=== PATIENT | female | born 1940 | race Caucasian/White ===

== ENCOUNTER 2022-08-10 08:56 | Outpatient (OUT) | payer MEDICARE, OTHER, SELFPAY ==
--- NOTE | 2022-08-10 09:05 | XR_ITS ---
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 HISTORY: Primary Ovarian Failure E28.39 FINDINGS: Bone mineral density of the lumbar spine L2-L4 measures 1.039 g/sq cm. T score -1.3. WHO classification: Osteopenia. Lowest bone mineral densities the left femoral neck measuring 0.728 g/sq cm. T score -2.2. WHO classification: Osteopenia IMPRESSION: Osteopenia. Moderate fracture risk Electronically authenticated by: BRANDYN GUADALUPE Date: 08/10/2022 09:37
== END 2022-08-10 08:57 ==
LOC: RAD 08:56
PROVIDERS: PCP Family Medicine; Visit Provider Family Medicine
DX: E28.39 Other primary ovarian failure (principal); M85.80 Other specified disorders of bone density and structure, unspecified site
CPT/HCPCS: 77080

== ENCOUNTER 2022-10-15 08:47 | Outpatient (OUT) | payer MEDICARE, OTHER, SELFPAY ==
[2022-10-15 09:55] LABS: Free T3 2.37 pg/mL (2.18-3.98); Thyroid Stimulating Hormone 0.216 uIU/mL (0.358-3.740)
== END 2022-10-15 08:48 | disposition home or self-care (01) ==
LOC: LAB 08:51
PROVIDERS: PCP Family Medicine; Visit Provider Family Medicine
DX: E03.9 Hypothyroidism, unspecified (principal)
CPT/HCPCS: 36415; 84436; 84443; 84481

== ENCOUNTER 2023-01-22 08:32 | Outpatient (OUT) | payer MEDICARE, OTHER, SELFPAY | END 2023-01-22 08:33 | disposition home or self-care (01) | LOC: PST 08:32 | PROVIDERS: PCP Family Medicine; Visit Provider Surgery | DX: Z01.818 Encounter for other preprocedural examination (principal); Q18.1 Preauricular sinus and cyst ==

== ENCOUNTER 2023-01-23 10:00 | Day surgery (SDC) | payer MEDICARE, OTHER, SELFPAY ==
--- NOTE | 2023-01-23 | OP_ITS ---
OPERATION DATE: ??01/23/2023 PREOPERATIVE DIAGNOSIS:? Enlarging epidermal cyst left preauricular area. POSTOPERATIVE DIAGNOSIS:? Enlarging epidermal cyst left preauricular area. PROCEDURE:? Excisional biopsy epidermal cyst left preauricular face. SURGEON:? Jr Cabello M.D. ANESTHESIA:? Local with 0.5% Marcaine plain. ESTIMATED BLOOD LOSS:? Less than 3 mL. INDICATIONS AND CONSENT:? Patient is an 82-year-old female with history of enlarging cyst in the left preauricular area.? ?Indications, risks, benefits, alternatives of proceeding with excisional biopsy under local anesthesia were explained extensively to the patient, including risks of bleeding, infection, scarring, pain, recurrence, need for further surgery.? All of her questions were answered.? Informed consent was obtained. PROCEDURE:? Patient brought to the procedure room, placed in the supine position.? The area was prepped and draped in the usual sterile fashion.? It was anesthetized with 0.5% Marcaine plain.? An oblique incision was made over the long axis of the lesion in the area of the skin crease and carried down through subcutaneous tissue, using sharp dissection.? The cyst was identified and freed up and sent off to Pathology.? It was approximately 1 cm in diameter.? The wound was irrigated.? The subcutaneous tissue was re-approximated with interrupted 4-0 Monocryl suture.? Skin was then closed with interrupted 5-0 subcuticular Monocryl sutures and skin glue.? Patient tolerated procedure well.? There was good hemostasis.? She was discharged home in good condition. She is to follow up in 7-10 days.? Call sooner with any problems or questions.? She is to take Tylenol or ibuprofen as needed for pain. CC:? Mike Robles M.D. [facility]
[2023-01-23 10:22] VITALS: BP 125/80; PULSE 85; RESP 18; TEMP 36.2; O2SAT 98
[2023-01-23 11:24] VITALS: BP 130/76; PULSE 79; RESP 18; O2SAT 92
[2023-01-23] MEDS: BUPIVACAINE HCL 0.5% PF 50 MG/10 ML VIAL INJ (11:34)
[2023-01-23 11:42] VITALS: BP 133/83; PULSE 69; RESP 18; O2SAT 95
== END 2023-01-23 11:47 | disposition home or self-care (01) ==
PROVIDERS: PCP Family Medicine; Visit Provider Surgery
PROC: (CPT 11441; principal; 2023-01-23 10:35)
DX: L72.0 Epidermal cyst (principal); I10 Essential (primary) hypertension; E03.9 Hypothyroidism, unspecified; Z87.440 Personal history of urinary (tract) infections; E66.9 Obesity, unspecified; E78.00 Pure hypercholesterolemia, unspecified; N26.1 Atrophy of kidney (terminal); K21.9 Gastro-esophageal reflux disease without esophagitis; Z68.30 Body mass index [BMI] 30.0-30.9, adult
CPT/HCPCS: 11441; 12051; 88304

== ENCOUNTER 2023-02-27 08:22 | Outpatient (OUT) | payer MEDICARE, OTHER, SELFPAY ==
--- OUTSIDE RECORDS SUMMARY | 2023-02-27 08:28 | XMS_ITS | CCD ---
Author Name Unknown Address [address] [place] [address] Organization [facility] Care Team Providers Care Safekeeping Clerk Name Role Phone Frances Robles MD Primary Care Provider [phone] Frances Robles Primary Care Physician ROVERTO, DR PEREZ Admitting Unavailable AHMED, DR PREEZ Attending Unavailable HOY ., DR DANIELS Primary Care Unavailable [facility], DR PHILLIP Engel Consulting Unavailable AHMED, DR PEREZ Consulting Unavailable HOY ., DR DANIELS Admitting Unavailable HOY ., DR DANIELS Attending Unavailable HOY ., DR DANIELS Primary Care Unavailable HOY ., DR DANIELS Admitting Unavailable HOY ., DR DANIELS Attending Unavailable HOY ., DR DANIELS Primary Care Unavailable HOY ., DR DANIELS Admitting Unavailable HOY ., DR DANIELS Attending Unavailable HOY ., DR DANIELS Primary Care Unavailable HOY ., DR DANIELS Consulting Unavailable HOY ., DR DANIELS Admitting Unavailable HOY ., DR DANIELS Attending Unavailable HOY ., DR DANIELS Primary Care Unavailable HOY ., DR DANIELS Consulting Unavailable AHMED, DR PEREZ Admitting Unavailable AHMED, DR PEREZ Attending Unavailable HOY ., DR DANIELS Primary Care Unavailable FREELAND, DR BRANDYN Yousif Consulting Unavailable AHMED, DR PEREZ Consulting Unavailable HOY ., DR DANIELS Admitting Unavailable HOY ., DR DANIELS Attending Unavailable HOY ., DR DANIELS Primary Care Unavailable HOY ., DR DANIELS Consulting Unavailable HOY ., DR DANIELS Admitting Unavailable HOY ., DR DANIELS Attending Unavailable HOY ., DR DANIELS Primary Care Unavailable HOY ., DR DANIELS Consulting Unavailable HOY ., DR DANIELS Admitting Unavailable HOY ., DR DANIELS Attending Unavailable HOY ., DR DANIELS Primary Care Unavailable TRAVIS Cabral, DR DANIELS Consulting Unavailable TRAVIS ., DR DANIELS Admitting Unavailable TRAVIS Cabral, DR DANIELS Attending Unavailable TRAVIS ., DR DANIELS Primary Care Unavailable TRAVIS ., DR DANIELS Consulting Unavailable DAISY ODELL Attending Unavailable NICHOLSNash Attending Unavailable NICHOLSNash Attending Unavailable NICHOLS, Nash Engel Attending Unavailable NICHOLS, Nash Engel Attending Unavailable Nash NICHOLS Admitting Unavailable Frances Robles Referring Unavailable Jr BAKER Attending Unavailable NILL, Jr Engel Attending Unavailable Allergies Allergy Classification Reported Allergen(s) Allergy Type Date of Onset Reaction(s) Facility (9 sources) Acetaminophen / oxyCODONE; Translations: [acetaminophen-ox ycodone] Drug Allergy [address] [facility] (4 sources) meloxicam Drug Allergy [address] [facility] (4 sources) Sulfonamides (Antibiotic) Propensity to adverse reactions [address] [facility] (8 sources) Cephalexin; Translations: [cephalexin] Drug Allergy 2 Diarrhea, Vomiting (disorder) [facility] (6 sources) Sulfamethoxazole; Translations: [sulfamethoxazole ] Drug Allergy Weal (disorder) [facility] (2 sources) Sulfonamides (Antibiotic) Drug allergy (disorder) 3 [facility] (1 source) Acetaminophen / oxyCODONE; Translations: [Percocet 10] Drug Allergy [facility] (1 source) Cephalexin; Translations: [Keflex] Drug Allergy [facility] Medications Current Medications Medication Drug Class(es) Dates Sig (Normalized) Sig (Original) aspirin 81 mg delayed release oral tablet (8 sources) Platelet Aggregation Inhibitor, Nonsteroidal Anti-inflammatory Drug Start: 04-24-2021 take 1 mg by mouth once daily aspirin 81 mg Oral EC Tab mg tab(s), Oral, Daily, Refills(s) 0 Start Date: 04/24/21 Status: Ordered aspirin 81 mg ca p Take 81 mg by mouth. 0 Active Comment on above: Take 81 mg by mouth. Calcium (5 sources) Phosphate Binder, Calcium Start: 02-22-20 10 Calcium 600 D Tab Oral, TID, Refill(s) 0 Start Date: 02/21/10 Status: Ordered ezetimibe 10 mg oral tablet (9 sources) Dietary Cholesterol Absorption Inhibitor Start: 03-01-19 take 10 mg by mouth once daily Zetia 10 mg, Oral, Daily, Refills(s) 0 Start Date: 02/21/10 Status: Ordered Comment on above: Take one(1) tablet d genevieve. levothyroxine sodium 0.05 mg oral tablet (8 sources) l-Thyroxine Start: 04-24-19 take 1 tablet by mouth once daily levothyroxine 50 mcg (0.05 mg) Tab mcg tab(s), Oral, Daily, Refills(s) 0 Start Date: 04/24/21 Status: Ordered levothyroxine 10 0 mcg cap Take 50 mcg by mouth daily before breakfast. 0 Active Comment on above: Take 50 mcg by mouth daily before breakfast. liothyronine sodium 0.025 mg oral tablet (8 sources) l-Triiodothyronine Start: 12-12-2022 take 1 tablet by mouth once daily Cytomel 25 mcg Tab 25 mcg = 1 tab(s), Oral, Daily, Refills(s) 0 Start Date: 12/12/22 Status: Ordered Start: 04-24-2021 take 1 ug by mouth once daily Cytomel 5 mcg Tab mcg tab(s), Oral, Daily, Refills(s) 0 Start Date: 04/24/21 Status: Ordered take 1 tablet by enrique th once daily liothyronine (CYTOMEL) 25 mcg tablet Take 25 mcg by mouth once daily. 0 Active Comment on above: Take 25 mcg by mouth once daily. 24 hr mirabegron 50 mg extended release oral tablet (8 sources) beta3-Adrenergic Agonist Start: 09-18-2022 take 1 tablet by mouth once daily Myrbetriq 50 mg oral tablet, extended release 50 mg = 1 tab(s), Oral, Daily, # 90 tab(s), Refills(s) 3, Pharmacy: [facility], 157, cm, 04/27/22 8:58:00 EST, Height/Length Dosing, 78, kg, 04/27/22 8:58:00 EST, Weight Dosing Start Date: 09/18/22 Status: Ordered Start: 09-28-2021 take 1 tablet by enrique th once daily Myrbetriq 50 mg oral tablet, extended release 50 mg = 1 tab(s), Oral, Daily, # 90 tab(s), Refills(s) 3, Pharmacy: [facility] (Now [facility]), 157, cm, 04/24/21 10:01:00 EST, Height/Length Dosing, 78, kg, 04/24/21 10:01:00 EST, Weight Dosing Start Date: 09/28/21 Status: Ordered take 50 mg by mouth once daily m irabegron (MYRBETRIQ ORAL) Take 50 mg by mouth once daily. 0 Active Comment on above: Take 50 mg by mouth once daily. olmesartan medoxomil 20 mg oral tablet (8 sources) Angiotensin 2 Receptor Micaela Start: 9 take 1 tablet by mouth once daily Benicar 20 mg Tab 20 mg = 1 tab(s), Oral, Daily, High blood pressure Start Date: 09/05/18 Status: Ordered Comment on above: Take 20 mg by mouth once daily. PreserVision AREDS 2 (2 sources) Start: 3 take 1 tablet by mouth once daily PreserVision AREDS 2 1 tab(s), Oral, Daily, Refill(s) 0 Start Date: 12/12/22 Status: Ordered raloxifene hydrochloride 60 mg oral tablet (9 sources) Estrogen Agonist/Antagonist Start: 9 raloxifene 60 mg oral tablet Refills(s) 0 Start Date: 09/05/18 Status: Ordered Comment on above: Take one(1) tablet d aily. rosuvastatin calcium 20 mg oral tablet (8 sources) HMG-CoA Reductase Inhibitor Start: 9 rosuvastatin 20 mg oral tablet Refills(s) 0 Start Date: 09/05/18 Status: Ordered take 10 mg by mouth once daily r osuvastatin calcium (ROSUVASTATIN ORAL) Take 10 mg by mouth once daily. 0 Active Comment on above: Take 10 mg by mouth once daily. Benefiber (3 sources) Start: 02-21-2010 Benefiber Refi ll(s) 0 Start Date: 02/21/10 Status: Ordered Completed/Discontinued Medications Medication Drug Class(es) Dates Sig (Normalized) Sig (Original) beta-carotene(a) w-c & e/min(OCUVITE TAB) (4 sources) Start: 10-05-2008 beta-carotene(a) w-c & e/min(OCUVITE TAB) Take two (2) tablets in AM 0 10/05/2008 Active Comment on above: Take two (2) tablets in AM calcium carbonate 1500 mg / cholecalciferol 200 unt oral tablet (4 sources) Vitamin D Start: 10-05-2008 calcium carbonate/vitami n d3(CALCIUM 600 + D(3) 600 MG (1,500)-200 UNIT TAB) Take one(1) tablet daily. 0 10/05/2008 Active Comment on above: Take one(1) tablet d aily. lisinopril 10 mg oral tablet (4 sources) Angiotensin Converting Enzyme Inhibitor Start: 10-05-2008 LISINOPRIL 10 MG TAB 2 tabs once a day 0 10/05/2008 Active Comment on above: 2 tabs once a day omega-3 acid ethyl esters (mcc) 1000 mg oral capsule (4 sources) Start: 10-05-2008 omega-3 acid ethyl esters(LOVAZA 1 GRAM CAP) Take four (4) capsules once daily 0 10/05/2008 Active Comment on above: Take four (4) capsul es once daily omeprazole 20 mg delayed release oral capsule (9 sources) Proton Pump Inhibitor Start: 06-13-2021 take 1 capsule by mouth twice daily omeprazole(PRILO SEC 20 MG CAP) Take 20 mg by mouth twice daily. 0 06/13/2021 Active Start: 02-21-2010 take 20 mg by mouth once daily Prilosec 20 mg, Oral, Daily, Refills(s) 0 Start Date: 02/21/10 Status: Ordered Start: 02-21-2010 Prilosec Oral, Daily, Refills(s) 0 Start Date: 02/21/10 Status: Ordered Comment on above: Take 20 mg by mouth twice daily. vit C/E/Zn/coppr/lutein/ze axan (PRESERVISION AREDS-2 ORAL) (3 sources) take 1 tablet by mouth twice daily vit C/E/Zn/coppr/lutein/ zeaxan (PRESERVISION AREDS-2 ORAL) Take 1 tablet by mouth twice daily. 0 Active Comment on above: Take 1 tablet by enrique twice daily. Problems Active Problems Problem Classification Problem Date Documented Da te Episodic/Chronic Anal and rectal conditions (4 sources) Rectal prolapse; Translations: [Rectal prolapse] 03-01-2009 Episodic Disorders of lipid metabolism (3 sources) Hyperlipidemia, unspecified; Translations: [Pure hypercholesterolemia] Onset: 2 12-12-2022 Chronic Esophageal disorders (10 sources) Gastroesophageal reflux disease 08-13-2013 Chronic Essential hypertension (2 sources) Hypertensive disorder 12-12-2022 Chronic Genitourinary symptoms and ill-defined conditions (5 sources) Incontinence without sensory awareness 11-13-2019 Chronic Genitourinary symptoms and ill-defined conditions (20 sources) Sensation as if bladder still full; Translations: [Feeling of incomplete bladder emptying] Onset: 3 Resolved: 9 Episodic Heart valve disorders (5 sources) Heart murmur 08-10-2018 Episodic Menopausal disorders (4 sources) Postmenopausal bleeding; Translations: [POSTMENOPAUSAL BLEEDING] Onset: 2 Chronic Nephritis; nephrosis; renal sclerosis (2 sources) Atrophy of kidney 12-12-2022 Chronic Other and unspecified benign neoplasm (5 sources) Neuroma of foot 05-08-2013 Episodic Other connective tissue disease (1 source) Female pelvic floor dysfunction; Translations: [Other specified disorders of muscle] Episodic Other female genital disorders (2 sources) Cervical intraepithelial neoplasia grade 1 12-12-2022 Episodic Other gastrointestinal disorders (1 source) Incontinence of feces; Translations: [Full incontinence of feces] Episodic Other gastrointestinal disorders (1 source) Complete fecal incontinence; Translations: [Full incontinence of feces] Episodic Other nutritional; endocrine; and metabolic disorders (2 sources) Body mass index 30+ - obesity 12-28-2022 Chronic Other nutritional; endocrine; and metabolic disorders (2 sources) Obesity 12-28-2022 Chronic Other screening for suspected conditions (not mental disorders or infectious disease) (1 source) Abnormal findings on diagnostic imaging of other specified body structures; Translations: [ABNORML FIND DX IMG OTH BODY STRUC] Onset: 2 Chronic Other screening for suspected conditions (not mental disorders or infectious disease) (5 sources) Encounter for screening mammogram for malignant neoplasm of breast; Translations: [Screening for malignant neoplasm of colon done] Onset: 3 Episodic Other skin disorders (2 sources) Epidermoid cyst; Translations: [Epidermal cyst] Onset: 3 Episodic Other skin disorders (2 sources) Epidermoid cyst of skin of face 12-28-2022 Episodic Other skin disorders (2 sources) Sebaceous cyst 12-12-2022 Episodic Other upper respiratory disease (2 sources) Seasonal allergic rhinitis 12-12-2022 Chronic Prolapse of female genital organs (4 sources) 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; Translations: [Urethrocele] 03-01-2009 Chronic Residual codes; unclassified (1 source) Family history of malignant neoplasm of digestive organs; Translations: [FAM HX MALIG NEOPLASM DIGESTIV ORGN] Onset: 3 Episodic Residual codes; unclassified (1 source) Family history of malignant neoplasm of other organs or systems; Translations: [FAM HX MALIG NEOPLASM OTH ORGN/SYS] Onset: 3 Episodic Thyroid disorders (6 sources) Hypothyroidism, unspecified; Translations: [Hypothyroidism] Onset: 3 Chronic Unclassified (5 sources) Finding of sensation of bladder 03-21-2020 Unclassified (2 sources) Osteopenia 12-12-2022 Unclassified (1 source) Patient encounter status 02-06-2023 Past or Other Problems Problem Classification Problem Date Documented Da te Episodic/Chronic Deficiency and other anemia (1 source) Anemia, unspecified; Translations: [ANEMIA UNSPECIFIED] Onset: 01-08-2022 Episodic Syncope (4 sources) Syncope and collapse; Translations: [SYNCOPE AND COLLAPSE] Onset: 01-05-2022 Episodic Results Test Name Value Interpretation Reference Range Facil ity Consent for Procedure/Surger yon 02-08-2023 Consent for Procedure/Surge ry [id number]#1.00T IFF Normal [facility] General Surgery Office/Clini c Noteon 02-06-2023 General Surgery Office/Clinic Note Chief Complaint post operative follow up HPI Staff 14 day post operative follow up post excisional biopsy epidermal cyst left preauricular. Denies discomfort, bleeding or drainage. History of Present Illness 2 weeks s/p excisional biopsy epidermal cyst left preauricular area; doing well, no pain or drainage; pathology consistent with epidermal cyst; patient interested in screening colonoscopy, last 2012, wnl; no change in bms or blood in stools, no abd complaints; no abd operations; on baby asa daily, no NSAID use, no SBE prophylaxis; fmhx of colon cancer in patient's father, dx in his 80's; no fmhx of IBD; no tobacco use. Review of Systems ROS - Provider Constitutional: no fever, no sweats, no weight loss. Eyes: no glasses, no blurred vision, no visual loss. ENMT: no dentures, no hoarseness, no swallowing difficulties, no hearing loss, no ear infection(s), no nose bleeds. Cardiovascular: normal blood pressure, no chest pain, regular heartbeat, no heart murmur. Respiratory: no shortness of breath, no cough, no asthma, no wheezing. Gastrointestinal: no nausea, no vomiting, no diarrhea, no constipation, no blood in stool, no change in bowel habits, no abdominal pain, no hepatitis. Genitourinary: no kidney stones, no urine infection, no dysuria. Musculoskeletal: no pain, no weakness. Skin: no changing moles, no rash, no skin lumps. Neurologic: no seizures, no epilepsy, no headache. Psychiatric: no emotional or psychiatric problem. Heme/Lymph: no bleeding problems, no anemia, no blood clots, no transfusions. Allergy/Immunologic: no swollen lymph nodes/glands, no IV drug abuse. Other: Additional ROS info: Except as noted in the above Review of Systems and in the History of Present Illness, all other systems have been reviewed and are negative or noncontributory. Physical Exam HEENT: normal conjunctiva, sclera clear, no scleral icterus, EOM intact, PERRLA, oral mucosa moist without lesions. left preauricular lesion healing well; no erythema or drainage. Neck: trachea midline, no mass, symmetric, no thyromegaly or nodules, no adenopathy Respiratory: lungs CTA, respirations non labored. Cardiovascular: regular rate and rhythm, no murmur, no pedal edema or varicosities. Gastrointestinal: soft, non distended, no tenderness, no masses, no palpable hernias, diastasis recti no, no hepatosplenomegaly; normal bs Lymphatic: no cervical adenopathy, no supraclavicular adenopathy. Musculoskeletal: normal gait, digits and nails without infection, nodes, cyanosis, clubbing. Skin: no rashes, no lesions, no ulcers, no subcutaneous nodules, induration. Psychiatric/Neuro: oriented to time, place, person, judgement normal, affect appropriate for age, insight intact, no focal deficits. Tests: review of old records completed , Discussed surgical options, risks, and possible complications with patient. Assessment/Plan 1. Epidermal cyst of face (L72.0: Epidermal cyst) doing well, call with problems/questions 2. Screening for malignant neoplasm of colon (Z12.11: Encounter for screening for malignant neoplasm of colon) plan colonoscopy under anesthesia, informed consent obtained. Follow-up No qualifying data available Problem List/Past Medical History Ongoing Atrophy of kidney BMI 30.0-30.9,adult Cervical intraepithelial neoplasia grade 1 Epidermal cyst of face Feeling of incomplete bladder emptying Gross hematuria Heart murmur History of UTI Hypertensive disorder Hypothyroidism Incontinence without sensory awareness Microscopic hematuria Neuroma of foot Nocturia Obesity Osteopenia Pure hypercholesterolemia Screening for malignant neoplasm of colon Seasonal allergic rhinitis Sebaceous cyst Urgency of urination Historical GERD GERD - Gastro-esophageal reflux disease History of cystocele Procedure/Surgical History Excision of cyst (01/23/2023), Cystoscopy (10/11/2010), anal sphincteroplasty (03/04/2009), mid transobturator mid-urethral sling (03/04/2009), Rectocele Repair (03/04/2009), Sacrospinous hysteropexy (03/04/2009), Transvaginal Sacrospinous rectopexy (03/04/2009), Dilation and curettage. Medications aspirin 81 mg Oral EC Tab, Oral, Daily Benicar 20 mg Tab, 20 mg= 1 tab(s), Oral, Daily Calcium 600 D Tab, Oral, TID Cytomel 25 mcg Tab, 25 mcg= 1 tab(s), Oral, Daily levothyroxine 50 mcg (0.05 mg) Tab, Oral, Daily Myrbetriq 50 mg oral tablet, extended release, 50 mg= 1 tab(s), Oral, Daily, 3 refills PreserVision AREDS 2, 1 tab(s), Oral, Daily Prilosec, 20 mg, Oral, Daily raloxifene 60 mg oral tablet rosuvastatin 20 mg oral tablet Zetia, 10 mg, Oral, Daily Allergies Keflex (Vomiting) Percocet 10/325 sulfamethoxazole (Hives) Social History Alcohol Current, 1-2 times per year, 09/05/2018 Substance Abuse - Denies Substance Abuse, 12/28/2022 Tobacco Never (less than 100 in lifetime) Tobacco Use:. Never Smokeless Tobacco Use:., 12/28/2022 Family History Pr (more content not included)... [facility] Comment on above: Result Comment: Electronically Signed By : IRINEO PARKINSON, Jr Engel\.br\Date and Time Signed: 02/06/23 20:15 EST Pathology Noteon 02-06-2023 Pathology Note [id number] IFF [facility] Operative Reporton Operative Report [id number] IFF [facility] Consent for Procedure/Surger yon 12-31-2022 Consent for Procedure/Surge ry [id number] IFF [facility] Ambulatory Visit Summaryon 1 02-27-2022 Ambulatory Visit Summary JOSIANE LOAIZA :1940 Visit Date:12/28/2022 Ambulatory Visit Instructions Your Care Team Attending Physician - IRINEO PARKINSON, Jr Engel Primary Care Physician - Travis PARKINSON, Frances Referring Physician - Frances Robles MD This Is Your Medications List Contact prescribing physician if questions or concerns aspirin (aspirin 81 mg Oral EC Tab) calcium-vitamin D (Calcium 600 D Tab) ezetimibe (Zetia) levothyroxine (levothyroxine 50 mcg (0.05 mg) Tab) liothyronine (Cytomel 25 mcg Tab) mirabegron (Myrbetriq 50 mg oral tablet, extended release) multivitamin with minerals (PreserVision AREDS 2) olmesartan (Benicar 20 mg Tab) omeprazole (Prilosec) raloxifene (raloxifene 60 mg oral tablet) rosuvastatin (rosuvastatin 20 mg oral tablet) Procedures Performed Cystoscopy (10/11/2010), anal sphincteroplasty (03/04/2009), mid transobturator mid-urethral sling (03/04/2009), Rectocele Repair (03/04/2009), Sacrospinous hysteropexy (03/04/2009), Transvaginal Sacrospinous rectopexy (03/04/2009), Dilation and curettage. Discharge Vitals Heart Rate (Peripheral) 72 Respiratory Rate 16 Blood Pressure 120/66 Height 157.4 cm Height 62 in Weight 76.7 kg Weight 168.74 lb BMI 30.96 What to do next Scheduled Follow-Up Appointments Saturday 1:00 PM EDT With: IRINEO PARKINSON, Jr Engel Where: General [facility] [place] [facility] [address] [place] [address] [place] [address]- \.br\ Medications\.br\ What How Much When Instructions\.br\ Unchanged aspirin (aspirin 81 mg Oral EC Tab) By Mouth Every day Contact prescribing physician if questions or concerns \.br\ Unchanged calcium-vitamin D (Calcium 600 D Tab) By Mouth 3 times a day Contact prescribing physician if questions or concerns \.br\ Unchanged ezetimibe (Zetia) 10 Milligram By Mouth Every day Contact prescribing physician if questions or concerns \.br\ Unchanged levothyroxine (levothyroxine 50 mcg (0.05 mg) Tab) By Mouth Every day Contact prescribing physician if questions or concerns \.br\ Unchanged liothyronine (Cytomel 25 mcg Tab) 1 Tablets By Mouth Every day Contact prescribing physician if questions or concerns \.br\ Unchanged mirabegron (Myrbetriq 50 mg oral tablet, extended release) 1 Tablets By Mouth Every day Contact prescribing physician if questions or concerns \.br\ Unchanged multivitamin with minerals (PreserVision AREDS 2) 1 Tablets By Mouth Every day Contact prescribing physician if questions or concerns \.br\ Unchanged olmesartan (Benicar 20 mg Tab) 1 Tablets By Mouth Every day Contact prescribing physician if questions or concerns \.br\ Unchanged omeprazole (Prilosec) 20 Milligram By Mouth Every day Contact prescribing physician if questions or concerns \.br\ Unchanged raloxifene (raloxifene 60 mg oral tablet) Contact prescribing physician if questions or concerns \.br\ Unchanged rosuvastatin (rosuvastatin 20 mg oral tablet) Contact prescribing physician if questions or concerns \.br\ Allergies\.br\ Keflex (Vomiting)\.br\ Percocet 10/325\.br\ sulfamethoxazole (Hives)\.br\ Problems\.br\ Ongoing - Any problem that you are currently receiving treatment for.\.br\ Atrophy of kidney\.br\ BMI 30.0-30.9,adult\.br \ Cervical intraepithelial neoplasia grade 1\.br\ Feeling of incomplete bladder emptying\.br\ Gross hematuria\.br\ Heart murmur\.br\ History of UTI\.br\ Hypertensive disorder\.br\ Hypothyroidism\.br\ Incontinence without sensory awareness\.br\ Microscopic hematuria\.br\ Neuroma of foot\.br\ Nocturia\.br\ Obesity\.br\ Osteopenia\.br\ Pure hypercholesterolemi a\.br\ Seasonal allergic rhinitis\.br\ Sebaceous cyst\.br\ Urgency of urination\.br\ Historical - Any problem that you are no longer receiving treatment for.\.br\ GERD\.br\ GERD - Gastro-esophageal reflux disease\.br\ History of cystocele\.br\ Patient Survey\.br\ You may receive a survey via text or e-mail asking about your office visit. Please share your experience with us by completing your survey. We appreciate your feedback and thank you for choosing us for your care.\.br\ \.br\ [facility] Physician Referralon 023 Physician Referral [id number] IFF Normal [facility] Physician Referral [id number] IFF Normal [facility] MG MAMM SCREEN 3D [place] CADon 06-12-2022 MG MAMM SCREEN 3D [place] CAD Patient: JOSIANE LOAIZA Exam Date: 06/12/2022 : 1940 Gender:F Ordering : DR CHRIS LAYNE Admission #: [id number] Family : DR FRANCES ROBLES . Order #: [id number] CLICK HERE TO VIEW EXAM RADIOLOGY REPORT PROCEDURE: MAMMOGRAM SCREENING 3D BILATERAL CAD COMPARISON: MG MAMM SCREEN [place] W CAD, 03/21/2020. MG MAMM SCREEN [place] W CAD, 06/05/2018. DIGITIZED_MAMMO, 09/23/2008. MG MAMM SCREEN 3D [place] CAD, 05/22/2021. INDICATIONS: Screening mammography Calculator Name NCI Breast Cancer Risk Assessment Tool 5 Year Breast Cancer Risk 2.00% Lifetime Breast Cancer Risk 3.10% Personal Breast Cancer No Personal Ovarian Cancer No Treatments None Family Cancers Mother with uterine cancer at age 60; Father with colon cancer at age 85. LOCATION: [facility] BREAST COMPOSITION: Scattered areas fibroglandular density. FINDINGS: DIAGNOSTIC CATEGORY 2--BENIGN FINDING: RIGHT BREAST: No significant suspicious finding. Scattered benign-appearing calcifications are present. No significant change has occurred. LEFT BREAST: No significant suspicious finding. Scattered benign-appearing calcifications are present. No significant change has occurred. RECOMMENDATIONS: ROUTINE MAMMOGRAM AND CLINICAL EVALUATION IN 12 MONTHS. PLEASE NOTE: A NORMAL MAMMOGRAM DOES NOT EXCLUDE THE POSSIBILITY OF BREAST CANCER. A CLINICALLY SUSPICIOUS PALPABLE LUMP SHOULD BE BIOPSIED. Dictated by: Phillip Mak M.D. on 06/12/2022 at 13:46 Approved by: Phillip Mak M.D. on 06/12/2022 at 13:48 Normal [facility] Coding Summary.on 05-05-2022 Coding Summary. CD:[id number] Gh0 bWw+PGhlYWQ+SF6DGTQrA63 uvIBaiK2kI9OCXPzHSktcHJ NGCTvNMdKnjxRaLA0slBCqA XJu IC8+PL3qZQYaDurrlZCpv8O 4dYE7I68qtx2qMGeojXC7XR DiVmOuriwwx4juqRf1LGxtV mluOyBt VHGwxN18BEJ3cG95Uh65mOB qkABgd8dopOa7MbQrPXMuVW I9kKioLYone4HdILGxD04cx WXin9J4 DDRvxIzvgJJgGwAjtFR4tF2 wPRularsbn1hcjpztDnx8df 33wBWjm4Y2gFA8O4YcedV6M GJvbGQg NeejwDTTyW3zndiep1ruhli pTsRqZOEiVFg3NIk3KSFylN vyLnOmGF43VXO2ZMJvogVkG 2FsLWFs bFvbDjC8c2L2Do0GY3LFUnq pJ3FOKBCAMMcgiZY+PC90cj 75Q0FbOhfrGbb1GEIvWLU5i IP5kH8g NPOjTNqdk9L8zAW4G6UqmvG ubt9wq1yvDLJcYLebX55qzZ Yog6H3PJJhoMC1SEUcaMgwE iBzaG93 Oyc+SNVetLvtc4WfSbfnb9g bz4ncxUw2TbhjDKPbvqSxoI bjWEY9n4HjPc9rMXWehXN4y RW0iE3i WcKvAtO4QAnnW852AbPtmQV vAkxfW05zC0WqgSU+PHRyPj u7CLQbwFybHN3vD0CwHOCws mctbGVm mHzfSP4vZTRjjodtICTueE9 rCFYqN6d5IcRzGcB4VEvyT5 VhHUYiihgkIf72hJ3gSlDpX tV7KWgd T9MufhY0ZXJjwMRyKWwsGGB 4K18ze9L4YWZaMWAsVJO4fS F8jX7slPjgjuroaDLcsTvtr mVydGlj SIabHDlbC716DQMonDcvXhF vZGluZyBEYXRlOiAgMDMvMT EvMjAyMzwvdGQ+BBQnERC0f WxlPSAn cKHmEOkvRv4bpAgxcOubIL5 yRPJgnewxSZXmzD1yCLFahP WrhEnkDS3iEBVbtdxeg083H iAxMHB0 NRHfwKNaF7InkM8eClQcRLX dKCCrM2KtdHFaKCzdO871LP qzQmN4ETRnltNfI8VmULGoq WduOiB0 j9B6Nv4Xw5LwavliG8FxbIO yUjIgKuyxLOm9Y3YlGomflK I+PJ96JHIhPI94YXu6VSD4e WxlPSdi MIHjV1AlmZ5oXoGuWKJwCVQ kOyc+PHRhYmxlIHdpZHRoPS fkTZHtSdBfgFprJY6dPa8pP GVyLWNv xVexwGRkFxUfc8ioVVCxKVv hPH7buJcyO1YvtOH8BJUks7 p1Pm17N44xH0IcyTI+PGNvb RI8zGK8 iI4tJiCqKuM7FLtmA607EsE wbPSoZigdj0mbc3qdyLh2La B2MSKqdzItxNsiQMF5l4McD m47A70l IHdpZHRoPSIxNSUiIHZhbGl pmo8akP8pCl9+YPYeqHV7nU Q4lB5fBmMyAhP3HPvjV592C nRvcCIv Ekzgp4vmr7kthHb6LjKvCZN sypIbqZmtSZM7b1PqUq38M9 WhcUlft9HzUor7rg85gKKhi 5A8cZQ9 D6OhTZRvgkkfrLGilPceZJ5 mAFJenbvaSOIigB1bGSOdT9 t0RzJiHxN5SLkfL9IeomZ8T GJvbGQg VNPjaRTDvS8cbkant0ssvkn tDyNoXTZdWBq2FKj9UHBiiM xsZaLlIOG1OjE4IFT3aUIwp C5ooRta zgxjfO5kSfk+XZC2wAVeqUE XMT9hPugzrUE+DHOpAVE2zO mjSTyfSCDkjQ5mQQSgL8s0K iAwLjA1 FYiyE0CornW1HVMunVDlMDA myLZXlB9qsqeug9szlnmnEt BkPFFdMTc2QRb1HAUjkSixP iBsZWZ0 VuQ5UIR8uAOfkL4dlOiwwmo scM6fFvf+VwsmlCpwSSX1XT b7Q8WiCzq6KIFlsWacJV9uv GFkZGlu Sc4ujXzlmIxbIG1jBHEreir kf234BoArp0pfODYafQZvLF rgPJX0N71cj7B8WDAjCOGzA OY6mPV5 cK1jkTltrzwdoUMfgYwxhgE ouOazCKbcWPfxM502BQGqqS arOtLhIIf7C7VrEbl0URZvw FmrVG8s jTUtGQfiUl1ikCmmpCnzSC7 aJNLjtodet944ZbYgi9mwFG SdjVStDYzyFLP5N78qk9M8R CMwMDAw ARF0sMT8iR5byGknszvmxEJ mdDsgdmVydGljYWwtYWxpZ2 32SYAnnHxdJvDwxJb5S2XdT af4EGWe qPsyGE2kzXKaFWkeLb8vwYr dwGebFQ8zBGTimbqjg505Dj Wwh0vpUWViwVFcQOhkGIW3O 45md2F6 SNVlYIBmFMA2gUE7dY7wgGm nbjogbGVmdDsgdmVydGljYW xwRNtoR487BLHkfHddFgPxc GllbnQg QTfmOXa4S2KeVcrbdRT+PC9 4BGKwPK41cCMnoFGus3zyvW g4YvDzELPjGHA9xCgxOCnek 3JkZXIt B93bhNGru8C6QXSypAyeyFO kHwExnMU8cZ9jLYqhmgwgl7 opchxtYwwpy1bexi16xX70Y 29sIHdp ZHRoPSIzMCUiIHZhbGlnbj0 baB2jRo7+SPRggVN9bVS1iO 8oEJBsIaM0YBhaS483GpWra CIvPjxj m1jnj6qjiPn2UiU3KSIknlN bmRcrADA5v6VdYw50Z66wJJ dpZHRoPSIyMCUiIHZhbGlnb v1pgM8z Ii8+WROrwKM5jMM8bE0fSdL gDeV9HSkmK123StNhcFYaJw ktA20iM7LmxFT+WGGwKag0E CBzdHls SG1lzZFvZCznRr3rUJM1OiJ zSdLnPLxkO8QmPHHfzjiwal axeDZ6CBMsAUKcdB09Fv5qk DogMTBw rFCDuL6agwhpe8edscjnMpW wUAYcMCd7WNn5EPJbfYorFq ZeLBI2MtS2IRC7oVLdgB4vr Glnbjog kH9lK7GuANTfmquhRb86aO3 cEnLeNeP2LXhmPep+UkVUVE lHLCBCUkVOREEgUzwvdGQ+P HRkIHN0 gDtjNNosIPYqsX5uQSYqU7e 8OmBmBbI8YHylT8ZbZCErxi qoBw13uF6sZbZsGiQ7QFwnN 8FygdZ5 QUUtuCWiMQccJGC0Q05oj9E 1NIDdFWTgLFK4hGQ4fN3ngR lnbjogbGVmdDsgdmVydGljY WwtYWxp D591DZEieHuoBzF2AaNqGhS 6IYE2R5WjVtd4GMBacXzhZL 1vfCGmHOvxGl4niArlaYbzT T9pIJOg lhpxJHMiaE7oZYHrjFXzsSi gTI4nCXDnssqgg360KiOnLH O3OUHmpGUyM1VwbV5yCsLbZ DAwMDAw H8BmtPXtPAraD383BAavKnU 1PQWhgiApI4VpJIFphUlpLn U2q1V3Cn16MJBOQVZkgkkoo GQ+PHRk GTI4kEdnUCaxRYVicS9kPCO qM9o4MfJfOxY2VFmqF7JjIU WirmyiGk94dX7uBeZiFnB4E CcvA2Jo rxY4RSXvsGJvNQppSCX4C65 ox5Q6TVXhJORtWWS7yJC7vG 1hbGlnbjogbGVmdDsgdmVyd GljYWwt VFjeW134JIZeaOujEcYsmUL sZTwvdGQ+JSUvNCX9cFjfQH zkGCTesC7jZTXsP3a0CmVqN sK8TGjb Y2ViVIQfqbwzKa00dO6kTyF mXtH6COihN8PhjhM1LOOvcO YmYBzpNZK1G86qv9F8KGFoI DAwMDA7 lVD3nG0cnBnkdmxtzUKnvTb nptBhhImsKOipJLlwG321LK BbfKdfMeomVnPXwf8yDE8aJ jwvdGQ+ PS63ns16K3TnEnirPgz2VGM eGHH9kRG9uU9lEMSuEAjmc9 E1kMY9C9SeibAkdf6eh4mvW XBzZTog N67acYLlt3V0KIXmpCY0XBC ggRwjUsZlcL23Uco+PGNvbG rot4TtXwwqp7glu1lbrNx0M jMwJSIg rnZrbJihWAM9p3TgJi58M27 sIHdpZHRoPSIzMCUiIHZhbG akcn5dlP1mKp8+FDQmoMV9u ZC8iD2i XrViOcP4TRiaX770SqZbnNC pTjkhg8fbi8dfbYc0SkVeJX NcojUfjKmhNHG9a9JwPs79Y 2NvbGdy f6WfNbv1yt31pCTux5I3sRJ 3F5LrIZTprtaekWVbdJguJZ 3yRDLgtsrmAOMigD6qCYJoM 9x0ErMe OuC0KQlcX0JiudX4DCMdzHS dTKLxeYNMcP4yratog4vkff vcIbNdTOThUUa5TQb5OXQku WduOiBs PJV6NyD5EZR8uAHolQ8jdEg bpjqruA7rVom+CAa4t6epxS PjSM7zyMK8NU75AM70qVAwz 3F2sMX7 S8QzCRErjixhqbzhrXA8OQT bHWUfzM36Ur7wdOtoAh0cKJ HqYRN8MDWtcLMyR1MliY2iS iAjMDAw FYVlL6MgzCByEZvnM630AIp hCnC3ZYSmdqNxZ1QhAVLbwE xtGyZ1t9Q7Xl7KLE72DY86N Z45sVLg x4F4xVK5J3QyCGVjdlumqgt pzXX7QLWqRGLnmD06Ds6haM nnJo4vBXOgLQJ9CHDcxUMzQ 4HlnB1o StPdTBKbTFCdJ8YhgZMoJVu aU971LNsxAxB4SFWnfmIoP2 YrGXLfgQwsMxR3o8P8Tc1WE j28SH45 US99oGVil0X0cRW1D9FtKVP jonobmbyeiUB6BSWkGSBbdS 63Up2erEqkXl7mDNRwBMO9H FRpbWVz S7DazE8fEsBnEMGdGBIwA8N tlNZbDNhaL796IHcgNxD1QX EpcgIjX8JiZWJixJocTdX5m 8U7Kc5J TWedhvx6Z2XxVhupiVG+PC9 8JVVlUT20rNPrgNXiu6kkmD d7CbYkVORoOAW6hGsjKNghk 3JkZXIt Y29s (more content not included)... Normal [facility] C Urineon 05-02-2022 Bacteria identified Cx Nom (U) Microbiology PROCEDURE: Urine Culture [R1] SOURCE: U Random BODY SITE: COLLECTED DATE/TIME: 04/30/2022 12:39 EST RECEIVED DATE/TIME: 04/30/2022 17:53 EST START DATE/TIME: 04/30/2022 17:53 EST FREE TEXT SOURCE: JARED PARKINSON, Nash NICHOLS MD, Nash Engel FINAL REPORTS Final Report [] Verified Date/Time: 05/02/2022 09:37 EST 1,000 cfu/ml Mixed skin contaminants Performing Locations R1: This test was performed at: [facility], [address] [place] [address], [id number] , [place], [facility] Comment on above: Performed By: #### [id number] ####[facility] [address] [place] [address] Ambulatory Visit Summaryon 0 04-30-2022 Ambulatory Visit Summary JOSIANE LOAIZA :1940 Visit Date:04/30/2022 Ambulatory Visit Instructions Your Care Team Attending Physician - Nash NICHOLS MD Primary Care Physician - Frances Robles MD This Is Your Medications List aspirin (aspirin 81 mg Oral EC Tab) calcium-vitamin D (Calcium 600 D Tab) ezetimibe (Zetia) levothyroxine (levothyroxine 50 mcg (0.05 mg) Tab) liothyronine (Cytomel 5 mcg Tab) mirabegron (Myrbetriq 50 mg oral tablet, extended release) olmesartan (Benicar 20 mg Tab) omeprazole (Prilosec) raloxifene (raloxifene 60 mg oral tablet) rosuvastatin (rosuvastatin 20 mg oral tablet) wheat dextrin (Benefiber) Procedures Performed Cystoscopy (10/11/2010), anal sphincteroplasty (03/04/2009), mid transobturator mid-urethral sling (03/04/2009), Rectocele Repair (03/04/2009), Sacrospinous hysteropexy (03/04/2009), Transvaginal Sacrospinous rectopexy (03/04/2009), D and C. What to do next Scheduled Follow-Up Appointments Saturday 8:15 AM EST With: Nash NICHOLS MD Where: [facility] Ambulatory Visit Summaryon 0 04-27-2022 Ambulatory Visit Summary JOSIANE LOAIZA :1940 Visit Date:04/27/2022 Ambulatory Visit Instructions Your Diagnosis Urgency of urination Feeling of incomplete bladder emptying History of UTI Nocturia Tests Performed Urnls Dip Stick Auto w/o Microscopy POC 41253 Your Care Team Attending Physician - Nash NICHOLS MD Primary Care Physician - Frances Robles MD This Is Your Medications List mirabegron (Myrbetriq 50 mg oral tablet, extended release) Contact prescribing physician if questions or concerns aspirin (aspirin 81 mg Oral EC Tab) calcium-vitamin D (Calcium 600 D Tab) ezetimibe (Zetia) levothyroxine (levothyroxine 50 mcg (0.05 mg) Tab) liothyronine (Cytomel 5 mcg Tab) olmesartan (Benicar 20 mg Tab) omeprazole (Prilosec) raloxifene (raloxifene 60 mg oral tablet) rosuvastatin (rosuvastatin 20 mg oral tablet) wheat dextrin (Benefiber) Procedures Performed Cystoscopy (10/11/2010), anal sphincteroplasty (03/04/2009), mid transobturator mid-urethral sling (03/04/2009), Rectocele Repair (03/04/2009), Sacrospinous hysteropexy (03/04/2009), Transvaginal Sacrospinous rectopexy (03/04/2009), D and C. Discharge Vitals Heart Rate (Peripheral) 74 Respiratory Rate 16 Blood Pressure 140/86 Height 157 cm Height 62 in Weight 78 kg Weight 171.6 lb BMI 31.64 What to do next Scheduled Follow-Up Appointments Saturday 8:15 AM EST With: JARED PARKINSON, Nash Engel Where: [facility] Patient Educationon 04-28-19 23 Patient Education Urology Urinary Frequency, Adult Urinary frequency means urinating more often than usual. You may urinate every 1?2 hours even though you drink a normal amount of fluid and do not have a bladder infection or condition. Although you urinate more often than normal, the total amount of urine produced in a day is normal. With urinary frequency, you may have an urgent need to urinate often. The stress and anxiety of needing to find a bathroom quickly can make this urge worse. This condition may go away on its own or you may need treatment at home. Home treatment may include bladder training, exercises, taking medicines, or making changes to your diet. Follow these instructions at home: Bladder health ? Keep a bladder diary if told by your health care provider. Keep track of: ? What you eat and drink. ? How often you urinate. ? How much you urinate. ? Follow a bladder training program if told by your health care provider. This may include: ? Learning to delay going to the bathroom. ? Double urinating (voiding). This helps if you are not completely emptying your bladder. ? Scheduled voiding. ? Do Kegel exercises as told by your health care provider. Kegel exercises strengthen the muscles that help control urination, which may help the condition. Eating and drinking ? If told by your health care provider, make diet changes, such as: ? Avoiding caffeine. ? Drinking fewer fluids, especially alcohol. ? Not drinking in the evening. ? Avoiding foods or drinks that may irritate the bladder. These include coffee, tea, soda, artificial sweeteners, citrus, tomato-based foods, and chocolate. ? Eating foods that help prevent or ease constipation. Constipation can make this condition worse. Your health care provider may recommend that you: ? Drink enough fluid to keep your urine pale yellow. ? Take fcck-qav-thqrion or prescription medicines. ? Eat foods that are high in fiber, such as beans, whole grains, and fresh fruits and vegetables. ? Limit foods that are high in fat and processed sugars, such as fried or sweet foods. General instructions ? Take ondo-tiu-kystthl and prescription medicines only as told by your health care provider. ? Keep all follow-up visits as told by your health care provider. This is important. Contact a health care provider if: ? You start urinating more often. ? You feel pain or irritation when you urinate. ? You notice blood in your urine. ? Your urine looks cloudy. ? You develop a fever. ? You begin vomiting. Get help right away if: ? You are unable to urinate. Summary ? Urinary frequency means urinating more often than usual. With urinary frequency, you may urinate every 1?2 hours even though you drink a normal amount of fluid and do not have a bladder infection or other bladder condition. ? Your health care provider may recommend that you keep a bladder diary, follow a bladder training program, or make dietary changes. ? If told by your health care provider, do Kegel exercises to strengthen the muscles that help control urination. ? Take ajgq-cmn-zlzphhz and prescription medicines only as told by your health care provider. ? Contact a health care provider if your symptoms do not improve or get worse. This information is not intended to replace advice given to you by your health care provider. Make sure you discuss any questions you have with your health care provider. Document Released: 12/08/2009 Document Revised: 08/21/2018 Document Reviewed: 08/21/2018 bSafe Patient Education ? 2019 [employer]. [facility] Urology Office/Clinic Noteon 04-27-2022 Urology Office/Clinic Note Chief Complaint 1yr f/u HPI Staff 1yr f/u to incomplete bladder emptying, urgency, Hx of UTI, nocturia and microscopic hematuria. *Myrbetriq 50mg QOD therapy. Denies any infections since last encounter. Still having some urgency. Denies leaking. Double voids in the mornings. Feels empty. Getting up at least 2x/night to void still. Did PFPT at [place]. Happy with the process and results. (underwent therapy due to bowel issues) No urinary concerns at this time. History of Present Illness Tests reviewed: reviewed UA. I have reviewed the previous health record information and history for this patient from Dr. Nichols. I have reviewed and verified the staff HPI to be accurate for this encounter. There have been no associated fever, chills, flank pain, or blood in the urine. Denies any urinary infections since last encounter. Review of Systems PHQ Score Initial Depression Screen Score: 0 ROS - Provider Constitutional: denies weight loss, denies hot flashes. Eyes: denies eye problems. Gastrointestinal: denies nausea, denies vomiting. Cardiovascular: denies chest pain or angina. Integumentary: no dryness Musculoskeletal: denies musculoskeletal symptoms. ENMT: denies otolaryngeal symptoms. Respiratory: no shortness of breath. Heme/Lymph: denies easy bleeding tendency, denies easy bruising tendency. Psychiatric: no confusion, no anxiety. Genitourinary: See HPI. Physical Exam Vitals & Measurements HR: 74(Peripheral) RR: 16 BP: 140/86 HT: 62 in HT: 157 cm WT: 78 kg WT: 171.6 lb BMI: 31.64 General Appearance: alert , no acute distress, well nourished, well developed female. Genitourinary: bladder nonpalpable, no flank pain. Assessment/Plan 1. Urgency of urination (R39.15: Urgency of urination) Continues Myrbetriq 50mg daily. Still experiencing urgency, intermittent leakage in the morning if she doesn't make it on time. this happens every 2 weeks or so. Feels she needs to limit fluids prior to bedtime. Pt. shares she just underwent PFPT @ [facility] due to bowel issues. Feels she learned a lot about bladder health and is happy with results. Recommended taking Myrbetriq at nighttime for at least a month to see if that improves morning symptoms. After a month if pt. does not feel there was a benefit she can go back to taking medication in the morning. 2. Feeling of incomplete bladder emptying (R39.14: Feeling of incomplete bladder emptying) Double voids in the morning, feels she is emptying well. PVR at last visit 53 mL. 3. History of UTI (Z87.440: Personal history of urinary (tract) infections) Denies infections since last encounter. UA today shows SMALL blood & large MAINE, slightly cloudy. Explained to pt. that UA results could be vaginal contamination. States it was a clean catch. Asymptomatic at this time. Pt. to call our office if she would develop symptoms. Will send today's sample for culture for precaution, pt. to be called with results. Pt. shares she is flying to [place] Saturday. Pt. aware that if culture would show infection we can send antibiotic to [facility] in [place] and she would be able to pick it up at a [facility] in [place]. 4. Nocturia (R35.1: Nocturia) Ongoing, 2x during the night but not bothersome. Follow-up With When Contact Information JARED PARKINSON, Nash Engel, [address] [place] [address]- Additional Instructions: 1 year Patient Education Urinary Frequency, Adult I, Bella Garcia, personally scribed for Dr. Nichols on 04/27/2022 09:39:58. . Documentation recorded by the scribeBella, accurately reflects the services(s) I performed and decisions made by me. Authenticated by Dr. Nichols on 04/27/2022 09:48:32. Problem List/Past Medical History Ongoing Feeling of incomplete bladder emptying Gross hematuria Heart murmur History of UTI Incontinence without sensory awareness Microscopic hematuria Neuroma of foot Nocturia Urgency of urination Historical GERD GERD - Gastro-esophageal reflux disease History of cystocele Procedure/Surgical History Cystoscopy (10/11/2010), anal sphincteroplasty (03/04/2009), mid transobturator mid-urethral sling (03/04/2009), Rectocele Repair (03/04/2009), Sacrospinous hysteropexy (03/04/2009), Transvaginal Sacrospinous rectopexy (03/04/2009), D and C. Medications aspirin 81 mg Oral EC Tab, Oral, Daily Benefiber Benicar 20 mg Tab, 20 mg= 1 tab(s), Oral, Daily Calcium 600 D Tab, Oral, TID Cytomel 5 mcg Tab, Oral, Daily levothyroxine 50 mcg (0.05 mg) Tab, Oral, Daily Myrbetriq 50 mg oral tablet, extended release, 50 mg= 1 tab(s), Oral, Daily, 3 refills Prilosec, Oral, Daily raloxifene 60 mg oral tablet rosuvastatin 20 mg oral tablet Zetia, 10 mg, Oral, Daily Allergies Keflex (Vomiting) Percocet 10/325 sulfamethoxazole Social History Alcohol Current, 1-2 times per year, 09/05/2018 Tobacco (more content not included)... Normal [facility] Comment on above: Result Comment: Electronically Signed By : Nash NICHOLS MD\.br\Date and Time Signed: 04/27/22 09:48 EST\.br\Electronically Co-Signed By: Bella Garcia\.br\Date and Time Co-Signed: 04/27/22 09:40 EST\.br\Electronically Co-Signed By: Bella Garcia\.br\Date and Time Co-Signed: 04/27/22 09:42 EST FREE T3on 04-05-2022 FREE T3 2.36 pg/mlL Normal 2.18-3.98 [facility] Comment on above: Performed By: #### T4, TSH, FT3 #### [facility] [address] [place] [address] Dr. Clement Duncan T4on 04-05-2022 T4 [Mass/Vol] 6.10 ug/dL Normal 4.80-13.90 [facility] Comment on above: Performed By: #### T4, TSH, FT3 #### [facility] [address] [place] [address] Dr. Clement Duncan TSHon 04-05-2022 TSH 0.257 uIU/mL Critically low 0.358-3.740 [facility] Comment on above: Performed By: #### T4, TSH, FT3 #### [facility] [address] [place] [address] Dr. Clement Duncan CBC AUTO DIFFon 01-03-2022 BASO # 0.0 103/ul Normal 0.0-0.1 [facility] Comment on above: Performed By: #### CBC #### [facility] [address] [place] [address] Dr. Clement Duncan Basophils/100 WBC (Bld) 0.4 % Normal 0.2-2.0 [facility] Comment on above: Performed By: #### CBC #### [facility] [address] [place] [address] Dr. Clement Duncna EO # 0.0 103/ul Normal 0.0-0.7 [facility] Comment on above: Performed By: #### CBC #### [facility] [address] [place] [address] Dr. Clement Duncan Eosinophils/100 WBC (Bld) 0.2 % Critically low 0.9-7.0 [facility] Comment on above: Performed By: #### CBC #### [facility] [address] [place] [address] Dr. Clement Duncan Erythrocyte distribution width (RBC) [Ratio] 15.3 % Critically high 11.0-15.0 [facility] Comment on above: Performed By: #### CBC #### [facility] [address] [place] [address] Dr. Clement Duncan Hematocrit (Bld) [Volume fraction] 41.7 % Normal 36.0-48.0 [facility] Comment on above: Performed By: #### CBC #### [facility] [address] [place] [address] Dr. lCement Duncan Hemoglobin (Bld) [Mass/Vol] 13.5 g/dL Normal 12.0-16.0 [facility] Comment on above: Performed By: #### CBC #### [facility] [address] [place] [address] Dr. Clement Duncan IG # 0.02 10e3/ul Normal 0.00-0.03 [facility] Comment on above: Performed By: #### CBC #### [facility] [address] [place] [address] Dr. Clement Duncan IG % 0.2 % Normal 0.0-0.5 [facility] Comment on above: Performed By: #### CBC #### [facility] [address] [place] [address] Dr. Clement Duncan LYMPH # 1.2 103/ul Normal 1.2-3.8 [facility] Comment on above: Performed By: #### CBC #### [facility] [address] [place] [address] Dr. Clement Duncan Lymphocytes/100 WBC (Bld) 13.3 % Critically low 20.5-60.0 [facility] Comment on above: Performed By: #### CBC #### [facility] [address] [place] [address] Dr. Clement Duncan MANUAL DIFF REQ NO Normal [facility] Comment on above: Performed By: #### CBC #### [facility] [address] [place] [address] Dr. Clement Duncan MCH (RBC) [Entitic mass] 28.5 pg Normal 26.7-34.0 [facility] Comment on above: Performed By: #### CBC #### [facility] [address] [place] [address] Dr. Clement Duncan MCHC (RBC) [Mass/Vol] 32.4 g/dL Normal 29.9-35.2 [facility] Comment on above: Performed By: #### CBC #### [facility] [address] [address] [address] Clement Duncan MCV (RBC) [Entitic vol] 88.0 fL Normal 81.0-99.0 [facility] Comment on above: Performed By: #### CBC #### [facility] [address] [place] [address] Dr. Clement Duncan MONO # 0.7 103/ul Normal 0.3-0.8 [facility] Comment on above: Performed By: #### CBC #### [facility] [address] [place] [address] Dr. Clement Duncan Monocytes/100 WBC (Bld) 7.6 % Normal 1.7-12.0 [facility] Comment on above: Performed By: #### CBC #### [facility] [address] [place] [address] Dr. Clement Duncan NEUT # 7.3 103/ul Critically high 1.4-6.5 [facility] Comment on above: Performed By: #### CBC #### [facility] [address] [place] [address] Dr. Clement Duncan Neutrophils/100 WBC (Bld) 78.3 % Critically high 43.0-75.0 The [facility] Comment on above: Performed By: #### CBC #### [facility] [address] [place] [address] Dr. Clement Duncan Platelet mean volume (Bld) [Entitic vol] 9.5 fL Normal 9.5-13.5 The [facility] Comment on above: Performed By: #### CBC #### [facility] [address] [place] [address] Dr. Clement Duncan PLT 331 103/ul Normal 150-450 [facility] Comment on above: Performed By: #### CBC #### [facility] [address] [place] [address] Dr. Clement Duncan RBC 4.74 106/ul Normal 4.20-5.40 [facility] Comment on above: Performed By: #### CBC #### [facility] [address] [place] [address] Dr. Clement Duncan WBC 9.3 103/ul Normal 4.0-11.0 [facility] Comment on above: Performed By: #### CBC #### [facility] [address] [address] [address] Clement Duncan FREE THYROXINE INDEX T7on FTI 2.11 Normal 1.30-4.50 [facility] Comment on above: Performed By: #### T4, TSH, FT3 #### [facility] [address] [address] [address] Clement Duncan T3U 34.0 % Normal 30.0-39.0 [facility] Comment on above: Performed By: #### T4, TSH, FT3 #### [facility] [address] [place] [address] Dr. Clement Duncan T4 [Mass/Vol] 6.20 ug/dL Normal 4.80-13.90 [facility] Comment on above: Performed By: #### T4, TSH, FT3 #### [facility] [address] [address] [address] Clement Duncan IRONon 01-03-2022 [place] [Mass/Vol] 85.0 ug/dL Normal 50.0-170.0 [facility] Comment on above: Performed By: #### T4, TSH, FT3 #### [facility] [address] [place] [address] Dr. Clement Duncan LIPID PROFILEon 01-03-2022 CHOL-HDL RATIO NORM SEE BELOW Normal [facility] Comment on above: Result Comment: 3.3 - 4.4 LOW RISK 4.4 - 7.1 AVERAGE RISK 7.1 - 11.0 MODERATE RISK >11.0 HIGH RISK Performed By: #### T 4, TSH, FT3 #### [facility] [address] [address] [address] Clement Duncan Cholesterol [Mass/Vol] 142 mg/dL Normal <=200 [facility] Comment on above: Performed By: #### T4, TSH, FT3 #### [facility] [address] [address] [address] Clement Duncan Cholesterol in HDL [Mass/Vol] 83 mg/dL Critically high 40-60 [facility] Comment on above: Performed By: #### T4, TSH, FT3 #### [facility] [address] [address] [address] Clement Duncan Cholesterol in LDL [Mass/Vol] 46.0 mg/dL Normal [facility] Comment on above: Performed By: #### T4, TSH, FT3 #### [facility] [address] [address] [address] Clement Duncan Cholesterol.tot al/Cholesterol in HDL [Mass ratio] 1.7 {ratio} Normal [facility] Comment on above: Performed By: #### T4, TSH, FT3 #### [facility] [address] [address] [address] Clement Duncan HDL NORMAL > or = 60 mg/dl - LO W CARDIOVASCULAR RISK <40 mg/dl - HIGH CARDIOVASCULAR RISK Normal [facility] Comment on above: Performed By: #### T4, TSH, FT3 #### [facility] [address] [address] [address] Clement Duncan LDL CALC NORMAL SEE BELOW Normal [facility] Comment on above: Result Comment: <100 mg/dl OPTIMAL 100 - 129 mg/dl NEAR OR ABOVE OPTIMAL 130 - 159 mg/dl BORDERLINE HIGH 160 - 189 mg/dl HIGH >190 mg/dl VERY HIGH Performed By: #### T 4, TSH, FT3 #### [facility] [address] [address] [address] Clement Duncan Triglyceride [Mass/Vol] 65 mg/dL Normal <=150 [facility] Comment on above: Performed By: #### T4, TSH, FT3 #### [facility] [address] [address] [address] Clement Duncan VLDL CALC 13.0 mg/dL Normal [facility] Comment on above: Performed By: #### T4, TSH, FT3 #### [facility] [address] [address] [address] Clement Duncan PROF 14(COMP METB)on 022 Albumin [Mass/Vol] 3.3 g/dL Critically low 3.4-5.0 [facility] Comment on above: Performed By: #### T4, TSH, FT3 #### [facility] [address] [address] [address] Clement Duncan Albumin/Globuli n [Mass ratio] 0.9 {ratio} Normal [facility] Comment on above: Performed By: #### T4, TSH, FT3 #### [facility] [address] [address] [address] Clement Duncan ALP [Catalytic activity/Vol] 89 U/L Normal 46-116 [facility] Comment on above: Performed By: #### T4, TSH, FT3 #### [facility] [address] [address] [address] Clement Duncan ALT [Catalytic activity/Vol] 20 U/L Normal 14-59 [facility] Comment on above: Performed By: #### T4, TSH, FT3 #### [facility] [address] [address] [address] Clement Duncan Anion gap [Moles/Vol] 9.8 mmol/L Normal [facility] Comment on above: Performed By: #### T4, TSH, FT3 #### [facility] [address] [address] [address] Clement Duncan AST [Catalytic activity/Vol] 19 U/L Normal 15-37 [facility] Comment on above: Performed By: #### T4, TSH, FT3 #### [facility] [address] [address] [address] Clement Duncan Bilirubin [Mass/Vol] 0.3 mg/dL Normal 0.2-1.0 [facility] Comment on above: Performed By: #### T4, TSH, FT3 #### [facility] [address] [address] [address] Clement Duncan Calcium [Mass/Vol] 9.3 mg/dL Normal 8.5-10.1 [facility] Comment on above: Performed By: #### T4, TSH, FT3 #### [facility] [address] [address] [address] Clement Duncan Chloride [Moles/Vol] 103 mmol/L Normal 98-107 [facility] Comment on above: Performed By: #### T4, TSH, FT3 #### [facility] [address] [address] [address] Clement Duncan CO2 [Moles/Vol] 29.5 mmol/L Normal 21.0-32.0 [facility] Comment on above: Performed By: #### T4, TSH, FT3 #### [facility] [address] [address] [address] Clement Duncan Creatinine [Mass/Vol] 0.83 mg/dL Normal 0.55-1.02 [facility] Comment on above: Performed By: #### T4, TSH, FT3 #### [facility] [address] [place] [address] Dr. Clement Duncan EGFR-AF ENGLISH >60 Normal >=60 [facility] Comment on above: Performed By: #### T4, TSH, FT3 #### [facility] [address] [place] [address] Dr. Clement Duncan EGFR-NON AF ENGLISH >60 Normal >=60 [facility] Comment on above: Performed By: #### T4, TSH, FT3 #### [facility] [address] [place] [address] Dr. Clement Duncan Globulin (S) [Mass/Vol] 3.6 g/dL Normal [facility] Comment on above: Performed By: #### T4, TSH, FT3 #### [facility] [address] [place] [address] Dr. Clement Duncan Glucose [Mass/Vol] 87 mg/dL Normal 74-106 [facility] Comment on above: Performed By: #### T4, TSH, FT3 #### [facility] [address] [address] [address] Clement Duncan Potassium [Moles/Vol] 4.3 mmol/L Normal 3.5-5.1 [facility] Comment on above: Performed By: #### T4, TSH, FT3 #### [facility] [address] [place] [address] Dr. Clement Duncan Protein [Mass/Vol] 6.9 g/dL Normal 6.4-8.2 [facility] Comment on above: Performed By: #### T4, TSH, FT3 #### [facility] [address] [place] [address] Dr. Clement Duncan Sodium [Moles/Vol] 138 mmol/L Normal 136-145 [facility] Comment on above: Performed By: #### T4, TSH, FT3 #### [facility] [address] [place] [address] Dr. Clement Duncan Urea nitrogen [Mass/Vol] 20.0 mg/dL Critically high 7.0-18.0 [facility] Comment on above: Performed By: #### T4, TSH, FT3 #### [facility] [address] [place] [address] Dr. Clement Duncan Urea nitrogen/Creati nine [Mass ratio] 24.1 mg/mg Normal [facility] Comment on above: Performed By: #### T4, TSH, FT3 #### [facility] [address] [place] [address] Dr. Clement Duncan TSHon 01-03-2022 TSH 0.129 uIU/mL Critically low 0.358-3.740 [facility] Comment on above: Performed By: #### T4, TSH, FT3 #### [facility] [address] [place] [address] Dr. Clement Duncan T4, T3U, FTI LABCORPon 11-07 Free Thyroxine Index 1.5 Normal 1.2-4.9 [facility] Comment on above: Performed By: #### T4, TSH, FT3 #### [facility] [address] [place] [address] Dr. Clement Duncan T3 Uptake 27 % Normal 24-39 [facility] Comment on above: Performed By: #### T4, TSH, FT3 #### [facility] [address] [place] [address] Dr. Clement Duncan T4 [Mass/Vol] 5.5 ug/dL Normal 4.5-12.0 [facility] Comment on above: Performed By: #### T4, TSH, FT3 #### [facility] [address] [place] [address] Dr. Clement Duncan FREE T3on 11-06-2021 FREE T3 2.53 pg/mlL Normal 2.18-3.98 [facility] Comment on above: Performed By: #### TSH, FT3 #### [facility] [address] [place] [address] Dr. Clement Duncan FREE T4on 11-06-2021 Free T4 [Mass/Vol] 0.83 ng/dL Normal 0.76-1.46 [facility] Comment on above: Performed By: #### T4, TSH, FT3 #### [facility] [address] [place] [address] Dr. Clement Duncan TSHon 11-06-2021 TSH 0.039 uIU/mL Critically low 0.358-3.740 [facility] Comment on above: Performed By: #### TSH, FT3 #### [facility] [address] [place] [address] Dr. Clement Duncan US PELVIS AND TRANSVAGon US PELVIS AND TRANSVAG EXAMINATION: US PELVIS AND TRANSVAG HISTORY: Postmenopausal bleeding COMPARISON: No relevant comparison available. FINDINGS: Transabdominal and transvaginal images The uterus is anteverted, retroflexed. The uterus measures 4.9 x 2.0 x 3.9 cm, age-appropriate atrophy. No focal myometrial mass. Endometrium measures 6 mm, minimally thickened The right ovary is not visualized Left ovary is atrophic measuring 0.8 x 0.8 x 0.9 cm. No free fluid. IMPRESSION: Mildly thickened endometrium measuring 6 mm. In light of patient's postmenopausal bleeding, consider histopathologic diagnosis Electronically authenticated by: BRANDYN GUADALUPE Date: 2021-10-02 07:42 Normal [facility] FREE T3on 09-19-2021 FREE T3 2.81 pg/mlL Normal 2.18-3.98 [facility] Comment on above: Performed By: #### TSH, T4, FT3 #### [facility] [address] [place] [address] Dr. Clement Duncan T4on 09-19-2021 T4 [Mass/Vol] 5.10 ug/dL Normal 4.80-13.90 [facility] Comment on above: Performed By: #### TSH, T4, FT3 #### [facility] [address] [place] [address] Dr. Clement Duncan TSHon 09-19-2021 TSH Qn m[IU]/L Critically low 0.358-3.740 [facility] Comment on above: Performed By: #### T4, TSH, FT3 #### [facility] [address] [place] [address] Dr. Clement Duncan FREE T3on 08-08-2021 FREE T3 1.98 pg/mlL Critically low 2.18-3.98 [facility] Comment on above: Performed By: #### T4, TSH, FT3 #### [facility] [address] [place] [address] Dr. Clement Duncan T4on 08-08-2021 T4 [Mass/Vol] 5.60 ug/dL Normal 4.80-13.90 [facility] Comment on above: Performed By: #### T4, TSH, FT3 #### [facility] [address] [place] [address] Dr. Clement Duncan TSHon 08-08-2021 TSH 0.059 uIU/mL Critically low 0.358-3.740 [facility] Comment on above: Performed By: #### T4, TSH, FT3 #### [facility] [address] [place] [address] Dr. Clement Duncan TSH RANGE SEE BELOW Normal [facility] Comment on above: Result Comment: <0.34 UIU/ml HYPERTHYROI D 0.34-5.60 UIU/ml EUTHYROID >5.60 UIU/ml HYPOTHYROID Performed By: #### T 4, TSH, FT3 #### [facility] [address] [place] [address] Dr. Clement Duncna CNOVon 06-13-2021 CNOV Office Visit (CORN ) JOSIANE LOAIZA ([id number]) 1940 F Date Time Provider Department 06/13/21 10:30 AM CATRACHO GONZALEZ During your visit today, we recorded the following information about you: Temperature Pulse Blood pressure Weight 97.3 degrees 94/minute 138/84 73.7 kg Height 1.575 m Catracho Gonzalez APRN.[facility] 06/14/2021 7:57 AM Signed COLORECTAL SURGERY New Patient Visit June 13, 2021 Chief Complaint: fecal incontinence History of Present Illness: Josiane Loaiza is a 80 year old female here with chronic fecal incontinence. She is s/p Transvaginal sacrospinous rectopexy with biologic graft, sacrospinous hysteropexy, rectocele repair, transobturator mid-urethral sling, and anal sphincteroplasty (08/08/2009). She's Seen Dr. Winter in the past for FI and ARM testing ([id number]). 02/01/2012 ARM: IMPRESSION: Normal resting and low squeeze pressures. Normal volume studies. Normal nerve studies. Today she reports: -recently saw [facility] and was encouraged to stop taking Metamucil -patient states that since stopping fiber over the weekend she has not had FI -BM 1-2x/day, soft and mushy to hard stacey (never loose) -has daily FI, usually occurs during her walks/exercise -occasionally feels the urge to go -denies straining and incomplete defecation -occasionally feels tissue protruding from anus with valsalva -denies anorectal pain or bleeding -FI is negatively affecting her life (scared to leave the house) -currently not on a bowel regimen ARM testing today: Anorectal Manometry Testing: Strength: Anorectal manometry was performed. ? Average Pressure Interpretation Rest: 22 mmHg This is below normal range. Normal range is 35-50 mmHg. Squeeze: 46 mmHg This is below normal range. Normal range is 75 - 100 mmHg. Low rest pressure. There is appropriate incremental change between resting and squeeze pressures which can indicate good pelvic floor movement with squeeze. Sensory: Sensation Volume First sensation : 50 mL / Normal Range: 40-80 mL First urge to defecate: 100 mL / Normal Range: 80-120 mL Maximum tolerable volume: 126 mL / Normal Range: 120-180 mL Recto-anal inhibitory reflex: Yes Balloon expulsion: No This exhibit normal rectal sensation with at least 2/3 sensory tests. ? A recto-anal inhibitory reflex (RAIR) was present. This is a normal reflex. EMG Recruitment: EMG recruitment was performed. ?The patient shows a normal increase in activity with squeeze, and a no change in activity with valsalva. ?This indicates abnormal ?pelvic floor movement, which can be indicative of poor pelvic floor coordination. PAST MEDICAL HISTORY Diagnosis Date - HTN (hypertension) - Hyperlipemia - Rectal prolapse PAST SURGICAL HISTORY Procedure Laterality Date - PAST SURGICAL HISTORY OF [facility] - PAST SURGICAL HISTORY OF 2009 uterine suspension - PAST SURGICAL HISTORY OF 03/04/2019 Transvaginal proctopexy with sacrospinous fixation with SurgiSis augmentation as well as a sphincter imbrication. Current Outpatient Medications Medication Sig Dispense Refill - omeprazole(PRILOSEC 20 MG CAP) Take one(1) capsule daily. 0 - ezetimibe(ZETIA 10 MG TAB) Take one(1) tablet daily. 0 - LISINOPRIL 10 MG TAB 2 tabs once a day 0 - raloxifene hcl(EVISTA 60 MG TAB) Take one(1) tablet daily. 0 - calcium carbonate/vitamin d3(CALCIUM 600 + D(3) 600 MG (1,500)-200 UNIT TAB) Take one(1) tablet daily. 0 - omega-3 acid ethyl esters(LOVAZA 1 GRAM CAP) Take four (4) capsules once daily 0 - beta-carotene(a) w-c AND e/min(OCUVITE TAB) Take two (2) tablets in AM 0 No current facility-administered medications for this visit. ALLERGIES Allergen Reactions - Keflex [Cephalexin] Diarrhea - Mobic [Meloxicam] GI Upset - Percocet [Oxycodone* Intolerance - Sulfa (Sulfonamide * Hives Review of Systems / PACC screen: Do you have difficulty climbing a full flight of stairs without feeling short of breath? no Do you require oxygen for your breathing or have your gone to an emergency department because of breathing problems? no Are you on dialysis or have you been told that your kidneys do not work well as they should? no Do have an implanted cardiac device (pacemaker, defibrillator etc.) that has not been checked in the last 6 months? no Have you had an organ transplant? no Have you been told that you had excessive bleeding during surgical procedures or do you take blood thinning medications other than aspirin? no Have you ever had a heart attack, heart stents/surgery, valve problems, or other heart problems? no Have you had a stroke, seizures, or unexplained loss of consciousness? no Do you have a neurologic condition like Parkinson's disease or multiple sclerosis? no Have you or a blood relative had a life-threatening reaction to anesthesia? no Do you have cirrhosis of th (more content not included)... Normal [facility] HISTORY PHYSICALon HISTORY PHYSICAL HNO ID: [id number] Author: Catracho Gonzalez APRN.[employer] Service: ? Author Type: Nurse Practitioner Type: HANDP Filed: 06/14/2021 7:57 AM Note Text: COLORECTAL SURGERY New Patient Visit June 13, 2021 Chief Complaint: fecal incontinence History of Present Illness: Josiane Loaiza is a 80 year old female here with chronic fecal incontinence. She is s/p Transvaginal sacrospinous rectopexy with biologic graft, sacrospinous hysteropexy, rectocele repair, transobturator mid-urethral sling, and anal sphincteroplasty (08/08/2009). She's Seen Dr. Winter in the past for FI and ARM testing ([id number]). 02/01/2012 ARM: IMPRESSION: Normal resting and low squeeze pressures. Normal volume studies. Normal nerve studies. Today she reports: -recently saw [facility] and was encouraged to stop taking Metamucil -patient states that since stopping fiber over the weekend she has not had FI -BM 1-2x/day, soft and mushy to hard stacey (never loose) -has daily FI, usually occurs during her walks/exercise -occasionally feels the urge to go -denies straining and incomplete defecation -occasionally feels tissue protruding from anus with valsalva -denies anorectal pain or bleeding -FI is negatively affecting her life (scared to leave the house) -currently not on a bowel regimen ARM testing today: Anorectal Manometry Testing: Strength: Anorectal manometry was performed. ? Average Pressure Interpretation Rest: 22 mmHg This is below normal range. Normal range is 35-50 mmHg. Squeeze: 46 mmHg This is below normal range. Normal range is 75 - 100 mmHg. Low rest pressure. There is appropriate incremental change between resting and squeeze pressures which can indicate good pelvic floor movement with squeeze. Sensory: Sensation Volume First sensation : 50 mL / Normal Range: 40-80 mL First urge to defecate: 100 mL / Normal Range: 80-120 mL Maximum tolerable volume: 126 mL / Normal Range: 120-180 mL Recto-anal inhibitory reflex: Yes Balloon expulsion: No This exhibit normal rectal sensation with at least 2/3 sensory tests. ? A recto-anal inhibitory reflex (RAIR) was present. This is a normal reflex. EMG Recruitment: EMG recruitment was performed. ?The patient shows a normal increase in activity with squeeze, and a no change in activity with valsalva. ?This indicates abnormal ?pelvic floor movement, which can be indicative of poor pelvic floor coordination. PAST MEDICAL HISTORY Diagnosis Date - HTN (hypertension) - Hyperlipemia - Rectal prolapse PAST SURGICAL HISTORY Procedure Laterality Date - PAST SURGICAL HISTORY OF [facility] - PAST SURGICAL HISTORY OF 2009 uterine suspension - PAST SURGICAL HISTORY OF 03/04/2019 Transvaginal proctopexy with sacrospinous fixation with SurgiSis augmentation as well as a sphincter imbrication. Current Outpatient Medications Medication Sig Dispense Refill - omeprazole(PRILOSEC 20 MG CAP) Take one(1) capsule daily. 0 - ezetimibe(ZETIA 10 MG TAB) Take one(1) tablet daily. 0 - LISINOPRIL 10 MG TAB 2 tabs once a day 0 - raloxifene hcl(EVISTA 60 MG TAB) Take one(1) tablet daily. 0 - calcium carbonate/vitamin d3(CALCIUM 600 + D(3) 600 MG (1,500)-200 UNIT TAB) Take one(1) tablet daily. 0 - omega-3 acid ethyl esters(LOVAZA 1 GRAM CAP) Take four (4) capsules once daily 0 - beta-carotene(a) w-c AND e/min(OCUVITE TAB) Take two (2) tablets in AM 0 No current facility-administered medications for this visit. ALLERGIES Allergen Reactions - Keflex [Cephalexin] Diarrhea - Mobic [Meloxicam] GI Upset - Percocet [Oxycodone* Intolerance - Sulfa (Sulfonamide * Hives Review of Systems / PACC screen: Do you have difficulty climbing a full flight of stairs without feeling short of breath? no Do you require oxygen for your breathing or have your gone to an emergency department because of breathing problems? no Are you on dialysis or have you been told that your kidneys do not work well as they should? no Do have an implanted cardiac device (pacemaker, defibrillator etc.) that has not been checked in the last 6 months? no Have you had an organ transplant? no Have you been told that you had excessive bleeding during surgical procedures or do you take blood thinning medications other than aspirin? no Have you ever had a heart attack, heart stents/surgery, valve problems, or other heart problems? no Have you had a stroke, seizures, or unexplained loss of consciousness? no Do you have a neurologic condition like Parkinson's disease or multiple sclerosis? no Have you or a blood relative had a life-threatening reaction to anesthesia? no Do you have cirrhosis of the liver or other liver disease? no Have you had a blood clot within the past year? no Do you take insulin or other injections for diabetes? no Do you have sleep apnea or have you been told you may have sleep apnea? no Do you have other implanted devices (deep brain stimulator (more content not included)... Normal [facility] Provider Orderson 08-30-2020 Provider Orders [id number] [facility] C Urineon 08-24-2020 C Urine >100,000 cfu/ml Prot eus mirabilis ORGANISM Promir -- SUSCEPTIBILITY - ORGANISM ID: 1 ANTIBIOTIC INTERPRETATION MARK STATUS ORGANISM PromirPromir Amik S <=16 Verified Amox/Cla S <=8/4 Verified Amp S <=8 Verified Amp/Sul S <=8/4 Verified Azt S <=4 Verified Cefaz S <=2 Verified Cefep S <=8 Verified Cefo S <=2 Verified Ceftaz S <=1 Verified Ceftri S <=1 Verified Cefur S <=4 Verified Ceph S <=8 Verified Cipro S <=1 Verified Ertap S <=0.5 Verified Gent S <=2 Verified Levo S <=2 Verified Nitro R >64 Verified Pip/Jona S <=16 Verified Tetra R >8 Verified Tobra S <=4 Verified Tri/Sulf S <=2/38 Verified Normal [facility] Comment on above: Performed By: #### [id number] #### [facility] (DEFAULT) [address] [place] [address] Coding Summaryon 08-23-2020 Coding Summary [facility] XntyxshyKIt3gBp+PGhlYWQ +GR9WVONaZ63dgVLhhT8WA7 xNVQ7HVPADIXHQXF4JLH2bw EP7IDehZ7OmqfVh JipnuWOoNC84BZo6AKO1qCt xTOszbG5yyDFaQ3z7QbTmPD 12tR67FJywXQJmSpC8CbAfk jsgbWFy N6iyDhTsgPCxAwv+PHRhYmx lIHdpZHRoPScxMDAlJyBzdH jhLH1gPq1jYTMrHXLtiTivl HNlOiBj z9wcLLXoLDstWT5xzInyL1U ssRY3YBZei0r9Zj93yNA+PH LtRDZ3eLndQPsda790AyKvs 7ahUYG5 vIPbVJocMUP4U02oj5Q2CBJ nIQReZRB2sPI8tQ2ihDinql qtF2VedZNiHcQ8NPW5rODun P4olYff jcuwtT6dQrp+C14YMB1EOFI ADD4DGta6S7QhOhfglHR+PC 95SJNpCL74rMIwuWHnt8lnj Yw8FiIs PQHtEED2jNpaWUkjx5QwJZR fJ33tnLSwv3Y5XXJdqMhdyS WsVlVwbGZ1hX6rTRrtduyzc 2hvdzsn Xklhw6zefu65oL10U54oGJp yIULnYDO4BXViMKLtiSpith 8tlY9qEp2+NTrju1spc4zqc Dx9AoNm UBHdqeByeRpmGNX0h9CvKc7 0U7QglEvpl6ZtSbi8pw20bZ Rai2L2fUS6YBroLVIfuS7qT WxlZnQ6 FHWlPtSboB98wDYjJMaxBx5 kiYcioPdvWV2rXMGrywllZF NflJ4vNUKaoIEeiJijBZ2iX TBpbjtm y075YlJuXPB1ZHDqhJQuF7S eiQ0aBlGnIBKaGQDcL7ObnL YrJKxmK547VRwiZwU0IWKas dPdD9Eq PMEvaIhsFoE6j0Y5Lf0Xp8G qdencVJY4DNawGTM7AeN8En RcIoT3E9YoTix8DITteNssS R2sD6Uf PUKonevobxlfvVP3GVBgPUK vnF31wZZbNAsxAx0xn1E1h0 14VFRtKTRuvV89Os9jhOftC TBwdCBU pW0kexrqv9osodytJhPlNNU gZFd7GWa2NOXimVdqOdCaPC U6ZdP2QRA2iGXorW3rhCfks jvomN4o Oyc+J01mzF3hZYZ9ULF3ggt uYITmkdLvRK32IU88U0EpDq wvdGFibGU+PGRpdiBzdHlsZ A1rRsVj x4dza6KlBKrtT4VnIUWlHHm aWxe6QPRbKCB0mUM9sR6jGX QoDKvdy5A5iXS3N8NljbUmr r4yn7lo NGRsJCsmD48zgTCky5X5MPA geCB5QSUinWmvQjYtfT75Uu c+JCLfoZkmp7WcMjsrt8hgp 5pjdQd8 SgZyOJTtwbDnzXwpIXM6f7C dAx63M45gADacOMUaWZRsDC DpVOUliMqnta7qhE4qVu5+P GNvbCB3 gFY7bG1hPPOdSrH6LHwcR70 1WgXojOZjMbdoq5ycp1wopU w5XqOdSOPmwtAkgHibJVE1i 3ImGp55 W48wDHfjVSDdGIMkHHChUGW smTuoyw7qjQ4wWc5+PC9jb2 pgwu87fB90aJS+CLVpXIE9m WxlPSdw VARwhB5rYPxoIdX2UVNlEwR pdU24nWVrJDbiGw4phHbhjU byIQ4cYISfmtmiy220RwIrm 2xkIDEw uXPaPHneGLG4N09fa5H9OZQ fSICvTJR0oRZ3jZ5nbGyfhg ogbGVmdDsgdmVydGljYWwtY UhmS557 IHRvcDsnPlBhdGllbnQgTmF mYOc1Q7CoOfi7FHDlyZffAX 0atAVlTYrfXn8voGzasNcvL A5rVMAk bcwpm372VcTkw5lvOPQeiQC sZIdmCJL2G56xh9V6LDXmTG JdORU9qJM6cO6zeNzrcovnq GVmdDsg qyWhsEjeLCruTQhcV571IRU sfBhtSeVjhpBrGPHjaIW9NS 49GJ51sBBal0V8dYX4X6FpZ GRpbmct pgcuzWY4TDRmTCEarS53Ed5 kqKxrIy8sKFUxFOL4TYAhiT PyW9PoyQ9nWnZxZIYpGMCpC 3RleHQt WGqpD434ZGdhVuY1HPMmmoK xD6JbOZIjyXouTaG0c7N9Bx 7RT5X6GE28AX27eCPpu7B6x UT1R9Ar AWFnmmiitojquGU3HTOyNXM boZ66Yw2fhJfvUt4xXGOyAZ M4KRPvoPNcW9NdnL7yYxTlT DAwMDAw Q3DdiOSrKPguS229CBliRtY 4LBZgetMkY3AwSDExwNhbQw K2u4E0Cs9BVMq0IQ84MR45w IKjw8F8 zRB7S1DsOMMjsbcmewizpYQ 2GAQeDDZsqW46Ri0tmFukKn 1xAFVtTYW4PEMyfNBfI3Qlk K8rHwTm RCKaVYZoZ2AvqPShVYhlA73 6OWqiStP4XVRodxNtG1PjJC IokCicSjR3h6L0Ao8URCFcO Q70FTJ6 eDJ0US48UL97E9SlUqxjkBD ibGU+PHRhYmxlIHdpZHRoPS kzVIOmQxItbPhpGJ1lGk8cM GVyLWNv lIbehNOrLlUdp1tmWEUzXRn yWX4wuXecY6GuqLL8KGRcc6 p1Zl21C25oM5JunSV+PGNvb PS0qEL6 eD6aDrBnObF0JBobS434InD eaHVnLxkua3tks0smxNg5Tr K7MMGsesVcdDtkCKK2x8LiG s38S82q IHdpZHRoPSIxNSUiIHZhbGl nrs5bjP7zNr5+CXMypON2oA T5hH4bSmBdZfS3VXsmZ835Q nRvcCIv Xepzm5cug1ursSi9GkOvZSC ozlQiuWggTFG7f4DxYl56G8 FwuMygk3FmLij4bi54aDQuw 1Z9oPH7 U9QmRFCqoxurnNTjzRxnDX2 oTRWshjmvQGHuqQ0aTAUrH7 b1FlQnAyJ4FAwbK5UikwR1G DEwcHQg GLqbABH7E16nl4Y1KWOsUYA wPZX8nTA7hS8whXxjbfykbR VmdDsgdmVydGljYWwtYWxpZ 246IHRv vLmgDWSbpL8zRHYfzTTljTi qYA0xHPHjjnvnMgVTSAEORo wgQlJFTkRBIFNVRTwvdGQ+P HRkIHN0 aFjuSVenXRNrwU2mUBGdS0a 1KzLnPrX3EGqkW7BpIHHumi iqZc48bU8eUhJqDeC5MKhdN 9KlslK0 CCTtxYSmEQphKHS0D29rv0J 7KTSwCHGtMCJ3gXG9aX2gzP lnbjogbGVmdDsgdmVydGljY WwtYWxp H708WEXgsYzcQwS8DzLxAtC 1EDW9V9EwLsi9HWKxfYbyXB 3zmPMxGJypEz9niKfveSnmL T5cBRVk tkufLIXhdQ4nKYBmjOQgtZt iUO6zRGIbuackr891HwHwLI I9PFBpmZTeO0RzlX3rHjIjY DAwMDAw W2AwxDDzFXbrQ136YAsgOgO 1CWXqslQnO5MnSJNwgZglSf X0i5Q2Th28LROOGYKbhwhnk GQ+PHRk KBE4dStkVBzlLWSjkQ7bAVB oR4z7BpNeDuN8XKokI2AhQO PmdszdSn49tH9aIaIqTtS4J DafM0Rt neN8XVJreITvLSdwRSX8N03 iw6X8XZNkRCAwFOZ0wTP3sS 1hbGlnbjogbGVmdDsgdmVyd GljYWwt ZFlmM500AEKfvRsnXzKNODF MRTwvdGQ+KENvRJK1wObxZG eaTCYpbJ4lDBZpA8f5JpBhJ yC8GMrh T1OcVRHnvmdrHw26xO6rOxF qXlF5KXncD2VjtzD5UZNfxS NyJRkoBNN2I18hf4W7GUQqJ DAwMDA7 tVA0rQ8qoYzmyabdvDAidKq xelHfjDrnKDbvXZpaP218YZ OlkMedMj9OSI20BG48P4WdL jwvdGFi bGU+PHRhYmxlIHdpZHRoPSc wUJDqKxFdnVupGS2sAz2lZL MeIFOpgVbtbVZlZgMns8alX XBzZTsg GI7baCgrY2UkiDP3VHIqv0i 7Ht27Z09kC2ProVY+PGNvbC M3yQU1zL0dBlKdTvB5IEbfX 249InRv dMAdBomtu9hwo3mlxPe0HsS dFLKgevTaiGmsSPU9r5HqCx 43E19yVRdnFOWwQZImFAFpC HZhbGln wu7viN7sDm7+MYMjoFQ7gID 6eL2dJzSiMmT0CAfdE914Bt CxqISmUngvJ79nJ2OkaHT+P HRyPjx0 NQErsMukXS9tuZUaICthAi7 rPXW6AqRdAkLpSQpoL8AvPQ ZsrwqkzjrxdTU2XGHcBJQmq C27Od0o eCbmPf3qJSAhLHI4FXElgOY sR0CwbJ4gByHlRSIjPBYfO9 WrzMQwLBzcO698STpaLgJ9U HZlcnRp W8DfKWKzqZroFfG1d2E0Ou9 SrKjbgIIvOA1nGbNqQOu5U0 PqDek3OETopRkkJU3lzPBuZ QibKv2e qXrgdGkiLU3xDBGjpakop16 4JzObh3sfZJAanGSaARtdKO N0C15kh2U4CEQeGHZoKCV9s MI9jG5j bGlnbjogbGVmdDsgdmVydGl qVLskOIwkQ746RPXrjMvhIk CKGri5D4SdQba6OXFrwSnvU L6pxOGc GTziZq5mwKpixYgkRG1lKIJ upjepq190SsWqh5leSGXeqF BrDWiyMTR8T40rj7U8KKXtA DAwMDA7 aWE6zJ0mrAuwjqmdzXHbqHa efeThhRaaDHhsURvqH612CE ZrtFewHg4GAzv4D1TgGnt5E CBzdHls KP7myEQxVZmwGj7pxKzdqMu xEP5qNKYjhxlql812QfQtv4 cvDJPkyGMhUZliUPO2P05xe 0Z8QEGd NSWfIYN3aXZ8aF8hwKgmcwr gbGVmdDsgdmVydGljYWwtYW qbP355ZTSzxSoaOcOviSYoH jwvdGQ+ KV13ux00Q7PpFcnbDzv3LIO jCYO9dTY3zW4pYJRnLZawb0 N8eDD3I5HvvgUava9wy0ltU XBzZTog Y29 (more content not included)... [facility] Provider Orderson 08-23-2020 Provider Orders [id number] TGTIFF [facility] ADULT [place] [facility] Vital Signs Date Time Vital Sign Value Performing Clinician Kodi emery 12-28-2022 13:05-0400 Blood Pressure Location Jr BAKER [facility] 12-28-2022 13:05-0400 Diastolic blood pressure 66 mm[Hg] Jr BAKER [facility] 12-28-2022 13:05-0400 Heart rate 72 /min Jr BAKER [facility] 12-28-2022 13:05-0400 Respiratory rate 16 /min Jr BAKER [facility] 12-28-2022 13:05-0400 Systolic blood pressure 120 mm[Hg] Jr BAKER [facility] 03-03-2023 08:57-0500 Blood Pressure Location Nash NICHOLS [facility] 04-27-2022 08:57-0500 Diastolic blood pressure 86 mm[Hg] Nash NICHOLS [facility] 04-27-2022 08:57-0500 Heart rate 74 /min Nash NICHOLS [facility] 04-27-2022 08:57-0500 Respiratory rate 16 /min Nash NICHOLS [facility] 04-27-2022 08:57-0500 Systolic blood pressure 140 mm[Hg] Nash NICHOLS [facility] 06-13-2021 09:46-0400 Body height 157.5 cm Catracho Gonzalez MACHINIST BENCH.ELECTROMECHANICAL ASSEMBLER Work Phone: [facility] 06-13-2021 09:46-0400 Body temperature 97.3 [degF] Catracho Carlos MACHINIST BENCH.ELECTROMECHANICAL ASSEMBLER Work Phone: [facility] 06-13-2021 09:46-0400 Body weight 73.71 kg Catracho Carlos MACHINIST BENCH.ELECTROMECHANICAL ASSEMBLER Work Phone: [facility] 06-13-2021 09:46-0400 Diastolic blood pressure 84 mm[Hg] Catracho Carlos MACHINIST BENCH.ELECTROMECHANICAL ASSEMBLER Work Phone: [facility] 06-13-2021 09:46-0400 Heart rate 94 /min Catracho Carlos MACHINIST BENCH.ELECTROMECHANICAL ASSEMBLER Work Phone: [facility] 06-13-2021 09:46-0400 SaO2% (BldA) [Mass fraction] 96 % Catracho Carlos MACHINIST BENCH.ELECTROMECHANICAL ASSEMBLER Work Phone: [facility] 06-13-2021 09:46-0400 Systolic blood pressure 138 mm[Hg] Catracho Carloscele CH.ELECTROMECHANICAL ASSEMBLER Work Phone: [facility] Encounters Encounter Date Encounter Type Care Provider Facility Start: 02-06-2023 End: 02-07-2023 ambulatory Jr Engel BRICEL Facility:[facility] Start: 02-06-2023 End: 02-06-2023 Patient encounter procedure Jr R NILL [facility] Nill[facility] Start: 01-22-2023 End: 01-22-2023 ambulatory DAISY ODELL Not Available Start: 12-28-2022 End: 12-29-2022 ambulatory Frances Robles Facility:[facility] Start: 12-28-2022 End: 12-28-2022 Patient encounter procedure Jr Engel BRICEL [facility] Nill/Said [facility] Start: 12-04-2022 ambulatory Nash NICHOLS Facility :[facility] Start: 06-12-2022 End: 06-13-[address] CHRIS LAYNE Facility: Start: 04-30-2022 End: 05-01-2022 ambulatory Nash NICHOLS Facility:[facility] Start: 04-30-2022 End: 05-01-2022 ambulatory Nash NICHOLS Facility:[facility] Start: 04-30-2022 End: 04-30-2022 Lab Drop off Nash NICHOLS [facility] Start: 04-30-2022 End: 04-30-2022 Patient encounter procedure Nash NICHOLS [facility] Start: 04-27-2022 End: 04-28-2022 ambulatory Nash NICHOLS Facility:[facility] Start: 04-27-2022 End: 04-27-2022 Patient encounter procedure Nash NICHOLS [facility] Start: 04-05-2022 End: 04-06-[address] FRANCES ROBLES . Facility:[facility] Start: 01-25-[address] FRANCES ROBLES . Facili ty:[facility] Start: 01-05-2022 End: 01-06-[address] FRANCES ROBLES . Facility:[facility] Start: 01-03-2022 End: 01-04-[address] FRANCES ROBLES . Facility:[facility] Start: 11-06-2021 End: 11-07-[address] FRANCES ROBLES . Facility:[facility] Start: 09-30-2021 End: 10-01-[address] CHRIS LAYNE Facility:[facility] Start: 09-28-[address] FRANCES ROBLES . Facili ty:[facility] Start: 09-19-2021 End: 09-20-[address] FRANCES ROBLES . Facility:[facility] Start: 09-12-2021 End: 09-12-2021 ambulatory Catracho Gonzalez APRN.ELECTROMECHANICAL ASSEMBLER Work Phone: [facility] Surgery Comment on above: Full incontinence of feces (Primary Dx) Start: 09-12-2021 End: 09-12-2021 Telemedicine consultation with patient Catracho Carlos WILDER Work Phone: [facility] Start: 09-08-2021 Chart abstracting Catracho devlin APRN.CNP Work Phone: Colorectal Surgery Start: 08-08-2021 End: 08-09-[address] FRANCES ROBLES . Facility:[facility] Start: 06-13-2021 End: 06-13-2021 ambulatory Lorie Romero APRN.ELECTROMECHANICAL ASSEMBLER Work Phone: Colorectal Surgery Comment on above: Manometry Start: 06-13-2021 End: 06-13-2021 Patient encounter procedure Lorie Romero APRN.ELECTROMECHANICAL ASSEMBLER Work Phone: [facility] Comment on above: Pelvic floor dysfunc tion in female (Primary Dx) Procedures Date Procedure Procedure Detail Performing Clinician Start: 01-23-2023 Excision of cyst Michae l NILL Comment on above: left preauricular Start: 06-13-2021 ADULT [place] [facility] Lorie Nick WILDER Work Phone: Start: 10-11-2010 Cystoscopy Nash MARIKA HDZ Start: 03-04-2009 anal sphincteroplasty Xavier NICHOLS Start: 03-04-2009 mid transobturator mid-urethral sling Nash NICHOLS Start: 03-04-2009 Repair of rectocele Saumya erlinda NICHOLS Start: 03-04-2009 Sacrospinous hysteropexy Nash NICHOLS Start: 03-04-2009 Transvaginal Sacrosp inous rectopexy Nash NICHOLS D and C Nash JARED Dilation and curettage Dann BAKER Plan of Treatment Date Care Activity Detail Author Start: 05-03-2023 ambulatory Ambulatory Facility:[facility] Start: 10-26-2021 Influenza vaccination INFLUENZA (#1) [facility] Start: 04-01-2021 COVID-19 VACCINE (4 - Booster for Pfizer series) COVID-19 VACCINE (4 - Booster for Pfizer series) [facility] Start: 02-25-2021 ADVANCE DIRECTIVE DISCUSSION ADVANCE DIRECTIVE DISCUSSION [facility] Start: 03-06-2012 DIABETES SCREEN DIABETES SCREEN [facility] Start: 2006 BONE DENSITY BONE DENSITY [facility] Start: 2006 PNEUMOCOCCAL: 65+ (1 - PCV) PNEUMOCOCCAL: 65+ (1 - PCV) [facility] Start: 2006 PNEUMOVAX AGE 65 AND OVER WITH 5YR LOOKBACK (#1) PNEUMOVAX AGE 65 AND OVER WITH 5YR LOOKBACK (#1) [facility] Start: 11-25-1991 SHINGRIX VACCINE (1 of 2) ABDI GRIX VACCINE (1 of 2) [facility] Start: 1960 Urine microalbumin profile DTAP,TDAP,TD (1 - Tdap) [facility] Start: 1953 Adult depression screening assessment DEPRESSION SCREENING [facility] Immunizations Immunization Date Immunization Notes Care Provider Fa cility 11-28-2022 influenza virus vaccine, unspecified formulation Jr BAKER [facility] 11-29-2020 SARS-CoV-2 (COVID-19 ) mRNA BNT-162b2 vax Jr IRINEO [facility] 04-14-2020 SARS-CoV-2 (COVID-19 ) mRNA BNT-162b2 vax Jr IRINEO [facility] 03-24-2020 SARS-CoV-2 (COVID-19 ) mRNA BNT-162b2 vax Jr IRINEO [facility] 02-26-2020 SARS-CoV-2 (COVID-19 ) mRNA BNT-162b2 vax Nash NICHOLS [facility] Comment on above: Result Comment: pt h as had 3 shots Payers Date Payer Category Payer Medicare [id number] 2019 Unknown MMO MMO MEDICARE SUPPLEMENT [id number] 2019-Present [phone] [address] [place] [address] Indemnity [id number] 2006 Medicare MEDICARE MEDICAR E A AND B [id number] 2006-Present [phone] [address] [address] [place] [address] Medicare [id number] 2006 Medicare [id number] 1959 Medicare [id number] 1959 Self-pay [id number] 1959 Unknown [id number] 1959 Unknown [id number] 1941 Unknown [id number] [id number] 1941 Unknown [id number] 2.16.840.1.871903.3.579.2.593 1941 Unknown [id number] 2.16.840.1.337675.3.579.2.593 1941 Unknown [id number] 2.16.840.1.768101.3.579.2.593 1941 Unknown [id number] 2.16.840.1.214798.3.579.2.593 1941 Unknown [id number] 2.16.840.1.576805.3.579.2.593 1941 Unknown [id number] 2.16.840.1.171924.3.579.2.593 1941 Unknown [id number] 2.16.840.1.867724.3.579.2.593 1941 Unknown [id number] 2.16.840.1.680147.3.579.2.593 1941 Unknown [id number] 2.16.840.1.470498.3.579.2.593 1941 Unknown [id number] 2.16.840.1.672680.3.579.2.1259 1941 Unknown [id number] 2.16.840.1.634047.3.579.2.727 1941 Unknown [id number] 2.16.840.1.495124.3.579.2.727 1941 Unknown [id number] 2.16.840.1.643599.3.579.2.727 1941 Unknown [id number] 2.16.840.1.196441.3.579.2.727 1941 Unknown [id number] 2.16.840.1.007758.3.579.2.727 1941 Unknown [id number] 2.16.840.1.278431.3.579.2.727 Social History Date Type Detail Facility Start: 04-27-2022 End: 12-28-2022 Tobacco smoking status NHIS Never smoked tobacco [facility] Start: 06-13-2021 Alcohol intake Lifetime non-d gregg (finding) [facility] Start: 06-13-2021 History SDOH Alcohol Frequency [address] [facility] Start: 1940 Sex Assigned At Female C [facility] Start: 06-03-2021 End: 06-13-2021 Exposure to SARS-CoV-2 (event) Not sure [facility] Tobacco smoking status Never [facility] Sex Assigned At Female [facility] Medical Equipment Procedure Code Equipment Code Equipment Origin al Text Equipment Identifier Dates [id number] Implant - [id number] Start: 03-04-2009 Comment on above: Description: Surgisi s Biodesign 4 layer tissue graft Device Tvt W/ Obturator - [id number] Start: 03-04-2009 Functional Status Date Assessment Result Facility 12-28-2022 Functional Status N/A [facility] 04-27-2022 Functional Status N/A [facility] Clinical Notes 06-13-2021 to 12-28-2022 Patient InstructionsCaitlylucian Gonzalez APRN.NEW - 09/12/2021 8:00 AM Geovany Gonzalez APRN.NEW - 09/08/2021 12:38 PM Geovany Gonzalez APRN.CNP - 06/13/2021 10:30 AM EDTPatient Instructions Note Date & Type Note Facility 12-28-2022 Note Chief Complaint consultation for facial cyst HPI Staff 82 year old female presents on consultation from Dr. Robles for left facial cyst. Reports cyst has been presents many years. Verbalized this has not changed in size. Denies tenderness or soreness. Never opened or drained. Never been on ATB for this. History of Present Illness 82 yo female with h/o hypercholesterolemia, hypothyroidism, referred for left preauricular cyst; no h/o infection or pain, slight increase in size; present for many years; on baby asa, no NSAID use; no tobacco use. Review of Systems PHQ Score Initial Depression Screen Score: 0 ROS - Provider Constitutional: no fever, no sweats, no weight loss. Eyes: yes glasses, no blurred vision, no visual loss. ENMT: no dentures, no hoarseness, no swallowing difficulties, no hearing loss, no ear infection(s), no nose bleeds. Cardiovascular: normal blood pressure, no chest pain, regular heartbeat, no heart murmur. Respiratory: no shortness of breath, no cough, no asthma, no wheezing. Gastrointestinal: no nausea, no vomiting, no diarrhea, no constipation, no blood in stool, no change in bowel habits, no abdominal pain, no hepatitis. Genitourinary: no kidney stones, no urine infection, no dysuria. Musculoskeletal: no pain, no weakness. Skin: no changing moles, no rash, yes skin lumps. Neurologic: no seizures, no epilepsy, no headache. Psychiatric: no emotional or psychiatric problem. Heme/Lymph: no bleeding problems, no anemia, no blood clots, no transfusions. Allergy/Immunologic: no swollen lymph nodes/glands, no IV drug abuse. Other: Additional ROS info: Except as noted in the above Review of Systems and in the History of Present Illness, all other systems have been reviewed and are negative or noncontributory. Physical Exam Vitals & Measurements HR: 72(Peripheral) RR: 16 BP: 120/66 HT: 62 in HT: 157.4 cm WT: 76.7 kg WT: 168.74 lb BMI: 30.96 HEENT: normal conjunctiva, sclera clear, no scleral icterus, EOM intact, PERRLA, oral mucosa moist without lesions. Neck: trachea midline, no mass, symmetric, no thyromegaly or nodules, no adenopathy Respiratory: lungs CTA, respirations non labored. Cardiovascular: regular rate and rhythm, no murmur, no pedal edema or varicosities. Lymphatic: no cervical adenopathy, no supraclavicular adenopathy. Musculoskeletal: normal gait, digits and nails without infection, nodes, cyanosis, clubbing. Skin: no rashes, no lesions, no ulcers,left preauricular area with 1.2 cm cyst, nontender, no overlying skin changes. Psychiatric/Neuro: oriented to time, place, person, judgement normal, affect appropriate for age, insight intact, no focal deficits. Tests: review of old records completed , Discussed surgical options, risks, and possible complications with patient. Assessment/Plan 1. Epidermal cyst of face (L72.0: Epidermal cyst) plan excisional biopsy under local anesthesia at [facility], informed consent obtained. Follow-up No qualifying data available Problem List/Past Medical History Ongoing Atrophy of kidney BMI 30.0-30.9,adult Cervical intraepithelial neoplasia grade 1 Epidermal cyst of face Feeling of incomplete bladder emptying Gross hematuria Heart murmur History of UTI Hypertensive disorder Hypothyroidism Incontinence without sensory awareness Microscopic hematuria Neuroma of foot Nocturia Obesity Osteopenia Pure hypercholesterolemia Seasonal allergic rhinitis Sebaceous cyst Urgency of urination Historical GERD GERD - Gastro-esophageal reflux disease History of cystocele Procedure/Surgical History Cystoscopy (10/11/2010), anal sphincteroplasty (03/04/2009), mid transobturator mid-urethral sling (03/04/2009), Rectocele Repair (03/04/2009), Sacrospinous hysteropexy (03/04/2009), Transvaginal Sacrospinous rectopexy (03/04/2009), Dilation and curettage. Medications aspirin 81 mg Oral EC Tab, Oral, Daily Benicar 20 mg Tab, 20 mg= 1 tab(s), Oral, Daily Calcium 600 D Tab, Oral, TID Cytomel 25 mcg Tab, 25 mcg= 1 tab(s), Oral, Daily levothyroxine 50 mcg (0.05 mg) Tab, Oral, Daily Myrbetriq 50 mg oral tablet, extended release, 50 mg= 1 tab(s), Oral, Daily, 3 refills PreserVision AREDS 2, 1 tab(s), Oral, Daily Prilosec, 20 mg, Oral, Daily raloxifene 60 mg oral tablet rosuvastatin 20 mg oral tablet Zetia, 10 mg, Oral, Daily Allergies Keflex (Vomiting) Percocet 10/325 sulfamethoxazole (Hives) Social History Alcohol Current, 1-2 times per year, 09/05/2018 Substance Abuse - Denies Substance Abuse, 12/28/2022 Tobacco Never (less than 100 in lifetime) Tobacco Use:. Never Smokeless Tobacco Use:., 12/28/2022 Family History Primary malignant neoplasm of colon: Father. Uterine cancer: Mother. Immunizations Vaccine Date Status Comments influenza virus vaccine, inactivated 11/28/2022 Recorded SARS-CoV-2 (COVID-19) mRNA BNT-162b2 vax 11/29/2020 Recorded SARS-CoV-2 (COVID-19) mRNA BNT-162b2 vax 04/14/ (more content not included)... [facility] Comment on above: Result Comment: Elec tronically Signed By: IRINEO PARKINSON, Jr Saavedra\Date and Time Signed: 12/28/22 16:14 EDT 04-27-2022 Hospital Discharge instructions Patient Education 04/27/2022 09:34:50 Urinary Frequency, Adult Urinary Frequency, Adult Urinary frequency means urinating more often than usual. You may urinate every 1 2 hours even though you drink a normal amount of fluid and do not have a bladder infection or condition. Although you urinate more often than normal, the total amount of urine produced in a day is normal. With urinary frequency, you may have an urgent need to urinate often. The stress and anxiety of needing to find a bathroom quickly can make this urge worse. This condition may go away on its own or you may need treatment at home. Home treatment may include bladder training, exercises, taking medicines, or making changes to your diet. Follow these instructions at home: Bladder health Keep a bladder diary if told by your health care provider. Keep track of: ?What you eat and drink. ?How often you urinate. ?How much you urinate. Follow a bladder training program if told by your health care provider. This may include: ?Learning to delay going to the bathroom. ?Double urinating (voiding). This helps if you are not completely emptying your bladder. ?Scheduled voiding. Do Kegel exercises as told by your health care provider. Kegel exercises strengthen the muscles that help control urination, which may help the condition. Eating and drinking If told by your health care provider, make diet changes, such as: ?Avoiding caffeine. ?Drinking fewer fluids, especially alcohol. ?Not drinking in the evening. ?Avoiding foods or drinks that may irritate the bladder. These include coffee, tea, soda, artificial sweeteners, citrus, tomato-based foods, and chocolate. ?Eating foods that help prevent or ease constipation. Constipation can make this condition worse. Your health care provider may recommend that you: ?Drink enough fluid to keep your urine pale yellow. ?Take xifh-inn-meelivg or prescription medicines. ?Eat foods that are high in fiber, such as beans, whole grains, and fresh fruits and vegetables. ?Limit foods that are high in fat and processed sugars, such as fried or sweet foods. General instructions Take vttw-ehd-qauzdyn and prescription medicines only as told by your health care provider. Keep all follow-up visits as told by your health care provider. This is important. Contact a health care provider if: You start urinating more often. You feel pain or irritation when you urinate. You notice blood in your urine. Your urine looks cloudy. You develop a fever. You begin vomiting. Get help right away if: You are unable to urinate. Summary Urinary frequency means urinating more often than usual. With urinary frequency, you may urinate every 1 2 hours even though you drink a normal amount of fluid and do not have a bladder infection or other bladder condition. Your health care provider may recommend that you keep a bladder diary, follow a bladder training program, or make dietary changes. If told by your health care provider, do Kegel exercises to strengthen the muscles that help control urination. Take mlid-dbq-xeyvngy and prescription medicines only as told by your health care provider. Contact a health care provider if your symptoms do not improve or get worse. This information is not intended to replace advice given to you by your health care provider. Make sure you discuss any questions you have with your health care provider. Document Released: 12/08/2009 Document Revised: 08/21/2018 Document Reviewed: 08/21/2018 bSafe Patient Education 2020 [employer]. Follow Up Care 04/24/2021 10:45:00 With:JARED PARKINSON, Nash Engel, ILYAL Address: [address] [place] [address] [place] [address]- When: Unknown [facility] 09-12-2021 Note HNO ID: [id number] Author: Catracho Gonzalez APRN.ELECTROMECHANICAL ASSEMBLER Service: ? Author Type: Nurse Practitioner Type: Progress Notes Filed: 09/12/2021 8:23 AM Note Text: COLORECTAL SURGERY VIRTUAL VISIT FOLLOW UP I had a virtual visit with Ms. Loaiza today for follow up of PFPT for fecal incontinence. Last seen in the office by me on 06/13/21 for ARM testing and consultation: -bm 1-2x/day -daily FI with activity -no bowel regimen, stopping Metamucil helped her symptoms --poor sphincter tone (rest 22, squeeze 46) --normal sensation --RAIR intact, unable to expel balloon --equivocal movement -given bowel diary and encouraged to start imodium and PFPT UPDATED HISTORY: Josiane Loaiza is a 80 year old female here virtually to discuss fecal incontinence management. Today she reports: bm frequency/consistency: 1-2x/day Bowel regimen:imodium 1/2 tablet nightly FI: no longer losing large amounts of stool; still having small amounts of stool that come out without urgency Now having FI once weekly Eating more oatmeal and bananas; this seems to help bulk her stools Straining: rarely Incomplete defecation:occasionally; seems to be improving Bowel diary: received; see abstract note PFPT: has helped some ; has done about 8 sessions with one more to go Has better control of her urine now Overall is pleased with her progress PHYSICAL FINDINGS OF NOTE: General ? Normal, healthy, cooperative, in no acute distress Able to interact verbally by video conference Pulmonary ? respiratory effort normal Abdominal ? Not performed Motor ? patient seen sitting with Normal appearing strength and coordination Anorectal exam ? Not Performed Medical Decision Making: Assessment Assessment AND Diagnosis: Josiane Loaiza is a 80 year old female with chronic fecal incontinence. Since beginning pelvic floor PT and taking imodium regularly she has noticed an improvement in her symptoms. She was initially having episodes of FI daily and now this is occurring about once weekly. Overall she is pleased with her progress. She was encouraged to continue home PFPT exercises and current bowel regimen. Data Reviewed: - Tests AND Documents Reviewed/ordered: Review of prior notes from [facility] - I have discussed Josiane Loaiza's treatment plan and/or results with the patient. Treatment plan: Continue home PFPT exercises Continue bowel regimen, can adjust imodium dose as needed Follow up with [facility] pelvic floor PRN Risk of morbidity, mortality and/or complications of treatment plan: low I spent a total of 25 minutes on the date of the service which included preparing to see the patient, [id number] patient care, completing clinical documentation, obtaining and/or reviewing separately obtained history, performing a medically appropriate examination, counseling and educating the patient/family/caregiver and communicating results to the patient/family/caregiver. [facility] 09-12-2021 Instructions Catracho Gonzalez APRN.[facility] 09/12/2021 8:21 AM EDT Continue home PFPT exercises Continue bowel regimen, can adjust imodium dose as needed Follow up with [facility] pelvic floor as needed; [phone] Your total daily fiber intake should be 25-35g CEREAL FIBER (GMS) Kelloggs All Bran w/Extra Fiber 15 General Gibson Fiber One 12 Kelloggs All Bran 9 Nabisco 100% Bran 8 Jesus Alberto's All Bran Fruit and Almonds 6 Parker Ford's Bran and Oats 6 Islam Rowland Bran 5 Granville Bran Chex 5 Robin High Fiber Hot Cereal 5 Jesus Alberto's and Post Raisin Bran 4 Nabisco Shredded Wheat and bran 4 Post Fruit and Fiber 4 Wheatbix 4 Islam Oats 2 FIBER FILLED FRUITS FIBER (GMS) Blackberries (1/2 cup) 4 Pears w/ skin (1 medium) 4 Apple w/ skin (1 medium) 4 Prunes 4 Honeydew (1 medium) 3 Apache (1 medium) 3 Raisins (1/4 cup) 3 Raspberries (1/2 cup) 3 Strawberries (1 cup) 3 Apricots (3 medium) 2 Banana 2 Blueberries (1/2 cup) 2 Dates (3) 2 Nicollet w/ skin (1 medium) 2 GREENS AND [place] (1/2 cup) FIBER (GMS) Baked beans w/tomato sauce 9 Kidney Beans 7 Gan and Valdez Beans 5 Small Peas 5 Lentils 5 Peas 4 Rowland (canned) 3 Potato w/ Skin (medium) 3 Sweet Potato (medium) 3 Broccoli 2 Brussel Sprouts 2 Carrots 2 Spinach 2 Zucchini 2 BEST BREAD AND PASTA FIBER (GMS) Natures Own Double Fiber Bread (1 slice) 5 Whole Wheat Spaghetti (1 cup cooked) 4 Bran Muffin (1) 3 Buckwheat Muffin (1) 3 Whole Wheat Bread (2 slices) 3 Whole Wheat South Korean Muffin (1) 3 Whole Wheat Pancakes (2) 3 Whole Wheat Dinner Roll (1) 2 Brown Rice (1/2 cup cooked) 1 LOW CALORIE SNACKS FIBER (GMS) Apple w/ Skin 4 Pineapple (1 cup) 2 Popcorn (3 cups unbuttered) 2 Figs (3) 2 Pear w/ Skin 2 Whole Wheat Quintana (1 slice) 2 Strawberries Fresh 3 Nicollet w/ Skin 2 Raspberries (1/2 cup) 3 Celery (3 stalks) 1 DELICIOUS AND NUTRITIOUS DESERTS FIBER (GMS) Baked Apple 6 Blackberry Pie (1 slice) 6 Fruit Compote 4 Pineapple Whole (1/4 fresh) 3 Steele Rhubarb Pie (1 slice) 3 Whole Wheat Banana Nut Bread 3 Brown Rice Pudding (1/2 cup) 2 Fruit Kebab 2 Whole Wheat Oatmeal Cookie [address] in this encounter [facility] 09-12-2021 History of Present illness Narrative COLORECTAL SURGERY VIRTUAL VISIT FOLLOW UP I had a virtual visit with Ms. Loaiza today for follow up of PFPT for fecal incontinence. Last seen in the office by me on 06/13/21 for ARM testing and consultation: -bm 1-2x/day -daily FI with activity -no bowel regimen, stopping Metamucil helped her symptoms --poor sphincter tone (rest 22, squeeze 46) --normal sensation --RAIR intact, unable to expel balloon --equivocal movement -given bowel diary and encouraged to start imodium and PFPT UPDATED HISTORY: Josiane Loaiza is a 80 year old female here virtually to discuss fecal incontinence management. Today she reports: bm frequency/consistency: 1-2x/day Bowel regimen:imodium 1/2 tablet nightly FI: no longer losing large amounts of stool; still having small amounts of stool that come out without urgency Now having FI once weekly Eating more oatmeal and bananas; this seems to help bulk her stools Straining: rarely Incomplete defecation:occasionally; seems to be improving Bowel diary: received; see abstract note PFPT: has helped some ; has done about 8 sessions with one more to go Has better control of her urine now Overall is pleased with her progress PHYSICAL FINDINGS OF NOTE: General Normal, healthy, cooperative, in no acute distress Able to interact verbally by video conference Pulmonary respiratory effort normal Abdominal Not performed Motor patient seen sitting with Normal appearing strength and coordination Anorectal exam Not Performed Medical Decision Making: Assessment Assessment & Diagnosis: Josiane Loaiza is a 80 year old female with chronic fecal incontinence. Since beginning pelvic floor PT and taking imodium regularly she has noticed an improvement in her symptoms. She was initially having episodes of FI daily and now this is occurring about once weekly. Overall she is pleased with her progress. She was encouraged to continue home PFPT exercises and current bowel regimen. Data Reviewed: Tests & Documents Reviewed/ordered: Review of prior notes from [facility] I have discussed Josiane Loaiza's treatment plan and/or results with the patient. Treatment plan: Continue home PFPT exercises Continue bowel regimen, can adjust imodium dose as needed Follow up with [facility] pelvic floor PRN Risk of morbidity, mortality and/or complications of treatment plan: low I spent a total of 25 minutes on the date of the service which included preparing to see the patient, [id number] patient care, completing clinical documentation, obtaining and/or reviewing separately obtained history, performing a medically appropriate examination, counseling and educating the patient/family/caregiver and communicating results to the patient/family/caregiver. documented in this encounter [facility] 09-08-2021 Note HNO ID: [id number] Author: Catracho Gonzalez APRN.CNP Service: ? Author Type: Nurse Practitioner Type: Progress Notes Filed: 09/08/2021 12:41 PM Note Text: Received patients bowel diary beginning 06/24/21: According to the diary the patient has fecal incontinence 3-5 days out of the week. On the days that she has episodes of FI she can have up to 6 episodes per day ranging from small to moderate amount of stool. Will follow up with her next week virtually to discuss next steps. MEÑO Arizmendi [facility] 09-08-2021 History of Present illness Narrative Received patients bowel diary beginning 06/24/21: According to the diary the patient has fecal incontinence 3-5 days out of the week. On the days that she has episodes of FI she can have up to 6 episodes per day ranging from small to moderate amount of stool. Will follow up with her next week virtually to discuss next steps. MEÑO Arizmendi documented in this encounter [facility] 06-13-2021 History and physical note COLORECTAL SURGERY New Patient Visit June 13, 2021 Chief Complaint: fecal incontinence History of Present Illness: Josiane Loaiza is a 80 year old female here with chronic fecal incontinence. She is s/p Transvaginal sacrospinous rectopexy with biologic graft, sacrospinous hysteropexy, rectocele repair, transobturator mid-urethral sling, and anal sphincteroplasty (08/08/2009). She's Seen Dr. Winter in the past for FI and ARM testing ([id number]). 02/01/2012 ARM: IMPRESSION: Normal resting and low squeeze pressures. Normal volume studies. Normal nerve studies. Today she reports: -recently saw [facility] and was encouraged to stop taking Metamucil -patient states that since stopping fiber over the weekend she has not had FI -BM 1-2x/day, soft and mushy to hard stacey (never loose) -has daily FI, usually occurs during her walks/exercise -occasionally feels the urge to go -denies straining and incomplete defecation -occasionally feels tissue protruding from anus with valsalva -denies anorectal pain or bleeding -FI is negatively affecting her life (scared to leave the house) -currently not on a bowel regimen ARM testing today: Anorectal Manometry Testing: Strength: Anorectal manometry was performed. Average Pressure Interpretation Rest: 22 mmHg This is below normal range. Normal range is 35-50 mmHg. Squeeze: 46 mmHg This is below normal range. Normal range is 75 - 100 mmHg. Low rest pressure. There is appropriate incremental change between resting and squeeze pressures which can indicate good pelvic floor movement with squeeze. Sensory: Sensation Volume First sensation : 50 mL / Normal Range: 40-80 mL First urge to defecate: 100 mL / Normal Range: 80-120 mL Maximum tolerable volume: 126 mL / Normal Range: 120-180 mL Recto-anal inhibitory reflex: Yes Balloon expulsion: No This exhibit normal rectal sensation with at least 2/3 sensory tests. A recto-anal inhibitory reflex (RAIR) was present. This is a normal reflex. EMG Recruitment: EMG recruitment was performed. The patient shows a normal increase in activity with squeeze, and a no change in activity with valsalva. This indicates abnormal pelvic floor movement, which can be indicative of poor pelvic floor coordination. PAST MEDICAL HISTORY Diagnosis Date HTN (hypertension) Hyperlipemia Rectal prolapse PAST SURGICAL HISTORY Procedure Laterality Date PAST SURGICAL HISTORY OF d&c PAST SURGICAL HISTORY OF 2009 uterine suspension PAST SURGICAL HISTORY OF 03/04/2019 Transvaginal proctopexy with sacrospinous fixation with SurgiSis augmentation as well as a sphincter imbrication. Current Outpatient Medications Medication Sig Dispense Refill omeprazole(PRILOSEC 20 MG CAP) Take one(1) capsule daily. 0 ezetimibe(ZETIA 10 MG TAB) Take one(1) tablet daily. 0 LISINOPRIL 10 MG TAB 2 tabs once a day 0 raloxifene hcl(EVISTA 60 MG TAB) Take one(1) tablet daily. 0 calcium carbonate/vitamin d3(CALCIUM 600 + D(3) 600 MG (1,500)-200 UNIT TAB) Take one(1) tablet daily. 0 omega-3 acid ethyl esters(LOVAZA 1 GRAM CAP) Take four (4) capsules once daily 0 beta-carotene(a) w-c & e/min(OCUVITE TAB) Take two (2) tablets in AM 0 No current facility-administered medications for this visit. ALLERGIES Allergen Reactions Keflex [Cephalexin] Diarrhea Mobic [Meloxicam] GI Upset Percocet [Oxycodone* Intolerance Sulfa (Sulfonamide * Hives Review of Systems / PACC screen: Do you have difficulty climbing a full flight of stairs without feeling short of breath? no Do you require oxygen for your breathing or have your gone to an emergency department because of breathing problems? no Are you on dialysis or have you been told that your kidneys do not work well as they should? no Do have an implanted cardiac device (pacemaker, defibrillator etc.) that has not been checked in the last 6 months? no Have you had an organ transplant? no Have you been told that you had excessive bleeding during surgical procedures or do you take blood thinning medications other than aspirin? no Have you ever had a heart attack, heart stents/surgery, valve problems, or other heart problems? no Have you had a stroke, seizures, or unexplained loss of consciousness? no Do you have a neurologic condition like Parkinson's disease or multiple sclerosis? no Have you or a blood relative had a life-threatening reaction to anesthesia? no Do you have cirrhosis of the liver or other liver disease? no Have you had a blood clot within the past year? no Do you take insulin or other injections for diabetes? no Do you have sleep apnea or have you been told you may have sleep apnea? no Do you have other implanted devices (deep brain stimulator, spinal cord stimulator, etc.)? no Physical Exam: BP 138/84 (BP Site: Right Arm, BP Position: Sitting, BP Cuff Size: Regular Adult) Pulse 94 Temp 36.3 C (97.3 F) (Temporal Artery) Ht 157.5 cm (5' 2 ) Wt 73.7 kg (162 lb 8 oz) SpO2 96% BMI 29.72 kg/m General Appearance: Well appearing, alert, in no acute distress, well-hydrated, well nourished. Lungs: Lungs clear to auscultation. No wheezing, rhonchi, rales. Heart: RRR without murmur, gallop, or rubs. No ectopy Edema: no Abdomen: Normal abdominal exam, Abdomen soft, non-tender. Bowel sounds normal. No masses, organomegaly Anorectal: Perianal skin is intact. No erythema, induration or excoriation. No fissure, fistula or external hemorrhoids. Digital Rectal Exam: Anus: closed Resting tone: WEAK Squeeze tone: WEAK Play Reader present: Yes, Tila Samuels Anoscopy: The patient was placed in left lateral position. After digital exam with a lubricated finger, the scope was easily inserted. No hemorrhoids were noted. Otherwise normal mucosa was noted. Anoscopy completed. Assessment Medical Decision Making: Assessment & Diagnosis: Josiane Loaiza is a 80 year old female here with chronic fecal incontinence. She was encouraged to begin PFPT and complete a bowel diary. We also had a long discussion regarding the option of SNS and she was given the [employer] SNS brochure. Data Reviewed: Tests & Documents Reviewed/ordered: Review of prior notes from [facility] Review of Procedures / Tests: Manometry I have discussed Josiane Loaiza's treatment plan and/or results with the patient. Treatment plan: Begin taking one tablet imodium at bedtime and 30 min before exercise Ok to resume fiber supplement if having loose stools Bowel diary PFPT Follow up in 3 months via [facility]V Catracho Gonzalez APRN.CNP Colorectal Surgery Risk of morbidity, mortality and/or complications of treatment plan: moderate documented in this encounter [facility] 06-13-2021 Instructions Catracho Gonzalez APRN.CNP - 06/13/2021 10:30 AM EDT -begin taking 1 tablet imodium at bedtime and 30 min before exercise -schedule pelvic floor PT -fill out bowel diary for 2 weeks, email To ATTN Catracho Gonzalez CNP -follow up in 3 months documented in this encounter [facility] Evaluation + Plan note Future Appointments Appointment Date:05/03/2023 08:15:00 AM Scheduled Provider:Nash NICHOLS MD Location:[facility] Appointment Type:URO Office Visit [facility] Evaluation + Plan note Future Appointments Appointment Date:05/03/2023 08:15:00 AM Scheduled Provider:Nash NICHOLS MD Location:[facility] Appointment Type:URO Office Visit Diagnostic Tests PendingUrine Culture 04/30/22 [facility] Evaluation note Diagnosis Incontinence of feces, unspecified fecal incontinence type- [facility] Diagnosis Pelvic floor dysfunction in female- [facility] Diagnosis Full incontinence of feces- [facility] Narrative No data available for this section [facility] Hospital Discharge instructions No data available for this section [facility] progress note No data available for this section [facility] reason for referral (narrative)* Outpatient Procedure (Routine) - Pending Review Specialty Diagnoses / Procedures Referred By Laura osman Referred To Contact [facility] Diagnoses Incontinence of feces, unspecified fecal incontinence type Procedures [facility] ANORECTAL MANOMETRY ANORECTAL MANOMETRY Lorie Romero APRN.CNP [id number] [place] [address] Referral ID Status Reason Start Date Expiration Date Visits Requested Visits Authorized [id number] Pending Review Auto-Generat ed Referral 06/13/2021 06/13/[address] [facility] Summary Purpose Family History No Family History Records FoundNo Family History Records FoundNo Family History Records Found No data available for this section No Family History Records Found No data available for this section No Family History Records Found Advance Directives No Advanced Directives Records FoundDocuments on File Type Date Recorded Patient Neurourologist Expl anation Advance Directive(s) 03/07/2009 11:13 AM Documents on File Type Date Recorded Patient Neurourologist Expl anation Advance Directive(s) 03/07/2009 11:13 AM Reason for Referral Specialty Diagnoses / Procedures Referred By Laura osman Referred To Contact [facility] Diagnoses Pelvic floor dysfunction in female Procedures CONSULT TO PHYSICAL THERAPY PHYSICAL THERAPY EVALUATION HIGH COMPLEX 45 MINS Catracoh Gonzalez APRN.ELECTROMECHANICAL ASSEMBLER [address] [facility] [place] [address] [facility] [place] [address] [place] [address] Referral ID Status Reason Start Date Expiration Date Visits Requested Visits Authorized [id number] Pending Review PCP Requested Referral Auto-Generate d Referral 06/13/2021 06/13/2022 99 99 Additional Source Comments INFORMATION SOURCE (unrecogn ized section and content) DATE CREATED AUTHOR 08/30/2020 [facility] DATE CREATED AUTHOR AUTHOR'S ORGANIZ ATION 09/14/2021 [facility] DATE CREATED AUTHOR AUTHOR'S ORGANIZ ATION 06/17/2022 [facility] DATE CREATED AUTHOR AUTHOR'S ORGANIZ ATION 01/24/2023 [facility] EPIC DATE CREATED AUTHOR AUTHOR'S ORGANIZ ATION 02/08/2023 [facility] Source Comments (unrecognize d section and content) In the event this informatio n is protected by the Federal Confidentiality of Alcohol and Drug Abuse Patient Records regulations: The Federal rules restrict any use of the information to criminally investigate or prosecute any alcohol or drug abuse patient.[facility] event this information is protected by the Federal Confidentiality of Alcohol and Drug Abuse Patient Records regulations: The Federal rules restrict any use of the information to criminally investigate or prosecute any alcohol or drug abuse patient.[facility] the event this information is protected by the Federal Confidentiality of Alcohol and Drug Abuse Patient Records regulations: The Federal rules restrict any use of the information to criminally investigate or prosecute any alcohol or drug abuse patient.[facility] the event this information is protected by the Federal Confidentiality of Alcohol and Drug Abuse Patient Records regulations: The Federal rules restrict any use of the information to criminally investigate or prosecute any alcohol or drug abuse patient.[facility] Reason for Visit (unrecogniz ed section and content) Reason Comments Manometry Reason Comments Fecal Incontinence Reason Comments Fecal Incontinence Care Teams (unrecognized sec tion and content) Safekeeping Clerk Relationship Specialty Start Date End Date Frances Robles MD PCP - General 09/13/08 Safekeeping Clerk Relationship Specialty Start Date End Date Frances Robles MD PCP - General 09/13/08 Safekeeping Clerk Relationship Specialty Start Date End Date Frances Robles MD PCP - General 09/13/08 Safekeeping Clerk Relationship Specialty Start Date End Date Frances Robles MD PCP - General 09/13/08 FOR RECORDS PERTAINING TO PATIENTS WHO ARE OR HAVE BEEN ENROLLED IN A CHEMICAL DEPENDENCY/SUBSTANCEABUSE PROGRAM, SOME INFORMATION MAY BE OMITTED. This clinical summary was aggregated from multiple sources. Caution should be exercised in using it in the provision of clinical care. This summary normalizes information from multiple sources, and as a consequence, information in this document may materially change the coding, format and clinical context of patient data. In addition, data may be omitted in some cases. CLINICAL DECISIONS SHOULD BE BASED ON THE PRIMARY CLINICAL RECORDS. [employer] [facility]. provides no warranty or guarantee of the accuracy or completeness of information in this document.
[2023-02-27 08:54] LABS: Basophils Absolute Auto 0.1 10^3/uL (0.0-0.1); Basophils Percent Auto 1.1 % (0.2-2.0); Eosinophils Absolute Auto 0.1 10^3/uL (0.0-0.7); Eosinophils Percent Auto 1.4 % (0.9-7.0); Hematocrit 42.1 % (36.0-48.0); Hemoglobin 13.3 g/dL (12.0-16.0); Immature Granulocytes Abs Auto 0.02 10^3/uL (0.00-0.03); Immature Granulocytes Pct Auto 0.3 % (0.0-0.5); Lymphocytes Absolute Auto 1.5 10^3/uL (1.2-3.8); Mean Corpuscular HGB Conc 31.6 g/dL (29.9-35.2); Mean Corpuscular Hemoglobin 29.2 pg (26.7-34.0); Mean Corpuscular Volume 92.5 fL (81.0-99.0); Mean Platelet Volume 9.7 fL (9.5-13.5); Monocytes Absolute Auto 0.8 10^3/uL (0.3-0.8); Monocytes Percent Auto 12.2 % (1.7-12.0); Neutrophils Absolute Auto 3.9 10^3/uL (1.4-6.5); Platelet Count 345 10^3/uL (150-450); Red Blood Count 4.55 10^6/uL (4.20-5.40); Red Cell Distribution Width 15.1 % (11.0-15.0); White Blood Count 6.3 10^3/uL (4.0-11.0)
[2023-02-27 09:57] LABS: Alanine Aminotransferase 21 U/L (14-59); Albumin Globulin Ratio 0.8; Albumin Level 2.9 g/dL (3.4-5.0); Alkaline Phosphatase 74 U/L (46-116); Anion Gap 8.2; Aspartate Amino Transferase 19 U/L (15-37); BUN Creatinine Ratio 21.2; Bilirubin Total 0.4 mg/dL (0.2-1.0); Calcium 9.2 mg/dL (8.5-10.1); Carbon Dioxide 31.7 mmol/L (21.0-32.0); Chloride 105 mmol/L (98-107); Chol HDL Ratio 1.8; Cholesterol 133 mg/dL (<=200); Estimated GFR (African America >60 (>=60); Estimated GFR (Non-African Ame >60 (>=60); Free T3 2.48 pg/mL (2.18-3.98); Globulin 3.5 g/dL; Glucose 88 mg/dL (74-106); HDL Cholesterol 73 mg/dL (40-60); Potassium 3.9 mmol/L (3.5-5.1); Sodium 141 mmol/L (136-145); Thyroid Stimulating Hormone 0.399 uIU/mL (0.358-3.740); Total Protein 6.4 g/dL (6.4-8.2); Triglycerides 82 mg/dL (<=150); VLDL CHOLESTEROL 16.4 mg/dL
[2023-02-27 10:11] LABS: Estimated Average Glucose 117 mg/dL; Glycohemoglobin A1C 5.7 % (4.5-6.2)
[2023-02-27 10:38] LABS: Free T4 0.81 ng/dL (0.76-1.46)
== END 2023-02-27 08:23 | disposition home or self-care (01) ==
PROVIDERS: PCP Family Medicine; Visit Provider Family Medicine
DX: Z00.00 Encounter for general adult medical examination without abnormal findings (principal); E78.00 Pure hypercholesterolemia, unspecified; E03.9 Hypothyroidism, unspecified; I10 Essential (primary) hypertension; E55.9 Vitamin D deficiency, unspecified; R73.09 Other abnormal glucose; R53.83 Other fatigue
CPT/HCPCS: 36415; 80053; 80061; 82306; 83036; 84439; 84443; 84481; 85025

== ENCOUNTER 2023-02-27 09:04 | Outpatient (OUT) | payer MEDICARE, OTHER, SELFPAY ==
--- OUTSIDE RECORDS SUMMARY | 2023-02-27 09:12 | XMS_ITS | CCD ---
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 Name Role Phone Frances Robles MD Primary Care Provider [phone] Frances Robles Primary Care Physician [phone] ROVERTO, DR PEREZ Admitting Unavailable AHMED, DR PEREZ Attending Unavailable HOY ., DR DANIELS Primary Care [facility] PHILLIP Engel Consult[employer] Unavailable AHMED, [...] HOY ., DR DANIELS Primary Care Unavailable GARLAND, DR BRANDYN Yousif Consulting Unavailable AHMED, DR [...] Translations: [acetaminophen-ox ycodone] Drug Allergy 0 Intolerance [facility] (4 sources) meloxicam Drug Allergy 0 GI Upset [facility] (4 sources) Sulfonamides (Antibiotic) Propensity to adverse reactions 9 Hives [facility] (8 sources) Cephalexin; Translations: [cephalexin] Drug Allergy 2 Diarrhea, Vomiting (disorder) [facility] (6 sources) Sulfamethoxazole; Translations: [sulfamethoxazole ] Drug Allergy Weal (disorder) [facility] (2 sources) Sulfonamides (Antibiotic) Drug allergy (disorder) 3 [facility] (1 source) Acetaminophen / oxyCODONE; Translations: [Percocet 10] Drug Allergy [facility] (1 source) Cephalexin; Translations: [Keflex] Drug Allergy [facility] Medications Current Medications Medication Drug Class(es) [...] Daily, # 90 tab(s), Refills(s) 3, Pharmacy: [facility], 157, cm, 04/27/22 8:58:00 EST, Height/Length Dosing, 78, kg, 04/27/22 8:58:00 EST, Weight Dosing Start Date: 09/18/22 Status: Ordered Start: 09-28-2021 take 1 tablet by enrique th once daily Myrbetriq 50 mg oral tablet, extended release 50 mg = 1 tab(s), Oral, Daily, # 90 tab(s), Refills(s) 3, Pharmacy: [facility] (Now [facility]), 157, cm, 04/24/21 [...] once a day omega-3 acid ethyl esters (half-way) 1000 mg oral capsule (4 sources) Start: [...] Procedure/Surger yon 02-08-2023 Consent for Procedure/Surge ry [id number]#1.00T IFF Normal [facility] General Surgery Office/Clini c Noteon 02-06-2023 General [...] Family History Pr (more content not included)... [facility] Comment on above: Result Comment: Electronically Signed By : IRINEO PARKINSON, Jr Engel\.br\Date and Time Signed: 02/06/23 20:15 EST Pathology Noteon 02-06-2023 Pathology Note [id number]#1.00T IFF [facility] Operative Reporton Operative Report [id number]#1.00T IFF [facility] Consent for Procedure/Surger yon 12-31-2022 Consent for Procedure/Surge ry [id number]#1.00T IFF [facility] Ambulatory Visit Summaryon 1 02-27-2022 Ambulatory Visit [...] Syd[place] Normal [address] [place] [address] [place] [address]- \.br\ Medications\.br\ What How Much When Instructions\.br\ [...] for choosing us for your care.\.br\ \.br\ [facility] Physician Referralon 023 Physician Referral [id number]#1.00T IFF Normal [facility] Physician Referral [id number]#1.00T IFF Normal [facility] MG MAMM SCREEN 3D [place] CADon 06-12-2022 MG MAMM SCREEN 3D [place] CAD Patient: JOSIANE LOAIZA Exam Date: 06/12/2022 : 1940 Gender:F Ordering : DR CHRIS LAYNE Admission #: [id number] Family : DR FRANCES ROBLES . Order #: [id number] CLICK HERE TO VIEW EXAM RADIOLOGY REPORT [...] colon cancer at age 86. LOCATION: [facility] BREAST COMPOSITION: Scattered areas fibroglandular density. FINDINGS: [...] M.D. on 06/12/2022 at 13:48 Normal [facility] Coding Summary.on 05-05-2022 Coding Summary. CD:[id number] Gh0 bWw+PGhlYWQ+HB5PAOTxW62 mmKWdvL4fM6DSEReNLbkiXH OINQdHLaYblvGiOJ4qwOWpI XJu IC8+DM8fGHVoOuduoGWkw2B 0yUR0C84reu1tUTwysIT4UJ WuBhXmzobps4exyIk9EAgwY mluOyBt AUFvuJ71YUG9bX75Tk89uFH mcQItz3ccgQd6LqFeIMDhDA T7tJbdBSnwu1ItCXTvX74sm XPqh0F8 OQInoZmqsCLjLyKplRX9qY9 xGCwftluhs2qkavdpMir8it 55aMRvo9I7iBR3X8NxcnS4M GJvbGQg LmuzjENIwX2fcqmna8iadgs zZcTzDOClQUx8XUr0ZHTduL ekPyTeCC96EUH1COEjovJoF 2FsLWFs kRijAnJ5z5W6Gm7GN3RHQsj nV9VXCJOLTFgyiYG+PC90cj 15Z9WdYmplTlt2EWQmZLK8r TT3dU9b MSKkRPtgq5E5iNF0F1OmxlZ qzm4yy3rxHDZaKYirD32ixP Gmv0L9YHSifPU2JEZmcYfoL iBzaG93 Oyc+AIGoyBeyv4HuRqczz7p ys5otsAb1ZbawUOEhhzVvhL fcGSQ1f3GyZd0zAHKelZV1u UW4bS4a CqMzOwF5BXrnL435UmUsbOP uDwbmR83bX2UrrVK+PHRyPj s5EUOhxVseYR8mW1KhXMBxg mctbGVm mIjaML9vVXPojgtmCIBrpW8 aQVOhQ2s2NgEgExZ9LHelR1 ZrGIBphhsqHe39eS4lSyIfQ nH3YNaf T1SefuN9KVQmbHUeLTmxFTE 6L18co9B9AHTrNPCsPUO3xM S7qY7gxQhknbrrfIMmnKwxd mVydGlj DRsyZQdeO395JHWryFcjTaX vZGluZyBEYXRlOiAgMDMvMT EvMjAyMzwvdGQ+YCNfVIK3x WxlPSAn rRQfHTnrYe4tkIkrdFixXI8 dQXUeawsmFXUlhY7bXJTdsW QkyWcdHD8sJGOnwoczd102Z iAxMHB0 TYSidBMpQ2VgvF6qKeXiFMQ tNHCuX2SocNYgSNfkW350KZ oxUcI8RQXpqrPcT0RmUFVya WduOiB0 s6C0Qy9Te5DtenkdJ6GmsHA eZiHfOeheXWk7Q3QyYnmmfP I+GQ80MRTxGG26FFk8BLY5d WxlPSdi AFJwX1PqaM4pVsCrIELlCJJ kOyc+PHRhYmxlIHdpZHRoPS aaPJQjZeBuoTxvPF1uGr6eP GVyLWNv aNxwxJRyKqYxk2gmXJXtAUp uBD6uaVfiA5EinZM0NMRvi9 m2Wy36S89wG3IqbDX+PGNvb LF4lEN6 vG5bXkSgTlX4MVcbG424QxT riUYiXoikj0ptp7cssOd6Ai M4ERXeybItiPzqCYG1d9RyQ c60W75v IHdpZHRoPSIxNSUiIHZhbGl gcy9kaR0kIm1+YRGhxNU1wY E4cN0eBhIrYyI1WOqvK096S nRvcCIv Ynuvm9ffb2oxsFh3KrMdNAS cuqEkkRetDJO6i6MmHf31N1 TehIufu4IxFkq2ax18bLFod 8I1tZG7 T9WbNIAoltigiLShxFfoQG0 lFJGtkrdjQZYbiS1kAKXwI9 n0FuYaOxF6LWmbN9KpqzA6X GJvbGQg XSRrxUVLsZ4ypruuz3jzxnh vOeNhFSVsRXp9DSg2XSZxgO raYjAmBHU5GkS4PTA6vTWfv K7vaPau udzxbA3rAux+VTL4nVUgxLW KKG5dRzbycXK+WMHtKOM1mM dfAAhjHTWjlB7oFBEkH1x4L iAwLjA1 XAoyM4StapV4GVGuyGSyJLQ toFXAgY2icqvbd3nmqezpPc SuVHXhEFu7XRq0RUXqaQpiO iBsZWZ0 TqY1AYV8fGJjnR3ejPdqnnc niN0uNye+TjkseSfiTBF3MS h4E3BlNlr5HBVbeFzjSY9bd GFkZGlu Bk9wbHvicRubDP6wAGVkeox gv049VdYuf3eeKAXegQKpQT ozXYG0Z03vg1C9TSBmTCUyE AG0vIW2 sP2ibSnlvbuuhAWcwSpkhrD qcHslBCsyYScnA896NPRgtK jcQgDbJWo8T6SkJoq1BGQqo KjfAB4f vFDaECorTz1mhAcfzEfnLH8 tDEPdhbsij546VaXtg4fvSI BluYIsZIgeVXB4T09pz7W0O CMwMDAw ERQ4pFK2kU0goJmruwapeHO mdDsgdmVydGljYWwtYWxpZ2 49QEBqmYkxIgCwoKq9M2NbH sl8AMOq nMqlAZ7xwVTaRSviHo3ipJh cfKjgTA8dNJPixrhjj734Ar Rjw9akUYDcyBSiMPlfNPR6C 08ga9C6 EYNiMJGwLVD8vGT2yY8rdQe nbjogbGVmdDsgdmVydGljYW zgPMkiX504BDVedWlvLfNpi GllbnQg AMvmWOu6G7DmXreocCI+PC9 7PIGvUX83oOLbzEJtp1wlfY z7QjPvVKWeMIQ9zUqoFDskl 3JkZXIt M02ayNRtr8Q4IDNqbJzdlZF bQdXyuIJ4cO6tYRirwsgkx3 kecqdyWgsot4cceq55aH02G 29sIHdp ZHRoPSIzMCUiIHZhbGlnbj0 huQ5tZu4+ZWRogFW1nNW9fL 6aSOVlImF0QNxuM630GfDpq CIvPjxj a7ixi8cnuAn0UmJ9LEZsipP mxQfiSJT3u0HdTm21U93fWG dpZHRoPSIyMCUiIHZhbGlnb b0vjY3v Ii8+XWGayGG1nUP5qL2lYuV dQkP6PGczE016BfSmdAVnXc paI14hU4TczVO+FQScZcm5W CBzdHls BA1prYIvEBvuOs1rSZE8MsX nSfFaEAquD9LeWUUejxyxxy pkyGY4HVHhPHQzmZ69Sz3sx DogMTBw vABUmS6ucysgw7omzbocUgV lATJzZTu8UZc1FXCwfRbpNx TfIWO9JxH4UXO1fDPnuC7eb Glnbjog yL1vU1ZqUJZouzmcCo93qY8 lXwTbAyR1GXhePkk+UkVUVE lHLCBCUkVOREEgUzwvdGQ+P HRkIHN0 nDkrGTxqSYIvmP9fRPZfK6y 1UwDqWpM7WYltJ4NvHVMxrr neUr84xJ1gUzWwUsU5AOkcV 1InpsS2 MFLreQJiSLokCPZ4V22ii9Z 9EYPuZUPcLMX8tHV2xJ4bcX lnbjogbGVmdDsgdmVydGljY WwtYWxp B227UQOvbQvtFyW5GpNlMvW 8QTU7F4FjSvy1NFOonQveIL 2tiXAeKGsrYr7kqHuslXhjL V6nKXOq rqqzMKLbqE1kUCMutVBrkVo xKR1uHLWhajywl508YcVnLM E8SRCsdRIcN7SusS4sEeYjL DAwMDAw H9ZnsDVxYBbsA022WGzwWbD 4ITEddfCrA6VgEZWitYwsTw D8z9X8Ao78IQDMZDSwynnma GQ+PHRk GWJ7eHyaCMvsESTbeG5aOBG tP7f4LvJgJjH9VStrN5ZlYN AhbtktJr65tB5sGlVaEcX3U UpeZ2Wq rdY1UOFtmGKoDWyuOLA9T22 qr2F5TXRkJVIuCEL8mMR9pD 1hbGlnbjogbGVmdDsgdmVyd GljYWwt CWnnB443VDKueRryLcSvhHJ sZTwvdGQ+FJSbBZS5lOgbSD bbKWHgaU7aYDCvJ7q0ZyJdQ lJ0MThj C6DqGNWcqsgvVl36hP4zSoT yAoS9VFcyP6PlibK3ZVEwyP HhEZymPFA4U64uu4D5DTBbD DAwMDA7 wTE2nM7tvQwhtfxknWJtfNf upwGzpUclATquCNcvM652NS QwiEcnBmimHvPNay2cZG6pA jwvdGQ+ JH62mt88W8FiEaycZtd6WLC xANU2yVN2hD6xGWZeTPvdn8 N6qMN2K9ByxyIihu3xx7mgN XBzZTog Q24orTFow9J7WGUvcJO2PQL sxUbcVyAqxX49Aev+PGNvbG npn2YbTidcw0lkj1mbtEa2S jMwJSIg eqBvlOeaGOL7l3BqFl23J40 sIHdpZHRoPSIzMCUiIHZhbG zqvi1maP9wKh6+VUHllCP6v YE1pT7c IkQeQoV5HBrgS527HtCfwTJ mDydoy1fwx8nnbNh6VgGdLZ KcjtXitIaeHYG1i1SbGs11B 2NvbGdy r8FxQsb5or37rRZhk4O3kPB 6U6LcJULiubyabZGtpPsuZL 2nXEYlyfoxFYRnsG4kYHXuC 8q5UaGd NuB3NKfkV9YhzsR3QZRgwXA pDNJmaBCGtJ7oayenb5drfv neKkFkPHXyFXk4ZKl5NGMyz WduOiBs KFC4UeM3XIL6wCNvyB7mjXd vocmqlW7sYks+CYa9l7oakH UsLR1trIE0EC41PP20uCUrc 8Z3kLR8 M9YpZDOrbfsexndbyFV9WNH oLMIyhJ23Nw1ioHhySu2gBD OuYSI6NBRswOYqZ3EhkS1jI iAjMDAw OYAoA9UkqFNmNIljX812CSh zPhN9SDRytmApV8PlFQAekF mcGnP6g7J6Wn5HRG38ES95B B63kAKh o1T3hXW4S9RrELDtfvuchen ysXQ0PZUgMZZifR32Kc2hfL lvZv8jJUBsUHK4IFEaeFRnD 8TwwC3o JzPhYTQsEWBmJ3QzdHVeOPj wE270PCjmWrR0QZBrbyYcF5 TnIHIlaTfgQpD2v0L7Qc9ZH k79QX94 FW26hJGrg9U2uUQ3S6YrIED ncfqwbbkmxLU3TGZuGPLnkA 22Bt1thAbsVc7vRWWcTHI1E FRpbWVz N7WlnG5iSlTyVKLjBUSkM9Y uxMIwLKbvO387VOjsFzQ7XH QxtdRbT7NpNORqwQiqYuA5y 5A0Zz6B CYixfbv6W5TiLlfamJS+PC9 3EAPcDK52mTEsrZCah7uyuH k5RwLwYUIjBUT6rQrgKOyrc 3JkZXIt Y29s (more content not included)... Normal [facility] C Urineon 05-02-2022 Bacteria identified Cx Nom [...] This test was performed at: [facility], [address] [place] [address], [id number]- , [place], [facility] Comment on above: Performed By: #### [id number] ####[facility] [address] [place] [address] Ambulatory Visit Summaryon 0 04-30-2022 Ambulatory Visit [...] Nash NICHOLS MD Where: [facility] Ambulatory Visit Summaryon 0 04-27-2022 Ambulatory Visit Summary JOSIANE LOAIZA :1940 Visit Date:04/27/2022 Ambulatory Visit Instructions Your Diagnosis Urgency of urination Feeling of incomplete bladder emptying History of UTI Nocturia Tests Performed Urnls Dip Stick Auto w/o Microscopy POC 65086 Your Care Team Attending Physician - Nash [...] PARKINSON, Nash Engel Where: [facility] Patient Educationon 04-28-19 23 Patient Education Urology [...] keep your urine pale yellow. ? Take smog-uts-spkfgxf or prescription medicines. ? Eat foods that are high in fiber, such as beans, whole grains, and fresh fruits and vegetables. ? Limit foods that are high in fat and processed sugars, such as fried or sweet foods. General instructions ? Take icnf-ual-ffmufjs and prescription medicines only as told by [...] muscles that help control urination. ? Take rxzz-ayi-sdifaxq and prescription medicines only as told by [...] 12/08/2009 Document Revised: 08/21/2018 Document Reviewed: 08/21/2018 [employer] Patient Education ? 2019 [employer]. [facility] Urology Office/Clinic Noteon 04-27-2022 Urology Office/Clinic Note Chief Complaint 1yr f/u HPI Staff 1yr f/u to incomplete bladder emptying, urgency, Hx of UTI, nocturia and microscopic hematuria. *Myrbetriq 50mg QOD therapy. Denies any infections since last encounter. Still having some urgency. Denies leaking. Double voids in the mornings. Feels empty. Getting up at least 2x/night to void still. Did PFPT at [place]. Happy with the process and results. (underwent [...] Pt. shares she just underwent PFPT @ [facility] due to bowel issues. Feels she learned [...] results. Pt. shares she is flying to [place] Saturday. Pt. aware that if culture would show infection we can send antibiotic to [facility] [place] and she would be able to pick it up at a [facility] in [place]. 4. Nocturia (R35.1: Nocturia) Ongoing, 2x during the night but not bothersome. Follow-up With When Contact Information JARED PARKINSON, Nash Engel, URL [address] [place] [address]- Additional Instructions: 1 year Patient Education Urinary [...] 09/05/2018 Tobacco (more content not included)... Normal [facility] Comment on above: Result Comment: Electronically Signed By : Nash NICHOLS MD\.br\Date and Time Signed: 04/27/22 09:48 EST\.br\Electronically Co-Signed By: Bella Garcia\.br\Date and Time Co-Signed: 04/27/22 09:40 EST\.br\Electronically Co-Signed By: Bella Garcia\.br\Date and Time Co-Signed: 04/27/22 09:42 EST FREE T3on 04-05-2022 FREE T3 2.36 pg/mlL Normal 2.18-3.98 [facility] Comment on above: Performed By: #### T4, TSH, FT3 #### [facility] [address] [place] [address] Dr. Clement Duncan T4on 04-05-2022 T4 [Mass/Vol] 6.10 ug/dL Normal 4.80-13.90 [facility] Comment on above: Performed By: #### T4, TSH, FT3 #### [facility] [address] [place] [address] Dr. Clement Duncan TSHon 04-05-2022 TSH 0.257 uIU/mL Critically low 0.358-3.740 [facility] Comment on above: Performed By: #### T4, TSH, FT3 #### [facility] [address] [place] [address] Dr. Clement Duncan CBC AUTO DIFFon 01-03-2022 BASO # 0.0 103/ul Normal 0.0-0.1 [facility] Comment on above: Performed By: #### CBC #### [facility] [address] [place] [address] Dr. Clement Duncan Basophils/100 WBC (Bld) 0.4 % Normal 0.2-2.0 [facility] Comment on above: Performed By: #### CBC #### [facility] [address] [place] [address] Dr. Clement Duncan EO # 0.0 103/ul Normal 0.0-0.7 [facility] Comment on above: Performed By: #### CBC #### [facility] [address] [place] [address] Dr. Clement Duncan Eosinophils/100 WBC (Bld) 0.2 % Critically low 0.9-7.0 [facility] Comment on above: Performed By: #### CBC #### [facility] [address] [place] [address] Dr. Clement Duncan Erythrocyte distribution width (RBC) [Ratio] 15.3 % Critically high 11.0-15.0 [facility] Comment on above: Performed By: #### CBC #### [facility] [address] [place] [address] Dr. Clement Duncan Hematocrit (Bld) [Volume fraction] 41.7 % Normal 36.0-48.0 [facility] Comment on above: Performed By: #### CBC #### [facility] [address] [place] [address] Dr. Clement Duncan Hemoglobin (Bld) [Mass/Vol] 13.5 g/dL Normal 12.0-16.0 [facility] Comment on above: Performed By: #### CBC #### [facility] [address] [place] [address] Dr. Clement Duncan IG # 0.02 10e3/ul Normal 0.00-0.03 [facility] Comment on above: Performed By: #### CBC #### [facility] [address] [place] [address] Dr. Clement Duncan IG % 0.2 % Normal 0.0-0.5 [facility] Comment on above: Performed By: #### CBC #### [facility] [address] [place] [address] Dr. Clement Duncan LYMPH # 1.2 103/ul Normal 1.2-3.8 [facility] Comment on above: Performed By: #### CBC #### [facility] [address] [place] [address] Dr. Clement Duncan Lymphocytes/100 WBC (Bld) 13.3 % Critically low 20.5-60.0 [facility] Comment on above: Performed By: #### CBC #### [facility] [address] [place] [address] Dr. Clement Duncan MANUAL DIFF REQ NO Normal [facility] Comment on above: Performed By: #### CBC #### [facility] [address] [place] [address] Dr. Clement Duncan MCH (RBC) [Entitic mass] 28.5 pg Normal 26.7-34.0 [facility] Comment on above: Performed By: #### CBC #### [facility] [address] [place] [address] Dr. Clement Duncan MCHC (RBC) [Mass/Vol] 32.4 g/dL Normal 29.9-35.2 [facility] Comment on above: Performed By: #### CBC #### [facility] [address] [address] [address] Clement Duncan MCV (RBC) [Entitic vol] 88.0 fL Normal 81.0-99.0 [facility] Comment on above: Performed By: #### CBC #### [facility] [address] [place] [address] Dr. Clement Duncan MONO # 0.7 103/ul Normal 0.3-0.8 [facility] Comment on above: Performed By: #### CBC #### [facility] [address] [place] [address] Dr. Clement Duncan Monocytes/100 WBC (Bld) 7.6 % Normal 1.7-12.0 [facility] Comment on above: Performed By: #### CBC #### [facility] [address] [place] [address] Dr. Clement Duncan NEUT # 7.3 103/ul Critically high 1.4-6.5 [facility] Comment on above: Performed By: #### CBC #### [facility] [address] [place] [address] Dr. Clement Duncan Neutrophils/100 WBC (Bld) 78.3 % Critically high 43.0-75.0 [facility] Comment on above: Performed By: #### CBC #### [facility] [address] [place] [address] Dr. Clement Duncan Platelet mean volume (Bld) [Entitic vol] 9.5 fL Normal 9.5-13.5 [facility] Comment on above: Performed By: #### CBC #### [facility] [address] [place] [address] Dr. Clement Duncan PLT 331 103/ul Normal 150-450 [facility] Comment on above: Performed By: #### CBC #### [facility] [address] [place] [address] Dr. Clement Duncan RBC 4.74 106/ul Normal 4.20-5.40 [facility] Comment on above: Performed By: #### CBC #### [facility] [address] [place] [address] Dr. Clement Duncan WBC 9.3 103/ul Normal 4.0-11.0 [facility] Comment on above: Performed By: #### CBC #### [facility] [address] [address] [address] Clement Duncan FREE THYROXINE INDEX T7on FTI 2.11 Normal 1.30-4.50 [facility] Comment on above: Performed By: #### T4, TSH, FT3 #### [facility] [address] [address] [address] Clement Duncan T3U 34.0 % Normal 30.0-39.0 [facility] Comment on above: Performed By: #### T4, TSH, FT3 #### [facility] [address] [place] [address] Dr. Clement Duncan T4 [Mass/Vol] 6.20 ug/dL Normal 4.80-13.90 [facility] Comment on above: Performed By: #### T4, TSH, FT3 #### [facility] [address] [address] [address] Clement Duncan IRONon 01-03-2022 Iron [Mass/Vol] 85.0 ug/dL Normal 50.0-170.0 [facility] Comment on above: Performed By: #### T4, TSH, FT3 #### [facility] [address] [place] [address] Dr. Clement Duncan LIPID PROFILEon 01-03-2022 CHOL-HDL RATIO NORM SEE BELOW Normal [facility] Comment on above: Result Comment: 3.3 - 4.4 LOW RISK 4.4 - 7.1 AVERAGE RISK 7.1 - 11.0 MODERATE RISK >11.0 HIGH RISK Performed By: #### T 4, TSH, FT3 #### [facility] [address] [address] [address] Clement Duncan Cholesterol [Mass/Vol] 142 mg/dL Normal <=200 [facility] Comment on above: Performed By: #### T4, TSH, FT3 #### [facility] [address] [address] [address] Clement Duncan Cholesterol in HDL [Mass/Vol] 83 mg/dL Critically high 40-60 [facility] Comment on above: Performed By: #### T4, TSH, FT3 #### [facility] [address] [address] [address] Clement Duncan Cholesterol in LDL [Mass/Vol] 46.0 mg/dL Normal [facility] Comment on above: Performed By: #### T4, TSH, FT3 #### [facility] [address] [address] [address] Clement Duncan Cholesterol.tot al/Cholesterol in HDL [Mass ratio] 1.7 {ratio} Normal [facility] Comment on above: Performed By: #### T4, TSH, FT3 #### [facility] [address] [address] [address] Clement Duncan HDL NORMAL > or = 60 mg/dl - LO W CARDIOVASCULAR RISK <40 mg/dl - HIGH CARDIOVASCULAR RISK Normal [facility] Comment on above: Performed By: #### T4, TSH, FT3 #### [facility] [address] [address] [address] Clement Duncan LDL CALC NORMAL SEE BELOW Normal [facility] Comment on above: Result Comment: <100 mg/dl OPTIMAL 100 - 129 mg/dl NEAR OR ABOVE OPTIMAL 130 - 159 mg/dl BORDERLINE HIGH 160 - 189 mg/dl HIGH >190 mg/dl VERY HIGH Performed By: #### T 4, TSH, FT3 #### [facility] [address] [address] [address] Clement Duncan Triglyceride [Mass/Vol] 65 mg/dL Normal <=150 [facility] Comment on above: Performed By: #### T4, TSH, FT3 #### [facility] [address] [address] [address] Clement Duncan VLDL CALC 13.0 mg/dL Normal [facility] Comment on above: Performed By: #### T4, TSH, FT3 #### [facility] [address] [address] [address] Clement Duncan PROF 14(COMP METB)on 022 Albumin [Mass/Vol] 3.3 g/dL Critically low 3.4-5.0 [facility] Comment on above: Performed By: #### T4, TSH, FT3 #### [facility] [address] [address] [address] Clement Duncan Albumin/Globuli n [Mass ratio] 0.9 {ratio} Normal [facility] Comment on above: Performed By: #### T4, TSH, FT3 #### [facility] [address] [address] [address] Clement Duncan ALP [Catalytic activity/Vol] 89 U/L Normal 46-116 [facility] Comment on above: Performed By: #### T4, TSH, FT3 #### [facility] [address] [address] [address] Clement Duncan ALT [Catalytic activity/Vol] 20 U/L Normal 14-59 [facility] Comment on above: Performed By: #### T4, TSH, FT3 #### [facility] [address] [address] [address] Clement Duncan Anion gap [Moles/Vol] 9.8 mmol/L Normal [facility] Comment on above: Performed By: #### T4, TSH, FT3 #### [facility] [address] [address] [address] Clement Duncan AST [Catalytic activity/Vol] 19 U/L Normal 15-37 [facility] Comment on above: Performed By: #### T4, TSH, FT3 #### [facility] [address] [address] [address] Clement Duncan Bilirubin [Mass/Vol] 0.3 mg/dL Normal 0.2-1.0 [facility] Comment on above: Performed By: #### T4, TSH, FT3 #### [facility] [address] [address] [address] Clement Duncan Calcium [Mass/Vol] 9.3 mg/dL Normal 8.5-10.1 [facility] Comment on above: Performed By: #### T4, TSH, FT3 #### [facility] [address] [address] [address] Clement Duncan Chloride [Moles/Vol] 103 mmol/L Normal 98-107 [facility] Comment on above: Performed By: #### T4, TSH, FT3 #### [facility] [address] [address] [address] Clement Duncan CO2 [Moles/Vol] 29.5 mmol/L Normal 21.0-32.0 [facility] Comment on above: Performed By: #### T4, TSH, FT3 #### [facility] [address] [address] [address] Clement Duncan Creatinine [Mass/Vol] 0.83 mg/dL Normal 0.55-1.02 [facility] Comment on above: Performed By: #### T4, TSH, FT3 #### [facility] [address] [place] [address] Dr. Clement Duncan EGFR-AF ROMANIAN >60 Normal >=60 [facility] Comment on above: Performed By: #### T4, TSH, FT3 #### [facility] [address] [place] [address] Dr. Clement Duncan EGFR-NON AF ROMANIAN >60 Normal >=60 [facility] Comment on above: Performed By: #### T4, TSH, FT3 #### [facility] [address] [place] [address] Dr. Clement Duncan Globulin (S) [Mass/Vol] 3.6 g/dL Normal [facility] Comment on above: Performed By: #### T4, TSH, FT3 #### [facility] [address] [place] [address] Dr. Clement Duncan Glucose [Mass/Vol] 87 mg/dL Normal 74-106 [facility] Comment on above: Performed By: #### T4, TSH, FT3 #### [facility] [address] [address] [address] Clement Duncan Potassium [Moles/Vol] 4.3 mmol/L Normal 3.5-5.1 [facility] Comment on above: Performed By: #### T4, TSH, FT3 #### [facility] [address] [place] [address] Dr. Clement Duncan Protein [Mass/Vol] 6.9 g/dL Normal 6.4-8.2 [facility] Comment on above: Performed By: #### T4, TSH, FT3 #### [facility] [address] [place] [address] Dr. Clement Duncan Sodium [Moles/Vol] 138 mmol/L Normal 136-145 [facility] Comment on above: Performed By: #### T4, TSH, FT3 #### [facility] [address] [place] [address] Dr. Clement Duncan Urea nitrogen [Mass/Vol] 20.0 mg/dL Critically high 7.0-18.0 [facility] Comment on above: Performed By: #### T4, TSH, FT3 #### [facility] [address] [place] [address] Dr. Clement Duncan Urea nitrogen/Creati nine [Mass ratio] 24.1 mg/mg Normal [facility] Comment on above: Performed By: #### T4, TSH, FT3 #### [facility] [address] [place] [address] Dr. Clement Duncan TSHon 01-03-2022 TSH 0.129 uIU/mL Critically low 0.358-3.740 [facility] Comment on above: Performed By: #### T4, TSH, FT3 #### [facility] [address] [place] [address] Dr. Clement Duncan T4, T3U, FTI LABCORPon 11-07 Free Thyroxine Index 1.5 Normal 1.2-4.9 [facility] Comment on above: Performed By: #### T4, TSH, FT3 #### [facility] [address] [place] [address] Dr. Clement Duncan T3 Uptake 27 % Normal 24-39 [facility] Comment on above: Performed By: #### T4, TSH, FT3 #### [facility] [address] [place] [address] Dr. Clement Duncan T4 [Mass/Vol] 5.5 ug/dL Normal 4.5-12.0 [facility] Comment on above: Performed By: #### T4, TSH, FT3 #### [facility] [address] [place] [address] Dr. Clement Duncan FREE T3on 11-06-2021 FREE T3 2.53 pg/mlL Normal 2.18-3.98 [facility] Comment on above: Performed By: #### TSH, FT3 #### [facility] [address] [place] [address] Dr. Clement Duncan FREE T4on 11-06-2021 Free T4 [Mass/Vol] 0.83 ng/dL Normal 0.76-1.46 [facility] Comment on above: Performed By: #### T4, TSH, FT3 #### [facility] [address] [place] [address] Dr. Clement Duncan TSHon 11-06-2021 TSH 0.039 uIU/mL Critically low 0.358-3.740 [facility] Comment on above: Performed By: #### TSH, FT3 #### [facility] [address] [place] [address] Dr. Clement Duncan US PELVIS AND TRANSVAGon [...] BRANDYN GUADALUPE Date: 2021-10-02 07:42 Normal [facility] FREE T3on 09-19-2021 FREE T3 2.81 pg/mlL Normal 2.18-3.98 [facility] Comment on above: Performed By: #### TSH, T4, FT3 #### [facility] [address] [place] [address] Dr. Clement Duncan T4on 09-19-2021 T4 [Mass/Vol] 5.10 ug/dL Normal 4.80-13.90 [facility] Comment on above: Performed By: #### TSH, T4, FT3 #### [facility] [address] [place] [address] Dr. Clement Duncan TSHon 09-19-2021 TSH Qn m[IU]/L Critically low 0.358-3.740 [facility] Comment on above: Performed By: #### T4, TSH, FT3 #### [facility] [address] [place] [address] Dr. Clement Duncan FREE T3on 08-08-2021 FREE T3 1.98 pg/mlL Critically low 2.18-3.98 [facility] Comment on above: Performed By: #### T4, TSH, FT3 #### [facility] [address] [place] [address] Dr. Clement Duncan T4on 08-08-2021 T4 [Mass/Vol] 5.60 ug/dL Normal 4.80-13.90 [facility] Comment on above: Performed By: #### T4, TSH, FT3 #### [facility] [address] [place] [address] Dr. Clement Duncan TSHon 08-08-2021 TSH 0.059 uIU/mL Critically low 0.358-3.740 [facility] Comment on above: Performed By: #### T4, TSH, FT3 #### [facility] [address] [place] [address] Dr. Clement Duncan TSH RANGE SEE BELOW Normal [facility] Comment on above: Result Comment: <0.34 UIU/ml HYPERTHYROI D 0.34-5.60 UIU/ml EUTHYROID >5.60 UIU/ml HYPOTHYROID Performed By: #### T 4, TSH, FT3 #### [facility] [address] [place] [address] Dr. Clement Duncan CNOVon 06-13-2021 CNOV Office Visit (CORN ) JOSIANE LOAIZA ([id number]) 1940 F Date Time Provider Department 06/13/21 10:30 AM CATRACHO GONZALEZ During your visit today, we recorded the following information about you: Temperature Pulse Blood pressure Weight 97.3 degrees 94/minute 138/84 73.7 kg Height 1.575 m Catracho Gonzalez APRN.[facility] 06/14/2021 7:57 AM Signed COLORECTAL SURGERY [...] the past for FI and ARM testing ([id number]). 02/01/2012 ARM: IMPRESSION: Normal resting and low squeeze pressures. Normal volume studies. Normal nerve studies. Today she reports: -recently saw IRONWORKER WIRE FENCE ERECTOR and was encouraged to stop taking Metamucil [...] Laterality Date - PAST SURGICAL HISTORY OF [facility] - PAST SURGICAL HISTORY OF 2009 uterine [...] of th (more content not included)... Normal [facility] HISTORY PHYSICALon HISTORY PHYSICAL HNO ID: [id number] Author: Catracho Gonzalez APRN.GLOBAL CLIMATE CHANGE ANALYST Service: ? Author Type: Nurse Practitioner Type: [...] the past for FI and ARM testing ([id number]). 02/01/2012 ARM: IMPRESSION: Normal resting and low squeeze pressures. Normal volume studies. Normal nerve studies. Today she reports: -recently saw IRONWORKER WIRE FENCE ERECTOR and was encouraged to stop taking Metamucil [...] Laterality Date - PAST SURGICAL HISTORY OF [facility] - PAST SURGICAL HISTORY OF 2009 uterine [...] brain stimulator (more content not included)... Normal [facility] Provider Orderson 08-30-2020 Provider Orders [id number]#1.00O TGTIFF [facility] C Urineon 08-24-2020 C Urine >100,000 [...] <=4 Verified Tri/Sulf S <=2/38 Verified Normal [facility] Comment on above: Performed By: #### [id number] #### [facility] (DEFAULT) [address] [place] [address] Coding Summaryon 08-23-2020 Coding Summary [facility] FzrybpqgZYp8bAk+PGhlYWQ +DJ3YDAOlI29okFGloO3CI1 gJJJ2MWQEDASEYYL5NSC4mx YH5TCutP0OjfnPu AptadUMbRM49HPv6ENP7qKq bEXtgkS6czMAlX9p4CdNzDJ 80tF19BQqgFFMqHiC9XvXyc jsgbWFy C1xfRiDjsCFeAje+PHRhYmx lIHdpZHRoPScxMDAlJyBzdH fzPW8qEo0mWEFbNGKyrRkss HNlOiBj f9nrJRBwZUimOR6nqAbhG1E ltKI6TVKdi7x1Cq13hLZ+PH FzWRH4cHnxACcxm765DmPhz 1ltKOX0 nQYsIXdcNTE2O13qx6X5TJR sOVMoHGQ0bHL3cN7lbTnugm kzZ0XpoTFgYwK5WGX4pUVik H6ulYil khnloL5hXzg+F05OLJ3QRGN ROK9JIfv2K7VxMyoirPM+PC 98QWCtXI77lBRaeYCex9mjl Rh8UyCk KNUcEEE6mQzgKHfmj9JjRMY hZ31dvURow5P0KZFcsUehpF FcPdGezTZ5aQ5xBSwyjwuhj 2hvdzsn Alcuj9gdtq77sK61L02wXVg iXNToTZG5GUFyDSZjkKsndb 1ddP0yZx0+XWgln6gjn0quf Ey9LkHu MPSdxfFojAxqJKX7k3IsUt3 6U0XhsYara7YoGgj2mk74fH Obs4N0sTB1NZhsBSJhdE9gQ WxlZnQ6 OVThLzFrpA50rAAsHFmeEd6 ekKalpAbkUI8oWCNkyetqQA OrfJ6lPYCeaRGunBjlZV3tL TBpbjtm d196IwMjHNF9LWXkkXScM1F rcK0vSpWhZSCgFKUfB9SbyE WcKDouT146VNywAcG1DUTid nXxD2Gc XHNuhZbeIvN5b7S9He4Ul8Z lxbzzLDD1LKooAET2AyE5Rc EdNuQ5U4MeTod1USNajAhrG D3gQ7Od MZKkhqvprxxbiCQ9JPJvUTN gdB58tIYsUVnuXt8ug8O5f1 80XWGhYCKxiN98Qp8gaNlaD TBwdCBU zO0qcdnft9heqdikHwAkCKH iROl5IZn3DSVnfVygSkDoIO Z6CbE4NVC7qSSsfM2otFndp lmnaV7l Oyc+Y05icF3yAGR0GDE2klg kATNdvjZkZB42CA60V5FuAb wvdGFibGU+PGRpdiBzdHlsZ M2zImOq w1lmv0NzXXxfE9VeSTYnHKo wDtt8IYOzUIS2tZP5dD0eAO CfSPady6O8nIR9T0OitbEda x9yf7vq WZClPSkvY16kfSTpy4P5STJ whBE9UFCqjCklLmOqbF02In c+CMSzsGjej8JeLzate2uwx 4slqLh6 YhQdUIPxejQigWqdBHI4k8Y mYy88D73iWUctNKLkKXDgPY YyWHMijDpznj2thL2nRn5+P GNvbCB3 bTK3bD8iADToUiW7MZpiY81 6JcKpvNAyZpmju7sqf9crtW j5XfVcKJMrtzOavCijIAZ7j 0YcOy88 N76oLCclXPUfCRFjMMMyUPV ytNndaq9sdB6gZk6+PC9jb2 qezp17sW08yLK+DRCeXWZ4n WxlPSdw CGXmrP2vLBeyGdF1DIVfHgN clK64fZSiKQghPf7ejEosoV slJQ6lLORlnkxoc889NoUvs 2xkIDEw mZMcXFlaHVQ6Q55xd2Z9GMP oJEDxXIP6iLW7hS0acGvyno ogbGVmdDsgdmVydGljYWwtY YjbK319 IHRvcDsnPlBhdGllbnQgTmF fYKh6Y9NsUrf2GVZovQwtFO 8qjONtICnaPv3ywZidgSorD X4zWUMg fclpf587KlFwt2ekOSMbrEW lJYwvLDC7M68jt5U3UBShYW EnVOQ3jDU0jA1qtCagvtwhn GVmdDsg klLesMmxTNroULpyV060MDH xfXvjVmLlfvDyLFOlxOD0PT 49RE68fEOhs3T6tYP5X1LzT GRpbmct gxnjuUD7EKKsAOKnjP98Xf2 fwLgsLl5tLWUoJCJ6HAZjnG DsR1GgyI3dGuZiPKHiOGOfJ 3RleHQt EQbdU194QStoPjW9CWUherT cK5RrQLEgfFmoKnF0p4G8Cp 0FL9E8TY30OO83nAGlp0F0h KP4N3Nk BDFbxbwukopfcEE2ICGfYYD vfR39Pu8vcBvkRq3nOQJuNF X7WSMvyKYkJ9RsaV4rRwRlR DAwMDAw O2ZavEXcSZcuR665ZDszCmJ 0DHJezwIoE4XmNZRezKvpDx Q6c3L5Qb3PFMe4XM13KF02v VZmb2D3 kTM7U0GoXEPtwjrinufloSE 1HHPbJATvwN61Jt3whFekQj 6bNQQyTJW4LDBcxKYnO5Ijd F0iHeXg GDYnFJQjF6EtdXOqCZqoK76 1YGydSmV4SBKqzcBuX1IsDX SdoCpqGzY1s1W4Cx4SFETuK A83OSG9 sBN5NG24VW75H2HvTcfqdGX ibGU+PHRhYmxlIHdpZHRoPS pdLDJvNoOldQrxIA3xBw1pO GVyLWNv uDmmrWZgBlXjr3xgDDXpWTz jZW6buWuzN6XulYJ2DSFbo6 f1Px13J13cR3OahAX+PGNvb YL5hFC0 vR8uRzHoInZ4RIlpE719TbH rhQQyKjjon1lyn0kxpXw5Vk V2JPYiclHgcFsvFFX2h4RrB w29V66v IHdpZHRoPSIxNSUiIHZhbGl kil8glU9sEh4+CBRjrSG6bT S0rR8iGmOlKoY0XGuuV838T nRvcCIv Hxhyo9cvj1mkhRk0FeKiAHN jkbFskMfuRNL4w9MnSj56C9 BjyPikw6HuSko8xa61uAVfg 8T2lFK2 H4RyTBXtfbgmkBXlgQzcSB8 aFCVdwzmkGEDukJ6dTEXqX8 v6OmInHxV6OIugA7HzmoD3F DEwcHQg XZehNBU0R08ew7Y2YVCkWWQ eXFA5hTX6vR0xqZdvwuodvH VmdDsgdmVydGljYWwtYWxpZ 246IHRv bZrrWSFjzB1wUNOwdWZikOd iQK9pGYLkvbdeRsFFHYCLRt wgQlJFTkRBIFNVRTwvdGQ+P HRkIHN0 hLajLKbsFVNlrC4pZOZhH6y 6ByYbFwB8QIojM8DhFBMzos olUj08sR1fKqGsUtC7YSqgL 3OvxaP1 VWMhcVZuTPjpRLS0F97pk6A 0GZEeGLTwMGO8cJO1yX4ktM lnbjogbGVmdDsgdmVydGljY WwtYWxp L227EYHyxDiuVvX8OfQdWnC 0BHP1B4IfUtp3VDKkeNehRV 4hqWEeJHnfOa7inUlmgNxlM X1pYFQu eahtZUNrtS8yHIFekBZbiEt oMY8mSRUyomtjc066VaUhYH G8MJFvaUFrO5OspV3dNeEsY DAwMDAw S1AbsJWrKQteH711SOyxJcS 2CBWwftNmS8XeDOUijEgeAm D6j1F3Hc40WQXRDAJveykvh GQ+PHRk PVH9vJcgRVugKSVbdT2kUAN fA2c7BkPaAnS8RVsvT8JhOF TpokxuJn94qW4qUsQtIhB7T IpgH6Hu ocG4UHFymDTuTBgvWYN8Z52 dp9D3KMZqKTYaSDK8xNN3pT 1hbGlnbjogbGVmdDsgdmVyd GljYWwt XEkmE228JLWsfYjkKwKFXBP MRTwvdGQ+PUSwZDG8cIxvML ufWGQqyB0kVSCzJ4n9EhSlJ hT6YAoa E5RfAYPbimnyAv60mH3oLoT rPkH2WVuwE5NymjV6IBRsaJ RtSInpVBR5V02se8I3HAPhC DAwMDA7 qRB5eV6wzKcaepvjpVHdjCg wcpJpzWxiRVuvLUmtR787LY NssZrnDy9WIA97AY22X8TvE jwvdGFi bGU+PHRhYmxlIHdpZHRoPSc sGVVtKwHksHcwZP9yXa7mIV CsDLOqwKyxuXEbPzCae2mwM XBzZTsg GN6wsFmsJ2JpdTQ4LZJdf0p 9Zu53Q89wZ7JxiFO+PGNvbC P2fSK8jM6iZtEuOgI9SBaiF 249InRv mNWvFdovw9pgh1tmqQx8RdR wKXEcmnYirMfjQAG4a5KgMx 56L82aDZnrGPUwQRKeHALaL HZhbGln cb1pvB0rRv7+SVGvrMP6cMC 7cH7cOgJxJnN2AFumE874Th YfaYMtYhmaM39gA6GvgBS+P HRyPjx0 JSMfiCdkCI5mdCRlIShhXe3 dYBP4WiKzKvPqVAweV6JpVW YfopvrpmixzRR7XUSnHMWom X27Wt0p fPdlUn4sTQNzUOR5HXGsyOB kI3YtiP3bQaJqHYFuEITcS3 BshXKdNOylU569WNodRyF3D HZlcnRp R5JfCWVptLwfUuL8e4D8Or3 WmXwlfYUnUM7nTyGqXQs4W2 ZePmr1JVVpgVvpOX9liQGtG LxxFt9g uOrdrZxpXA3rNDHgagmux90 3GqJue7lnKJPgoXOmOXusRA Y2G98gx3O6DUXjDUIcVJQ6i YN9wJ7p bGlnbjogbGVmdDsgdmVydGl oZEfwKXvqD420RHKfxZgzOz YUXhe4Y6NaSvc0ZGTqeUqnK W2ezBNc HQvhVg1jbLxleRxlDN1rEXA ounqif693ErYui2knIJVncM DrADbuBDW1J51up1O7CKFjL DAwMDA7 dJV4eF3naXmnbcyubKOocBg ospXsyZvcQHwqZBzyO850JC GkgDtaUp7YTuw5A6OqCcq3I CBzdHls SG6onYCtXAirGs4zuUjvuBr wTY0aFOPxcqsqk341WbSyu4 ozCKTxmGDpRZznWJB4I95jy 9A4FMMq MYYnQNG1wRJ0iX5jjTwknlz gbGVmdDsgdmVydGljYWwtYW agU849PICoqVrzWbTyrGZyY jwvdGQ+ BV58sn93Q2HxTlprCki9ICL oXRI4fZU0uP0zHNMpMEcaf5 Q4kMK6A6BftlXyob0iv8qdC XBzZTog Y29 (more content not included)... [facility] Provider Orderson 08-23-2020 Provider Orders [id number] TGTIFF [facility] ADULT [place] [facility]ECTAL [facility] Vital Signs Date Time Vital Sign Value Performing Clinician Kodi emery 12-28-2022 13:05-0400 Blood Pressure Location Jr BAKER [facility] [place] 12-28-2022 13:05-0400 Diastolic blood pressure 66 mm[Hg] Jr BAKER [facility] [place] 12-28-2022 13:05-0400 Heart rate 72 /min Jr BAKER [facility] [place] 12-28-2022 13:05-0400 Respiratory rate 16 /min Jr BAKER [facility] [place] 12-28-2022 13:05-0400 Systolic blood pressure 120 mm[Hg] Jr BAKER [facility] [place] 03-03-2023 08:57-0500 Blood Pressure Location Nash NICHOLS [facility] 04-27-2022 08:57-0500 Diastolic blood pressure 86 mm[Hg] Nash NICHOLS [facility] 04-27-2022 08:57-0500 Heart rate 74 /min Nash NICHOLS [facility] 04-27-2022 08:57-0500 Respiratory rate 16 /min Nash NICHOLS [facility] 04-27-2022 08:57-0500 Systolic blood pressure 140 mm[Hg] Nash NICHOLS [facility] 06-13-2021 09:46-0400 Body height 157.5 cm Catracho Gonzalez PROGRESSIVE CARE MANAGER.GLOBAL CLIMATE CHANGE ANALYST Work Phone: [facility] 06-13-2021 09:46-0400 Body temperature 97.3 [degF] Catracho Carlos PROGRESSIVE CARE MANAGER.GLOBAL CLIMATE CHANGE ANALYST Work Phone: [facility] 06-13-2021 09:46-0400 Body weight 73.71 kg Catracho Carlos PROGRESSIVE CARE MANAGER.GLOBAL CLIMATE CHANGE ANALYST Work Phone: [facility] 06-13-2021 09:46-0400 Diastolic blood pressure 84 mm[Hg] Catracho Carlos PROGRESSIVE CARE MANAGER.GLOBAL CLIMATE CHANGE ANALYST Work Phone: [facility] 06-13-2021 09:46-0400 Heart rate 94 /min Catracho Carlos PROGRESSIVE CARE MANAGER.GLOBAL CLIMATE CHANGE ANALYST Work Phone: [facility] 06-13-2021 09:46-0400 SaO2% (BldA) [Mass fraction] 96 % Catracho Carlos PROGRESSIVE CARE MANAGER.GLOBAL CLIMATE CHANGE ANALYST Work Phone: [facility] 06-13-2021 09:46-0400 Systolic blood pressure 138 mm[Hg] Catracho Carloscele CH.GLOBAL CLIMATE CHANGE ANALYST Work Phone: [facility] Encounters Encounter Date Encounter Type Care Provider Facility Start: 02-06-2023 End: 02-07-2023 ambulatory Jr [facility]el [facility]ICEL [facility] Start: 02-06-2023 End: 02-06-2023 Patient encounter procedure Jr R NILL [facility] [place] Start: 01-22-2023 End: 01-22-2023 ambulatory DAISY ODELL Not Available Start: 12-28-2022 End: 12-29-2022 ambulatory Frances Robles Facility:[facility] Start: 12-28-2022 End: 12-28-2022 Patient encounter procedure Jr Engel BRICEL [facility] N[facility] [place] Start: 12-04-2022 ambulatory Nash NICHOLS [facility] Start: 06-12-2022 End: 06-13-[address] CHRIS LAYNE Facility: Start: 04-30-2022 End: 05-01-2022 ambulatory Nash NICHOLS Facility:[facility] Start: 04-30-2022 End: 05-01-2022 ambulatory Nash NICHOLS Facility:[facility] Start: 04-30-2022 End: 04-30-2022 Lab Drop off Nash NICHOLS [facility] Start: 04-30-2022 End: 04-30-2022 Patient encounter procedure Nash NICHOLS [facility] Start: 04-27-2022 End: 04-28-2022 ambulatory Nash NICHOLS Facility:[facility] Start: 04-27-2022 End: 04-27-2022 Patient encounter procedure Nash NICHOLS [facility] Start: 04-05-2022 End: 04-06-[address] FRANCES [...] Start: 09-12-2021 End: 09-12-2021 ambulatory Catracho Gonzalez APRN.GLOBAL CLIMATE CHANGE ANALYST Work Phone: [facility] Comment on above: Full incontinence of feces (Primary Dx) Start: 09-12-2021 End: 09-12-2021 Telemedicine consultation with patient Catracho Carlos WILDER Work Phone: [facility] Start: 09-08-2021 Chart abstracting Catracho devlin APRN.CNP Work Phone: [facility] Start: 08-08-2021 End: 08-09-[address] FRANCES ROBLES . Facility:[facility] Start: 06-13-2021 End: 06-13-2021 ambulatory Lorie Romero APRN.GLOBAL CLIMATE CHANGE ANALYST Work Phone: [facility] Comment on above: Manometry Start: 06-13-2021 End: 06-13-2021 Patient encounter procedure Lorie Romero APRN.GLOBAL CLIMATE CHANGE ANALYST Work Phone: [facility] Comment on above: Pelvic floor dysfunc tion in female (Primary Dx) Procedures Date Procedure Procedure Detail Performing Clinician Start: 01-23-2023 Excision of cyst Michae l NILL Comment on above: left preauricular Start: 06-13-2021 ADULT [place] ANORECTAL MANOMETRY Lorie Nick WILDER Work Phone: [...] Activity Detail Author Start: 05-03-2023 ambulatory Ambulatory Facility:[facility] Start: 10-26-2021 Influenza vaccination INFLUENZA (#1) [facility] Start: 04-01-2021 COVID-19 VACCINE (4 - Booster for Pfizer series) COVID-19 VACCINE (4 - Booster for Pfizer series) [facility] Start: 02-25-2021 ADVANCE DIRECTIVE DISCUSSION ADVANCE DIRECTIVE DISCUSSION [facility] Start: 03-06-2012 DIABETES SCREEN DIABETES SCREEN [facility] Start: 2006 BONE DENSITY BONE DENSITY [facility] Start: 2006 PNEUMOCOCCAL: 65+ (1 - PCV) PNEUMOCOCCAL: 65+ (1 - PCV) [facility] Start: 2006 PNEUMOVAX AGE 65 AND OVER WITH 5YR LOOKBACK (#1) PNEUMOVAX AGE 65 AND OVER WITH 5YR LOOKBACK (#1) [facility] Start: 11-25-1991 SHINGRIX VACCINE (1 of 2) ABDI GRIX VACCINE (1 of 2) [facility] Start: 1960 Urine microalbumin profile DTAP,TDAP,TD (1 - Tdap) [facility] Start: 1953 Adult depression screening assessment DEPRESSION SCREENING [facility] Jeannie Immunizations Immunization Date Immunization Notes Care Provider Fa cility 11-28-2022 influenza virus vaccine, unspecified formulation Jr BAKER [facility] [place] 11-29-2020 SARS-CoV-2 (COVID-19 ) mRNA BNT-162b2 vax Jr IRINEO [facility] [place] 04-14-2020 SARS-CoV-2 (COVID-19 ) mRNA BNT-162b2 vax Jr IRINEO [facility] [place] 03-24-2020 SARS-CoV-2 (COVID-19 ) mRNA BNT-162b2 vax Jr IRINEO [facility] [place] 02-26-2020 SARS-CoV-2 (COVID-19 ) mRNA BNT-162b2 vax Nash NICHOLS [facility] Comment on above: Result Comment: pt h as had 3 shots Payers Date Payer Category Payer Medicare [id number] 2019 Unknown MMO MMO MEDICARE SUPPLEMENT [id number] 2019-Present [phone] [address] [place] [address] Indemnity [id number] 2006 Medicare MEDICARE MEDICAR E A AND B [id number] 2006-Present [phone] [address] [address] [place] [address] Medicare [id number] 2006 Medicare [id number] 1959 Medicare [id number] 1959 Self-pay [id number] 1959 Unknown [id number] 1959 Unknown [id number] 1941 Unknown [id number] 2.16.840.1.940490.3.579.2.593 1941 Unknown [id number] 2.16.840.1.313786.3.579.2.593 1941 Unknown [id number] 2.16.840.1.595307.3.579.2.593 1941 Unknown [id number] 2.16.840.1.895145.3.579.2.593 1941 Unknown [id number] 2.16.840.1.357642.3.579.2.593 1941 Unknown [id number] 2.16.840.1.392916.3.579.2.593 1941 Unknown [id number] 2.16.840.1.167088.3.579.2.593 1941 Unknown [id number] 2.16.840.1.907196.3.579.2.593 1941 Unknown [id number] 2.16.840.1.007936.3.579.2.593 1941 Unknown [id number] 2.16.840.1.922790.3.579.2.593 1941 Unknown [id number] 2.16.840.1.213821.3.579.2.1259 1941 Unknown [id number] 2.16.840.1.472737.3.579.2.727 1941 Unknown [id number] 2.16.840.1.789742.3.579.2.727 1941 Unknown [id number] 2.16.840.1.198005.3.579.2.727 1941 Unknown [id number] 2.16.840.1.975283.3.579.2.727 1941 Unknown [id number] 2.16.840.1.934371.3.579.2.727 1941 Unknown [id number] 2.16.840.1.044405.3.579.2.727 Social History Date Type Detail Facility Start: 04-27-2022 End: 12-28-2022 Tobacco smoking status NHIS Never smoked tobacco [facility] Start: 06-13-2021 Alcohol intake Lifetime non-d gregg (finding) [facility] Start: 06-13-2021 History SDOH Alcohol Frequency 1 [facility] Start: 1940 Sex Assigned At Female [facility] Start: 06-03-2021 End: 06-13-2021 Exposure to SARS-CoV-2 (event) Not sure [facility] Tobacco smoking status Never [facility] Sex Assigned At Female [facility] Medical Equipment Procedure Code Equipment Code Equipment Origin al Text Equipment Identifier Dates Rdp-[id number] Implant - [id number] Start: 03-04-2009 Comment on above: Description: Surgisi s Biodesign 4 layer tissue graft Device Tvt W/ Obturator - [id number] Start: 03-04-2009 Functional Status Date Assessment Result Facility 12-28-2022 Functional Status N/A [facility] 04-27-2022 Functional Status N/A [facility] Clinical Notes 06-13-2021 to 12-28-2022 Patient InstructionsCaitlylucian [...] plan excisional biopsy under local anesthesia at [facility], informed consent obtained. Follow-up No qualifying [...] [id number] vax 04/14/ (more content not included)... [facility] Comment on above: Result Comment: Elec tronically [...] to keep your urine pale yellow. ?Take uowy-wev-dyuwgpm or prescription medicines. ?Eat foods that are high in fiber, such as beans, whole grains, and fresh fruits and vegetables. ?Limit foods that are high in fat and processed sugars, such as fried or sweet foods. General instructions Take slvu-hpv-dfdtrhu and prescription medicines only as told by [...] the muscles that help control urination. Take dsrj-lyq-fhbaema and prescription medicines only as told by your health care provider. Contact a health care provider if your symptoms do not improve or get worse. This information is not intended to replace advice given to you by your health care provider. Make sure you discuss any questions you have with your health care provider. Document Released: 12/08/2009 Document Revised: 08/21/2018 Document Reviewed: 08/21/2018 [employer] Patient Education 2020 [employer]. Follow Up Care 04/24/2021 10:45:00 With:JARED PARKINSON, Nash Engel, ILYAL Address: [address] [place] [address] [place] [address]- When: Unknown [facility] 09-12-2021 Note HNO ID: [id number] Author: Catracho Gonzalez APRN.[employer]AL [employer]IM[employer] CHANGE ANALYST Service: ? Author Type: Nurse Practitioner Type: [...] which included preparing to see the patient, yvni-zl-tdkj patient care, completing clinical documentation, obtaining and/or reviewing separately obtained history, performing a medically appropriate examination, counseling and educating the patient/family/caregiver and communicating results to the patient/family/caregiver. [facility] 09-12-2021 Instructions Catracho Gonzalez APRN.[facility] 09/12/2021 8:21 AM EDT Continue home PFPT exercises Continue bowel regimen, can adjust imodium dose as needed Follow up with [facility] pelvic floor as needed; [phone] Your total daily fiber intake should be 25-35g CEREAL FIBER (GMS) Kelloggs All Bran w/Extra Fiber 15 General [place] Fiber One 12 Kelloggs All Bran 9 Nabisco 100% Bran 8 Jesus Alberto's All Bran Fruit and Almonds 6 [place]'s Bran and Oats 6 Episcopal [place] Bran 5 Eugene Bran Chex 5 Robin High Fiber Hot Cereal 5 Jesus Alberto's and Post Raisin Bran 4 Nabisco Shredded Wheat and bran 4 Post Fruit and Fiber 4 Wheatbix 4 Episcopal Oats 2 FIBER FILLED FRUITS FIBER (GMS) Blackberries (1/2 cup) 4 Pears w/ skin (1 medium) 4 Apple w/ skin (1 medium) 4 Prunes 4 Honeydew (1 medium) 3 [place] (1 medium) 3 Raisins (1/4 cup) 3 Raspberries (1/2 cup) 3 Strawberries (1 cup) 3 Apricots (3 medium) 2 Banana 2 Blueberries (1/2 cup) 2 Dates (3) 2 [place] w/ skin (1 medium) 2 [place] (1/2 cup) FIBER (GMS) Baked beans w/tomato sauce 9 Kidney Beans 7 [place] Beans 5 Small Peas 5 Lentils 5 Peas 4 [place] (canned) 3 Potato w/ Skin (medium) 3 Sweet Potato (medium) 3 Broccoli 2 Brussel Sprouts 2 Carrots 2 Spinach 2 Zucchini 2 BEST BREAD AND PASTA FIBER (GMS) Natures Own Double Fiber Bread (1 slice) 5 Whole Wheat Spaghetti (1 cup cooked) 4 Bran Muffin (1) 3 Buckwheat Muffin (1) 3 Whole Wheat Bread (2 slices) 3 Whole Wheat Nigerian Muffin (1) 3 Whole Wheat Pancakes (2) 3 Whole Wheat Dinner Roll (1) 2 Brown Rice (1/2 cup cooked) 1 LOW CALORIE SNACKS FIBER (GMS) Apple w/ Skin 4 Pineapple (1 cup) 2 Popcorn (3 cups unbuttered) 2 Figs (3) 2 Pear w/ Skin 2 Whole Wheat [place] (1 slice) 2 Strawberries Fresh 3 [place] w/ Skin 2 Raspberries (1/2 cup) 3 Celery (3 stalks) 1 DELICIOUS AND NUTRITIOUS DESERTS FIBER (GMS) Baked Apple 6 Blackberry Pie (1 slice) 6 Fruit Compote 4 Pineapple Whole (1/4 fresh) 3 [place] Rhubarb Pie (1 slice) 3 Whole Wheat Banana Nut Bread 3 Brown Rice Pudding (1/2 cup) 2 Fruit Kebab 2 Whole Wheat Oatmeal Cookie 2 documented in this encounter [facility] 09-12-2021 History of Present illness Narrative [...] which included preparing to see the patient, [id number] patient care, completing clinical documentation, obtaining and/or reviewing separately obtained history, performing a medically appropriate examination, counseling and educating the patient/family/caregiver and communicating results to the patient/family/caregiver. documented in this encounter [facility] 09-08-2021 Note HNO ID: [id number] Author: Catracho Gonzalez APRN.CNP Service: ? Author [...] virtually to discuss next steps. MEÑO Arizmendi [facility] 09-08-2021 History of Present illness Narrative Received [...] steps. MEÑO Arizmendi documented in this encounter [facility] 06-13-2021 History and physical note COLORECTAL [...] the past for FI and ARM testing ([id number]). 02/01/2012 ARM: IMPRESSION: Normal resting and low squeeze pressures. Normal volume studies. Normal nerve studies. Today she reports: -recently saw IRONWORKER WIRE FENCE ERECTOR and was encouraged to stop taking Metamucil [...] closed Resting tone: WEAK Squeeze tone: WEAK Payroll And Benefits Analyst present: Yes, Tila Samuels Anoscopy: The patient [...] of SNS and she was given the [employer] SNS brochure. Data Reviewed: Tests & Documents [...] treatment plan: moderate documented in this encounter [facility] 06-13-2021 Instructions Catracho Gonzalez APRN.CNP - 06/13/2021 10:30 AM EDT -begin taking 1 tablet imodium at bedtime and 30 min before exercise -schedule pelvic floor PT -fill out bowel diary for 2 weeks, email To ATTN Catracho Gonzalez CNP -follow up in 3 months documented in this encounter [facility] Evaluation + Plan note Future Appointments Appointment Date:05/03/2023 08:15:00 AM Scheduled Provider:Nash NICHOLS MD Location:[facility] Appointment Type:URO Office Visit [facility] Evaluation + Plan note Future Appointments Appointment Date:05/03/2023 08:15:00 AM Scheduled Provider:Nash NICHOLS MD Location:[facility] Appointment Type:URO Office Visit Diagnostic Tests PendingUrine Culture 04/30/22 [facility] Evaluation note Diagnosis Incontinence of feces, unspecified fecal incontinence type- Primary [facility] Diagnosis Pelvic floor dysfunction in female- Primary [facility] [place] [facility] Diagnosis Full incontinence of feces- Primary [facility] N[facility] No data available for this section [facility] Hospital Discharge instructions No data available for this section [facility] progress note No data available for this section [facility] reason for referral (narrative)* Outpatient Procedure (Routine) - Pending Review Specialty Diagnoses / Procedures Referred By Laura osman Referred To Contact [facility] Diagnoses Incontinence of feces, unspecified fecal incontinence type Procedures [facility] ANORECTAL MANOMETRY ANORECTAL MANOMETRY Lorie Romero APRN.CNP [id number] [place] [address] Referral ID Status Reason Start Date Expiration Date Visits Requested Visits Authorized [id number] Pending Review Auto-Generat ed Referral 06/13/2021 06/13/2022 1 1 [facility] Summary Purpose Family History No Family History Records FoundNo Family History Records FoundNo Family History Records Found No data available for this section No Family History Records Found No data available for this section No Family History Records Found Advance Directives No Advanced Directives Records FoundDocuments on File Type Date Recorded Patient After School Tutor Expl anation Advance Directive(s) 03/07/2009 11:13 AM Documents on File Type Date Recorded 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 After School Tutor Expl anation Advance Directive(s) 03/07/2009 11:13 AM Reason for Referral Specialty Diagnoses / Procedures Referred By Laura osman Referred To Contact [facility] Diagnoses Pelvic floor dysfunction in female Procedures CONSULT TO PHYSICAL THERAPY PHYSICAL THERAPY EVALUATION HIGH COMPLEX 45 MINS Catracho Gonzalez APRN.GLOBAL CLIMATE CHANGE ANALYST [address] [place] [address] [facility] [address] [place] [address] Referral ID Status Reason Start Date Expiration Date Visits Requested Visits Authorized [id number] Pending Review PCP Requested Referral Auto-Generate d Referral 06/13/2021 06/13/2022 99 99 Additional Source Comments INFORMATION SOURCE (unrecogn ized section and content) DATE CREATED AUTHOR 08/30/2020 [facility] DATE CREATED AUTHOR AUTHOR'S ORGANIZ ATION 09/14/2021 [facility] DATE CREATED AUTHOR AUTHOR'S ORGANIZ ATION 06/17/2022 [facility] DATE CREATED AUTHOR AUTHOR'S ORGANIZ ATION 01/24/2023 [facility] EPIC DATE CREATED AUTHOR AUTHOR'S ORGANIZ ATION 02/08/2023 [facility] Source Comments (unrecognize d section and content) In the event this informatio n is protected by the Federal Confidentiality of Alcohol and Drug Abuse Patient Records regulations: The Federal rules restrict any use of the information to criminally investigate or prosecute any alcohol or drug abuse patient.[facility] the event this information is protected by the Federal Confidentiality of Alcohol and Drug Abuse Patient Records regulations: The Federal rules restrict any use of the information to criminally investigate or prosecute any alcohol or drug abuse patient.[facility] the event this information is protected by the Federal Confidentiality of Alcohol and Drug Abuse Patient Records regulations: The Federal rules restrict any use of the information to criminally investigate or prosecute any alcohol or drug abuse patient.[facility] the event this information is protected by the Federal Confidentiality of Alcohol and Drug Abuse Patient Records regulations: The Federal rules restrict any use of the information to criminally investigate or prosecute any alcohol or drug abuse patient.[facility] Reason for Visit (unrecogniz ed section and content) Reason Comments Manometry Reason Comments Fecal Incontinence Reason Comments Fecal Incontinence Care Teams (unrecognized sec tion and content) Liquor Blender Relationship Specialty Start Date End Date Frances Robles MD PCP - General 09/13/08 Liquor Blender Relationship Specialty Start Date End Date Frances Robles MD PCP - General 09/13/08 Liquor Blender Relationship Specialty Start Date End Date Frances Robles MD PCP - General 09/13/08 Liquor Blender Relationship Specialty Start Date End Date Frances [...] BE BASED ON THE PRIMARY CLINICAL RECORDS. [employer] [facility]. provides no warranty or guarantee of the accuracy or completeness of information in this document.
== END 2023-02-27 09:05 | disposition home or self-care (01) ==
LOC: PST 09:04
PROVIDERS: PCP Family Medicine; Visit Provider Surgery
DX: Z01.818 Encounter for other preprocedural examination (principal); Z12.11 Encounter for screening for malignant neoplasm of colon

== ENCOUNTER 2023-03-06 06:38 | Day surgery (SDC) | payer MEDICARE, OTHER, SELFPAY ==
--- NOTE | 2023-03-06 | OP_ITS ---
OPERATION DATE: 03/06/2023 PREOPERATIVE DIAGNOSIS: Colorectal screening. POSTOPERATIVE DIAGNOSIS: Normal colonoscopy to cecum. PROCEDURE: Colonoscopy to cecum. SURGEON: Jr Cabello M.D. ANESTHESIA: Monitored anesthesia care. ESTIMATED BLOOD LOSS: Zero. INDICATIONS AND CONSENT: Patient is an 82-year-old female presents for colorectal screening. Indications, risks, benefits, alternatives of proceeding with colonoscopy were explained extensively to the patient, including the risks of bleeding, colon perforation or anesthetic complications. All of her questions were answered. Informed consent was obtained. PROCEDURE: Patient brought to the operating room, placed in the left lateral decubitus position. Monitored anesthesia care was provided. Rectal exam was performed which showed no masses or blood. The scope was inserted into the anal canal. Under direct visualization was advanced. With the aid of abdominal compression, it was advanced to the cecum where cecal markings were clearly identified. Upon withdrawal of the scope, mucosal surfaces were carefully examined. There were no mass lesions or polyps. No inflammatory changes or ulcerations. There were rare sigmoid diverticula without inflammatory changes or scarring. The scope was retroflexed in the anal canal. There was no significant hemorrhoidal disease. Scope was then withdrawn. Patient tolerated procedure well, was sent to recovery room in good condition. she should not require further screening colonoscopies. CC: Mike Robles M.D. CHANEL
--- OUTSIDE RECORDS SUMMARY | 2023-03-06 06:41 | XMS_ITS | CCD ---
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 Role Phone Frances Robles MD Primary Care Provider [phone] Frances Robles Primary Care Physician ROVERTO, DR PEREZ Admitting Unavailable AHMED, DR PEREZ Attending Unavailable HOY ., DR DANIELS Primary Care Unavailable KARAN, DR PHILLIP Engel Consulting Unavailable AHMED, DR [...] HOY ., DR DANIELS Primary Care Unavailable EXETER, DR BRANDYN Yousif Consulting Unavailable AHMED, DR [...] DANIELS Primary Care Unavailable TRAVIS ., DR DNAIELS Consulting Unavailable DAISY ODELL Attending Unavailable NICHOLSNash Attending Unavailable NICHOLSNash Attending Unavailable NICHOLS, Nash Engel Attending Unavailable NICHOLS, Nash Engel Attending Unavailable Nsah NICHOLS Admitting Unavailable Frances Robles Referring Unavailable Jr BAKER Attending Unavailable NILL, Jr Engel Attending Unavailable Allergies Allergy Classification Reported Allergen(s) Allergy Type Date of Onset Reaction(s) Facility (9 sources) Acetaminophen / oxyCODONE; Translations: [acetaminophen-ox ycodone] Drug Allergy 0 Intolerance [facility] (4 sources) meloxicam Drug Allergy 0 GI Upset [facility] (4 sources) Sulfonamides (Antibiotic) Propensity to adverse reactions 9 Hives [facility] (8 sources) Cephalexin; Translations: [cephalexin] Drug Allergy 2 Diarrhea, Vomiting (disorder) [facility] (6 sources) Sulfamethoxazole; Translations: [sulfamethoxazole ] Drug Allergy [facility] (disorder) [facility] (2 sources) Sulfonamides (Antibiotic) Drug allergy (disorder) 3 [facility] Repository (1 source) Acetaminophen / oxyCODONE; Translations: [Percocet 10] Drug Allergy [facility] Repository (1 source) Cephalexin; Translations: [Keflex] Drug Allergy [facility] Repository Medications Current Medications Medication Drug [...] Daily, # 90 tab(s), Refills(s) 3, Pharmacy: [facility], 157, cm, 04/27/22 8:58:00 EST, Height/Length Dosing, 78, kg, 04/27/22 8:58:00 EST, Weight Dosing Start Date: 09/18/22 Status: Ordered Start: 09-28-2021 take 1 tablet by enrique th once daily Myrbetriq 50 mg oral tablet, extended release 50 mg = 1 tab(s), Oral, Daily, # 90 tab(s), Refills(s) 3, Pharmacy: [facility] (Now [facility]), 157, cm, 04/24/21 10:01:00 [...] once a day omega-3 acid ethyl esters (group home) 1000 mg oral capsule (4 sources) Start: [...] Procedure/Surger yon 02-08-2023 Consent for Procedure/Surge ry [id number]#1.00T IFF Normal [facility] General Surgery Office/Clini c Noteon 02-06-2023 [...] Family History Pr (more content not included)... [facility] Comment on above: Result Comment: Electronically Signed By : IRINEO PARKINSON, Jr Engel\.br\Date and Time Signed: 02/06/23 20:15 EST Pathology Noteon 02-06-2023 Pathology Note [id number]#1.00T IFF [facility] Operative Reporton Operative Report [id number]#1.00T IFF [facility] Consent for Procedure/Surger yon 12-31-2022 Consent for Procedure/Surge ry [id number]#1.00T IFF [facility] Ambulatory Visit Summaryon 1 02-27-2022 Ambulatory Visit [...] Sydnee Normal [address] [place] [address] [place] [address]- \.br\ Medications\.br\ What How Much When Instructions\.br\ [...] for choosing us for your care.\.br\ \.br\ [facility] Physician Referralon 023 Physician Referral [id number]#1.00T IFF Normal [facility] Physician Referral [id number]#1.00T IFF Normal [facility] MG MAMM SCREEN 3D [place] CADon 06-12-2022 MG MAMM SCREEN 3D [place] CAD Patient: JOSIANE LOAIZA Exam Date: 06/12/2022 : 1940 Gender:F Ordering : DR CHRIS LAYNE Admission #: [id number] Family : DR FRANCES ROBLES . Order #: [id number] CLICK HERE TO VIEW EXAM RADIOLOGY REPORT [...] colon cancer at age 86. LOCATION: [facility] BREAST COMPOSITION: Scattered areas fibroglandular density. [...] M.D. on 06/12/2022 at 13:48 Normal [facility] Coding Summary.on 05-05-2022 Coding Summary. CD:[id number] Gh0 bWw+PGhlYWQ+NL2WRGQoP03 buRGckR8rD4UHZUwAVvtfBO CYXCfEGgRdkzXeSE9gtMFlQ XJu IC8+NJ4vPYInRwvadBOyk1H 0dDD0U60zsd0uABjriBR3WD AcLfLfkixzf6lozEd9RMfrH mluOyBt LMWfxI36XHG4sR70Zt65vWG exBXku2wwqCg7GiFrGEXxYO P0sAhnVItlf6AcFFQlO31rt JVtq7L7 ZYYyiVzumQVeEqXzsHK9xK8 oAAhzuhcfi8dhcsqcSji0bu 38wTIqo5N0jBF7I1ZxiwG9O GJvbGQg JvhktGLEgS1diqeyp4wnkmn jYsPhWVEqDQm4UWk4EZQrsC fnSbFtDB44QUU1NXIrjgIyK 2FsLWFs gPzyJbR7t5E9So7XC9JSLnn pP4MCFWOCZFedkVV+PC90cj 95J3ZjCgfiTxc3SJKsVCH2s KH6sQ2n YMFhUWymz0Z5sSS0M3KpbsI apn1lk1crDFJuYShyF04ayR Xgp6E8AOAutAH1PSKeyFvbG iBzaG93 Oyc+CTMrbNnyu8AuWkyew8u sm3jktYe8MifjUYTntuBghA jjKMI9o0OsWz9aSKRohFT0g YC1mZ2o QjFqSfC1EGzpH480CmMjmDC aIddeG60rM3RseFP+PHRyPj w8UUHeqGanDS0wJ1QfTSIdw mctbGVm oFozZM1rZXOdrityOIVkmQ1 nIGZgD5k7KeFaKvT7JIpaC1 NmOSRihwstRo98gY8fPzCeA wI1HDvz Z0ZzdcZ4YDGjkMFgDFbgDQE 5L05vl3Z3ZDEoHEYhGSK1qE X0pF4isMeltzdbeILvbPfad mVydGlj WXeuLNuoF020MQWkdGveMbV vZGluZyBEYXRlOiAgMDMvMT EvMjAyMzwvdGQ+AMXyXIJ8n WxlPSAn jLDoHLxmWt1exQyjzOiuYO7 lMIPnrnpkRVBpqM6sJPPhjK RlbRguYF5jHACqzxdqm976C iAxMHB0 AUNpzUQxW1RsnP0xYsKkVDF iNITiC3KskBJqWRcrF393NI xuQrI2VMKmmuMzS0DjFJEhd WduOiB0 i3R7Wk4Af5AmokfhX3RntJM yFhPjEjutXSr2V7NaWfcguP I+TH89MGSmJA05OVm3YKA6a WxlPSdi KMMjE7RdoO3sOjDnTSXtFMF kOyc+PHRhYmxlIHdpZHRoPS uyOTGdNnAoaXbtZX3zDs7xF GVyLWNv lPkjaEFqWtJix9fmFBVbQLq nWY6vjRhvH3GguKQ0GXMlj4 o6Pz43K36zH9YgnVO+PGNvb KO4bHF5 sT2xTfSeWhU2XFxkR414TiB ciLOyFunsv8ytr9djoQc4Bx Y2VSSoojNleSulYGL8g2KkP q67U21n IHdpZHRoPSIxNSUiIHZhbGl vma6ywY4wFj1+OAXkhBY4wP B2nR9jNpLwYtK9ZLsrH343V nRvcCIv Mlysa6iob0ghqVr7OpNhDWO csiRfpMcrPHD0r4QbCx09U8 SsuXpad5DkTlr7hw85vKCdv 3C0vCL6 J1JeYNLisdlvkHWdjVvoXS7 ySQMxjvoiNAFgnL3rVDArZ9 i5HdNcGrW2QJvcU6FyjkF6J GJvbGQg TRFudOPLmZ6nasndw9vspuf iGsHpRTHfALf8YCq1DQRrnL ugNiYnJJX5IjT7WMR5lBSed I3vpGvu nldizW9pUod+FUA8zJIppQU ZMT5eAruobEF+NBYbURH0rD mpPKflYYUqqD1fQSXjC3y7U iAwLjA1 PKyoC5EbohO7MTTubZPuWJD opKFQvU1vzjxpn7rjtupmQz WuNECzIQb2SMp6CHNxcCbmE iBsZWZ0 JhY5WRM4fJLgmB3uhXbkpla uvQ1sPgu+InycwRmbCJD0OA z2K9ZdUlh4SCSptGntEO4qz GFkZGlu Xr2gmJyicSiuMD6vLUYbgnk dm822FoOdl0cdOWWmxBIxMF zsMJK9P21jm2Y9SWBoHKDaG SH3kRV4 iQ3gyUjbyrcqxXOwjVlmnkM zwTsuYBzyYIvwW612UIOvgQ prLlEiJEk3W3PhIhu9AGEdp HqtIK9l rKHwVQdzFr6usGzapIfkKB3 rTMBqworlz525OjKtm2ouZI FlsEDfXYfjLQW3G55bk9X0J CMwMDAw QEL1dMX1oZ9cbYcdidztsDJ mdDsgdmVydGljYWwtYWxpZ2 34ILEeaByuDiPikMr1D5PzW oq4DRBs zZlxXY8vxPPhPBdxMb6fmJt isEjxHX2xFAOcsntmy646Mk Rbz3ogKJVpmXGrSVfjVIM5T 75ad9I3 VTDjCKEzJHM7sKG5gW1nrBn nbjogbGVmdDsgdmVydGljYW qvUJokL382XAVjyInaDwLso GllbnQg AGexDMw6H3BpBzubqKQ+PC9 8GKQlNY62zGKxySHtq9vrwB e2PcIjHBSnLFW6bVgfIDvnk 3JkZXIt F67etXHlp4C8RIZjqAvczCK jPeMrpSO0kA3qTLnrngebp4 ksmijgGnipj9nvel93eJ11V 29sIHdp ZHRoPSIzMCUiIHZhbGlnbj0 rvE8dTu0+APKvvQF6iNN2oT 5rCYBoJgX2AZqoQ104UtOro CIvPjxj u2zkq0oxeDu2XwQ6BAXflnY xbMdzHIJ9z7QoJe87V80wWO dpZHRoPSIyMCUiIHZhbGlnb t2xxW3d Ii8+DNEfiZH6yXE9sW6lGdZ eBbZ9LZemH750NeIveEXrEf ykK93tA6QliVM+ZEZoFuq7T CBzdHls QG3osSIgJJflHd5uPGT1JgY oSeWiOJmmN3YoNHFztwgitz gvxQZ1FSJpUNBcfM56Bf6dy DogMTBw jBEAdV9rikjth5twiimjTeF hDNPzYYu7XMv5LLAdmLgiBn EtZNQ1VpR1LLH3cWTzcV0ir Glnbjog zH4xL4CmSDBvnhwnVb32sU6 bHiMiFeF4QFnfBwi+UkVUVE lHLCBCUkVOREEgUzwvdGQ+P HRkIHN0 nJmkWGsaRXDuhN9mSDBzY5q 7CwAeMiQ2VLoqG0MoNZZxdi ubLr78hG4kGnGjZnX8MOicP 7LrwaI9 YQKpvDTnPTckOFW6N88ff3A 8ZNWxJOXiRRX9yAT3nG3tiN lnbjogbGVmdDsgdmVydGljY WwtYWxp M951MULczLgsIdX3DaZfAjD 9THW2L1NbTyx6LQMghYlaIH 4ffQZrWDsfLa4odVvwgGdbM N4gCUWe yttyFXPhwI4tQKTlkUVrhPl kZJ7dTDAturltw978DlEiQS U0FDIlnXRxI0KznY2hBlElZ DAwMDAw B8VcgJBpLOcrX935ZTxgWiG 9ONVhkuJsK1LyKKEasIadLs D6a6U8Cb85AKPPJICpeequz GQ+PHRk JQT0xOymBYmhCWWrqI9mIDR zJ4m6MuOtGbQ9PYknU6ShGK QygiooJh32qO4tYdQoEnI4Q BkeK2Fd kkY2ZEAmaAJsAUfjTHF4R14 bo6Z5HIVbQMLoDDW9jXV0yY 1hbGlnbjogbGVmdDsgdmVyd GljYWwt YHzhK811KBDfcXerXfXlmHL sZTwvdGQ+WWOfSWF9ySnmFA zwGIIodD2xBXGwT4j6CnEeY eB5BOcu A0JoVEZfhobcYz07fB6cShT uKtX9VQhsL7ErdbW9RKJvvU JgKLgnETP3Z02rk2D7AKSwD DAwMDA7 fEK7vU6moOjsgfmtcBTayJk ozmBgfTeaLYlbSJkvH466VE OpzKvoNxshDcVVib6rGJ5rD jwvdGQ+ FQ94em82B0EmXzqeWii4RQG pLGS9hNZ3mO6kJCMgXAhlj6 L1xBI6D5NvrpPyhk4am8hkU XBzZTog B96yqYKil0G5KOAnwZV1CEL mbAchLqWhvJ74Kav+PGNvbG dsm7KgBvcbj2emd3rmgJl9S jMwJSIg jkNlmEizDIY2h3QkQt70C68 sIHdpZHRoPSIzMCUiIHZhbG lzyh3iyJ8kKc8+LWSipPV7q EL5dS2f RxMqRqZ1SWexK996MxTsaPU cTatps5pov4ecnLl2PjNtKK WmyqXmpHvcAUS0o9TsAf73G 2NvbGdy h3TnJib8my42yQUef0A2iXK 6P9AxUHFdvabjeSCuvYwnRP 7bQQSdlgdmVMTsiU9cYFBfL 3k3HeJf YvI2ZFovS2QfmiT9HGOivVS vCAKggUTYyH3xlhpbf0ahha ihXkXdWORwKOx3PLw4QIVyh WduOiBs RXV3QzZ8LVY6rJRppR2krFt ifmtyaF7yKrs+MKm5s7agtS IaZH1xaRL0PA38WI59bIIuj 2Q8fMC5 W6OuMBJzjvurelxmeZW9DWK bQDLptB05Kx4uxTavGm8wUT KxLTC4RTVvrVFuA7DhmW4zN iAjMDAw IFWzV0ZhuYCeIChnH120XNs vHoN8URXbwlEtW6WyHPBfaF raZdV8m1N7Ar8ZTZ26CH59M W61jFTm c3D3cYS1E2BpBJLazsatfog tfFR7ZFTlMDLkqX10Zq9lyG bhPz5yCPOfXSE6XKAnxBGqZ 6RroE5y SpFwMEVbFJXvZ9VzhMPsQNv wY836XSouVbE8KSWkfhIlZ6 DkNORjqNjuFuU9y3X7Nf7MQ s69MB94 VZ11oRNbj7S1kDG2I2VwSBI onydzrwkbnAG5MGQqOUWafD 68Qa6qkRtaVq3uBDKcDVY1Z FRpbWVz K0LbhB0bSlWpZMGrMQFdG5F mtFAoTBrhM198FKqcKgC5AG YhytNbO9LkQBDmjYauSmC0j 3J3Rz7Y FBvsdfd8K8WpQkhtuCJ+PC9 7GDVmCL95nRHpuUOmb5ftoX z0SdLlKTRyXAQ7rJqbETewk 3JkZXIt Y29s (more content not included)... Normal [facility] C Urineon 05-02-2022 Bacteria identified Cx [...] Locations R1: This test was performed at: [facility], [address] [place] [address], [address]- , [place], [facility] Comment on above: Performed By: #### [id number] ####[facility] [address] [place] [address] Ambulatory Visit Summaryon 0 04-30-2022 Ambulatory Visit [...] Nash NICHOLS MD Where: [facility] Ambulatory Visit Summaryon 0 04-27-2022 Ambulatory Visit Summary JOSIANE LOAIZA :1940 Visit Date:04/27/2022 Ambulatory Visit Instructions Your Diagnosis Urgency of urination Feeling of incomplete bladder emptying History of UTI Nocturia Tests Performed Urnls Dip Stick Auto w/o Microscopy POC 00793 Your Care Team Attending Physician - Nash [...] PARKINSON, Nash Engel Where: [facility] Patient Educationon 04-28-19 23 Patient Education Urology [...] keep your urine pale yellow. ? Take ckgu-yac-vlsyemt or prescription medicines. ? Eat foods that are high in fiber, such as beans, whole grains, and fresh fruits and vegetables. ? Limit foods that are high in fat and processed sugars, such as fried or sweet foods. General instructions ? Take ayda-mhs-pqjmklo and prescription medicines only as told by [...] muscles that help control urination. ? Take bsro-nsb-taqqkdc and prescription medicines only as told by [...] 12/08/2009 Document Revised: 08/21/2018 Document Reviewed: 08/21/2018 [employer] Patient Education ? 2019 [employer]. [facility] Urology Office/Clinic Noteon 04-27-2022 Urology Office/Clinic Note Chief Complaint 1yr f/u HPI Staff 1yr f/u to incomplete bladder emptying, urgency, Hx of UTI, nocturia and microscopic hematuria. *Myrbetriq 50mg QOD therapy. Denies any infections since last encounter. Still having some urgency. Denies leaking. Double voids in the mornings. Feels empty. Getting up at least 2x/night to void still. Did PFPT at [place]. Happy with the process and results. (underwent [...] Pt. shares she just underwent PFPT @ [facility] due to bowel issues. Feels she [...] results. Pt. shares she is flying to [place] Saturday. Pt. aware that if culture would show infection we can send antibiotic [facility] [place] and she would be able to pick it up at a [facility] in [place]. 4. Nocturia (R35.1: Nocturia) Ongoing, 2x during the night but not bothersome. Follow-up With When Contact Information JARED PARKINSON, Nash Engel, URL [address] [place] [address]- Additional Instructions: 1 year Patient Education Urinary [...] 09/05/2018 Tobacco (more content not included)... Normal [facility] Comment on above: Result Comment: Electronically Signed By : Nash NICHOLS MD\.br\Date and Time Signed: 04/27/22 09:48 EST\.br\Electronically Co-Signed By: Bella Garcia\.br\Date and Time Co-Signed: 04/27/22 09:40 EST\.br\Electronically Co-Signed By: Bella Garcia\.br\Date and Time Co-Signed: 04/27/22 09:42 EST FREE T3on 04-05-2022 FREE T3 2.36 pg/mlL Normal 2.18-3.98 [facility] Comment on above: Performed By: #### T4, TSH, FT3 #### [facility] [address] [place] [address] Dr. Clement Duncan T4on 04-05-2022 T4 [Mass/Vol] 6.10 ug/dL Normal 4.80-13.90 [facility] Comment on above: Performed By: #### T4, TSH, FT3 #### [facility] [address] [place] [address] Dr. Clement Duncan TSHon 04-05-2022 TSH 0.257 uIU/mL Critically low 0.358-3.[address] [facility] Comment on above: Performed By: #### T4, TSH, FT3 #### [facility] [address] [place] [address] Dr. Clement Duncan CBC AUTO DIFFon 01-03-2022 BASO # 0.0 103/ul Normal 0.0-0.1 [facility] Comment on above: Performed By: #### CBC #### [facility] [address] [place] [address] Dr. Clement Duncan Basophils/100 WBC (Bld) 0.4 % Normal 0.2-2.0 [facility] Comment on above: Performed By: #### CBC #### [facility] [address] [place] [address] Dr. Clement Duncan EO # 0.0 103/ul Normal 0.0-0.7 [facility] Comment on above: Performed By: #### CBC #### [facility] [address] [place] [address] Dr. Clement Duncan Eosinophils/100 WBC (Bld) 0.2 % Critically low 0.9-7.0 [facility] Comment on above: Performed By: #### CBC #### [facility] [address] [place] [address] Dr. Clement Duncan Erythrocyte distribution width (RBC) [Ratio] 15.3 % Critically high 11.0-15.0 [facility] Comment on above: Performed By: #### CBC #### [facility] [address] [place] [address] Dr. Clement Duncan Hematocrit (Bld) [Volume fraction] 41.7 % Normal 36.0-48.0 [facility] Comment on above: Performed By: #### CBC #### [facility] [address] [place] [address] Dr. Clement Duncan Hemoglobin (Bld) [Mass/Vol] 13.5 g/dL Normal 12.0-16.0 [facility] Comment on above: Performed By: #### CBC #### [facility] [address] [place] [address] Dr. Clement Duncan IG # 0.02 10e3/ul Normal 0.00-0.03 [facility] Comment on above: Performed By: #### CBC #### [facility] [address] [place] [address] Dr. Clement Duncan IG % 0.2 % Normal 0.0-0.5 [facility] Comment on above: Performed By: #### CBC #### [facility] [address] [place] [address] Dr. Clement Duncan LYMPH # 1.2 103/ul Normal 1.2-3.8 [facility] Comment on above: Performed By: #### CBC #### [facility] [address] [place] [address] Dr. Clement Duncan Lymphocytes/100 WBC (Bld) 13.3 % Critically low 20.5-60.0 [facility] Comment on above: Performed By: #### CBC #### [facility] [address] [place] [address] Dr. Clement Duncan MANUAL DIFF REQ NO Normal [facility] Comment on above: Performed By: #### CBC #### [facility] [address] [place] [address] Dr. Clement Duncan MCH (RBC) [Entitic mass] 28.5 pg Normal 26.7-34.0 [facility] Comment on above: Performed By: #### CBC #### [facility] [address] [place] [address] Dr. Clement Duncan MCHC (RBC) [Mass/Vol] 32.4 g/dL Normal 29.9-35.2 [facility] Comment on above: Performed By: #### CBC #### [facility] [address] [address] [address] Clement Duncan MCV (RBC) [Entitic vol] 88.0 fL Normal 81.0-99.0 [facility] Comment on above: Performed By: #### CBC #### [facility] [address] [place] [address] Dr. Clement Duncan MONO # 0.7 103/ul Normal 0.3-0.8 [facility] Comment on above: Performed By: #### CBC #### [facility] [address] [place] [address] Dr. Clement Duncan Monocytes/100 WBC (Bld) 7.6 % Normal 1.7-12.0 [facility] Comment on above: Performed By: #### CBC #### [facility] [address] [place] [address] Dr. Clement Duncan NEUT # 7.3 103/ul Critically high 1.4-6.5 [facility] Comment on above: Performed By: #### CBC #### [facility] [address] [place] [address] Dr. Clement Duncan Neutrophils/100 WBC (Bld) 78.3 % Critically high 43.0-75.0 [facility] Comment on above: Performed By: #### CBC #### [facility] [address] [place] [address] Dr. Clement Duncan Platelet mean volume (Bld) [Entitic vol] 9.5 fL Normal 9.5-13.5 [facility] Comment on above: Performed By: #### CBC #### [facility] [address] [place] [address] Dr. Clement Duncan PLT 331 103/ul Normal 150-450 [facility] Comment on above: Performed By: #### CBC #### [facility] [address] [place] [address] Dr. Clement Duncan RBC 4.74 106/ul Normal 4.20-5.40 [facility] Comment on above: Performed By: #### CBC #### [facility] [address] [place] [address] Dr. Clement Duncan WBC 9.3 103/ul Normal 4.0-11.0 [facility] Comment on above: Performed By: #### CBC #### [facility] [address] [address] [address] Clement Duncan FREE THYROXINE INDEX T7on FTI 2.11 Normal 1.30-4.50 [facility] Comment on above: Performed By: #### T4, TSH, FT3 #### [facility] [address] [address] [address] Clement Duncan T3U 34.0 % Normal 30.0-39.0 [facility] Comment on above: Performed By: #### T4, TSH, FT3 #### [facility] [address] [place] [address] Dr. Clement Duncan T4 [Mass/Vol] 6.20 ug/dL Normal 4.80-13.90 [facility] Comment on above: Performed By: #### T4, TSH, FT3 #### [facility] [address] [address] [address] Clement Duncan IRONon 01-03-2022 Iron [Mass/Vol] 85.0 ug/dL Normal 50.0-170.0 [facility] Comment on above: Performed By: #### T4, TSH, FT3 #### [facility] [address] [place] [address] Dr. Clement Duncan LIPID PROFILEon 01-03-2022 CHOL-HDL RATIO NORM SEE BELOW Normal [facility] Comment on above: Result Comment: 3.3 - 4.4 LOW RISK 4.4 - 7.1 AVERAGE RISK 7.1 - 11.0 MODERATE RISK >11.0 HIGH RISK Performed By: #### T 4, TSH, FT3 #### [facility] [address] [address] [address] Clement Duncan Cholesterol [Mass/Vol] 142 mg/dL Normal <=200 [facility] Comment on above: Performed By: #### T4, TSH, FT3 #### [facility] [address] [address] [address] Clement Duncan Cholesterol in HDL [Mass/Vol] 83 mg/dL Critically high 40-60 [facility] Comment on above: Performed By: #### T4, TSH, FT3 #### [facility] [address] [address] [address] Clement Duncan Cholesterol in LDL [Mass/Vol] 46.0 mg/dL Normal [facility] Comment on above: Performed By: #### T4, TSH, FT3 #### [facility] [address] [address] [address] Clement Duncan Cholesterol.tot al/Cholesterol in HDL [Mass ratio] 1.7 {ratio} Normal [facility] Comment on above: Performed By: #### T4, TSH, FT3 #### [facility] [address] [address] [address] Clement Duncan HDL NORMAL > or = 60 mg/dl - LO W CARDIOVASCULAR RISK <40 mg/dl - HIGH CARDIOVASCULAR RISK Normal [facility] Comment on above: Performed By: #### T4, TSH, FT3 #### [facility] [address] [address] [address] Clement Duncan LDL CALC NORMAL SEE BELOW Normal [facility] Comment on above: Result Comment: <100 mg/dl OPTIMAL 100 - 129 mg/dl NEAR OR ABOVE OPTIMAL 130 - 159 mg/dl BORDERLINE HIGH 160 - 189 mg/dl HIGH >190 mg/dl VERY HIGH Performed By: #### T 4, TSH, FT3 #### [facility] [address] [address] [address] Clement Duncan Triglyceride [Mass/Vol] 65 mg/dL Normal <=150 [facility] Comment on above: Performed By: #### T4, TSH, FT3 #### [facility] [address] [address] [address] Clement Dnucan VLDL CALC 13.0 mg/dL Normal [facility] Comment on above: Performed By: #### T4, TSH, FT3 #### [facility] [address] [address] [address] Clement Duncan PROF 14(COMP METB)on 022 Albumin [Mass/Vol] 3.3 g/dL Critically low 3.4-5.0 [facility] Comment on above: Performed By: #### T4, TSH, FT3 #### [facility] [address] [address] [address] Clement Duncan Albumin/Globuli n [Mass ratio] 0.9 {ratio} Normal [facility] Comment on above: Performed By: #### T4, TSH, FT3 #### [facility] [address] [address] [address] Clement Duncan ALP [Catalytic activity/Vol] 89 U/L Normal 46-116 [facility] Comment on above: Performed By: #### T4, TSH, FT3 #### [facility] [address] [address] [address] Clement Duncan ALT [Catalytic activity/Vol] 20 U/L Normal 14-59 [facility] Comment on above: Performed By: #### T4, TSH, FT3 #### [facility] [address] [address] [address] Clement Duncan Anion gap [Moles/Vol] 9.8 mmol/L Normal [facility] Comment on above: Performed By: #### T4, TSH, FT3 #### [facility] [address] [address] [address] Clement Duncan AST [Catalytic activity/Vol] 19 U/L Normal 15-37 [facility] Comment on above: Performed By: #### T4, TSH, FT3 #### [facility] [address] [address] [address] Clement Duncan Bilirubin [Mass/Vol] 0.3 mg/dL Normal 0.2-1.0 [facility] Comment on above: Performed By: #### T4, TSH, FT3 #### [facility] [address] [address] [address] Clement Duncan Calcium [Mass/Vol] 9.3 mg/dL Normal 8.5-10.1 [facility] Comment on above: Performed By: #### T4, TSH, FT3 #### [facility] [address] [place] [address] Dr[address] Clement Duncan Chloride [Moles/Vol] 103 mmol/L Normal 98-107 [facility] Comment on above: Performed By: #### T4, TSH, FT3 #### [facility] [address] [address] [address] Clement Duncan CO2 [Moles/Vol] 29.5 mmol/L Normal 21.0-32.0 [facility] Comment on above: Performed By: #### T4, TSH, FT3 #### [facility] [address] [address] [address] Clement Duncan Creatinine [Mass/Vol] 0.83 mg/dL Normal 0.55-1.02 [facility] Comment on above: Performed By: #### T4, TSH, FT3 #### [facility] [address] [place] [address] Dr. Clement Duncan EGFR-AF BHUTANESE >60 Normal >=60 [facility] Comment on above: Performed By: #### T4, TSH, FT3 #### [facility] [address] [place] [address] Dr. Clement Duncan EGFR-NON AF BHUTANESE >60 Normal >=60 [facility] Comment on above: Performed By: #### T4, TSH, FT3 #### [facility] [address] [place] [address] Dr. Clement Duncan Globulin (S) [Mass/Vol] 3.6 g/dL Normal [facility] Comment on above: Performed By: #### T4, TSH, FT3 #### [facility] [address] [place] [address] Dr. Clement Duncan Glucose [Mass/Vol] 87 mg/dL Normal 74-106 [facility] Comment on above: Performed By: #### T4, TSH, FT3 #### [facility] [address] [address] [address] Clement Duncan Potassium [Moles/Vol] 4.3 mmol/L Normal 3.5-5.1 [facility] Comment on above: Performed By: #### T4, TSH, FT3 #### [facility] [address] [place] [address] Dr. Clement Duncan Protein [Mass/Vol] 6.9 g/dL Normal 6.4-8.2 [facility] Comment on above: Performed By: #### T4, TSH, FT3 #### [facility] [address] [place] [address] Dr. Clement Duncan Sodium [Moles/Vol] 138 mmol/L Normal 136-145 [facility] Comment on above: Performed By: #### T4, TSH, FT3 #### [facility] [address] [place] [address] Dr. Clement Duncan Urea nitrogen [Mass/Vol] 20.0 mg/dL Critically high 7.0-18.0 [facility] Comment on above: Performed By: #### T4, TSH, FT3 #### [facility] [address] [place] [address] Dr. Clement Duncan Urea nitrogen/Creati nine [Mass ratio] 24.1 mg/mg Normal [facility] Comment on above: Performed By: #### T4, TSH, FT3 #### [facility] [address] [place] [address] Dr. Clement Duncan TSHon 01-03-2022 TSH 0.129 uIU/mL Critically low 0.358-3.[address] [facility] Comment on above: Performed By: #### T4, TSH, FT3 #### [facility] [address] [place] [address] Dr. Clement Duncan T4, T3U, FTI LABCORPon 11-07 Free Thyroxine Index 1.5 Normal 1.2-4.9 [facility] Comment on above: Performed By: #### T4, TSH, FT3 #### [facility] [address] [place] [address] Dr. Clement Duncan T3 Uptake 27 % Normal 24-39 [facility] Comment on above: Performed By: #### T4, TSH, FT3 #### [facility] [address] [place] [address] Dr. Clement Duncan T4 [Mass/Vol] 5.5 ug/dL Normal 4.5-12.0 [facility] Comment on above: Performed By: #### T4, TSH, FT3 #### [facility] [address] [place] [address] Dr. Clement Duncan FREE T3on 11-06-2021 FREE T3 2.53 pg/mlL Normal 2.18-3.98 [facility] Comment on above: Performed By: #### TSH, FT3 #### [facility] [address] [place] [address] Dr. Clement Duncan FREE T4on 11-06-2021 Free T4 [Mass/Vol] 0.83 ng/dL Normal 0.76-1.46 [facility] Comment on above: Performed By: #### T4, TSH, FT3 #### [facility] [address] [place] [address] Dr. Clement Duncan TSHon 11-06-2021 TSH 0.039 uIU/mL Critically low 0.358-3.[address] [facility] Comment on above: Performed By: #### TSH, FT3 #### [facility] [address] [place] [address] Dr. Clement Duncan US PELVIS AND TRANSVAGon [...] BRANDYN GUADALUPE Date: 2021-10-02 07:42 Normal [facility] FREE T3on 09-19-2021 FREE T3 2.81 pg/mlL Normal 2.18-3.98 [facility] Comment on above: Performed By: #### TSH, T4, FT3 #### [facility] [address] [place] [address] Dr. Clement Duncan T4on 09-19-2021 T4 [Mass/Vol] 5.10 ug/dL Normal 4.80-13.90 [facility] Comment on above: Performed By: #### TSH, T4, FT3 #### [facility] [address] [place] [address] Dr. Clement Duncan TSHon 09-19-2021 TSH Qn m[IU]/L Critically low 0.358-3.740 [facility] Comment on above: Performed By: #### T4, TSH, FT3 #### [facility] [address] [place] [address] Dr. Clement Duncan FREE T3on 08-08-2021 FREE T3 1.98 pg/mlL Critically low 2.18-3.98 [facility] Comment on above: Performed By: #### T4, TSH, FT3 #### [facility] [address] [place] [address] Dr. Clement Duncan T4on 08-08-2021 T4 [Mass/Vol] 5.60 ug/dL Normal 4.80-13.90 [facility] Comment on above: Performed By: #### T4, TSH, FT3 #### [facility] [address] [place] [address] Dr. Clement Duncan TSHon 08-08-2021 TSH 0.059 uIU/mL Critically low 0.358-3.[address] [facility] Comment on above: Performed By: #### T4, TSH, FT3 #### [facility] [address] [place] [address] Dr. Clement Duncan TSH RANGE SEE BELOW Normal [facility] Comment on above: Result Comment: <0.34 UIU/ml HYPERTHYROI D 0.34-5.60 UIU/ml EUTHYROID >5.60 UIU/ml HYPOTHYROID Performed By: #### T 4, TSH, FT3 #### [facility] [address] [place] [address] Dr. Clement Duncan CNOVon 06-13-2021 CNOV Office Visit (CORN ) JOSIANE LOAIZA ([id number]) 1940 F Date Time Provider Department 06/13/21 10:30 AM CATRACHO GONZALEZ During your visit today, we recorded the following information about you: Temperature Pulse Blood pressure Weight 97.3 degrees 94/minute 138/84 73.7 kg Height 1.575 m Catracho Gonzalez APRN.[facility] 06/14/2021 7:57 AM Signed COLORECTAL SURGERY [...] the past for FI and ARM testing ([id number]). 02/01/2012 ARM: IMPRESSION: Normal resting and low squeeze pressures. Normal volume studies. Normal nerve studies. Today she reports: -recently saw JOINERY PATTERNMAKER and was encouraged to stop taking Metamucil [...] Laterality Date - PAST SURGICAL HISTORY OF [facility] - PAST SURGICAL HISTORY OF 2009 [...] of th (more content not included)... Normal [facility] HISTORY PHYSICALon HISTORY PHYSICAL HNO ID: [id number] Author: Catracho Gonzalez APRN.NEW PRODUCT TRAINER Service: ? Author Type: Nurse Practitioner Type: [...] the past for FI and ARM testing ([id number]). 02/01/2012 ARM: IMPRESSION: Normal resting and low squeeze pressures. Normal volume studies. Normal nerve studies. Today she reports: -recently saw JOINERY PATTERNMAKER and was encouraged to stop taking Metamucil [...] Laterality Date - PAST SURGICAL HISTORY OF [facility] - PAST SURGICAL HISTORY OF 2009 [...] brain stimulator (more content not included)... Normal [facility] Provider Orderson 08-30-2020 Provider Orders [id number]#[id number] TGTIFF [facility] C Urineon 08-24-2020 C Urine >100,000 cfu/ml [...] <=4 Verified Tri/Sulf S <=2/38 Verified Normal [facility] Comment on above: Performed By: #### [id number] #### [facility] (DEFAULT) [address] [place] [address] Coding Summaryon 08-23-2020 Coding Summary [facility] CveresjwWVo4qSj+PGhlYWQ +NK9WQDBwN80tfYVhoI8RC2 jDHX9IOBFMUYDWBV4ECU6hb JI8PTjtF0VaerEh OalnhOMnIB29RKz8HFT6jTy zMRejgB8ynJTzG8e3ElUfPS 91sJ86PPgtVSKlMjB5GbEum jsgbWFy A4cmIcEsaAHsJfi+PHRhYmx lIHdpZHRoPScxMDAlJyBzdH ndXA8eMa8wFQTsWUEkzAmxg HNlOiBj m8piSEToBZtwPJ7gvIkwQ7H rkHE9MKYqk8b4Co40oII+PH IwPWR7aHvzQEvil440TrClf 0byYDW1 sUTwKQebLEC6B28wo3C3OGQ wQPQiHYC8mMT8aO7ayHsegt epF8HqsWVyGrP4DBI1rNOwd Y7ktNiy xemgcS4yUza+L02GHJ9RMNV MSD2FKsc3J3RsPdfjyRJ+PC 70WNIiXH35jXAmoMJis5wqy Wf1FyXs HCHtXTM5bHbrNUiut5PuDTK fK24kyNGlm8Z0LJVloCaokW HzFwRqyXS5oT7sFWzhnsmic 2hvdzsn Wdbjy4xepk46dT03M92sXPn fZJUnABF5GKDpGAFnpSgnsx 6ogW7eJg3+SRxee1btf1xiz Ym7GnPo DUTjmaIrfEhhRTN2d6PmUh8 2M2BzuCiek2TtDhj7lt39tG Bzr1R6uJA6MMplSZHrvK2lU WxlZnQ6 BGGbJwEwbY67bIWpDFkzFv0 vpGqqkPwaYF7jDMYdhyzsZM OdxC6dPBCisQYfnJnuWB9qD TBpbjtm d353KeEvUKW6AREaoWTtV0G iuH9wHcMgJQTnLCZlD6PjnX CkBUbcL350KQmvZiS8SUHwp jNgJ4Rb NEEylQmjRxB1v8L4Rl3As6J ladgmCJP4GVyaGPC3AtM9Kw AcMlL9C9TfYgt7BLZidEagM M5dL4It ANTzcwamyccjpFF4KESjTQQ miB40oBUtUIzdEq4aq8M7p7 23OKBbIHLofG78By5zqQzwU TBwdCBU oS0dsafwb9kbfiioEsPbKQN kLEa6NIg5OUGcpYfyNrBzFD D4NuO4EJT3wPMajV1pkQfeq fmyfB6t Oyc+U92kfB3wJMN4TBY8ngn tBRStxiEmYW52FP82W2ZaXi wvdGFibGU+PGRpdiBzdHlsZ F4gRhKy p8kti5SeCMxsZ6SmIDGnTUb fGea8UZGaJHW4bML5dU4zJO YxBHmrz1N2tSK2Z2IvbyAjy g5cu3zp MFKyDNpgS94wjUSua0F1AOZ xkRD8MFSndFgxOwOksQ62Nj c+LJZekUvam0OmLqhdb7ugs 7shpRf3 UxYmISUjqkEsrBbjERS5e5K nMs69Y19oZGplUFEiFWWaQB UySFOhyNtryy5bzG1bHq5+P GNvbCB3 iWX3uQ8vRPVnXtV9PRjbO02 1ZqGjiJRbTjmru6lib7stqA z2HkRlWDPftjLhbFbfZVR2x 0LiQv80 A12rDQliZDJoIBLuFIQxZHA qcMuauj8tkF0zUb6+PC9jb2 xdje17uA79eKR+FKUrBIM3u WxlPSdw XYLuuT5nLUfjFfI4APRcXnD apE38uKAgGPcoXq8odAnsyI riZB4qFNEtchzzy723EcRnj 2xkIDEw kMQqITqrIHZ6K95fq8T0QOH sHJFaBXN9xGL8iR2sbKubsa ogbGVmdDsgdmVydGljYWwtY HwcH012 IHRvcDsnPlBhdGllbnQgTmF uTZm0W7UrSnw5YZDrmPioHJ 3vcGEpHNpqIy0fiFfplUdxT F2fEZOk fvuri883KpHxi4ykLFLesMS aAGffEWD7N74xb6I3ZQSmFX CvBAR4vTO3cD1ehPtbvgfvo GVmdDsg rzElvYwaOBfkQNntC494GQX fiUxeDvWhnkZsAZVyeZG7ST 07MS77aROub1P5lFP7H7LkV GRpbmct qfxmiPK4ZTAqZTXwmL24Na6 jmSzpFp6oNYAsOSF9EQHjfR OnZ1StsQ4gPoJqMHIqHULpA 3RleHQt SXtqE853ILcuTsV8HGEhasV qP0KfTQExoBziKfI6m3J3Ju 5DD1J4LX80BR63bPSpc7W0f ET1N5Yz BMSdetmhmfsjpMN9ZNMxRSH rdV22Yz7hbGjjKk9tIPQpBS J6LGExsETbQ7SyvJ3eSbFrO DAwMDAw Y2FjpDNuPYjbG655KMdtQwO 2SVKuxoMvV2WfKEImdBsoBz O6f2M3Rq3XAMj4MV40JT67i HMyd2F6 sAD3H8KlYIEidclgosyvoKT 8ANPrIJGhfA13Bf2jmWyoMl 0pCHBsITA6UTPsyLVcQ8Mee Y5cEdAq ELUbIMKwJ6YqsOQaVThkI38 1AYeoWjS3VPSfchXuX3VoWI QgdJmcRyY9f1V9Is1QLXKxA D27UZS7 vQI3EE08IE12P6DpTnddmYD ibGU+PHRhYmxlIHdpZHRoPS jhDACsTcOpgDvtPI2kXj5oT GVyLWNv eJvnpUAyUpBul9ymQISiLVl bGL1viVbrE3JtjUS9WHXcc7 w1Ih91K66pR6PeeFD+PGNvb AJ0qSX6 eX9zScYtQtQ6XSmlK381OdD dcGNqVuwtg1tbu6bdmOg5Ni I4JERurqIjyKasYKI0w7LsB y32O81l IHdpZHRoPSIxNSUiIHZhbGl kaq1aeO7qOz4+UDFphFH4eT P9dI4dBlVdJuD4ZZusJ593U nRvcCIv Llexx2oes2htdZe8SpAlULD ncoXacSllYSX8a2RcOq53O6 CugZjri0TjUjf1ge94dJMah 5M7pVJ2 D0LvYGJhmtmqmNAflBulFW4 vYQMjntzzFMKexH7tWKAgT8 e2YyTpPxB4PZjmJ0ZtjqV0R DEwcHQg JQhoWSX3Z95hj9C6DZTdRQR bBUK1kVP6fE7gbGspsvidjX VmdDsgdmVydGljYWwtYWxpZ 246IHRv ePdqZGMauN3aPGDaiJTlgDu eBO1iGNCjcrwlPnBKVOXTWs wgQlJFTkRBIFNVRTwvdGQ+P HRkIHN0 dBmkBFawTTHfcQ6dMXHwP5l 3IlZcJyC1ZElyV0AhAPKsob cbEz00oB8bYaGnWdP0FIcsQ 7PazyO5 NIQwvVOrGDfeRTJ8N77vu9R 9KHKcUDCxPPJ4aVE1bI6dyI lnbjogbGVmdDsgdmVydGljY WwtYWxp B897JXFtcIjgUwJ3JvAvLlB 5OLB6G9FtYqs2NFOoaWzpHT 5hoWBaYYgsIw0xtQnhyWugI X4jYBGe ovbdVTObwV9kJSCkbGJpqJi gVN9pLQQfurzdy653GgVeGU Z4LYXtzVNlL7UabO0fUzZqF DAwMDAw P8DseOLhFLhxS016JTivAyS 3KBFmthBxW9UdQWOqfJalGc S8n1O9Lw04CVSFJIBqbuocy GQ+PHRk AWN4kClaXBdtEGMqeW9aMML mU8e0PaQoHvG8AZmpB3EvSV GfpwkjOk69aV7cQkBeVmQ2N MrbZ6Lw jdC5PCVtwUNqUYdaAVN7X88 qp4H0FURkSIAtNTF6dVY4wO 1hbGlnbjogbGVmdDsgdmVyd GljYWwt ZIobZ508UPIllWfnCoRTHZP MRTwvdGQ+KFBgRPF7oDdjOE zwDXUlaN2hAPZmQ1m4UbBpP oK3GTxi Y1WwZFEarabbRk52eS3qBcA vYhO7DYedI2TdxnA3KRAauF NpNWfoDEV4D92sv6C9TIYiO DAwMDA7 gPJ8qC2neYpznpmyeJTpzIm imrPdvXioXZjgHBprS003ZP VrcIviZn4TXC32HB92B4TwO jwvdGFi bGU+PHRhYmxlIHdpZHRoPSc jWDJjClUepLrxMC7bAl4sAL KeNVMpnYgwlUAzYgIhr8xuJ XBzZTsg YG3wqNyoJ9CiyKV4JSYzu1i 9Qd18M06zQ2GghQV+PGNvbC V3sLI6oF2uMnWcYeN6WMicY 249InRv iOIiSmuye3ypn2sbpJz8XtV fTDXuckQsnXlaNZO9z4MeLe 55W11uZRmtMRHiVTHjXAPmF HZhbGln ri0rlF9mCp7+RGJgzYR3gZW 3uV5lCoFxHzR4CVauO480Ev MjvRZyUwrfE47lG2YmqYK+P HRyPjx0 MSOkoBseQE4shAMcZKdnUy0 wRQU3ObWkMfIiNCpiO7BzLM LdvjibzwtdkBE6RHVaHIIyf Y58Bo1d lZhtRi0bVSCrCNK2AYNwcYL fL5XrfW5tMbNuNUAuQEXpU7 WzsHVcOCahO725EWmnJvD9U HZlcnRp J3LbZRRskRprFwG7d7D6Zv6 KvRbmfITdNU2eDzSeOHy0Z4 IzIqn9TPZlfHgeYM8eeYCgC CovFi7r tIvmwOtkCP0yAXEoumnnq48 8OeFqi8xnIFOjxQUlYKvuTG I9F22go1U7EYHsETRiJVX8c EI0fH7f bGlnbjogbGVmdDsgdmVydGl eXJloAIkbC173HRUvmOvrFz EMBpc7V3MdAsv1UDRgiDuvP C0awAZm JQngXl0tpLesnWjoSD8gYZA gsimie370YrUdw2kpEZOpkQ HwIGdlVSF0F03dt8R3OXQlP DAwMDA7 pDK3wK9wgTvraouzbRLsuCa cheIhkZqaSMaeJZweY830NP CklRvjTo3FFxp0P6UaRde3J CBzdHls NO8ojTFmJUpjLf4rlVibdNl nLQ2rMYOehvyst010NeEts1 ckEYSjfOOoIUcwBUK7J27mh 7H5QDLr MWHhBHN1wSX6tI7lqAxsccb gbGVmdDsgdmVydGljYWwtYW jgN169EWZdhHecXyNefIUrH jwvdGQ+ ZI87iw43E1HaKvcdItl8UGE nRZN6pJR9lU6kQHKaQKutp4 G2jHH2A9MlinThtl4ze9lrZ XBzZTog Y29 (more content not included)... [facility] Provider Orderson 08-23-2020 Provider Orders [id number] TGTIFF [facility] ADULT [place] [facility] Vital Signs Date Time Vital Sign Value Performing Clinician Kodi emery 12-28-2022 13:05-0400 Blood Pressure Location Jr BAKER [facility] 12-28-2022 13:05-0400 Diastolic blood pressure 66 mm[Hg] Jr BAKER [facility] 12-28-2022 13:05-0400 Heart rate 72 /min Jr BAKER [facility] 12-28-2022 13:05-0400 Respiratory rate 16 /min Jr BAKER [facility] 12-28-2022 13:05-0400 Systolic blood pressure 120 mm[Hg] Jr BAKER [facility] 03-03-2023 08:57-0500 Blood Pressure Location Nash NICHOLS [facility] 04-27-2022 08:57-0500 Diastolic blood pressure 86 mm[Hg] Nash NICHOLS [facility] 04-27-2022 08:57-0500 Heart rate 74 /min Nash NICHOLS [facility] 04-27-2022 08:57-0500 Respiratory rate 16 /min Nash NICHOLS [facility] 04-27-2022 08:57-0500 Systolic blood pressure 140 mm[Hg] Nash NICHOLS [facility] 06-13-2021 09:46-0400 Body height 157.5 cm Catracho Gonzalez DIRECTOR OF NEIGHBORHOOD SERVICE CENTER.NEW PRODUCT TRAINER Work Phone: [facility] 06-13-2021 09:46-0400 Body temperature 97.3 [degF] Catracho Carlos DIRECTOR OF NEIGHBORHOOD SERVICE CENTER.NEW PRODUCT TRAINER Work Phone: [facility] 06-13-2021 09:46-0400 Body weight 73.71 kg Catracho Carlos DIRECTOR OF NEIGHBORHOOD [facility]ICE CENTER.NEW PRODUCT TRAINER Work Phone: [facility] 06-13-2021 09:46-0400 Diastolic blood pressure 84 mm[Hg] Catracho Carlos DIRECTOR OF NEIGHBORHOOD [facility].NEW PRODUCT TRAINER Work Phone: [facility] 06-13-2021 09:46-0400 Heart rate 94 /min Catracho Carlos DIRECTOR OF NEIGHBORHOOD [facility].NEW PRODUCT TRAINER Work Phone: [facility] 06-13-2021 09:46-0400 SaO2% (BldA) [Mass fraction] 96 % Catracho Carlos DIRECTOR OF NEIGHB[facility]HO[facility].NEW PRODUCT TRAINER Work Phone: [facility] 06-13-2021 09:46-0400 Systolic blood pressure 138 mm[Hg] Catracho Carloscele CH.NEW PRODUCT TRAINER Work Phone: [facility] Encounters Encounter Date Encounter Type Care Provider Facility Start: 02-06-2023 End: 02-07-2023 ambulatory Jr Engel BRICEL [facility] Start: 02-06-2023 End: 02-06-2023 Patient encounter procedure Jr R NILL General Surgery Nill/Said Sydnee Start: 01-22-2023 End: 01-22-2023 ambulatory DAISY ODELL Not Available Start: 12-28-2022 End: 12-29-2022 ambulatory Frances Robles Facility:[facility] Start: 12-28-2022 End: 12-28-2022 Patient encounter procedure Jr Engel BRICEL General Surgery Nill/Said Sydnee Start: 12-04-2022 ambulatory Nash NICHOLS [facility] Start: 06-12-2022 End: 06-13-[address] CHRIS LAYNE Facility: Start: 04-30-2022 End: 05-01-2022 ambulatory Nash NICHOLS Facility:[facility] Start: 04-30-2022 End: 05-01-2022 ambulatory Nash NICHOLS Facility:[facility] Start: 04-30-2022 End: 04-30-2022 Lab Drop off Nash NICHOLS [facility] Start: 04-30-2022 End: 04-30-2022 Patient encounter procedure Nash NICHOLS [facility] Start: 04-27-2022 End: 04-28-2022 ambulatory Nash NICHOLS Facility:[facility] Start: 04-27-2022 End: 04-27-2022 Patient encounter procedure [facility]ICHOLS [facility] Start: 04-05-2022 End: 04-06-[address] FRANCES [...] Start: 09-12-2021 End: 09-12-2021 ambulatory Catracho Gonzalez APRN.NEW PRODUCT TRAINER Work Phone: [facility] Comment on above: Full incontinence of feces (Primary Dx) Start: 09-12-2021 End: 09-12-2021 Telemedicine consultation with patient Catracho Carlos WILDER Work Phone: [facility] Start: 09-08-2021 Chart abstracting Catracho devlin APRN.CNP Work Phone: [facility] Surgery Start: 08-08-2021 End: 08-09-[address] FRANCES ROBLES . Facility:[facility] Start: 06-13-2021 End: 06-13-2021 ambulatory Lorie Romero APRN.NEW PRODUCT TRAINER Work Phone: [facility] Comment on above: Manometry Start: 06-13-2021 End: 06-13-2021 Patient encounter procedure Lorie Romero APRN.NEW PRODUCT TRAINER Work Phone: [facility] Comment on above: Pelvic floor dysfunc tion in female (Primary Dx) Procedures Date Procedure Procedure Detail Performing Clinician Start: 01-23-2023 Excision of cyst Michae l NILL Comment on above: left preauricular Start: 06-13-2021 ADULT [place] [facility] Lorie Nick WILDER Work Phone: [...] Activity Detail Author Start: 05-03-2023 ambulatory Ambulatory Facility:[facility] Start: 10-26-2021 Influenza vaccination INFLUENZA (#1) [facility] Start: 04-01-2021 COVID-19 VACCINE (4 - Booster for Pfizer series) COVID-19 VACCINE (4 - Booster for Pfizer series) [facility] Start: 02-25-2021 ADVANCE DIRECTIVE DISCUSSION ADVANCE DIRECTIVE DISCUSSION [facility] Start: 03-06-2012 DIABETES SCREEN DIABETES SCREEN [facility] Start: 2006 BONE DENSITY BONE DENSITY [facility] Start: 2006 PNEUMOCOCCAL: 65+ (1 - PCV) PNEUMOCOCCAL: 65+ (1 - PCV) [facility] Start: 2006 PNEUMOVAX AGE 65 AND OVER WITH 5YR LOOKBACK (#1) PNEUMOVAX AGE 65 AND OVER WITH 5YR LOOKBACK (#1) [facility] Start: 11-25-1991 SHINGRIX VACCINE (1 of 2) ABDI GRIX VACCINE (1 of 2) [facility] Start: 1960 Urine microalbumin profile DTAP,TDAP,TD (1 - Tdap) [facility] Start: 1953 Adult depression screening assessment DEPRESSION SCREENING [facility] Jeannie Immunizations Immunization Date Immunization Notes Care Provider Fa cility 11-28-2022 influenza virus vaccine, unspecified formulation Jr BAKER [facility] 11-29-2020 SARS-CoV-2 (COVID-19 ) mRNA BNT-162b2 vax Jr IRINEO [facility] 04-14-2020 SARS-CoV-2 (COVID-19 ) mRNA BNT-162b2 vax Jr IRINEO [facility] 03-24-2020 SARS-CoV-2 (COVID-19 ) mRNA BNT-162b2 vax Jr IRINEO [facility] 02-26-2020 SARS-CoV-2 (COVID-19 ) mRNA BNT-162b2 vax Nash NICHOLS [facility] Comment on above: Result Comment: pt h as had 3 shots Payers Date Payer Category Payer Medicare [id number] 2019 Unknown MMO MMO MEDICARE SUPPLEMENT [id number] 2019-Present [phone] [address] [place] [address] Indemnity [id number] 2006 Medicare MEDICARE MEDICAR E A AND B [id number] 2006-Present [phone] [address] [address] [place] [address] Medicare [id number] 2006 Medicare [id number] 1959 Medicare [id number] 1959 Self-pay [id number] 1959 Unknown [id number] 1959 Unknown [id number] 1941 Unknown [id number]93 1941 Unknown [id number] 2.16.840.1.834737.3.579.2.593 1941 Unknown [id number] 2.16.840.1.846994.3.579.2.593 1941 Unknown [id number] 2.16.840.1.454212.3.579.2.593 1941 Unknown [id number] 2.16.840.1.630860.3.579.2.593 1941 Unknown [id number] 2.16.840.1.146956.3.579.2.593 1941 Unknown [id number] 2.16.840.1.408000.3.579.2.593 1941 Unknown [id number] 2.16.840.1.084903.3.579.2.593 1941 Unknown [id number] 2.16.840.1.358590.3.579.2.593 1941 Unknown [id number] 2.16.840.1.015284.3.579.2.593 1941 Unknown [id number] 2.16.840.1.929263.3.579.2.1259 1941 Unknown [id number] 2.16.840.1.927488.3.579.2.727 1941 Unknown [id number] 2.16.840.1.775700.3.579.2.727 1941 Unknown [id number] 2.16.840.1.188815.3.579.2.727 1941 Unknown [id number] 2.16.840.1.734648.3.579.2.727 1941 Unknown [id number] 2.16.840.1.830032.3.579.2.727 1941 Unknown [id number] 2.16.840.1.388543.3.579.2.727 Social History Date Type Detail Facility Start: 04-27-2022 End: 12-28-2022 Tobacco smoking status NHIS Never smoked tobacco [facility] Start: 06-13-2021 Alcohol intake Lifetime non-d gregg (finding) [facility] Start: 06-13-2021 History SDOH Alcohol Frequency 1 [facility] Start: 1940 Sex Assigned At Female C [facility] Start: 06-03-2021 End: 06-13-2021 Exposure to SARS-CoV-2 (event) Not sure [facility] Tobacco smoking status Never [facility] Sex Assigned At Female [facility] Medical Equipment Procedure Code Equipment Code Equipment Origin al Text Equipment Identifier Dates Iaw-Ei-P-Kind Implant - [id number] Start: 03-04-2009 Comment on above: Description: Surgisi s Biodesign 4 layer tissue graft Device Tvt W/ Obturator - [id number] Start: 03-04-2009 Functional Status Date Assessment Result Facility 12-28-2022 Functional Status N/A [facility] 04-27-2022 Functional Status N/A [facility] Clinical Notes 06-13-2021 to 12-28-2022 Patient InstructionsCaitlylucian Gonzalez APRN.NEW - 09/12/2021 8:00 AM Geoavny Gonzalez APRN.NEW - 09/08/2021 12:38 PM Geovany [...] plan excisional biopsy under local anesthesia at [facility], informed consent obtained. Follow-up No qualifying [...] [id number] vax 04/14/ (more content not included)... [facility] Comment on above: Result Comment: Elec [...] to keep your urine pale yellow. ?Take iwpl-cta-xpximwm or prescription medicines. ?Eat foods that are high in fiber, such as beans, whole grains, and fresh fruits and vegetables. ?Limit foods that are high in fat and processed sugars, such as fried or sweet foods. General instructions Take jslz-fvk-pmtjwgl and prescription medicines only as told by [...] the muscles that help control urination. Take rref-llu-fygnoie and prescription medicines only as told by your health care provider. Contact a health care provider if your symptoms do not improve or get worse. This information is not intended to replace advice given to you by your health care provider. Make sure you discuss any questions you have with your health care provider. Document Released: 12/08/2009 Document Revised: 08/21/2018 Document Reviewed: 08/21/2018 [employer] Patient Education 2020 [employer]. Follow Up Care 04/24/2021 10:45:00 With:JARED PARKINSON, Nash Engel, ILYAL Address: [address] [place] [address] [place] [address]- When: Unknown [facility] Note HNO ID: [id number] Author: Catracho Gonzalez APRN.NEW PRODUCT TRAINER Service: ? Author Type: Nurse Practitioner Type: [...] which included preparing to see the patient, [id number] patient care, completing clinical documentation, obtaining and/or reviewing separately obtained history, performing a medically appropriate examination, counseling and educating the patient/family/caregiver and communicating results to the patient/family/caregiver. [facility] 09-12-2021 Instructions Catracho Gonzalez APRN.[facility] 09/12/2021 8:21 AM EDT Continue home PFPT exercises Continue bowel regimen, can adjust imodium dose as needed Follow up with [facility] pelvic floor as needed; [phone] Your total daily fiber intake should be 25-35g CEREAL FIBER (GMS) Kelloggs All Bran w/Extra Fiber 15 General Gibson Fiber One 12 Kelloggs All Bran 9 Nabisco 100% Bran 8 Concord's All Bran Fruit and Almonds 6 Concord's Bran and Oats 6 Adventist Lovejoy Bran 5 Bruington Bran Chex 5 Bruington High Fiber Hot Cereal 5 Jesus Alberto's and Post Raisin Bran 4 Nabisco Shredded Wheat and bran 4 Post Fruit and Fiber 4 Wheatbix 4 Adventist Oats 2 FIBER FILLED FRUITS FIBER (GMS) Blackberries (1/2 cup) 4 Pears w/ skin (1 medium) 4 Apple w/ skin (1 medium) 4 Prunes 4 Honeydew (1 medium) 3 Camas (1 medium) 3 Raisins (1/4 cup) 3 Raspberries (1/2 cup) 3 Strawberries (1 cup) 3 Apricots (3 medium) 2 Banana 2 Blueberries (1/2 cup) 2 Dates (3) 2 Jackson w/ skin (1 medium) 2 GREENS AND [place] (1/2 cup) FIBER (GMS) Baked beans w/tomato sauce 9 Kidney Beans 7 Gan and Valdez Beans 5 Small Peas 5 Lentils 5 Peas 4 Lovejoy (canned) 3 Potato w/ Skin (medium) 3 Sweet Potato (medium) 3 Broccoli 2 Brussel Sprouts 2 Carrots 2 Spinach 2 Zucchini 2 BEST BREAD AND PASTA FIBER (GMS) Natures Own Double Fiber Bread (1 slice) 5 Whole Wheat Spaghetti (1 cup cooked) 4 Bran Muffin (1) 3 Buckwheat Muffin (1) 3 Whole Wheat Bread (2 slices) 3 Whole Wheat Indonesian Muffin (1) 3 Whole Wheat Pancakes (2) 3 Whole Wheat Dinner Roll (1) 2 Brown Rice (1/2 cup cooked) 1 LOW CALORIE SNACKS FIBER (GMS) Apple w/ Skin 4 Pineapple (1 cup) 2 Popcorn (3 cups unbuttered) 2 Figs (3) 2 Pear w/ Skin 2 Whole Wheat [place] (1 slice) 2 Strawberries Fresh 3 Jackson w/ Skin 2 Raspberries (1/2 cup) 3 Celery (3 stalks) 1 DELICIOUS AND NUTRITIOUS DESERTS FIBER (GMS) Baked Apple 6 Blackberry Pie (1 slice) 6 Fruit Compote 4 Pineapple Whole (1/4 fresh) 3 Kingsley Rhubarb Pie (1 slice) 3 Whole Wheat Banana Nut Bread 3 Brown Rice Pudding (1/2 cup) 2 Fruit Kebab 2 Whole Wheat Oatmeal Cookie 2 documented in this encounter [facility] 09-12-2021 History of Present illness Narrative COLORECTAL [...] which included preparing to see the patient, [id number] patient care, completing clinical documentation, obtaining and/or reviewing separately obtained history, performing a medically appropriate examination, counseling and educating the patient/family/caregiver and communicating results to the patient/family/caregiver. documented in this encounter [facility] 09-08-2021 Note HNO ID: [id number] Author: Catracho Gonzalez APRN.CNP Service: ? Author [...] virtually to discuss next steps. MEÑO Arizmendi [facility] 09-08-2021 History of Present illness Narrative Received [...] steps. MEÑO Arizmendi documented in this encounter [facility] 06-13-2021 History and physical note COLORECTAL SURGERY [...] the past for FI and ARM testing ([id number]). 02/01/2012 ARM: IMPRESSION: Normal resting and low squeeze pressures. Normal volume studies. Normal nerve studies. Today she reports: -recently saw JOINERY PATTERNMAKER and was encouraged to stop taking Metamucil [...] closed Resting tone: WEAK Squeeze tone: WEAK Edge Drummer present: Yes, Tila Samuels Anoscopy: The patient [...] of SNS and she was given the [employer] SNS brochure. Data Reviewed: Tests & Documents [...] treatment plan: moderate documented in this encounter [facility] 06-13-2021 Instructions Catracho Gonzalez APRN.CNP - 06/13/2021 10:30 AM EDT -begin taking 1 tablet imodium at bedtime and 30 min before exercise -schedule pelvic floor PT -fill out bowel diary for 2 weeks, email To ATTN Catracho Gonzalez CNP -follow up in 3 months documented in this encounter [facility] Evaluation + Plan note Future Appointments Appointment Date:05/03/2023 08:15:00 AM Scheduled Provider:Nash NICHOLS MD Location:[facility] Appointment Type:URO Office Visit [facility] Evaluation + Plan note Future Appointments Appointment Date:05/03/2023 08:15:00 AM Scheduled Provider:Nash NICHOLS MD Location:[facility] Appointment Type:URO Office Visit Diagnostic Tests PendingUrine Culture 04/30/22 [facility] Evaluation note Diagnosis Incontinence of feces, unspecified fecal incontinence type- Primary [facility] Diagnosis Pelvic floor dysfunction in female- Primary [facility] Diagnosis Full incontinence of feces- Primary [facility] Narrative No data available for this section [facility] Discharge instructions No data available for this section [facility] progress note No data available for this section [facility] reason for referral (narrative)* Outpatient Procedure (Routine) - Pending Review Specialty Diagnoses / Procedures Referred By Laura osman Referred To Contact [facility] Diagnoses Incontinence of feces, unspecified fecal incontinence type Procedures [facility] ANORECTAL MANOMETRY ANORECTAL MANOMETRY Lorie Romero APRN.CNP [id number] [place] [address] Referral ID Status Reason Start Date Expiration Date Visits Requested Visits Authorized [id number] Pending Review Auto-Generat ed Referral 06/13/2021 06/13/2022 1 1 [facility] Summary Purpose Family History No Family History Records FoundNo Family History Records FoundNo Family History Records Found No data available for this section No Family History Records Found No data available for this section No Family History Records Found Advance Directives No Advanced Directives Records FoundDocuments on File Type Date Recorded 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 Advance Directive(s) 03/07/2009 11:13 AM Documents on File Type Date Recorded 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 Advance Directive(s) 03/07/2009 11:13 AM Reason for Referral Specialty Diagnoses / Procedures Referred By Laura osman Referred To Contact [facility] Diagnoses Pelvic floor dysfunction in female Procedures CONSULT TO PHYSICAL THERAPY PHYSICAL THERAPY EVALUATION HIGH COMPLEX 45 MINS Catracho Gonzalez APRN.NEW PRODUCT TRAINER [address] [place] [address] [facility] [address] [place] [address] Referral ID Status Reason Start Date Expiration Date Visits Requested Visits Authorized [id number] Pending Review PCP Requested Referral Auto-Generate d Referral 06/13/2021 06/13/2022 99 99 Additional Source Comments INFORMATION SOURCE (unrecogn ized section and content) DATE CREATED AUTHOR 08/30/2020 [facility] DATE CREATED AUTHOR AUTHOR'S ORGANIZ ATION 09/14/2021 [facility] DATE CREATED AUTHOR AUTHOR'S ORGANIZ ATION 06/17/2022 [facility] DATE CREATED AUTHOR AUTHOR'S ORGANIZ ATION 01/24/2023 [facility] EPIC DATE CREATED AUTHOR AUTHOR'S ORGANIZ ATION 02/08/2023 [facility] Source Comments (unrecognize d section and content) In the event this informatio n is protected by the Federal Confidentiality of Alcohol and Drug Abuse Patient Records regulations: The Federal rules restrict any use of the information to criminally investigate or prosecute any alcohol or drug abuse patient.[facility] the event this information is protected by the Federal Confidentiality of Alcohol and Drug Abuse Patient Records regulations: The Federal rules restrict any use of the information to criminally investigate or prosecute any alcohol or drug abuse patient.[facility] the event this information is protected by the Federal Confidentiality of Alcohol and Drug Abuse Patient Records regulations: The Federal rules restrict any use of the information to criminally investigate or prosecute any alcohol or drug abuse patient.[facility] the event this information is protected by the Federal Confidentiality of Alcohol and Drug Abuse Patient Records regulations: The Federal rules restrict any use of the information to criminally investigate or prosecute any alcohol or drug abuse patient.[facility] Reason for Visit (unrecogniz ed section and content) Reason Comments Manometry Reason Comments Fecal Incontinence Reason Comments Fecal Incontinence Care Teams (unrecognized sec tion and content) 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 Medicine in Practice [facility]. provides no warranty or guarantee of the accuracy or completeness of information in this document.
[2023-03-06 06:58] VITALS: BMI 31.7
[2023-03-06] MEDS: LACTATED RINGER'S SOLUTION 1,000 ML 50 ML IV (07:04)
[2023-03-06 07:44] VITALS: BP 93/60; PULSE 87; RESP 16; TEMP 36.5; O2SAT 95
[2023-03-06 07:59] VITALS: BP 120/75; PULSE 82; RESP 16; O2SAT 97
[2023-03-06 08:14] VITALS: BP 120/85; PULSE 64; RESP 16; O2SAT 94
== END 2023-03-06 08:14 | disposition home or self-care (01) ==
PROVIDERS: PCP Family Medicine; Visit Provider Surgery
PROC: (CPT G0105; principal; 2023-03-06 07:30)
DX: Z12.11 Encounter for screening for malignant neoplasm of colon (principal); K57.30 Diverticulosis of large intestine without perforation or abscess without bleeding; I10 Essential (primary) hypertension; E03.9 Hypothyroidism, unspecified; E66.9 Obesity, unspecified; E78.00 Pure hypercholesterolemia, unspecified; N26.1 Atrophy of kidney (terminal); Z87.440 Personal history of urinary (tract) infections; Z80.0 Family history of malignant neoplasm of digestive organs; Z79.82 Long term (current) use of aspirin; K21.9 Gastro-esophageal reflux disease without esophagitis; Z68.31 Body mass index [BMI] 31.0-31.9, adult
CPT/HCPCS: G0105; J2704

== ENCOUNTER 2023-10-07 08:19 | Outpatient (OUT) | payer MEDICARE, OTHER, SELFPAY ==
--- NOTE | 2023-10-07 08:21 | MM_ITS ---
Patient Name: FIOR ARGUELLO MR#: [id number] : 1940 Exam Date: 10/07/2023 Ordering Doctor: DR FRANCES VÁSQUEZ . RADIOLOGY REPORT PROCEDURE: MM TOMOSYNTHESIS SCREENING BI COMPARISON: MG MAMM SCREEN 3D [place] CAD, 06/12/2022. MG MAMM SCREEN 3D [place] CAD, 05/22/2021. INDICATIONS: Screening Calculator Name NCI Breast Cancer Risk Assessment Tool 5 Year Breast Cancer Risk 2.00% Lifetime Breast Cancer Risk 2.80% Personal Breast Cancer No Personal Ovarian Cancer No Treatments None Family Cancers Mother with uterine cancer at age 60; Father with colon cancer at age 85. LOCATION: [facility] BREAST COMPOSITION: There are scattered areas of fibroglandular density. FINDINGS: DIAGNOSTIC CATEGORY 2--BENIGN FINDING. NO CHANGE FROM COMPARISON. Scattered benign-appearing calcifications are present. Scattered benign-appearing lymph nodes are present. RIGHT BREAST: No significant suspicious finding. LEFT BREAST: No significant suspicious finding. RECOMMENDATIONS: ROUTINE MAMMOGRAM AND CLINICAL EVALUATION IN 12 MONTHS. PLEASE NOTE: A NORMAL MAMMOGRAM DOES NOT EXCLUDE THE POSSIBILITY OF BREAST CANCER. A CLINICALLY SUSPICIOUS PALPABLE LUMP SHOULD BE BIOPSIED. Dictated by: Néstor Coker MD on 10/07/2023 at 11:55 Approved by: Néstor Coker MD on 10/07/2023 at 11:57
--- OUTSIDE RECORDS SUMMARY | 2023-10-07 08:24 | XMS_ITS | CCD ---
Author Organization [facility] Care Team Providers Care Hand Tube Bender Name Role Phone Frances Robles MD Primary Care Provider [phone] Frances Robles Primary Care Physician ROVERTO, DR PEREZ Admitting Unavailable AHMED, DR PEREZ Attending Unavailable HOY ., DR DANIELS Primary Care Unavailable [facility], DR PHILLIP Engel Consulting Unavailable AHMED, DR [...] HOY ., DR DANIELS Primary Care Unavailable WAUTOMA, DR BRANDYN Yousif Consulting Unavailable AHMED, DR [...] HOY ., DR DANIELS Admitting Unavailable HOY .DR DANIELS Attending Unavailable THALIA .DR DANIELS Primary Care Unavailable THALIA Cabral, DR DANIELS Consulting Unavailable Frances Robles MD Primary Care Provider [phone] Jr BAKER Attending Unavailable Frances Robles Referring Unavailable Jr BAKER Attending Unavailable Jr BAKER Attending Unavailable Nash NICHOLS Attending Unavailable Nash NICHOLS Attending Unavailable AL PRASAD Attending Unavailable AL PRASAD Attending Unavailable AL PRASAD Attending Unavailable AL PRASAD Attending Unavailable Allergies Allergy Classification Reported Allergen(s) Allergy Type Date of Onset Reaction(s) Facility (12 sources) Acetaminophen / oxyCODONE; Translations: [acetaminophen-ox ycodone] Drug Allergy 0 Intolerance [facility] (4 sources) meloxicam Drug Allergy 0 GI Upset [facility] (6 sources) Sulfonamides (Antibiotic) Propensity to adverse reactions 9 Hives [facility] (11 sources) Cephalexin; Translations: [cephalexin] Drug Allergy 2 Diarrhea, Vomiting (disorder), GI intolerance [facility] (7 sources) Sulfamethoxazole; Translations: [sulfamethoxazole ] Drug Allergy [facility] (disorder) [facility] (2 sources) Sulfonamides (Antibiotic) Drug allergy (disorder) 3 [facility] (2 sources) meloxicam Drug Allergy 0 GI intolerance [facility] (1 source) Acetaminophen / oxyCODONE; Translations: [Percocet 10325] Drug Allergy [facility] (1 source) Cephalexin; Translations: [Keflex] Drug Allergy [facility] Repository Medications Current Medications Medication Drug Class(es) Dates Sig (Normalized) Sig (Original) aspirin 81 mg delayed release oral tablet (9 sources) Platelet Aggregation Inhibitor, Nonsteroidal Anti-inflammatory Drug Start: 04-24-2021 take 1 mg by mouth once daily aspirin 81 mg Oral EC Tab mg tab(s), Oral, Daily, Refills(s) 0 Start Date: 04/24/21 Status: Ordered aspirin 81 mg ca p Take 81 mg by mouth. 0 Active Comment on above: Take 81 mg by mouth. Calcium (6 sources) Phosphate Binder, Calcium Start: 02-22-20 Calcium 600 D Tab Oral, TID, Refill(s) 0 Start Date: 02/21/10 Status: Ordered ezetimibe 10 mg oral tablet (12 sources) Dietary Cholesterol Absorption Inhibitor Start: 03-01-19 take 10 mg by mouth once daily Zetia 10 mg, Oral, Daily, Refills(s) 0 Start Date: 02/21/10 Status: Ordered Comment on above: Take one(1) tablet d aily. ibuprofen 600 mg oral tablet (2 sources) Nonsteroidal Anti-inflammatory Drug Start: 11-16-19 take 1 tablet by mouth every six hours as needed ibuprofen 600 MG tablet Take 600 mg by mouth every 6 (six) hours if needed. 0 11/15/2021 Active levothyroxine sodium 0.05 mg oral tablet (11 sources) l-Thyroxine Start: 04-24-19 take 1 tablet by mouth once daily levothyroxine 50 mcg (0.05 mg) Tab mcg tab(s), Oral, Daily, Refills(s) 0 Start Date: 04/24/21 Status: Ordered levothyroxine (T irosint) 100 MCG capsule Take 50 mcg by mouth in the morning. Take before meals. 0 Active Comment on above: Take 50 mcg by mouth daily before breakfast. liothyronine sodium 0.025 mg oral tablet (11 sources) l-Triiodothyronine Start: 12-12-2022 take 1 tablet by mouth once daily Cytomel 25 mcg Tab 25 mcg = 1 tab(s), Oral, Daily, Refills(s) 0 Start Date: 12/12/22 Status: Ordered Start: 04-24-2021 take 1 ug by mouth once daily Cytomel 5 mcg Tab mcg tab(s), Oral, Daily, Refills(s) 0 Start Date: 04/24/21 Status: Ordered liothyronine (Cy tomel) 25 MCG tablet 1 (one) time each day at the same time. 0 Active Comment on above: Take 25 mcg by mouth once daily. loperamide hydrochloride 2 mg oral capsule (2 sources) Opioid Agonist take 1 mg by mouth four times daily as needed loperamide (Imodium) 2 MG capsule Take 1 mg by mouth 4 (four) times a day as needed. 0 Active 24 hr mirabegron 50 mg extended release oral tablet (11 sources) beta3-Adrenergic Agonist Start: 09-18-2022 take 1 tablet by mouth once daily Myrbetriq 50 mg oral tablet, extended release 50 mg = 1 tab(s), Oral, Daily, # 90 tab(s), Refills(s) 3, Pharmacy: [facility], 157, cm, 04/27/22 8:58:00 EST, Height/Length Dosing, 78, kg, 04/27/22 8:58:00 EST, Weight Dosing Start Date: 09/18/22 Status: Ordered Start: 09-28-2021 take 1 tablet by enrique th every twenty-four hours in the morning Myrbetriq 50 MG 24 hr tablet Take 50 mg by mouth in the morning. 0 09/28/2021 Active Start: 09-28-2021 take 1 tablet by mouth once da kaur Myrbetriq 50 mg oral tablet, extended release 50 mg = 1 tab(s), Oral, Daily, # 90 tab(s), Refills(s) 3, Pharmacy: [facility] (Now [facility]), 157, cm, 04/24/21 10:01:00 EST, Height/Length Dosing, 78, kg, 04/24/21 10:01:00 EST, Weight Dosing Start Date: 09/28/21 Status: Ordered take 50 mg by mouth once daily m irabegron (MYRBETRIQ ORAL) Take 50 mg by mouth once daily. 0 Active Comment on above: Take 50 mg by mouth once daily. olmesartan medoxomil 20 mg oral tablet (11 sources) Angiotensin 2 Receptor Micaela Start: 9 take 1 tablet by mouth once daily Benicar 20 mg Tab 20 mg = 1 tab(s), Oral, Daily, High blood pressure Start Date: 09/05/18 Status: Ordered Comment on above: Take 20 mg by mouth once daily. Paxlovid, 300/100, 20 x 150 MG & 10 x 100MG tablet therapy pack (2 sources) Start: 3 Paxlovid, 300/100, 20 x 150 MG & 10 x 100MG tablet therapy pack TAKE 3 TABLETS TOGETHER (TWO 150 MG NIRMATRELVIR TABLETS AND ONE 100 MG RITONAVIR TABLET) BY MOUTH TWICE DAILY FOR 5 DAYS. 0 05/04/2022 Active PreserVision AREDS 2 (3 sources) Start: 3 take 1 tablet by mouth once daily PreserVision AREDS 2 1 tab(s), Oral, Daily, Refill(s) 0 Start Date: 12/12/22 Status: Ordered raloxifene hydrochloride 60 mg oral tablet (12 sources) Estrogen Agonist/Antagonist Start: 9 raloxifene 60 mg oral tablet Refills(s) 0 Start Date: 09/05/18 Status: Ordered Comment on above: Take one(1) tablet d aily. rosuvastatin calcium 20 mg oral tablet (9 sources) HMG-CoA Reductase Inhibitor Start: 9 rosuvastatin [...] above: Take two (2) tablets in AM 4 ml bevacizumab 25 mg/ml injection (2 sources) Vascular Endothelial Growth Factor Inhibitor Start: 04-08-2023 End: 04-08-2023 bevacizumab (Avastin) intravitreal chemo injection 1.25 mg calcium carbonate 1500 mg / cholecalciferol 200 unt oral tablet (6 sources) Vitamin D Start: 10-05-2008 calcium carbonate/vitamin d3(CALCIUM 600 + D(3) 600 MG (1,500)-200 UNIT TAB) Take one(1) tablet daily. 0 10/05/2008 Active take 1 tablet by enrique th once in the morning, then take 1 tablet by mouth once at mealtime Calcium Carbonate-Vitamin D (Oyster Anita l Calcium/D) 500-5 MG-MCG tablet Take 1 tablet by mouth in the morning and 1 tablet in the evening. Take with meals. 0 Active Comment on above: Take one(1) tablet d aily. lisinopril 10 mg oral tablet (4 sources) Angiotensin Converting Enzyme Inhibitor Start: 9 LISINOPRIL 10 MG TAB 2 tabs once a day 0 10/05/2008 Active Comment on above: 2 tabs once a day omega-3 acid ethyl esters (mcc) 1000 mg oral capsule (4 sources) Start: 9 omega-3 acid ethyl esters(LOVAZA 1 GRAM CAP) Take four (4) capsules once daily 0 10/05/2008 Active Comment on above: Take four (4) capsul es once daily omeprazole 20 mg delayed release oral capsule (10 sources) Proton Pump Inhibitor Start: 2 take 1 capsule by mouth twice daily omeprazole(PRILOSEC 20 MG CAP) Take 20 mg by [...] on above: Take 1 tablet by enrique th twice daily. Problems Active Problems Problem Classification Problem Date Documented Da te Episodic/Chronic Anal and rectal conditions (4 sources) Rectal prolapse; Translations: [Rectal prolapse] 03-01-2009 Episodic Disorders of lipid metabolism (4 sources) Hyperlipidemia, unspecified; Translations: [Pure hypercholesterolemia] Onset: 2 12-12-2022 Chronic Esophageal disorders (12 sources) Gastroesophageal reflux disease 08-13-2013 Chronic Essential hypertension (3 sources) Hypertensive disorder 12-12-2022 Chronic Genitourinary symptoms and ill-defined conditions (6 sources) Incontinence without sensory awareness 11-13-2019 Chronic Genitourinary symptoms and ill-defined conditions (20 sources) Sensation as if bladder still full; Translations: [Feeling of incomplete bladder emptying] Onset: 3 Resolved: 9 Episodic Heart valve disorders (6 sources) Heart murmur 08-10-2018 Episodic Menopausal disorders (4 sources) Postmenopausal bleeding; Translations: [POSTMENOPAUSAL BLEEDING] Onset: 2 Chronic Nephritis; nephrosis; renal sclerosis (3 sources) Atrophy of kidney 12-12-2022 Chronic Other and unspecified benign neoplasm (6 sources) Neuroma of foot 05-08-2013 Episodic Other connective tissue disease (1 source) Female pelvic floor dysfunction; Translations: [Other specified disorders of muscle] Episodic Other female genital disorders (3 sources) Cervical intraepithelial neoplasia grade 1 12-12-2022 Episodic Other gastrointestinal disorders (1 source) Incontinence of feces; Translations: [Full incontinence of feces] Episodic Other gastrointestinal disorders (1 source) Complete fecal incontinence; Translations: [Full incontinence of feces] Episodic Other nutritional; endocrine; and metabolic disorders (3 sources) Body mass index 30+ - obesity 12-28-2022 Chronic Other nutritional; endocrine; and metabolic disorders (3 sources) Obesity 12-28-2022 Chronic Other screening for [...] cyst] Onset: 3 Episodic Other skin disorders (3 sources) Epidermoid cyst of skin of face 12-28-2022 Episodic Other skin disorders (3 sources) Sebaceous cyst 12-12-2022 Episodic Other upper respiratory disease (3 sources) Seasonal allergic rhinitis 12-12-2022 Chronic Prolapse of female genital organs (4 sources) 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; Translations: [Urethrocele] 03-01-2009 Chronic Residual codes; unclassified (1 source) Family history of malignant neoplasm of digestive organs; Translations: [[facility] HX ZACH NEOPLASM DIGESTIV ORGN] Onset: 3 Episodic Residual codes; unclassified (1 source) Family history of malignant neoplasm of other organs or systems; Translations: [FAM HX ZACH NEOPLASM OTH ORGN/SYS] Onset: 3 Episodic Retinal detachments; defects; vascular occlusion; and retinopathy (3 sources) Exudative age-related macular degeneration; Translations: [Exudative age-related macular degeneration, left eye, with active choroidal neovascularization] Onset: 3 09-12-2022 Chronic Thyroid disorders (7 sources) Hypothyroidism, unspecified; Translations: [Hypothyroidism] Onset: 3 Chronic Unclassified (6 sources) Finding of sensation of bladder 03-21-2020 Unclassified (3 sources) Osteopenia 12-12-2022 Unclassified (2 sources) Patient encounter status 02-06-2023 Past or Other Problems Problem Classification Problem Date Documented Da te Episodic/Chronic Deficiency and other anemia (1 source) Anemia, unspecified; Translations: [ANEMIA UNSPECIFIED] Onset: 01-08-2022 Episodic Syncope (4 sources) Syncope and collapse; Translations: [SYNCOPE AND COLLAPSE] Onset: 01-05-2022 Episodic Results Test Name Value Interpretation Reference Range Facil ity Ambulatory Visit Summaryon 0 06-10-2023 Ambulatory Visit Summary JOSIANE LOAIZA :1940 Visit Date:06/10/2023 Ambulatory Visit Instructions Your Diagnosis Urgency of urination History of UTI Nocturia Your Care Team Attending Physician - Nash NICHOLS MD Primary Care Physician - Frances Robles MD This Is Your Medications List mirabegron (Myrbetriq 50 mg oral tablet, extended release) Contact prescribing physician if questions or concerns aspirin (aspirin 81 mg Oral EC Tab) calcium-vitamin D (Calcium 600 D Tab) ezetimibe (Zetia) levothyroxine (levothyroxine 50 mcg (0.05 mg) Tab) liothyronine (Cytomel 25 mcg Tab) multivitamin with minerals (PreserVision AREDS 2) olmesartan (Benicar 20 mg Tab) omeprazole (Prilosec) raloxifene (raloxifene 60 mg oral tablet) rosuvastatin (rosuvastatin 20 mg oral tablet) Procedures Performed Excision of cyst (01/23/2023), Cystoscopy (10/11/2010), anal sphincteroplasty (03/04/2009), mid transobturator mid-urethral sling (03/04/2009), Rectocele Repair (03/04/2009), Sacrospinous hysteropexy (03/04/2009), Transvaginal Sacrospinous rectopexy (03/04/2009), Dilation and curettage. Discharge Vitals Heart Rate (Peripheral) 87 Respiratory Rate 16 Blood Pressure 133/88 Height 157 cm Height 62 in Weight 75.5 kg Weight 166.1 lb BMI 30.63 What to do next Scheduled Follow-Up Appointments Saturday 9:15 AM EDT With: JARED PARKINSON, Nash Engel Where: [facility] Patient Educationon 06-10-19 Patient Education Obstetrics and Gynecology Kegel Exercises Kegel exercises can help strengthen your pelvic floor muscles. The pelvic floor is a group of muscles that support your rectum, small intestine, and bladder. In females, pelvic floor muscles also help support the uterus. These muscles help you control the flow of urine and stool (feces). Kegel exercises are painless and simple. They do not require any equipment. Your provider may suggest Kegel exercises to: ? Improve bladder and bowel control. ? Improve sexual response. ? Improve weak pelvic floor muscles after surgery to remove the uterus (hysterectomy) or after , in females. ? Improve weak pelvic floor muscles after prostate gland removal or surgery, in males. Kegel exercises involve squeezing your pelvic floor muscles. These are the same muscles you squeeze when you try to stop the flow of urine or keep from passing gas. The exercises can be done while sitting, standing, or lying down, but it is best to vary your position. Ask your health care provider which exercises are safe for you. Do exercises exactly as told by your health care provider and adjust them as directed. Do not begin these exercises until told by your health care provider. Exercises How to do Kegel exercises: 1. Squeeze your pelvic floor muscles tight. You should feel a tight lift in your rectal area. If you are a female, you should also feel a tightness in your vaginal area. Keep your stomach, buttocks, and legs relaxed. 2. Hold the muscles tight for up to 10 seconds. 3. Breathe normally. 4. Relax your muscles for up to 10 seconds. 5. Repeat as told by your health care provider. Repeat this exercise daily as told by your health care provider. Continue to do this exercise for at least 4?6 weeks, or for as long as told by your health care provider. You may be referred to a physical therapist who can help you learn more about how to do Kegel exercises. Depending on your condition, your health care provider may recommend: ? Varying how long you squeeze your muscles. ? Doing several sets of exercises every day. ? Doing exercises for several weeks. ? Making Kegel exercises a part of your regular exercise routine. This information is not intended to replace advice given to you by your health care provider. Make sure you discuss any questions you have with your health care provider. Document Revised: 06/22/2021 Document Reviewed: 06/22/2021 [employer] Patient Education ? 2022 [employer]. [facility] Urology Office/Clinic Noteon 06-10-2023 Urology Office/Clinic Note Chief Complaint 1yr HPI Staff 1 year f/u Dx: urgency of urination, feeling of incomplete bladder emptying, hx of UTI and nocturia. *Myrbetriq 50mg qd NEG C&S at time of last encounter Denies UTI since last encounter. Denies current pain/burning and blood in urine. Occasional urgency with minimal leaking, with Myrbetriq therapy. Does have pessary. Still getting up 1-2x/night. Did not try taking the Myrbetriq at night to see if it approved, states its not bothersome. No concerns at this time. History of Present Illness Tests reviewed: reviewed UA I have reviewed the previous health record information and history for this patient from Dr. Nichols. I have reviewed and verified the staff HPI to be accurate for this encounter. Review of Systems PHQ Score Initial Depression Screen Score: 0 SCORE ROS - Provider Constitutional: denies weight loss, [...] HPI. Physical Exam Vitals & Measurements HR: 87(Peripheral) RR: 16 BP: 133/88 HT: 62 in HT: 157 cm WT: 75.5 kg WT: 166.1 lb BMI: 30.63 General Appearance: alert , no acute distress, well nourished, well developed female. Genitourinary: bladder nonpalpable, no flank pain. Assessment/Plan 1. Urgency of urination (R39.15: Urgency of urination) Urethral sling placed 2009. Underwent PFPT 2022 @ [facility] due to bowel issues. [place] she learned a lot about bladder health and was happy with results. Taking Myrbetriq 50mg qd. No SEs. No accidents. Not voicing any urinary habit complaints. Satisfied with sx control with medication. Discussed alternative medication of Gemtesa if pt has better insurance coverage vs current coverage with Myrbetriq. Pt states she will call her insurance. -Cont Myrbetriq as above. Pt to call our office if she wishes to switch to Gemtesa. 2. History of UTI (Z87.440: Personal history of urinary (tract) infections) UCx 04/30/22 - 1k mixed skin contam. UA had shown small blood and large leuks. UA today shows trace-lysed blood and small leuks. Asx. Denies infections since last encounter. Wears pads for vaginal discharge and occasional bouts of diarrhea. Discussed prior infections may have been due to irregular BMs. Educated pt on bladder/bowel connection and relation to infections. -Cont sx monitoring and routine UAs 3. Nocturia (R35.1: Nocturia) Ongoing, 1-2x/night. Was recommended at prior OV to take Myrbetriq at night to see if nocturia improved. Pt did not try this. Does not feel nocturia is bothersome. Follow-up With When Contact Information JARED PARKINSON, Nash Engel, URL [facility] [address], [place] [address]- [phone] Additional Instructions: 1 yr (no labs) Patient Education Isreal Dougherty I, Magali Omer, personally scribed for Dr. Nichols on 06/10/2023 13:10:37. . Documentation recorded by the scribe, Magali Omer, accurately reflects the services(s) I performed and decisions made by me. Authenticated by Dr. Nichols on 06/10/2023 13:17:41. Problem List/Past Medical History Ongoing Atrophy of [...] Keflex (Vomiting) Percocet 10/325 sulfamethoxazole (Hives) Social H (more content not included)... Normal [facility] Comment on above: Result Comment: Elec tronically Signed By: JARED PARKINSON, Nash Engel\.pamela\Date and Time Signed: 06/10/23 13:17 EDT\.br\Electronically Co-Signed By: Magali Omer\.pamela\Date and Time Co-Signed: 06/10/23 13:16 EDT Left eye Ophthalmologic ruby tmenton 04-08-2023 [facility] Radiology Study observation (narrative) [facility] Optical coherence tomography study reporton 04-08-2023 [facility] Radiology Study observation (narrative) [facility] Outside Colonoscopyon 2023 Outside Colonoscopy [id number]#1.00 TIFF Normal [facility] Consent for Procedure/Surger yon 02-08-2023 Consent for Procedure/Surgery [id number]#1.0 0TIFF Normal [facility] General Surgery Office/Clini c Noteon 02-06-2023 [...] Family History Pr (more content not included)... [facility] Comment on above: Result Comment: Elec tronically Signed By: IRINEO PARKINSON, Jr Saavedra\Date and Time Signed: 02/06/23 20:15 EST Pathology Noteon 02-06-2023 Pathology Note [id number] 0TIFF [facility] Operative Reporton Operative Report [id number] 0TIFF [facility] Consent for Procedure/Surger yon 12-31-2022 Consent for Procedure/Surgery [id number]#1.0 0TIFF Nini Barr [facility] Ambulatory Visit Summaryon 1 02-27-2022 Ambulatory Visit Summary JOSIANE LOAIZA :1940 Visit Date:12/28/2022 Ambulatory Visit Instructions Your Care Team Attending Physician - Jr BAKER MD Primary Care Physician - Frances Robles MD Referring Physician - Frances Robles MD This [...] Follow-Up Appointments Saturday 1:00 PM EDT With: Jr BAKER MD Where: [facility] [place] [facility] [address] [place] [address]- \.br\ Medications\.br\ What How Much When Instructions\.br\ [...] receiving treatment for.\.br\ Atrophy of kidney\.br\ BMI 30.0-30.9,adult\.b r\ Cervical intraepithelial neoplasia grade 1\.br\ Feeling of incomplete bladder emptying\.br\ Gross hematuria\.br\ Heart murmur\.br\ History of UTI\.br\ Hypertensive disorder\.br\ Hypothyroidism\.br \ Incontinence without sensory awareness\.br\ Microscopic hematuria\.br\ Neuroma of foot\.br\ Nocturia\.br\ Obesity\.br\ Osteopenia\.br\ Pure hypercholesterolem ia\.br\ Seasonal allergic rhinitis\.br\ Sebaceous cyst\.br\ Urgency of [...] for choosing us for your care.\.br\ \.br\ [facility] Physician Referralon 023 Physician Referral [id number] 0TIFF Normal [facility] Physician Referral [id number]#1.0 0TIFF Normal [facility] MG MAMM SCREEN 3D [place] CADon 06-12-2022 MG MAMM SCREEN 3D [place] CAD Patient: JOSIANE LOAIZA Exam Date: 06/12/2022 : 1940 Gender:F Ordering : DR CHRIS LAYNE Admission #: [id number] Family : DR FRANCES ROBLES . Order #: [id number] CLICK HERE TO VIEW EXAM RADIOLOGY REPORT [...] colon cancer at age 86. LOCATION: [facility] BREAST COMPOSITION: Scattered areas fibroglandular density. FINDINGS: [...] M.D. on 06/12/2022 at 13:48 Normal [facility] FREE T3on 04-05-2022 FREE T3 2.36 pg/mlL Normal 2.18-3.98 [facility] Comment on above: Performed By: #### T 4, TSH, FT3 #### [facility] [address] [place] [address] Dr. Clement Duncan T4on 04-05-2022 T4 [Mass/Vol] 6.10 ug/dL Normal 4.80-13.90 [facility] Comment on above: Performed By: #### T 4, TSH, FT3 #### [facility] [address] [place] [address] Dr. Clement Duncan TSHon 04-05-2022 TSH 0.257 uIU/mL Critically low 0.358-3.740 [facility] Comment on above: Performed By: #### T 4, TSH, FT3 #### [facility] [address] [place] [address] Dr. Clement Duncan CBC AUTO DIFFon 01-03-2022 BASO # 0.0 103/ul Normal 0.0-0.1 [facility] Comment on above: Performed By: #### C BC #### [facility] [address] [place] [address] Dr. Clement Duncan Basophils/100 WBC (Bld) 0.4 % Normal 0.2-2.0 [facility] Comment on above: Performed By: #### C BC #### [facility] [address] [place] [address] Dr. Clement Duncan EO # 0.0 103/ul Normal 0.0-0.7 [facility] Comment on above: Performed By: #### C BC #### [facility] [address] [place] [address] Dr. Clement Duncan Eosinophils/100 WBC (Bld) 0.2 % Critically low 0.9-7.0 [facility] Comment on above: Performed By: #### C BC #### [facility] [address] [place] [address] Dr. Clement Duncan Erythrocyte distribution width (RBC) [Ratio] 15.3 % Critically high 11.0-15.0 [facility] Comment on above: Performed By: #### C BC #### [facility] [address] [place] [address] Dr. Clement Duncan Hematocrit (Bld) [Volume fraction] 41.7 % Normal 36.0-48.0 [facility] Comment on above: Performed By: #### C BC #### [facility] [address] [place] [address] Dr. Clement Duncan Hemoglobin (Bld) [Mass/Vol] 13.5 g/dL Normal 12.0-16.0 [facility] Comment on above: Performed By: #### C BC #### [facility] [address] [place] [address] Dr. Clement Duncan IG # 0.02 10e3/ul Normal 0.00-0.03 [facility] Comment on above: Performed By: #### C BC #### [facility] [address] [place] [address] Dr. Clement Duncan IG % 0.2 % Normal 0.0-0.5 [facility] Comment on above: Performed By: #### C BC #### [facility] [address] [place] [address] Dr. Clement Duncan LYMPH # 1.2 103/ul Normal 1.2-3.8 [facility] Comment on above: Performed By: #### C BC #### [facility] [address] [place] [address] Dr. Clement Duncan Lymphocytes/100 WBC (Bld) 13.3 % Critically low 20.5-60.0 [facility] Comment on above: Performed By: #### C BC #### [facility] [address] [place] [address] Dr. Clement Duncan MANUAL DIFF REQ NO Normal [facility] Comment on above: Performed By: #### C BC #### [facility] [address] [address] [address] Clement Duncan MCH (RBC) [Entitic mass] 28.5 pg Normal 26.7-34.0 [facility] Comment on above: Performed By: #### C BC #### [facility] [address] [address] [address] Clement Duncan MCHC (RBC) [Mass/Vol] 32.4 g/dL Normal 29.9-35.2 [facility] Comment on above: Performed By: #### C BC #### [facility] [address] [address] [address] Clement Duncan MCV (RBC) [Entitic vol] 88.0 fL Normal 81.0-99.0 [facility] Comment on above: Performed By: #### C BC #### [facility] [address] [place] [address] Dr. Clement Duncan MONO # 0.7 103/ul Normal 0.3-0.8 [facility] Comment on above: Performed By: #### C BC #### [facility] [address] [place] [address] Dr. Clement Duncan Monocytes/100 WBC (Bld) 7.6 % Normal 1.7-12.0 [facility] Comment on above: Performed By: #### C BC #### [facility] [address] [place] [address] Dr. Clement Duncan NEUT # 7.3 103/ul Critically high 1.4-6.5 [facility] Comment on above: Performed By: #### C BC #### [facility] [address] [place] [address] Dr. Clement Duncan Neutrophils/100 WBC (Bld) 78.3 % Critically high 43.0-75.0 [facility] Comment on above: Performed By: #### C BC #### [facility] [address] [place] [address] Dr. Clement Duncan Platelet mean volume (Bld) [Entitic vol] 9.5 fL Normal 9.5-13.5 [facility] Comment on above: Performed By: #### C BC #### [facility] [address] [address] [address] Clement Duncan PLT 331 103/ul Normal 150-450 [facility] Comment on above: Performed By: #### C BC #### [facility] [address] [place] [address] Dr. Clement Duncan RBC 4.74 106/ul Normal 4.20-5.40 [facility] Comment on above: Performed By: #### C BC #### [facility] [address] [address] [address] Clement Duncan WBC 9.3 103/ul Normal 4.0-11.0 [facility] Comment on above: Performed By: #### C BC #### [facility] [address] [place] [address] Dr. Clement Duncan FREE THYROXINE INDEX T7on FTI 2.11 Normal 1.30-4.50 [facility] Comment on above: Performed By: #### T 4, TSH, FT3 #### [facility] [address] [place] [address] Dr. Clement Duncan T3U 34.0 % Normal 30.0-39.0 [facility] Comment on above: Performed By: #### T 4, TSH, FT3 #### [facility] [address] [place] [address] Dr. Clement Duncan T4 [Mass/Vol] 6.20 ug/dL Normal 4.80-13.90 [facility] Comment on above: Performed By: #### T 4, TSH, FT3 #### [facility] [address] [place] [address] Dr. Clement Duncan IRONon 01-03-2022 Iron [Mass/Vol] 85.0 ug/dL Normal 50.0-170.0 [facility] Comment on above: Performed By: #### T 4, TSH, FT3 #### [facility] [address] [place] [address] Dr. Clement Duncan LIPID PROFILEon 01-03-2022 CHOL-HDL RATIO NORM SEE BELOW Normal [facility] Comment on above: Result Comment: 3.3 - 4.4 LOW RISK 4.4 - 7.1 AVERAGE RISK 7.1 - 11.0 MODERATE RISK >11.0 HIGH RISK Performed By: #### T 4, TSH, FT3 #### [facility] [address] [place] [address] Dr. Clement Duncan Cholesterol [Mass/Vol] 142 mg/dL Normal <=200 [facility] Comment on above: Performed By: #### T 4, TSH, FT3 #### [facility] [address] [place] [address] Dr. Clement Duncan Cholesterol in HDL [Mass/Vol] 83 mg/dL Critically high 40-60 [facility] Comment on above: Performed By: #### T 4, TSH, FT3 #### [facility] [address] [place] [address] Dr. Clement Duncan Cholesterol in LDL [Mass/Vol] 46.0 mg/dL Normal [facility] Comment on above: Performed By: #### T 4, TSH, FT3 #### [facility] [address] [place] [address] Dr. Clement Duncan Cholesterol.total /Cholesterol in HDL [Mass ratio] 1.7 {ratio} Normal [facility] Comment on above: Performed By: #### T 4, TSH, FT3 #### [facility] [address] [place] [address] Dr. Clement Duncan HDL NORMAL > or = 60 mg/dl - LO W CARDIOVASCULAR RISK <40 mg/dl - HIGH CARDIOVASCULAR RISK Normal [facility] Comment on above: Performed By: #### T 4, TSH, FT3 #### [facility] [address] [place] [address] Dr. Clement Duncan LDL CALC NORMAL SEE BELOW Normal [facility] Comment on above: Result Comment: <100 mg/dl OPTIMAL 100 - 129 mg/dl NEAR OR ABOVE OPTIMAL 130 - 159 mg/dl BORDERLINE HIGH 160 - 189 mg/dl HIGH >190 mg/dl VERY HIGH Performed By: #### T 4, TSH, FT3 #### [facility] [address] [place] [address] Dr. Clement Duncan Triglyceride [Mass/Vol] 65 mg/dL Normal <=150 [facility] Comment on above: Performed By: #### T 4, TSH, FT3 #### [facility] [address] [place] [address] Dr. Clement Duncan VLDL CALC 13.0 mg/dL Normal [facility] Comment on above: Performed By: #### T 4, TSH, FT3 #### [facility] [address] [place] [address] Dr. Clement Duncan PROF 14(COMP METB)on 022 Albumin [Mass/Vol] 3.3 g/dL Critically low 3.4-5.0 [facility] Comment on above: Performed By: #### T 4, TSH, FT3 #### [facility] [address] [place] [address] Dr. Clement Duncan Albumin/Globulin [Mass ratio] 0.9 {ratio} Normal [facility] Comment on above: Performed By: #### T 4, TSH, FT3 #### [facility] [address] [place] [address] Dr. Clement Duncan ALP [Catalytic activity/Vol] 89 U/L Normal 46-116 [facility] Comment on above: Performed By: #### T 4, TSH, FT3 #### [facility] [address] [place] [address] Dr. Clement Duncan ALT [Catalytic activity/Vol] 20 U/L Normal 14-59 [facility] Comment on above: Performed By: #### T 4, TSH, FT3 #### [facility] [address] [place] [address] Dr. Clement Duncan Anion gap [Moles/Vol] 9.8 mmol/L Normal [facility] Comment on above: Performed By: #### T 4, TSH, FT3 #### [facility] [address] [place] [address] Dr. Clement Duncan AST [Catalytic activity/Vol] 19 U/L Normal 15-37 [facility] Comment on above: Performed By: #### T 4, TSH, FT3 #### [facility] [address] [address] [address] Clement Duncan Bilirubin [Mass/Vol] 0.3 mg/dL Normal 0.2-1.0 [facility] Comment on above: Performed By: #### T 4, TSH, FT3 #### [facility] [address] [place] [address] Dr. Clement Duncan Calcium [Mass/Vol] 9.3 mg/dL Normal 8.5-10.1 [facility] Comment on above: Performed By: #### T 4, TSH, FT3 #### [facility] [address] [place] [address] Dr. Clement Duncan Chloride [Moles/Vol] 103 mmol/L Normal 98-107 [facility] Comment on above: Performed By: #### T 4, TSH, FT3 #### [facility] [address] [place] [address] Dr. Clement Duncan CO2 [Moles/Vol] 29.5 mmol/L Normal 21.0-32.0 [facility] Comment on above: Performed By: #### T 4, TSH, FT3 #### [facility] [address] [place] [address] Dr. Clement Duncan Creatinine [Mass/Vol] 0.83 mg/dL Normal 0.55-1.02 [facility] Comment on above: Performed By: #### T 4, TSH, FT3 #### [facility] [address] [place] [address] Dr. Clement Duncan EGFR-AF IRAQI >60 Normal >=60 [facility] Comment on above: Performed By: #### T 4, TSH, FT3 #### [facility] [address] [place] [address] Dr. Clement Duncan EGFR-NON AF IRAQI >60 Normal >=60 [facility] Comment on above: Performed By: #### T 4, TSH, FT3 #### [facility] [address] [place] [address] Dr. Clement Duncan Globulin (S) [Mass/Vol] 3.6 g/dL Normal [facility] Comment on above: Performed By: #### T 4, TSH, FT3 #### [facility] [address] [place] [address] Dr. Clement Duncan Glucose [Mass/Vol] 87 mg/dL Normal 74-106 [facility] Comment on above: Performed By: #### T 4, TSH, FT3 #### [facility] [address] [place] [address] Dr. Clement Duncan Potassium [Moles/Vol] 4.3 mmol/L Normal 3.5-5.1 [facility] Comment on above: Performed By: #### T 4, TSH, FT3 #### [facility] [address] [place] [address] Dr. Clement Duncan Protein [Mass/Vol] 6.9 g/dL Normal 6.4-8.2 [facility] Comment on above: Performed By: #### T 4, TSH, FT3 #### [facility] [address] [place] [address] Dr. Clement Duncan Sodium [Moles/Vol] 138 mmol/L Normal 136-145 [facility] Comment on above: Performed By: #### T 4, TSH, FT3 #### [facility] [address] [place] [address] Dr. Clement Duncan Urea nitrogen [Mass/Vol] 20.0 mg/dL Critically high 7.0-18.0 [facility] Comment on above: Performed By: #### T 4, TSH, FT3 #### [facility] [address] [place] [address] Dr. Clement Duncan Urea nitrogen/Creatini ne [Mass ratio] 24.1 mg/mg Normal [facility] Comment on above: Performed By: #### T 4, TSH, FT3 #### [facility] [address] [place] [address] Dr. Clement Duncan TSHon 01-03-2022 TSH 0.129 uIU/mL Critically low 0.358-3.740 [facility] Comment on above: Performed By: #### T 4, TSH, FT3 #### [facility] [address] [place] [address] Dr. Clement Duncan T4, T3U, FTI LABCOR[facility]on 11-07 Free Thyroxine Index 1.5 Normal 1.2-4.9 [facility] Comment on above: Performed By: #### T 4, TSH, FT3 #### [facility] [address] [address] [address] Clement Duncan T3 Uptake 27 % Normal 24-39 [facility] Comment on above: Performed By: #### T 4, TSH, FT3 #### [facility] [address] [address] [address] Clement Duncan T4 [Mass/Vol] 5.5 ug/dL Normal 4.5-12.0 [facility] Comment on above: Performed By: #### T 4, TSH, FT3 #### [facility] [address] [place] [address] Dr. Clement Duncan FREE T3on 11-06-2021 FREE T3 2.53 pg/mlL Normal 2.18-3.98 [facility] Comment on above: Performed By: #### T SH, FT3 #### [facility] [address] [address] [address] Clement Duncan FREE T4on 11-06-2021 Free T4 [Mass/Vol] 0.83 ng/dL Normal 0.76-1.46 [facility] Comment on above: Performed By: #### T 4, TSH, FT3 #### [facility] [address] [address] [address] Clement Duncan TSHon 11-06-2021 TSH 0.039 uIU/mL Critically low 0.358-3.740 [facility] Comment on above: Performed By: #### T SH, FT3 #### [facility] [address] [place] [address] Dr. Clement Duncan US PELVIS AND TRANSVAGon [...] BRANDYN GUADALUPE Date: 2021-10-02 07:42 Normal [facility] FREE T3on 09-19-2021 FREE T3 2.81 pg/mlL Normal 2.18-3.98 [facility] Comment on above: Performed By: #### T SH, T4, FT3 #### [facility] [address] [place] [address] Dr. Clement Duncan T4on 09-19-2021 T4 [Mass/Vol] 5.10 ug/dL Normal 4.80-13.90 [facility] Comment on above: Performed By: #### T SH, T4, FT3 #### [facility] [address] [place] [address] Dr. Clement Duncan TSHon 09-19-2021 TSH Qn m[IU]/L Critically low 0.358-3.740 [facility] Comment on above: Performed By: #### T 4, TSH, FT3 #### [facility] [address] [place] [address] Dr. Clement Duncan FREE T3on 08-08-2021 FREE T3 1.98 pg/mlL Critically low 2.18-3.98 [facility] Comment on above: Performed By: #### T 4, TSH, FT3 #### [facility] [address] [place] [address] Dr. Clement Duncan T4on 08-08-2021 T4 [Mass/Vol] 5.60 ug/dL Normal 4.80-13.90 [facility] Comment on above: Performed By: #### T 4, TSH, FT3 #### [facility] [address] [place] [address] Dr. Clement Duncan TSHon 08-08-2021 TSH 0.059 uIU/mL Critically low 0.358-3.740 [facility] Comment on above: Performed By: #### T 4, TSH, FT3 #### [facility] [address] [place], [place] [address] Dr. Clement Duncan TSH RANGE SEE BELOW Normal [facility] Comment on above: Result Comment: <0.3 4 UIU/ml HYPERTHYROID 0.34-5.60 UIU/ml EUTHYROID >5.60 UIU/ml HYPOTHYROID Performed By: #### T 4, TSH, FT3 #### [facility] [address] [place], [place] [address] Dr. Clement Duncan CNOVon 06-13-2021 CNOV Office Visit (CLAUDIO ) JOSIANE LOAIZA ([id number]) 1940 F Date Time Provider Department 06/13/21 10:30 AM CATRACHO GONZALEZ During your visit today, we recorded the following information about you: Temperature Pulse Blood pressure Weight 97.3 degrees 94/minute 138/84 73.7 kg Height 1.575 m Catracho Gonzalez APRN.[employer] 06/14/2021 7:57 AM Signed COLORECTAL SURGERY New [...] the past for FI and ARM testing ([id number]). 02/01/2012 ARM: IMPRESSION: Normal resting and low squeeze pressures. Normal volume studies. Normal nerve studies. Today she reports: -recently saw DELIVERER MERCHANDISE and was encouraged to stop taking Metamucil [...] Laterality Date - PAST SURGICAL HISTORY OF [facility] - PAST SURGICAL HISTORY OF 2009 uterine [...] of th (more content not included)... 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 Author Type: Nurse Practitioner Type: [...] the past for FI and ARM testing ([id number]). 02/01/2012 ARM: IMPRESSION: Normal resting and low squeeze pressures. Normal volume studies. Normal nerve studies. Today she reports: -recently saw DELIVERER MERCHANDISE and was encouraged to stop taking Metamucil [...] Laterality Date - PAST SURGICAL HISTORY OF [facility] - PAST SURGICAL HISTORY OF 2009 uterine [...] brain stimulator (more content not included)... Normal [facility] Provider Orderson 08-30-2020 Provider Orders [id number]#1.0 [id number] Normal [facility] C Urineon 08-24-2020 C Urine >100,000 cfu/ml Proteus mirabilis ORGANISM Promir --- SUSCEPTIBILITY -- ORGANISM ID: 1 ANTIBIOTIC INTERPRETATION MARK STATUS [...] <=4 Verified Tri/Sulf S <=2/38 Verified Normal [facility] Comment on above: Performed By: #### [id number] #### [facility] (DEFAULT) [address] [place] [address] Coding Summaryon 08-23-2020 Coding Summary [facility] ColexfqcZQw8kEf+PGhlYW Q+XM9FNFXyR21ojHDckM3G C3fCAO3QWAMUWBJCXC6QIJ 9weVY1VNqsB5PjirUb SxqjwIUaEX45GPq2MTH5mS fdEFijrA5pfWUtG1h6IdSs QJ34nS37EBetODWzOaZ9Io ZpbjsgbWFy C4soIsSulSSuCpm+PHRhYm xlIHdpZHRoPScxMDAlJyBz mQoqBV7mNv2tARIyDWCasI xhcHNlOiBj o7fyYKFeXWnkZF0qpAznV0 HftMP3YIOgf5n7Am36dJY+ GTKvELE6fEvcROkkl071Ea Xrc3sfERD4 oSMzPIpjXQT0D90rx6B6GD WvXCFvPDC5qPR0nQ8qoKdo copwW0UwuEKuSfM7HWQ2aW RrfA9jiVdm kjrvnF3cCzz+E12FLV2UHK ZKTM9BYyb7W7JzUhbavTW+ DR06CRKmXR73fYQglQQpe8 hhxBk2JzEs VXWtKPR3jYntXYrvb7PeIP BwF55lkSHqz3G4GKBlaJsc hSKiFpOgcWK1uG5rKKiogs wnk0mbyixq Jrjro2tzao84nH05O40uSA hkKSRzKHR7MPKxXEBknQwn qq3mrH1yGn1+ZLuse5qnt8 rikZa3GnXc RCLqneTvbMphDQR9u8XuZs 03Z9AncUbtu7BiSfs8kc73 nERfd5I7aDX4UUcvZJWebK 9xFKsjLnT3 NJKgHiTvoX35fZKtHYujXm 3xuZtvfSamLZ9iXJVsoujh YXDecJ0mWBVybYSyxGjsFN 4wNTBpbjtm j224AgJjGJB8JUDfzZZoB4 EukI3sNcVgAZNjRBLkY9Zv mJXzISuzM224JAgoLgT2UW FdvxOjG7Pn OTAjiZizQwE8h3D9Kr4Fg5 ZqcnsvUBW0MEoaQAQ8EuG0 RoOdGuJ0A1QfDyp0WCWsmV upUC1gB0Hl EDWmlylpvfxwdKE0YCEsCF MqfL80jEQeBHzjJz6wq6P9 a580GWDyBVMyyC69Gp3tfF ogMTBwdCBU sA5gopcvk8tjfduyViFcNS ClDXd1XVv9CKKugPheSiNr YBO6YmK3BYW4sKPmlR0zmA jdxmufrL9c Oyc+X46cvV7kTFK0VLA2jd nwVIPsxxLuXX70QS66E2Uc PjwvdGFibGU+PGRpdiBzdH mmKF8bUwPj j8vrz1InINrcG3MzLLYbFS iiCff2YAMtJIE1aXD2jQ6g BHHdYBjnv4R3nAV6Z7Qxoa Fcfb5eu9uf QKGwROviH94ibALpd8J0UN AhgLA1PHEniRbjEqVlaN16 Oyc+RNZevUeum0FoGzmeo8 daq5xnhBm8 SdSkPNIqbbUpdFjyHJC9m3 GbDj62R86iDXqfYIVrMNQa GOGfBYGwrYsvpo7zfX0fNz 8+PGNvbCB3 gHM3hS5yEBQyFoN5HFnjJ2 91GdCweTJtXzruc0zke5gd yWz3XrOdTVUnnbPjdJadLM V2b9WqXx97 D05qETlkDKIlZRIaJIKlOL BxpQucmz8agI0dMj3+PC9j g1bgow13kJ62eBU+PHRkIH K1qZvbRPgf ZGPucN1nZGyjNhA2PMSvSq ByvY70hYTuBBarUq3ojMhy cQysHJ7dFNVzjfoox509Zt Utl5zbNXWg tAXmDLuvFAB4Y05ly9Q4HQ QpBPMxUPQ6fXK8eM6mrSwi bjogbGVmdDsgdmVydGljYW kmYQxhB972 IHRvcDsnPlBhdGllbnQgTm RaGZr4I8KsLgm5QAApjPti EZ6pdSAcUUwvIk7lmRkbbQ ulLE5sNBEu jtpas638VlKmd2ivHEEblF EfIKalLRQ2X63ev0H9NQLa OGYsBNK6lTI1vB3hqYksek ogbGVmdDsg ktYzeWeeOXzwPZdfB883HT RvcDsnPkJpcnRoIERhdGU6 CW06ML82xDKfr4N7cFN7Q6 BhZGRpbmct sctotSX2UAXrETIwrX19Jn 1yeMfoNt0tBLYmFZP5VMFl kGMuA7ItuB3jMtJxQAKkCD TcG7BxgZEa IVlnR341YQhfMoC9PRXulv GyP3YgYFPukBouJvE2m8N3 Lm5HQ6O4HP11XR28uKHcu2 O9pII8G4Ft DSDfqwdjrradzBL5WMXiOQ FlvK04Sn5hzVjvJa6hYNKd NRC1YUMlvFAmY4EjdM2nCb AjMDAwMDAw V9HnlDAjDPnxY497SBcjUz H5LJYsuyDpK2IkAPWmrMpx YcB2i7T4Kc6AKPm4JG34YK 73yVNto6I5 vQX0D6AvRSFntixwdcolpQ U7ZSHvIIKipG14Tx1koNlt Hi5jCYAnZXO7YSUlyPJxG2 AlcO7wDaAv JIOnFCOeY5YwnEMbHHerC6 86RNpqJbU4NUKqksYmL6Ob KAXgxTpaIkN9i5X3Bv3HJZ JlDK09XQZ3 tBZ6OE94FC58U8GoMtrwoW FibGU+PHRhYmxlIHdpZHRo RCayNTPtRoWisJueTX1gMw 9yZGVyLWNv eOfxbAHoQqGdz5uuODSmVL lcTR8rvYoqT6ZsvBC0NBUl s2m5Hs65U08kL3JynYR+PG SbpAV0sZM3 jY5fBzHcOlD4LZklV112Si OdrGWxKnebb9pqd2wmvKo8 XtP1DICvrkIxjFubHZJ5f7 PoCq65K98j IHdpZHRoPSIxNSUiIHZhbG riup4izB5yEy5+PGNvbCB3 eRE4rG7yQoVfFtW5EVqxY4 49InRvcCIv Ymdhi8xsf6cmtXk3BbEzMV IewuIsiCveILE2v1ZbTc54 I6BpmCepj7EmPtu8rh10sP Fah3O0gIK6 E3TqAJZookaxwSPnmJliPR 0eETUjtyksOFOlkH3cYUJv M7x4KdDiWhE2QKhcD9Vhkt J6TOPcmMQy WOmeTEI4X15yh4L0XJYlPV CzWDY5rVQ4nW4ftWrgkkss bGVmdDsgdmVydGljYWwtYW wpU517IWOd mPsjGLZcoW9wTSSyvFTvuA ggZC6uQHGfcnpsQtVMDSTF RywgQlJFTkRBIFNVRTwvdG Q+PHRkIHN0 qGfqCDmpUWLvmI1dSZYbH4 q9IbSqSnH7JRusY8EuYYFe qtmcJt40iH2sTjQwBoN4IC roJ4EpimN5 YXLjmKFcUXlzFBV6N39jz8 V5STOsKJWsJHZ5aSO4lA1q bGlnbjogbGVmdDsgdmVydG ljYWwtYWxp C756KDKvtZazWzG5FyPjGm S2QKN1I0NoJof3PBJuqDio CC4ruZLhPCdgGl8auAgepD kzRB1pMBBu dgxpGDTyhU9qOJQalKVylP vrNY9pPZYsioufb871GoUg FAG6OUNsdHLyE4QcqL7zKi AjMDAwMDAw G4KbkZRpJLofI706TMrkDr A7WECcqyIoC8CoKMEdiUyc KjB7f7V8Yo09DAEOTNDqgg wvdGQ+PHRk YAJ6eZdzAFpiKKDmjM5eTA FiL1h5DxFqUfX9ZZzfG4Iu QSUnnuqqJb31iD8nUpAvGe N3PLwxI4Oy zjF3AOAquPWaPAnaJTJ8U8 1ij5N2ESTePPLxEVH5oZC0 bV1elWdfflfooQNnzWpzij VydGljYWwt BKtsY358IPQskZogIhZDQW FMRTwvdGQ+PUTzPSM4vKse NTxfKUCkqB3rPVUfK3g5Nb XuCxU7XPfv D6BcRGMtxexiVb69uR7nHr YxDuP6SVvtE1EmlaU1LOEe mIGqRYmcQSM6C10ft8S2VE MwMDAwMDA7 pAT5mJ6csYaqgypxiGZaaZ wznaCozEptQVftRBomU202 IJHkmPmmUb0RIZ90BF85U0 RyPjwvdGFi bGU+PHRhYmxlIHdpZHRoPS vuHFRtBfSlkLkyNU3aFp6o ZGVyLWNvbGxhcHNlOiBjb2 xsYXBzZTsg LT0fyWlmX0JxuVF3LIIcf9 u2Jy95A87dI5TxnKS+PGNv nWQ2hCR8vI9zTmNqCrR2KQ zkS115RxRm rYLpGdjig3kpa6dtyIs8Gd SvGARiolLpyRrlULD7g1Nm My64J98iUHqiHWAvUEYhUI UiIHZhbGln pl5fpF6zQf0+VGDjnCM4bH N0hU8oOcKsZtH0MUkqJ436 VxIgtSZnDxurH23sY1BcxA A+PHRyPjx0 FAHdwAioER8ujVBpWEwvMb 6wCAG7SqNqHnGeMGqaI7Wd AJFaoxlwaxmklNS7XIYwJB WqqB60Xt1a qJfpHi5cFOToWCM5IOVyuQ ErK5BlgB1eBfUfJOEfIBWg W4EutXYjCXyhL988XGtmKc S8YDDnhiYa R0AvXVJvdVjsJiW3y5V3Zx 3TeTubfMMuAR2cPyYpESl7 E2DxOtj6KCYtiRwdSC1vpP BmSJqqGv6p uXhtiRskOT8zJAOpduqsk1 48YoJrt5akLOYdwHQfCFwl CHP7L13dx4E6OVGeBBFwRQ R8xAV3sC0b bGlnbjogbGVmdDsgdmVydG tmPBrcURsmP799MMHsvEuj MeUUInr0N0RxWid9MKBniM qyON6niEAq WYdlAi8puWxmfTehTB3sYT Snnhimn966BkTmu9szYJKs rVXgCQhoJGE3M27zh2U7YJ MwMDAwMDA7 sUQ7yP6xtEfwitnmbUUsnX qfmwElwJivZSpbXQjxL110 AUUjfWutSi6RIhb2Q2HkTd o2HLDipKcx QF4hkULePRxfZh6noGymoT ihNI8zBMZgjrjbn015HuFv j4naKHDfmIJyUKmdVNQ1B8 9md5C7DFNu DMYrHFW4xCZ9mU8slDhzzv ogbGVmdDsgdmVydGljYWwt NQfmX018RKQkyZpyVmXgxM VyOjwvdGQ+ RN26ly81O1CaZbpdKly0TO XhXJV7pYF6cC8rGSMdYHal i3P5oHB6J9DidsAkxz3mi1 xsYXBzZTog Y29 (more content not included)... [facility] Provider Orderson 08-23-2020 Provider Orders [id number] [id number] [facility] ANORECTAL MANOMET [facility] Vital Signs Date Time Vital Sign Value Performing Clinician Faci lity 06-10-2023 12:26-0400 Blood Pressure Location Nasherlinda NICHOLS [facility] 06-10-2023 12:26-0400 Diastolic blood pressure 88 mm[Hg] Nash NICHOLS [facility] 06-10-2023 12:26-0400 Heart rate 87 /min Nash NICHOLS [facility] 06-10-2023 12:26-0400 Respiratory rate 16 /min Nash NICHOLS [facility] 06-10-2023 12:26-0400 Systolic blood pressure 133 mm[Hg] Nash NICHOLS [facility] 12-28-2022 13:05-0400 Blood Pressure Location Jr NILL [facility] 12-28-2022 13:05-0400 Diastolic blood pressure 66 mm[Hg] Jr NILL [facility] 12-28-2022 13:05-0400 Heart rate 72 /min Jr NILL [facility] 12-28-2022 13:05-0400 Respiratory rate 16 /min Jr NILL [facility] [place] 12-28-2022 13:05-0400 Systolic blood pressure 120 mm[Hg] Jr NILL [facility] 04-27-2022 08:57-0500 Blood Pressure Location Nash NICHOLS [facility] 04-27-2022 08:57-0500 Diastolic blood pressure 86 mm[Hg] Nash NICHOLS [facility] 04-27-2022 08:57-0500 Heart rate 74 /min Nash NICHOLS [facility] 04-27-2022 08:57-0500 Respiratory rate 16 /min Nash NICHOLS [facility] 04-27-2022 08:57-0500 Systolic blood pressure 140 mm[Hg] Nash NICHOLS [facility] [facility] 06-13-2021 09:46-0400 Body height 157.5 cm Catracho Carlos POWDER NIPPER.FRONT LOAD TRASH TRUCK DRIVER Work Phone: [facility] 06-13-2021 09:46-0400 Body temperature 97.3 [degF] Catracho Carlos POWDER NIPPER.FRONT LOAD TRASH TRUCK DRIVER Work Phone: [facility] 06-13-2021 09:46-0400 Body weight 73.71 kg Catracho Carlos POWDER NIPPER.FRONT LOAD TRASH TRUCK DRIVER Work Phone: [facility] 06-13-2021 09:46-0400 Diastolic blood pressure 84 mm[Hg] Catracho Carlos POWDER NIPPER.FRONT LOAD TRASH TRUCK DRIVER Work Phone: [facility] 06-13-2021 09:46-0400 Heart rate 94 /min Catracho Carlos POWDER NIPPER.FRONT LOAD TRASH TRUCK DRIVER Work Phone: [facility] 06-13-2021 09:46-0400 SaO2% (BldA) [Mass fraction] 96 % Catracho Carlos POWDER NIPPER.FRONT LOAD TRASH TRUCK DRIVER Work Phone: [facility] 06-13-2021 09:46-0400 Systolic blood pressure 138 mm[Hg] Catracho Carlos POWDER NIPPER.FRONT LOAD TRASH TRUCK DRIVER Work Phone: [facility] Encounters Encounter Date Encounter Type Care Provider Facility Start: 06-15-2024 ambulatory Nash Sanches ty:JOSE M Randhawa Start: 08-26-2023 End: 08-26-2023 ambulatory AL PRASAD Not Available Start: 06-17-2023 End: 06-17-2023 ambulatory AL PRASAD Not Available Start: 06-10-2023 End: 06-11-2023 ambulatory Nash NICHOLS Facility: [facility] Start: 06-10-2023 End: 06-10-2023 Patient encounter procedure Nash NICHOLS [facility] [place] Start: 04-08-2023 End: 04-08-2023 Patient encounter procedure Al Prasad DO Work Phone: [facility] Comment on above: 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) (Primary Dx) Start: 04-08-2023 End: 04-08-2023 ambulatory AL PRASAD Not Available Start: 04-08-2023 Bamboo flowsheet Al urbina DO Work Phone: [facility] Start: 04-08-2023 Bamboo flowsheet Al Farrell hler DO Work Phone: [facility] Start: 03-06-2023 End: 03-07-2023 ambulatory Jr R NILL Facility:CD:[id number] Start: 02-06-2023 End: 02-07-2023 ambulatory Jr R NILL Facility: [facility] Start: 02-06-2023 End: 02-06-2023 Patient encounter procedure Jr R NILL General Surgery Nill/Said [place] Start: 01-22-2023 End: 01-22-2023 ambulatory AL PRASAD Not Available Start: 12-28-2022 End: 12-29-2022 ambulatory Jr R NILL Facility: [facility] Start: 12-28-2022 End: 12-28-2022 Patient encounter procedure Jr R NILL General Surgery Nill/Said [place] Start: 12-04-2022 ambulatory Jr IRINEO Facility:[facility] Start: 06-12-2022 End: 06-13-[address] CHRIS LAYNE Facility:[facility] Start: 04-30-2022 End: 04-30-2022 Lab Drop off Nash Maren NICHOLS [facility] Start: 04-30-2022 End: 04-30-2022 Patient encounter procedure Nash Maren NICHOLS [facility] Start: 04-27-2022 End: 04-27-2022 Patient encounter procedure Nash Maren NICHOLS [facility] Start: 04-05-2022 End: 04-06-[address] FRANCES [...] Start: 09-12-2021 End: 09-12-2021 ambulatory Catracho Gonzalez APRN.CNP Work Phone: Colorectal Surgery Comment on above: Full incontinence of feces (Primary Dx) Start: 09-12-2021 End: 09-12-2021 Telemedicine consultation with patient Catracho Gonzalez APRN.CNP Work Phone: [facility] Start: 09-08-2021 Chart abstracting Catracho devlin APRN.CNP Work Phone: Colorectal Surgery Start: 08-08-2021 End: 08-09-[address] FRANCES ROBLES . Facility: Start: 06-13-2021 End: 06-13-2021 ambulatory Lorie Romero APRN.CNP Work Phone: Colorectal Surgery Comment on above: Manometry Start: 06-13-2021 End: 06-13-2021 Patient encounter procedure Lorie Romero APRN.NEW Work Phone: [facility] Comment on above: Pelvic floor dysfunc tion in female (Primary Dx) Procedures Date Procedure Procedure Detail Performing Clinician Start: 04-08-2023 Intravitreal njx pharmacologic agt spx Al Prasad DO Work Phone: Start: 04-08-2023 Computerized ophthal mark imaging retina Al Prasad DO Work Phone: Start: 01-23-2023 Excision of cyst Michae l NILL Comment on above: left preauricular Start: 06-13-2021 ADULT [place] ANORECTAL MANOMETRY Lorie Romero APRN.CNP Work Phone: Start: 10-11-2010 Cystoscopy Nash HDZ Start: 03-04-2009 anal sphincteroplasty Xavier NICHOLS Start: 03-04-2009 mid transobturator mid-urethral sling Nash NICHOLS Start: 03-04-2009 Repair of rectocele Saumya NICHOLS Start: 03-04-2009 Sacrospinous hysteropexy Nash NICHOLS Start: 03-04-2009 Transvaginal Sacrosp inous rectopexy Nash NICHOLS D and C Nash NICHOLS Dilation and curettage Dann BAKER Plan of Treatment Date Care Activity Detail Author Start: 04-08-2023 End: 04-08-2023 Patient encounter procedure 04/08/2023 2:45 PM EST Procedure Visit [facility] [address] [place] [address] Al Prasad DO [address] [place] [address] Arrived [facility] Comment on above: Arrived Start: 10-26-2021 Influenza vaccination INFLUENZA (#1) [facility] Start: 04-01-2021 COVID-19 VACCINE (4 - Booster for Pfizer series) COVID-19 VACCINE (4 - Booster for Pfizer series) [facility] Start: 02-25-2021 ADVANCE DIRECTIVE DISCUSSION ADVANCE DIRECTIVE DISCUSSION [facility] Start: 03-06-2012 DIABETES SCREEN DIABETES SCREEN [facility] Start: 2006 BONE DENSITY BONE DENSITY [facility] Start: 2006 PNEUMOCOCCAL: 65+ (1 - PCV) PNEUMOCOCCAL: 65+ (1 - PCV) [facility] Start: 2006 PNEUMOVAX AGE 65 AND OVER WITH 5YR LOOKBACK (#1) PNEUMOVAX AGE 65 AND OVER WITH 5YR LOOKBACK (#1) [facility] Start: 11-25-1991 SHINGRIX VACCINE (1 of 2) ABDI GRIX VACCINE (1 of 2) [facility] Start: 1960 Urine microalbumin profile DTAP,TDAP ,TD (1 - Tdap) [facility] Start: 1953 Adult depression scr eening assessment DEPRESSION SCREENING [facility] Immunizations Immunization Date Immunization Notes Care Provider Fa cility 11-28-2022 influenza virus vacc ine, unspecified formulation Jr BAKER [facility] [place] 12-12-2021 influenza virus vacc ine, unspecified formulation Nash NICHOLS [facility] 12-12-2021 SARS-CoV-2 (COVID-19 ) [id number] Nash NICHOLS [facility] 08-17-2021 SARS-CoV-2 mRNA (coimcjbjkpf-crfv-sockta e) vaccine Nash NICHOLS [facility] 11-29-2020 influenza virus vacc ine, unspecified formulation Nash NICHOLS [facility] 11-29-2020 SARS-CoV-2 (COVID-19 ) mRNA BNT-162b2 vax Jr NILL [facility] [place] 04-14-2020 SARS-CoV-2 (COVID-19 ) mRNA BNT-162b2 vax Jr NILL [facility] [place] 03-24-2020 SARS-CoV-2 (COVID-19 ) mRNA BNT-162b2 vax Jr NILL [facility] [place] 02-26-2020 SARS-CoV-2 (COVID-19 ) mRNA BNT-162b2 vax Nash NICHOLS [facility] Comment on above: Result Comment: pt h as had 3 shots 10-27-2019 pneumococcal polysaccharide vaccine, 23 valent Nash NICHOLS [facility] 12-16-2018 zoster vaccine recombinant Nash NICHOLS [facility] 10-08-2018 pneumococcal conjuga te vaccine, 13 valent Nash NICHOLS [facility] 10-08-2018 zoster vaccine recombinant Nash NICHOLS [facility] Payers Date Payer Category Payer Unknown WPS WPS [id number] 2022-Present [address] [address] [place] [id number] 2019 Unknown MMO MMO MEDICARE SUPPLEMENT [id number] 2019-Present [phone] [address] [place] [address] Indemnity [id number] 2006 Medicare MEDICARE MEDICAR E A AND B [id number] 2006-Present [phone] [place] [address] Medicare [id number] 2006 Medicare MEDICARE MEDICAR E PART B [id number] 2006-[place] [address] Medicare [id number] 2006 Medicare [id number] 1959 Medicare [id number] 1959 Self-pay [id number] 1959 Unknown [id number] 1959 Unknown [id number] 1941 Unknown [id number] [id number]3 1941 Unknown [id number] 2.16.840.1.133506.3.579.2.593 1941 Unknown [id number] 2.16.840.1.878006.3.579.2.593 1941 Unknown [id number] 2.16.840.1.726219.3.579.2.593 1941 Unknown [id number] 2.16.840.1.661812.3.579.2.593 1941 Unknown [id number] 2.16.840.1.988320.3.579.2.593 1941 Unknown [id number] 2.16.840.1.720108.3.579.2.593 1941 Unknown [id number] 2.16.840.1.933806.3.579.2.593 1941 Unknown [id number] 2.16.840.1.482105.3.579.2.593 1941 Unknown [id number] 2.16.840.1.327143.3.579.2.593 1941 Unknown [id number] 2.16.840.1.846696.3.579.2.727 1941 Unknown [id number] 2.16.840.1.500460.3.579.2.727 1941 Unknown [id number] 2.16.840.1.659859.3.579.2.727 1941 Unknown [id number] 2.16.840.1.863740.3.579.2.727 1941 Unknown [id number] 2.16.840.1.336714.3.579.2.727 1941 Unknown [id number] 2.16.840.1.835733.3.579.2.1259 1941 Unknown [id number] 2.16.840.1.719094.3.579.2.1259 1941 Unknown [id number] 2.16.840.1.508260.3.579.2.1259 1941 Unknown [id number] 2.16.840.1.711791.3.579.2.1259 Social History Date Type Detail Facility Start: 04-27-2022 End: 06-10-2023 Tobacco smoking status NHIS Never smoked tobacco [facility] Start: 06-13-2021 Alcohol intake Lifetime non-d gregg (finding) [facility] Start: 06-13-2021 History SDOH Alcohol Frequency 1 [facility] Start: 1940 Sex Assigned At Female C [facility] Start: 06-03-2021 End: 06-13-2021 Exposure to SARS-CoV-2 (event) Not sure [facility] Tobacco smoking status Never [facility] Sex Assigned At Female [facility] Start: 09-12-2022 Tobacco use and exposure Smokeless tobacco non-user [facility] Start: 1940 Sex Assigned At Not on file N [facility] NEGATED: Highlighted rowStart: NINF History of tobacco use Passive smoker [facility] Medical Equipment Procedure Code Equipment Code Equipment Origin al Text Equipment Identifier Dates Ggj-Pc-S-Kind Implant - [id number] Start: 03-04-2009 Comment on above: Description: Surgcheryli s Biodesign 4 layer tissue graft Device Tvt W/ Obturator - [id number] Start: 03-04-2009 Functional Status Date Assessment Result Facility 06-10-2023 Functional Status N/A [facility] 12-28-2022 Functional Status N/A [facility] 04-27-2022 Functional Status N/A [facility] Clinical Notes 06-13-2021 to 06-10-2023 Al Prasad, - 04/08/2023 2:45 PM ESTPatient InstructionsCaraymon Gonzalez APRN.NEW - 09/12/2021 8:00 AM Geovany Gonzalez APRN.CNP - 09/08/2021 12:38 PM EDTPatient Instructions Note Date & Type Note Facility 06-10-2023 Hospital Discharge instructions Patient Education 06/10/2023 13:10:17 Kegel Exercises Kegel Exercises Kegel exercises can help strengthen your pelvic floor muscles. The pelvic floor is a group of muscles that support your rectum, small intestine, and bladder. In females, pelvic floor muscles also help support the uterus. These muscles help you control the flow of urine and stool (feces). Kegel exercises are painless and simple. They do not require any equipment. Your provider may suggest Kegel exercises to: Improve bladder and bowel control. Improve sexual response. Improve weak pelvic floor muscles after surgery to remove the uterus (hysterectomy) or after , in females. Improve weak pelvic floor muscles after prostate gland removal or surgery, in males. Kegel exercises involve squeezing your pelvic floor muscles. These are the same muscles you squeeze when you try to stop the flow of urine or keep from passing gas. The exercises can be done while sitting, standing, or lying down, but it is best to vary your position. Ask your health care provider which exercises are safe for you. Do exercises exactly as told by your health care provider and adjust them as directed. Do not begin these exercises until told by your health care provider. Exercises How to do Kegel exercises: 1.Squeeze your pelvic floor muscles tight. You should feel a tight lift in your rectal area. If you are a female, you should also feel a tightness in your vaginal area. Keep your stomach, buttocks, and legs relaxed. 2.Hold the muscles tight for up to 10 seconds. 3.Breathe normally. 4.Relax your muscles for up to 10 seconds. 5.Repeat as told by your health care provider. Repeat this exercise daily as told by your health care provider. Continue to do this exercise for at least 4 6 weeks, or for as long as told by your health care provider. You may be referred to a physical therapist who can help you learn more about how to do Kegel exercises. Depending on your condition, your health care provider may recommend: Varying how long you squeeze your muscles. Doing several sets of exercises every day. Doing exercises for several weeks. Making Kegel exercises a part of your regular exercise routine. This information is not intended to replace advice given to you by your health care provider. Make sure you discuss any questions you have with your health care provider. Document Revised: 06/22/2021 Document Reviewed: 06/22/2021 [employer] Patient Education 2022 ServiceMax. Follow Up Care 04/27/2022 09:49:37 With:JARED PARKINSON, Nash Engel, URL Address: [facility] [address] , [place] [address] [phone] When: Unknown [facility] 04-08-2023 Note Time Out 04/08/2023. 3:54 PM. Confirmed correct patient, procedure, site, and patient consented. Anesthesia Topical anesthesia was used. Anesthetic medications included Lidocaine 2%, Proparacaine 0.5%. Procedure Preparation included 5% betadine to ocular surface, eyelid speculum. Injection: 1.25 mg bevacizumab 100 MG/4ML Route: Intravitreal, Site: Left Eye [facility]: [id number], Lot: [id number], Expiration date: 05/15/2023, Waste: 0 mL Post-op Post injection exam found visual acuity of at least counting fingers, no retinal detachment, perfused optic nerve. The patient tolerated the procedure well. There were no complications. The patient received written and verbal post procedure care education. Post injection medications were not given. Notes Intravitreal antiVEGF Treatment: Risks, benefits and alternatives were discussed for Intravitreal injection with the prescribed antiVEGF agent. With intraocular surgery, there is potential for direct retinal damage through retinal or RPE tear, or infection, with subsequent vision loss. Informative Intravitreal pamphlet provided as well as an OMIC consent. Of course, the treatment may fail to accomplish the overall therapeutic objectives, which is to stall or decrease the amount of retinal edema / bleeding, and therefore stall or improve vision loss. Intravitreal Anti-VEGF: Consent was obtained and questions answered. Operative eye was identified, receiving topical proparacaine, 5% betadine, and 2% xylocaine jelly. A lid speculum was placed and the inferotemp. injection site received additional anesthetic with a proparacaine soaked cotton swab. Using calipers (set at 3.5mm for pseudo and 4mm for phakic), the inferotemp. limbus was measured, sclera marked and 2 additional drops of betadine placed. Avoiding any talking to avoid contamination, intravitreal injection was carried out without difficulty. Any residual amount of medication was discarded appropriately. The patient tolerated the procedure well and instructed to call with increased pain, redness, decreased vision or concerns. [facility] 04-08-2023 Note Right Eye Quality was good. Scan locations included subfoveal. Progression has been stable. Findings include abnormal foveal contour. Left Eye Quality was good. Scan locations included subfoveal. Progression has been stable. Findings include abnormal foveal contour, disciform scar. [facility] 04-08-2023 History of Present illness Narrative Images from the original note were not included. Assessment/Plan Diagnoses and all orders for this visit: Exudative age-related macular degeneration of left eye with active choroidal neovascularization (HCC) ([facility]/HCC) - OCT, Retina - OU - Both Eyes - Intravitreal Injection, Pharmacologic Agent - OS - Left Eye - bevacizumab (Avastin) intravitreal chemo injection 1.25 mg OCT, Retina - OU - Both Eyes Right Eye Quality was good. Scan locations included subfoveal. Progression has been stable. Findings include abnormal foveal contour. Left Eye Quality was good. Scan locations included subfoveal. Progression has been stable. Findings include abnormal foveal contour, disciform scar. Linked Images Intravitreal Injection, Pharmacologic Agent - OS - Left Eye Time Out 04/08/2023. 3:54 PM. Confirmed correct patient, procedure, site, and patient consented. Anesthesia Topical anesthesia was used. Anesthetic medications included Lidocaine 2%, Proparacaine 0.5%. Procedure Preparation included 5% betadine to ocular surface, eyelid speculum. Injection: 1.25 mg bevacizumab 100 MG/4ML Route: Intravitreal, Site: Left Eye [facility]: [id number], Lot: [id number], Expiration date: 05/15/2023, Waste: 0 mL Post-op Post injection exam found visual acuity of at least counting fingers, no retinal detachment, perfused optic nerve. The patient tolerated the procedure well. There were no complications. The patient received written and verbal post procedure care education. Post injection medications were not given. Notes Intravitreal antiVEGF Treatment: Risks, benefits and alternatives were discussed for Intravitreal injection with the prescribed antiVEGF agent. With intraocular surgery, there is potential for direct retinal damage through retinal or RPE tear, or infection, with subsequent vision loss. Informative Intravitreal pamphlet provided as well as an OMIC consent. Of course, the treatment may fail to accomplish the overall therapeutic objectives, which is to stall or decrease the amount of retinal edema / bleeding, and therefore stall or improve vision loss. Intravitreal Anti-VEGF: Consent was obtained and questions answered. Operative eye was identified, receiving topical proparacaine, 5% betadine, and 2% xylocaine jelly. A lid speculum was placed and the inferotemp. injection site received additional anesthetic with a proparacaine soaked cotton swab. Using calipers (set at 3.5mm for pseudo and 4mm for phakic), the inferotemp. limbus was measured, sclera marked and 2 additional drops of betadine placed. Avoiding any talking to avoid contamination, intravitreal injection was carried out without difficulty. Any residual amount of medication was discarded appropriately. The patient tolerated the procedure well and instructed to call with increased pain, redness, decreased vision or concerns. documented in this encounter [facility] 12-28-2022 Note Chief Complaint consultation for facial [...] plan excisional biopsy under local anesthesia at [facility], informed consent obtained. Follow-up No qualifying [...] mg, Oral, Daily Allergies Keflex (Vomiting) Percocet 10 sulfamethoxazole (Hives) Social History Alcohol Current, 1-2 [...] BNT-162b2 vax 04/14/ (more content not included)... [facility] Comment on above: Result Comment: Elec [...] to keep your urine pale yellow. ?Take vhpu-zrr-mraolfj or prescription medicines. ?Eat foods that are high in fiber, such as beans, whole grains, and fresh fruits and vegetables. ?Limit foods that are high in fat and processed sugars, such as fried or sweet foods. General instructions Take beow-vfb-ghfglzd and prescription medicines only as told by [...] the muscles that help control urination. Take bqjy-lwe-bmafobt and prescription medicines only as told by your health care provider. Contact a health care provider if your symptoms do not improve or get worse. This information is not intended to replace advice given to you by your health care provider. Make sure you discuss any questions you have with your health care provider. Document Released: 12/08/2009 Document Revised: 08/21/2018 Document Reviewed: 08/21/2018 [employer] Patient Education 2020 ServiceMax. Follow Up Care 04/24/2021 10:45:00 With:JARED PARKINSON, Nash Engel, URL Address: [address] [place], [place] [address]- When: Unknown [facility] 09-12-2021 Note HNO ID: [id number] Author: Catracho Gonzalez APRN.FRONT LOAD TRASH TRUCK DRIVER Service: ? Author Type: Nurse Practitioner Type: [...] morbidity, mortality and/or complications of treatment plan: bhargav Carver spent a total of 25 minutes on the date of the service which included preparing to see the patient, klab-us-yrml patient care, completing clinical documentation, obtaining and/or reviewing separately obtained history, performing a medically appropriate examination, counseling and educating the patient/family/caregiver and communicating results to the patient/family/caregiver. [facility] 09-12-2021 Instructions Catracho Gonzalez APRN.FRONT LOAD TRASH TRUCK DRIVER - 09/12/2021 8:21 AM EDT Continue home PFPT exercises Continue bowel regimen, can adjust imodium dose as needed Follow up with [facility] pelvic floor as needed; [phone] Your total daily fiber intake should be 25-35g CEREAL FIBER (GMS) Kelloggs All Bran w/Extra Fiber 15 General Gibson Fiber One 12 Kelloggs All Bran 9 Nabisco 100% Bran 8 Jesus Alberto's All Bran Fruit and Almonds 6 Fairview's Bran and Oats 6 Baptism [place] Bran 5 Whiteoak Bran Chex 5 Robin High Fiber Hot Cereal 5 Fairview's and Post Raisin Bran 4 Nabisco Shredded Wheat and bran 4 Post Fruit and Fiber 4 Wheatbix 4 Baptism Oats 2 FIBER FILLED FRUITS FIBER (GMS) Blackberries (1/2 cup) 4 Pears w/ skin (1 medium) 4 Apple w/ skin (1 medium) 4 Prunes 4 Honeydew (1 medium) 3 Otoe (1 medium) 3 Raisins (1/4 cup) 3 Raspberries (1/2 cup) 3 Strawberries (1 cup) 3 Apricots (3 medium) 2 Banana 2 Blueberries (1/2 cup) 2 Dates (3) 2 Canadian w/ skin (1 medium) 2 GREENS AND [place] (1/2 cup) FIBER (GMS) Baked beans w/tomato sauce 9 Kidney Beans 7 Gan and Valdez Beans 5 Small Peas 5 Lentils 5 Peas 4 [place] (canned) 3 Potato w/ Skin (medium) 3 Sweet Potato (medium) 3 Broccoli 2 Brussel Sprouts 2 Carrots 2 Spinach 2 Zucchini 2 BEST BREAD AND PASTA FIBER (GMS) Natures Own Double Fiber Bread (1 slice) 5 Whole Wheat Spaghetti (1 cup cooked) 4 Bran Muffin (1) 3 Buckwheat Muffin (1) 3 Whole Wheat Bread (2 slices) 3 Whole Wheat Lithuanian Muffin (1) 3 Whole Wheat Pancakes (2) 3 Whole Wheat Dinner Roll (1) 2 Brown Rice (1/2 cup cooked) 1 LOW CALORIE SNACKS FIBER (GMS) Apple w/ Skin 4 Pineapple (1 cup) 2 Popcorn (3 cups unbuttered) 2 Figs (3) 2 Pear w/ Skin 2 Whole Wheat Strawberry Plains (1 slice) 2 Strawberries Fresh 3 Canadian w/ Skin 2 Raspberries (1/2 cup) 3 Celery (3 stalks) 1 DELICIOUS AND NUTRITIOUS DESERTS FIBER (GMS) Baked Apple 6 Blackberry Pie (1 slice) 6 Fruit Compote 4 Pineapple Whole (1/4 fresh) 3 Malden Rhubarb Pie (1 slice) 3 Whole Wheat Banana Nut Bread 3 Brown Rice Pudding (1/2 cup) 2 Fruit Kebab 2 Whole Wheat Oatmeal Cookie 2 documented in this encounter [facility] 09-12-2021 History of Present illness Narrative [...] which included preparing to see the patient, kalm-ds-tpxd patient care, completing clinical documentation, obtaining and/or reviewing separately obtained history, performing a medically appropriate examination, counseling and educating the patient/family/caregiver and communicating results to the patient/family/caregiver. documented in this encounter [facility] 09-08-2021 Note HNO ID: [id number] Author: Catracho Gonzalez APRN.CNP Service: ? Author [...] virtually to discuss next steps. MEÑO Arizmendi [facility] 09-08-2021 History of Present illness Narrative [...] week virtually to discuss next steps. MEÑO ArizmendiS documented in this encounter [facility] 06-13-2021 History and physical note COLORECTAL [...] the past for FI and ARM testing ([id number]). 02/01/2012 ARM: IMPRESSION: Normal resting and low squeeze pressures. Normal volume studies. Normal nerve studies. Today she reports: -recently saw DELIVERER MERCHANDISE and was encouraged to stop taking Metamucil [...] closed Resting tone: WEAK Squeeze tone: WEAK Pump Press Operator present: Yes, Tila Samuels Anoscopy: The patient [...] of SNS and she was given the [employer] SNS brochure. Data Reviewed: Tests & Documents [...] treatment plan: moderate documented in this encounter [facility] 06-13-2021 Instructions Catracho Gonzalez APRN.CNP - 06/13/2021 10:30 AM EDT -begin taking 1 tablet imodium at bedtime and 30 min before exercise -schedule pelvic floor PT -fill out bowel diary for 2 weeks, email To [email or web address] Catracho Gonzalez CNP -follow up in 3 months documented in this encounter [facility] Evaluation + Plan note Future Appointments Appointment Date:05/03/2023 08:15:00 AM Scheduled Provider:Nash NICHOLS MD Location:[facility] Appointment Type:URO Office Visit [facility] Evaluation + Plan note Future Appointments Appointment Date:05/03/2023 08:15:00 AM Scheduled Provider:Nash NICHOLS MD Location:[facility] Appointment Type:URO Office Visit Diagnostic Tests PendingUrine Culture 04/30/22 [facility] Evaluation + Plan note Future Appointments Appointment Date:06/15/2024 09:15:00 AM Scheduled Provider:Nash NICHOLS MD Location:[facility] Appointment Type:URO Office Visit [facility] Evaluation note Diagnosis Incontinence of feces, unspecified fecal incontinence type- Primary [facility] Diagnosis Pelvic floor dysfunction in female- Primary [facility] Diagnosis Full incontinence of feces- Primary documented in this encounter [facility] note* Diagnosis Exudative age-related macular degeneration of left eye with active choroidal neovascularization (HCC) (CMS/HCC)- [facility] N[facility] No data available for this section [facility] Hospital Discharge instructions No data available for this section [facility] progress note No data available for this section [facility] reason for referral (narrative)* Outpatient Procedure (Routine) - Pending Review Specialty Diagnoses / Procedures Referred By Laura osman Referred To Contact [facility] Diagnoses Incontinence of feces, unspecified fecal incontinence type Procedures ADULT [place] ANORECTAL MANOMETRY ANORECTAL MANOMETRY Lorie Romero APRN.NEW [address] [place] [address] [facility] Disease [id number] [place] [address] Referral ID Status Reason Start Date Expiration Date Visits Requested Visits Authorized [id number] Pending Review Auto-Generat ed Referral 06/13/2021 06/13/2022 1 1 [facility] Summary Purpose Family History No Family History Records FoundNo Family History Records FoundNo Family History Records Found No data available for this section No data available for this section No data available for this section No Family History Records FoundNo Family History Records Found Advance Directives No Advanced Directives Records FoundDocuments on File Type Date Recorded 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 Advance Directive(s) 03/07/2009 11:13 AM Documents on File Type Date Recorded 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 Advance Directive(s) 03/07/2009 11:13 AM Reason for Referral Specialty Diagnoses / Procedures Referred By Laura t Referred To Contact [facility] Diagnoses Pelvic floor dysfunction in female Procedures CONSULT TO PHYSICAL THERAPY PHYSICAL THERAPY EVALUATION HIGH COMPLEX 45 MINS Catracho Gonzalez APRN.FRONT LOAD TRASH TRUCK DRIVER [address] [place] [address] [facility] [place] [id number] Referral ID Status Reason Start Date Expiration Date Visits Requested Visits Authorized [id number] Pending Review PCP Requested Referral Auto-Generate d Referral 06/13/2021 06/13/2022 99 99 Additional Source Comments INFORMATION SOURCE (unrecogn ized section and content) DATE CREATED AUTHOR 08/30/2020 [facility] DATE CREATED AUTHOR AUTHOR'S ORGANIZ ATION 09/14/2021 [facility] DATE CREATED AUTHOR AUTHOR'S ORGANIZ ATION 06/17/2022 [facility] DATE CREATED AUTHOR AUTHOR'S ORGANIZ ATION 06/11/2023 [facility] DATE CREATED AUTHOR AUTHOR'S ORGANIZ ATION 08/27/2023 [facility] EPIC Source Comments (unrecognize d section and content) In the event this informatio n is protected by the Federal Confidentiality of Alcohol and Drug Abuse Patient Records regulations: The Federal rules restrict any use of the information to criminally investigate or prosecute any alcohol or drug abuse patient.[facility] the event this information is protected by the Federal Confidentiality of Alcohol and Drug Abuse Patient Records regulations: The Federal rules restrict any use of the information to criminally investigate or prosecute any alcohol or drug abuse patient.[facility] the event this information is protected by the Federal Confidentiality of Alcohol and Drug Abuse Patient Records regulations: The Federal rules restrict any use of the information to criminally investigate or prosecute any alcohol or drug abuse patient.[facility] the event this information is protected by the Federal Confidentiality of Alcohol and Drug Abuse Patient Records regulations: The Federal rules restrict any use of the information to criminally investigate or prosecute any alcohol or drug abuse patient.[facility] Reason for Visit (unrecogniz ed section and content) Reason Comments Manometry Reason Comments Fecal Incontinence Reason Comments Fecal Incontinence Reason Comments Retinal Injection Care Teams (unrecognized sec tion and content) Hand Tube Bender Relationship Specialty Start Date End Date Frances Robles MD PCP - General 09/13/08 Hand Tube Bender Relationship Specialty Start Date End Date Frances Robles MD PCP - General 09/13/08 Hand Tube Bender Relationship Specialty Start Date End Date Frances Robles MD PCP - General 09/13/08 Hand Tube Bender Relationship Specialty Start Date End Date Frances Robles MD PCP - General 09/13/08 Hand Tube Bender Relationship Specialty Start Date End Date Frances Robles MD [facility] [place] [address] PCP - General Family Medicine 11/14/22 Hand Tube Bender Relationship Specialty Start Date End Date Frances Robles MD [address] [place] [address] PCP - General Family Medicine 11/14/22 FOR RECORDS PERTAINING TO PATIENTS WHO ARE [...] BE BASED ON THE PRIMARY CLINICAL RECORDS. [facility] [employer] [facility]. provides no warranty or guarantee of the accuracy or completeness of information in this document.
== END 2023-10-07 08:20 | disposition home or self-care (01) ==
LOC: MAMMO 08:19
PROVIDERS: PCP Family Medicine; Visit Provider Family Medicine
DX: Z12.31 Encounter for screening mammogram for malignant neoplasm of breast (principal); Z80.8 Family history of malignant neoplasm of other organs or systems; Z80.0 Family history of malignant neoplasm of digestive organs
CPT/HCPCS: 77063; 77067

== ENCOUNTER 2024-04-24 08:56 | Outpatient (OUT) | payer MEDICARE, OTHER, SELFPAY ==
[2024-04-24 09:45] LABS: Estimated Average Glucose 114 mg/dL; Glycohemoglobin A1C 5.6 % (4.5-6.2)
[2024-04-24 09:54] LABS: Basophils Absolute Auto 0.1 10^3/uL (0.0-0.1); Basophils Percent Auto 1.2 % (0.2-2.0); Eosinophils Absolute Auto 0.1 10^3/uL (0.0-0.7); Eosinophils Percent Auto 1.5 % (0.9-7.0); Hematocrit 43.4 % (36.0-48.0); Hemoglobin 14.1 g/dL (12.0-16.0); Immature Granulocytes Abs Auto 0.02 10^3/uL (0.00-0.03); Immature Granulocytes Pct Auto 0.3 % (0.0-0.5); Lymphocytes Absolute Auto 1.5 10^3/uL (1.2-3.8); Lymphocytes Percent Auto 24.4 % (20.5-60.0); Mean Corpuscular HGB Conc 32.5 g/dL (29.9-35.2); Mean Corpuscular Hemoglobin 29.7 pg (26.7-34.0); Mean Corpuscular Volume 91.6 fL (81.0-99.0); Mean Platelet Volume 10.2 fL (9.5-13.5); Monocytes Absolute Auto 0.6 10^3/uL (0.3-0.8); Monocytes Percent Auto 10.7 % (1.7-12.0); Neutrophils Absolute Auto 3.7 10^3/uL (1.4-6.5); Neutrophils Percent Auto 61.9 % (43.0-75.0); Platelet Count 390 10^3/uL (150-450); Red Blood Count 4.74 10^6/uL (4.20-5.40); Red Cell Distribution Width 15.8 % (11.0-15.0)
[2024-04-24 11:13] LABS: Alanine Aminotransferase 21 U/L (14-59); Albumin Globulin Ratio 0.9; Albumin Level 3.2 g/dL (3.4-5.0); Alkaline Phosphatase 79 U/L (46-116); Anion Gap 10.6; Aspartate Amino Transferase 22 U/L (15-37); BUN Creatinine Ratio 23.2; Bilirubin Total 0.4 mg/dL (0.2-1.0); Calcium 9.1 mg/dL (8.5-10.1); Carbon Dioxide 30.6 mmol/L (21.0-32.0); Chloride 104 mmol/L (98-107); Chol HDL Ratio 1.9; Cholesterol 142 mg/dL (<=200); Estimated GFR (African America >60 (>=60 mL/min/1.73m^2); Estimated GFR (Non-African Ame 54 (>=60 mL/min/1.73m^2); Free T3 2.16 pg/mL (2.18-3.98); Globulin 3.4 g/dL; Glucose 87 mg/dL (74-106); HDL Cholesterol 76 mg/dL (40-60); Potassium 4.2 mmol/L (3.5-5.1); Sodium 141 mmol/L (136-145); Thyroid Stimulating Hormone 0.823 uIU/mL (0.358-3.740); Total Protein 6.6 g/dL (6.4-8.2); Triglycerides 64 mg/dL (<=150); VLDL CHOLESTEROL 12.8 mg/dL
== END 2024-04-24 08:57 | disposition home or self-care (01) ==
LOC: LAB 08:58
PROVIDERS: PCP Family Medicine; Visit Provider Family Medicine
DX: L30.9 Dermatitis, unspecified (principal); R00.2 Palpitations; M85.80 Other specified disorders of bone density and structure, unspecified site; M54.50 Low back pain, unspecified; E03.9 Hypothyroidism, unspecified; E78.5 Hyperlipidemia, unspecified; R53.83 Other fatigue; R73.09 Other abnormal glucose; I10 Essential (primary) hypertension; D64.9 Anemia, unspecified
CPT/HCPCS: 36415; 80053; 80061; 83036; 83540; 84436; 84443; 84481; 85025

== ENCOUNTER 2024-07-30 20:05 | Outpatient (REF) | payer MEDICARE, OTHER, SELFPAY ==
--- OUTSIDE RECORDS SUMMARY | 2024-07-30 20:09 | XMS_ITS | CCD ---
Author Organization [facility] Care Team Providers Care Lithography Contact Worker Name Role Phone Frances Robles MD Primary Care Provider [phone] Frances Robles Primary Care Physician ROVERTO, DR PEREZ Admitting Unavailable AHMED, DR PEREZ Attending Unavailable HOY ., DR DANIELS Primary Care Unavailable [facility], DR PHILLIP Engel Consulting Unavailable AHMED, [...] HOY ., DR DANIELS Primary Care Unavailable [place], DR BRANDYN Yousif Consulting Unavailable AHMED, DR [...] DR DANIELS Admitting Unavailable HOY ., DR FRANCES Attending Unavailable DR FRANCES GUTHRIE Primary Care Unavailable DR FRANCES GUTHRIE Consulting Unavailable Frances Robles MD Primary Care Provider [phone] Nash NICHOLS Attending Unavailable Nash NICHOLS Attending Unavailable Frances Robles MD Primary Care Provider [phone] AL PRASAD Attending Unavailable AL PRASAD Attending Unavailable AL PRASAD Attending Unavailable AL PRASAD Attending Unavailable AL PRASAD Attending Unavailable AL PRASAD Attending Unavailable Allergies Allergy Classification Reported Allergen(s) Allergy Type Date of Onset Reaction(s) Facility (20 sources) Acetaminophen / oxyCODONE; Translations: [acetaminophen-ox ycodone] Drug Allergy 0 Intolerance [facility] (4 sources) meloxicam Drug Allergy 0 GI Upset [facility] (16 sources) Sulfonamides (Antibiotic) Propensity to adverse reactions [facility] Cephalexin; Translations: [cephalexin] Drug Allergy 2 Diarrhea, Vomiting (disorder), GI intolerance [facility] (7 sources) Sulfamethoxazole; Translations: [sulfamethoxazole ] Drug Allergy [facility] (disorder) [facility] (2 sources) Sulfonamides (Antibiotic) Drug allergy (disorder) 3 [facility] (12 sources) meloxicam Drug Allergy 0 GI intolerance [facility] (1 source) Acetaminophen / oxyCODONE; Translations: [Percocet 10/325] Drug Allergy [facility] (1 source) Cephalexin; Translations: [Keflex] Drug Allergy [facility] Medications Current Medications Medication Drug [...] Refill(s) 0 Start Date: 02/21/10 Status: Ordered doxycycline hyclate 100 mg oral tablet (10 sources) Tetracycline-class Drug Start: 07-19-19 doxycycline (Vibra-Tabs) 100 MG tablet 07/19/2023 Active ezetimibe 10 mg oral tablet (20 sources) Dietary Cholesterol Absorption Inhibitor Start: 03-01-19 take 10 mg by mouth once daily Zetia 10 mg, Oral, Daily, Refills(s) 0 Start Date: 02/21/10 Status: Ordered Comment on above: Take one(1) tablet d aily. ibuprofen 600 mg oral tablet (12 sources) Nonsteroidal Anti-inflammatory Drug Start: 11-16-19 take 1 tablet by mouth every six hours as needed ibuprofen 600 MG tablet Take 600 mg by mouth every 6 (six) hours if needed. 11/15/2021 Active levothyroxine sodium 0.05 mg oral tablet (20 sources) l-Thyroxine Start: 04-24-19 take 1 tablet by mouth once daily levothyroxine 50 mcg (0.05 mg) Tab mcg tab(s), Oral, Daily, Refills(s) 0 Start Date: 04/24/21 Status: Ordered levothyroxine (T irosint) 100 MCG capsule Take 50 mcg by mouth in the morning. Take before meals. Active Comment on above: Take 50 mcg by mouth daily before breakfast. liothyronine sodium 0.025 mg oral tablet (20 sources) l-Triiodothyronine Start: 12-12-2022 take 1 tablet [...] time each day at the same time. Active Comment on above: Take 25 mcg by mouth once daily. loperamide hydrochloride 2 mg oral capsule (12 sources) Opioid Agonist take 1 mg by mouth four times daily as needed loperamide (Imodium) 2 MG capsule Take 1 mg by mouth 4 (four) times a day as needed. Active 24 hr mirabegron 50 mg extended release oral tablet (20 sources) beta3-Adrenergic Agonist Start: 09-18-2022 take 1 tablet by mouth once daily Myrbetriq 50 mg oral tablet, extended release 50 mg = 1 tab(s), Oral, Daily, # 90 tab(s), Refills(s) 3, Pharmacy: [facility], 157, cm, 04/27/22 8:58:00 EST, Height/Length Dosing, 78, kg, 04/27/22 8:58:00 EST, Weight Dosing Start Date: 09/18/22 Status: Ordered Start: 09-28-2021 take 1 tablet by enrique th every twenty-four hours in the morning Myrbetriq 50 MG 24 hr tablet Take 50 mg by mouth in the morning. 09/28/2021 Active Start: 09-28-2021 take 1 tablet by mouth once da kaur Myrbetriq 50 mg oral tablet, extended release 50 mg = 1 tab(s), Oral, Daily, # 90 tab(s), Refills(s) 3, Pharmacy: [facility] (Now [facility]), 157, cm, 04/24/21 10:01:00 EST, Height/Length Dosing, 78, kg, 04/24/21 10:01:00 EST, Weight Dosing Start Date: 09/28/21 Status: Ordered take 50 mg by mouth once daily m irabegron (MYRBETRIQ ORAL) Take 50 mg by mouth once daily. 0 Active Comment on above: Take 50 mg by mouth once daily. olmesartan medoxomil 20 mg oral tablet (20 sources) Angiotensin 2 Receptor Micaela Start: 9 take 1 tablet by mouth once daily Benicar 20 mg Tab 20 mg = 1 tab(s), Oral, Daily, High blood pressure Start Date: 09/05/18 Status: Ordered Comment on above: Take 20 mg by mouth once daily. Paxlovid, 300/100, 20 x 150 MG & 10 x 100MG tablet therapy pack (12 sources) Start: 3 Paxlovid, 300/100, 20 x 150 MG & 10 x 100MG tablet therapy pack TAKE 3 TABLETS TOGETHER (TWO 150 MG NIRMATRELVIR TABLETS AND ONE 100 MG RITONAVIR TABLET) BY MOUTH TWICE DAILY FOR 5 DAYS. 05/04/2022 Active Start: 05-04-2022 Paxlovid, 300/ 100, 20 x 150 MG & 10 x 100MG tablet therapy pack TAKE 3 TABLETS TOGETHER (TWO 150 MG NIRMATRELVIR TABLETS AND ONE 100 MG RITONAVIR TABLET) BY MOUTH TWICE DAILY FOR 5 DAYS. 0 05/04/2022 Active PreserVision AREDS 2 (3 sources) Start: 12-12-2022 take 1 tablet by mouth once daily PreserVision AREDS 2 1 tab(s), Oral, Daily, Refill(s) 0 Start Date: 12/12/22 Status: Ordered raloxifene hydrochloride 60 mg oral tablet (20 sources) Estrogen Agonist/Antagoni st Start: 10-05-2008 raloxifene 60 mg oral tablet Refills(s) 0 Start Date: 09/05/18 Status: Ordered Comment on above: Take one(1) tablet d aily. rosuvastatin calcium 20 mg oral tablet (9 sources) HMG-CoA Reductase Inhibitor Start: 09-05-2018 rosuvastatin 20 mg oral tablet Refills(s) 0 [...] Drug Class(es) Dates Sig (Normalized) Sig (Original) 0.05 ml aflibercept 40 mg/ml injection (3 sources) Vascular Endothelial Growth Factor Inhibitor Start: 07-01-2024 End: 07-01-2024 2 mg, Intravitreal, Once PRN Procedure, Starting on Sat07/01/24 at 1532, For 1 dose Start: 04-22-2024 End: 04-22-2024 2 mg, Intravitreal, Once PRN Procedure, Starting on Sat04/22/24 at 1553, For 1 dose Start: 02-12-2024 End: 02-12-2024 2 mg, Intravitreal, Once PRN Procedure, Starting on Sat02/12/24 at 1608, For 1 dose beta-carotene(a) w-c & e/min(OCUVITE TAB) (4 sources) Start: 10-05-2008 beta-carotene( a) w-c & e/min(OCUVITE TAB) Take two (2) tablets in AM 0 10/05/2008 Active Comment on above: Take two (2) tablets in AM 4 ml bevacizumab 25 mg/ml injection (6 sources) Vascular Endothelial Growth Factor Inhibitor Start: 12-18-2023 End: 12-18-2023 bevacizumab (Avastin) intravitreal chemo injection 1.25 mg Start: 12-18-2023 End: 12-18-2023 1.25 mg, Intravitreal, Once PRN Procedure, Starting on Sat12/18/23 at 1602, For 1 dose Start: 10-23-2023 End: 10-23-2023 bevacizumab (Avastin) intrav itreal chemo injection 1.25 mg Start: 10-23-2023 End: 10-23-2023 1.25 mg, Intravitreal, Once PRN Procedure, Starting on Sat10/23/23 at 1527, For 1 dose Start: 04-08-2023 End: 04-08-2023 bevacizumab (Avastin) intrav itreal chemo injection 1.25 mg calcium carbonate 1500 mg / cholecalciferol 200 unt oral tablet (16 sources) Vitamin D Start: 10-05-2008 calcium carbon ate/vitamin d3(CALCIUM 600 + D(3) 600 MG (1,500)-200 UNIT TAB) Take one(1) tablet daily. 0 10/05/2008 Active take 1 tablet by enrique th once in the morning, then take 1 tablet by mouth once at mealtime Calcium Carbonate-Vitamin D (Oyster Anita l Calcium/D) 500-5 MG-MCG tablet Take 1 tablet by mouth in the morning and 1 tablet in the evening. Take with meals. Active Comment on above: Take one(1) tablet d aily. lisinopril 10 mg oral tablet (4 sources) Angiotensin Converting Enzyme Inhibitor Start: 9 LISINOPRIL 10 MG TAB 2 tabs once a day 0 10/05/2008 Active Comment on above: 2 tabs once a day omega-3 acid ethyl esters ([facility]) 1000 mg oral capsule (4 sources) Start: [...] body structures; Translations: [ABNORML FIND DX IMG OT BODY STRUC] Onset: 2 Chronic Other screening [...] MALIG NEOPLASM OTH ORGN/SYS] Onset: 3 Episodic Retinal detachments; defects; vascular occlusion; and retinopathy (18 sources) Exudative age-related macular degeneration; Translations: [Exudative [...] Results Test Name Value Interpretation Reference Range Facility Left eye Ophthalmologic ruby tmenton 07-01-2024 [facility] Radiology Study observation (narrative) [facility] Optical coherence tomography study reporton 07-01-2024 [facility] Radiology Study observation (narrative) [facility] Ambulatory Visit Summaryon 0 06-15-2024 Ambulatory Visit Summary Ambulatory Visit Summary JOSIANE LOAIZA :1940 Visit Date:06/15/2024 Ambulatory Visit Instructions Your Diagnosis Urgency of urination Nocturia Your Care Team Attending Physician - JARED PARKINSON, Nash Engel Primary Care Physician - Frances Robles MD [...] rectopexy (03/04/2009), Dilation and curettage. Discharge Vitals Temperature (Temporal Artery) 37 ???C Heart Rate (Peripheral) 73 Respiratory Rate 17 Blood Pressure 137/80 Height 157 cm Height 62 in Weight 77.9 kg Weight 171.74 lb BMI 31.6 What to do next You Need to Schedule the Following Appointments Follow Up with JARED PARKINSON, CHRIS Javed When: Where: [facility] [address], [facility] [place] [address] [phone] Medications What How Much When Instructions Unchanged mirabegron (Myrbetriq 50 mg oral tablet, extended release) 1 Tablets By Mouth Every day Unchanged aspirin (aspirin 81 mg Oral EC Tab) By Mouth Every day Contact prescribing physician if questions or concerns Unchanged calcium-vitamin D (Calcium 600 D Tab) By Mouth 3 times a day Contact prescribing physician if questions or concerns Unchanged ezetimibe (Zetia) 10 Milligram By Mouth Every day Contact prescribing physician if questions or concerns Unchanged levothyroxine (levothyroxine 50 mcg (0.05 mg) Tab) By Mouth Every day Contact prescribing physician if questions or concerns Unchanged liothyronine (Cytomel 25 mcg Tab) 1 Tablets By Mouth Every day Contact prescribing physician if questions or concerns Unchanged multivitamin with minerals (PreserVision AREDS 2) 1 Tablets By Mouth Every day Contact prescribing physician if questions or concerns Unchanged olmesartan (Benicar 20 mg Tab) 1 Tablets By Mouth Every day Contact prescribing physician if questions or concerns Unchanged omeprazole (Prilosec) 20 Milligram By Mouth Every day Contact prescribing physician if questions or concerns Unchanged raloxifene (raloxifene 60 mg oral tablet) Contact prescribing physician if questions or concerns Unchanged rosuvastatin (rosuvastatin 20 mg oral tablet) Contact prescribing physician if questions or concerns Allergies Keflex (Vomiting) Percocet 10/325 sulfamethoxazole (Hives) Problems Ongoing - Any problem that you are currently receiving treatment for. Atrophy of kidney BMI 30.0-30.9,adult Cervical intraepithelial neoplasia grade 1 Epidermal cyst of face Feeling of incomplete bladder emptying Gross hematuria Heart murmur History of UTI Hypertensive disorder Hypothyroidism Incontinence without sensory awareness Microscopic hematuria Neuroma of foot Nocturia Obesity Osteopenia Pure hypercholesterolemia Screening for malignant neoplasm of colon Seasonal allergic rhinitis Sebaceous cyst Urgency of urination Historical - Any problem that you are no longer receiving treatment for. GERD GERD - Gastro-esophageal reflux disease History of cystocele Patient Survey You may receive a survey via text or e-mail asking about your office visit. Please share your experience with us by completing your survey. We appreciate your feedback and thank you for choosing us for your care. Education Materials Kegel Exercises Kegel exercises can help strengthen [...] Your provider may suggest Kegel exercises to: ??? Improve bladder and bowel control. ??? Improve sexual response. ??? Improve weak pelvic floor muscles after surgery to remove the uterus (hysterectomy) or after , in females. ??? Improve weak pelvic floor muscles after prostate gland removal or surgery, in males. Kegel exercises involve squeezing your pelvic floor muscles. These are the same muscles you squeeze when you try to stop the flow of urine or keep from passing gas. The exercises can be done while s (more content not included)... Normal [facility] Office/Clinic Noteon 06-15-2024 Urology Office/Clinic Note Urology Office/Clinic Note Chief Complaint 1 year f/u HPI Staff 83 yr old female here today for 1 year f/u Dx: urgency of urination, hx of UTI and nocturia. *Myrbetriq 50mg qd Nocturia x2, Pt states that she only leaks if she has waited too long to void, denies any other urinary complaints. History of Present Illness Tests reviewed: reviewed [...] See HPI. Physical Exam Vitals & Measurements T: 37 ???C(Temporal Artery) HR: 73(Peripheral) RR: 17 BP: 137/80 HT: 157 cm HT: 62 in WT: 77.9 kg WT: 171.74 lb BMI: 31.6 General Appearance: alert , no acute distress, well nourished, well developed female. Assessment/Plan 1. Urgency of urination (R39.15: Urgency of urination) Urethral sling placed 2009. Underwent PFPT 2022 @ [facility] due to bowel issues. [place] she learned a lot about bladder health and was happy with results. UA today shows small leuks. Asx. Taking Myrbetriq 50mg qd. Shares she has leakage in the morning if she does not void during the night. Denies issues with urination during the day. States she did look into [employer], and it was more expensive. Advised pt Myrbetriq is now generic and may be less expensive than what she is currently paying. Recommended pt to check this with insurance in the future. -Cont Myrbetriq 50mg qd. Pt to call for refills. 2. Nocturia (R35.1: Nocturia) Ongoing, 1-2x/night. Not bothersome. Follow-up With When Contact Information JARED PARKINSON, Nash Engel, URL [facility] [address], [place] [address]- [phone] Additional Instructions: 1 yr (no labs) Patient Education Kegel Exercises Magali Carver, personally scribed for Dr. Nichols on 06/15/2024 10:08:49. . Documentation recorded by the scribe, Magali Omer, accurately reflects the services(s) I performed and decisions made by me. Authenticated by Dr. Nichols on 06/15/2024 10:14:52. Problem List/Past Medical History Ongoing Atrophy of [...] Percocet 10/325 sulfamethoxazole (Hives) Social History Alcohol Current. Wine. 1-2 times per year., 06/10/2024 Substance Abuse - Denies Substance Abuse, 12/28/2022 Never., 06/10/2024 Tobacco Never (less than 100 in lifetime) Tobacco Use:. Never Smokeless Tobacco Use:. Household tobacco concerns: No., 06/15/2024 Family History Primary malignant neoplasm of colon: Father. Uterine cancer: Mother. Immunizations Vaccine Date Status Comments influenza virus vaccine, inactivated 11/28/2022 Recorded influenza virus vaccine, inactivated 12/12/2021 Recorded SARS-CoV-2 (COVID-19) [id number] 12/12/2021 Recorded SARSCoV2 mRNA(kelaaqfoo-nxef-fljq os) vac 08/17/2021 Recorded influenza virus vaccine, inactivated 11/29/2020 Recorded SARS-CoV-2 (COVID-19) mRNA BNT-162b2 vax 11/29/2020 Recorded SA (more content not included)... Normal [facility] Comment on above: Result Comment: Elec tronically Signed By: Nash NICHOLS MD\.br\Date and Time Signed: 06/15/24 10:14 EDT\.br\Electronically Co-Signed By: Magali Omer\.br\Date and Time Co-Signed: 06/15/24 10:12 EDT Left eye Ophthalmologic ruby tmenton 04-22-2024 [facility] Radiology Study observation (narrative) [facility] Optical coherence tomography study reporton 04-22-2024 [facility] Radiology Study observation (narrative) [facility] Left eye Ophthalmologic ruby tmenton 02-12-2024 [facility] Radiology Study observation (narrative) [facility] Optical coherence tomography study reporton 02-12-2024 [facility] Radiology Study observation (narrative) [facility] Left eye Ophthalmologic ruby tmenton 12-18-2023 [facility] Radiology Study observation (narrative) [facility] Optical coherence tomography study reporton 12-18-2023 [facility] Radiology Study observation (narrative) [facility] Left eye Ophthalmologic ruby tmenton 10-23-2023 [facility] Radiology Study observation (narrative) [facility] Optical coherence tomography study reporton 10-23-2023 [facility] Radiology Study observation (narrative) [facility] Left eye Ophthalmologic ruby tmenton 04-08-2023 [facility] Radiology Study observation (narrative) [facility] Optical coherence tomography study reporton 04-08-2023 [facility] Radiology Study observation (narrative) [facility] MG MAMM SCREEN 3D [place] CADon 06-12-2022 MG MAMM SCREEN 3D [place] CAD Patient: JOSIANE LOAIZA Exam Date: 06/12/2022 : 1940 Gender:F Ordering : DR CHRIS LAYNE Admission #: [id number] Family : DR FRANCES ROBLES . Order #: [id number] CLICK HERE TO VIEW EXAM RADIOLOGY REPORT [...] colon cancer at age 86. LOCATION: [facility] BREAST COMPOSITION: Scattered areas fibroglandular density. [...] M.D. on 06/12/2022 at 13:48 Normal [facility] FREE T3on 04-05-2022 FREE T3 2.36 pg/mlL Normal 2.18-3.98 [facility] Comment on above: Performed By: #### T 4, TSH, FT3 #### [facility] [address] [address] [address] Clement Duncan T4on 04-05-2022 T4 [Mass/Vol] 6.10 ug/dL Normal 4.80-13.90 [facility] Comment on above: Performed By: #### T 4, TSH, FT3 #### [facility] [address] [address] [address] lCement Duncan TSHon 04-05-2022 TSH 0.257 uIU/mL Critically low 0.358-3.740 [facility] Comment on above: Performed By: #### T 4, TSH, FT3 #### [facility] [address] [address] [address] Clement Duncan CBC AUTO DIFFon 01-03-2022 BASO # 0.0 103/ul Normal 0.0-0.1 [facility] Comment on above: Performed By: #### C BC #### [facility] [address] [address] [address] Clement Duncan Basophils/100 WBC (Bld) 0.4 % Normal 0.2-2.0 [facility] Comment on above: Performed By: #### C BC #### [facility] [address] [address] [address] Clement Duncan EO # 0.0 103/ul Normal 0.0-0.7 [facility] Comment on above: Performed By: #### C BC #### [facility] [address] [place] [address] Dr. Clement Duncan Eosinophils/100 WBC (Bld) 0.2 % Critically low 0.9-7.0 [facility] Comment on above: Performed By: #### C BC #### [facility] [address] [address] [address] Clement Duncan Erythrocyte distribution width (RBC) [Ratio] 15.3 % Critically high 11.0-15.0 [facility] Comment on above: Performed By: #### C BC #### [facility] [address] [place] [address] Dr. Clement Duncan Hematocrit (Bld) [Volume fraction] 41.7 % Normal 36.0-48.0 [facility] Comment on above: Performed By: #### C BC #### [facility] [address] [address] [address] Clement Duncan Hemoglobin (Bld) [Mass/Vol] 13.5 g/dL Normal 12.0-16.0 [facility] Comment on above: Performed By: #### C BC #### [facility] [address] [address] [address] Clement Duncan IG # 0.02 10e3/ul Normal 0.00-0.03 [facility] Comment on above: Performed By: #### C BC #### [facility] [address] [place] [address] Dr. Clement Duncan IG % 0.2 % Normal 0.0-0.5 [facility] Comment on above: Performed By: #### C BC #### [facility] [address] [place] [address] Dr. Clement Duncan LYMPH # 1.2 103/ul Normal 1.2-3.8 [facility] Comment on above: Performed By: #### C BC #### [facility] [address] [place] [address] Dr. Clement Duncan Lymphocytes/100 WBC (Bld) 13.3 % Critically low 20.5-60.0 [facility] Comment on above: Performed By: #### C BC #### [facility] [address] [place] [address] Dr. Clement Duncan MANUAL DIFF REQ NO Normal [facility] Comment on above: Performed By: #### C BC #### [facility] [address] [place] [address] Dr. Clement Duncan MCH (RBC) [Entitic mass] 28.5 pg Normal 26.7-34.0 [facility] Comment on above: Performed By: #### C BC #### [facility] [address] [place] [address] Dr. Clement Duncan MCHC (RBC) [Mass/Vol] 32.4 g/dL Normal 29.9-35.2 [facility] Comment on above: Performed By: #### C BC #### [facility] [address] [place] [address] Dr. Clement Duncan MCV (RBC) [Entitic vol] 88.0 fL Normal 81.0-99.0 [facility] Comment on above: Performed By: #### C BC #### [facility] [address] [place] [address] Dr. Clement Duncan MONO # 0.7 103/ul Normal 0.3-0.8 [facility] Comment on above: Performed By: #### C BC #### [facility] [address] [address] [address] Clement Duncan Monocytes/100 WBC (Bld) 7.6 % Normal 1.7-12.0 [facility] Comment on above: Performed By: #### C BC #### [facility] [address] [address] [address] Clement Duncan NEUT # 7.3 103/ul Critically high 1.4-6.5 [facility] Comment on above: Performed By: #### C BC #### [facility] [address] [address] [address] Clement Duncan Neutrophils/100 WBC (Bld) 78.3 % Critically high 43.0-75.0 [facility] Comment on above: Performed By: #### C BC #### [facility] [address] [place] [address] Dr. Clement Duncan Platelet mean volume (Bld) [Entitic vol] 9.5 fL Normal 9.5-13.5 [facility] Comment on above: Performed By: #### C BC #### [facility] [address] [place] [address] Dr. Clement Duncan PLT 331 103/ul Normal 150-450 [facility] Comment on above: Performed By: #### C BC #### [facility] [address] [place] [address] Dr. Clement Duncan RBC 4.74 106/ul Normal 4.20-5.40 [facility] Comment on above: Performed By: #### C BC #### [facility] [address] [place] [address] Dr. Clement Duncan WBC 9.3 103/ul Normal 4.0-11.0 [facility] Comment on above: Performed By: #### C BC #### [facility] [address] [place] [address] Dr. Clement Duncan FREE THYROXINE INDEX T7on FTI 2.11 Normal 1.30-4.50 [facility] Comment on above: Performed By: #### T 4, TSH, FT3 #### [facility] [address] [address] [address] Clement Duncan T3U 34.0 % Normal 30.0-39.0 [facility] Comment on above: Performed By: #### T 4, TSH, FT3 #### [facility] [address] [address] [address] Clement Duncan T4 [Mass/Vol] 6.20 ug/dL Normal 4.80-13.90 [facility] Comment on above: Performed By: #### T 4, TSH, FT3 #### [facility] [address] [address] [address] Clement Duncan IRONon 01-03-2022 Iron [Mass/Vol] 85.0 ug/dL Normal 50.0-170.0 [facility] Comment on above: Performed By: #### T 4, TSH, FT3 #### [facility] [address] [place] [address] Dr. Clement Duncan LIPID PROFILEon 01-03-2022 CHOL-HDL RATIO NORM SEE BELOW Normal [facility] Comment on above: Result Comment: 3.3 - 4.4 LOW RISK 4.4 - 7.1 AVERAGE RISK 7.1 - 11.0 MODERATE RISK >11.0 HIGH RISK Performed By: #### T 4, TSH, FT3 #### [facility] [address] [address] [address] Clement Duncan Cholesterol [Mass/Vol] 142 mg/dL Normal <=200 [facility] Comment on above: Performed By: #### T 4, TSH, FT3 #### [facility] [address] [place] [address] Dr. Clement Duncan Cholesterol in HDL [Mass/Vol] 83 mg/dL Critically high 40-60 [facility] Comment on above: Performed By: #### T 4, TSH, FT3 #### [facility] [address] [place] [address] Dr. Clement Duncan Cholesterol in LDL [Mass/Vol] 46.0 mg/dL Normal [facility] Comment on above: Performed By: #### T 4, TSH, FT3 #### [facility] [address] [address] [address] Clement Duncan Cholesterol.total/ Cholesterol in HDL [Mass ratio] 1.7 {ratio} Normal [facility] Comment on above: Performed By: #### T 4, TSH, FT3 #### [facility] [address] [address] [address] Clement Duncan HDL NORMAL > or = 60 mg/dl - LO W CARDIOVASCULAR RISK <40 mg/dl - HIGH CARDIOVASCULAR RISK Normal [facility] Comment on above: Performed By: #### T 4, TSH, FT3 #### [facility] [address] [address] [address] Clement Duncan LDL CALC NORMAL SEE BELOW Normal [facility] Comment on above: Result Comment: <100 mg/dl OPTIMAL 100 - 129 mg/dl NEAR OR ABOVE OPTIMAL 130 - 159 mg/dl BORDERLINE HIGH 160 - 189 mg/dl HIGH >190 mg/dl VERY HIGH Performed By: #### T 4, TSH, FT3 #### [facility] [address] [address] [address] Clement Duncan Triglyceride [Mass/Vol] 65 mg/dL Normal <=150 [facility] Comment on above: Performed By: #### T 4, TSH, FT3 #### [facility] [address] [address] [address] Clement Duncan VLDL CALC 13.0 mg/dL Normal [facility] Comment on above: Performed By: #### T 4, TSH, FT3 #### [facility] [address] [place] [address] Dr. Clement Duncan PROF 14(COMP METB)on 022 Albumin [Mass/Vol] 3.3 g/dL Critically low 3.4-5.0 [facility] Comment on above: Performed By: #### T 4, TSH, FT3 #### [facility] [address] [place] [address] Dr. Clement Duncan Albumin/Globulin [Mass ratio] 0.9 {ratio} Normal [facility] Comment on above: Performed By: #### T 4, TSH, FT3 #### [facility] [address] [address] [address] Clement Duncan ALP [Catalytic activity/Vol] 89 U/L Normal 46-116 [facility] Comment on above: Performed By: #### T 4, TSH, FT3 #### [facility] [address] [place] [address] Dr. Clement Duncan ALT [Catalytic activity/Vol] 20 U/L Normal 14-59 [facility] Comment on above: Performed By: #### T 4, TSH, FT3 #### [facility] [address] [place] [address] Dr. Clement Duncan Anion gap [Moles/Vol] 9.8 mmol/L Normal [facility] Comment on above: Performed By: #### T 4, TSH, FT3 #### [facility] [address] [place] [address] Dr. Clement Duncan AST [Catalytic activity/Vol] 19 U/L Normal 15-37 [facility] Comment on above: Performed By: #### T 4, TSH, FT3 #### [facility] [address] [place] [address] Dr. Clement Duncan Bilirubin [Mass/Vol] 0.3 mg/dL Normal 0.2-1.0 [facility] Comment on above: Performed By: #### T 4, TSH, FT3 #### [facility] [address] [place] [address] Dr. Clement Duncan Calcium [Mass/Vol] 9.3 mg/dL Normal 8.5-10.1 [facility] Comment on above: Performed By: #### T 4, TSH, FT3 #### [facility] [address] [place] [address] Dr. Clement Duncan Chloride [Moles/Vol] 103 mmol/L Normal 98-107 [facility] Comment on above: Performed By: #### T 4, TSH, FT3 #### [facility] [address] [place] [address] Dr. Clement Duncan CO2 [Moles/Vol] 29.5 mmol/L Normal 21.0-32.0 [facility] Comment on above: Performed By: #### T 4, TSH, FT3 #### [facility] [address] [address] [address] Clement Duncan Creatinine [Mass/Vol] 0.83 mg/dL Normal 0.55-1.02 [facility] Comment on above: Performed By: #### T 4, TSH, FT3 #### [facility] [address] [address] [address] Clement Duncan EGFR-AF BAHRAINI >60 Normal >=60 [facility] Comment on above: Performed By: #### T 4, TSH, FT3 #### [facility] [address] [address] [address] Clement Duncan EGFR-NON AF BAHRAINI >60 Normal >=60 [facility] Comment on above: Performed By: #### T 4, TSH, FT3 #### [facility] [address] [address] [address] Clement Duncan Globulin (S) [Mass/Vol] 3.6 g/dL Normal [facility] Comment on above: Performed By: #### T 4, TSH, FT3 #### [facility] [address] [address] [address] Clement Duncan Glucose [Mass/Vol] 87 mg/dL Normal 74-106 [facility] Comment on above: Performed By: #### T 4, TSH, FT3 #### [facility] [address] [address] [address] Clement Duncan Potassium [Moles/Vol] 4.3 mmol/L Normal 3.5-5.1 [facility] Comment on above: Performed By: #### T 4, TSH, FT3 #### [facility] [address] [address] [address] Clement Duncan Protein [Mass/Vol] 6.9 g/dL Normal 6.4-8.2 [facility] Comment on above: Performed By: #### T 4, TSH, FT3 #### [facility] [address] [address] [address] Clement Duncan Sodium [Moles/Vol] 138 mmol/L Normal 136-145 [facility] Comment on above: Performed By: #### T 4, TSH, FT3 #### [facility] [address] [place] [address] Dr. Clement Duncan Urea nitrogen [Mass/Vol] 20.0 mg/dL Critically high 7.0-18.0 [facility] Comment on above: Performed By: #### T 4, TSH, FT3 #### [facility] [address] [place] [address] Dr. Clement Duncan Urea nitrogen/Creatinin e [Mass ratio] 24.1 mg/mg Normal [facility] Comment on above: Performed By: #### T 4, TSH, FT3 #### [facility] [address] [place] [address] Dr. Clement Duncan TSHon 01-03-2022 TSH 0.129 uIU/mL Critically low 0.358-3.740 [facility] Comment on above: Performed By: #### T 4, TSH, FT3 #### [facility] [address] [place] [address] Dr. Clement Duncan T4, T3U, FTI LABCORPon 11-07 Free Thyroxine Index 1.5 Normal 1.2-4.9 [facility] Comment on above: Performed By: #### T 4, TSH, FT3 #### [facility] [address] [place] [address] Dr. Clement Duncan T3 Uptake 27 % Normal 24-39 [facility] Comment on above: Performed By: #### T 4, TSH, FT3 #### [facility] [address] [place] [address] Dr. Clement Duncan T4 [Mass/Vol] 5.5 ug/dL Normal 4.5-12.0 [facility] Comment on above: Performed By: #### T 4, TSH, FT3 #### [facility] [address] [place] [address] Dr. Clement Duncan FREE T3on 11-06-2021 FREE T3 2.53 pg/mlL Normal 2.18-3.98 [facility] Comment on above: Performed By: #### T SH, FT3 #### [facility] [address] [place] [address] Dr. Clement Duncan FREE T4on 11-06-2021 Free T4 [Mass/Vol] 0.83 ng/dL Normal 0.76-1.46 [facility] Comment on above: Performed By: #### T 4, TSH, FT3 #### [facility] [address] [place] [address] Dr. Clement Duncan TSHon 11-06-2021 TSH 0.039 uIU/mL Critically low 0.358-3.740 [facility] Comment on above: Performed By: #### T SH, FT3 #### [facility] [address] [place] [address] Dr. Clement Duncan US PELVIS AND TRANSVAGon [...] BRANDYN GUADALUPE Date: 2021-10-02 07:42 Normal [facility] FREE T3on 09-19-2021 FREE T3 2.81 pg/mlL Normal 2.18-3.98 [facility] Comment on above: Performed By: #### T SH, T4, FT3 #### [facility] [address] [place] [address] Dr. Clement Duncan T4on 09-19-2021 T4 [Mass/Vol] 5.10 ug/dL Normal 4.80-13.90 [facility] Comment on above: Performed By: #### T SH, T4, FT3 #### [facility] [address] [place] [address] Dr. Clement Duncan TSHon 09-19-2021 TSH Qn m[IU]/L Critically low 0.358-3.740 [facility] Comment on above: Performed By: #### T 4, TSH, FT3 #### [facility] [address] [place] [address] Dr. Clement Duncan FREE T3on 08-08-2021 FREE T3 1.98 pg/mlL Critically low 2.18-3.98 [facility] Comment on above: Performed By: #### T 4, TSH, FT3 #### [facility] [address] [place] [address] Dr. Clement Duncan T4on 08-08-2021 T4 [Mass/Vol] 5.60 ug/dL Normal 4.80-13.90 [facility] Comment on above: Performed By: #### T 4, TSH, FT3 #### [facility] [address] [place] [address] Dr. Clement Duncan TSHon 08-08-2021 TSH 0.059 uIU/mL Critically low 0.358-3.740 [facility] Comment on above: Performed By: #### T 4, TSH, FT3 #### [facility] [address] [place] [address] Dr. Clement Duncan TSH RANGE SEE BELOW Normal [facility] Comment on above: Result Comment: <0.3 4 UIU/ml HYPERTHYROID 0.34-5.60 UIU/ml EUTHYROID >5.60 UIU/ml HYPOTHYROID Performed By: #### T 4, TSH, FT3 #### [facility] [address] [place] [address] Dr. Clement Duncan CNOVon 06-13-2021 CNOV Office Visit (CLAUDIO ) -------- JOSIANE LOAIZA ([id number]) 1940 F Date Time Provider Department 06/13/21 10:30 AM CATRACHO GONZALEZ During your visit today, we recorded the following information about you: Temperature Pulse Blood pressure Weight 97.3 degrees 94/minute 138/84 73.7 kg Height 1.575 m Catracho Gonzalez APRN.CNP 06/14/2021 7:57 AM Signed COLORECTAL SURGERY New [...] the past for FI and ARM testing ([id number]). 02/01/2012 ARM: IMPRESSION: Normal resting and low squeeze pressures. Normal volume studies. Normal nerve studies. Today she reports: -recently saw SAW OFFBEARER and was encouraged to stop taking Metamucil [...] Laterality Date - PAST SURGICAL HISTORY OF dANPr - PAST SURGICAL HISTORY OF 2009 uterine [...] of th (more content not included)... Normal [facility] HISTORY PHYSICALon HISTORY PHYSICAL HNO ID: [id number] Author: Catracho Gonzalez APRN.ICE SCRAPER Service: ? Author Type: Nurse Practitioner Type: [...] the past for FI and ARM testing ([id number]). 02/01/2012 ARM: IMPRESSION: Normal resting and low squeeze pressures. Normal volume studies. Normal nerve studies. Today she reports: -recently saw SAW OFFBEARER and was encouraged to stop taking Metamucil [...] Laterality Date - PAST SURGICAL HISTORY OF dANPr - PAST SURGICAL HISTORY OF 2009 uterine [...] brain stimulator (more content not included)... Normal [facility] Provider Orderson 08-30-2020 Provider Orders [id number]#1.00OTG TIFF Normal [facility] C Urineon 08-24-2020 C Urine >100,000 cfu/ml Prot eus mirabilis ORGANISM Promir - SUSCEPTIBILITY ORGANISM ID: 1 ANTIBIOTIC INTERPRETATION MARK STATUS [...] Verified Tri/Sulf S <=2/38 Verified Normal [facility] Comment on above: Performed By: #### [id number] #### [facility] (DEFAULT) [address] [place] [address] Coding Summaryon 08-23-2020 Coding Summary HTMLBase 64 BsujkeioJNv0cAz+PGhlYWQ+ YR1XZKPmA83lgQSwxL7HS9zJ BP6GBNVOSVTHUV2IIH7lbDF2 WEnlY3NhrrRi CleqvTRtGF58MEl8KFM2aDuz PJtteW9etMWzR1z6RlKvNZ08 eV85CLvrWYMuNoJ4GfWxwzll bWFy W4dfXgQbiVGhTwn+PHRhYmxl IHdpZHRoPScxMDAlJyBzdHls UC8tCj5iRJQyOOKtwJuzyCIy OiBj l4rjJIAbAFztGE4zvHghZ3Ul sTQ6TRSva9s8Xf30sCQ+PHRk IIS3kNksDMhbc000PdChc3pq IDM3 gLSwSLppOUG4C46tb0H1CEXw HRNdKSX1eJN8mE0vwBqkepte P9WqiYMtOcS8VKH6wPGkrN5j bGln pdgnoU1yOwz+Y38DXN0QLTSF HG8NVdh2R7OfUdnkwNU+PC90 XIZaRN07jEMhpCIlb6fylVm4 JzEw NPZuLVY7iTzbGQbjk7VnEIQa R45mhZPla7H3DDZgpMdlvCQc BpDanTU5aC9kNClikwnfp7ut dzsn Dxozx9kksx02nI68Y21xGVxc MGAjPDH4HHPiGXAkpSlabd9n fR4rYy5+UDkwc7boc6bcpGa2 IjIw YMEenkPmaRpyJOH5v9NiWs00 F7CcvSmli0CuRuu0px48wFHx f8W5fVR2QWutGEVoaB7nLBxo ZnQ6 QYGrZhGnrU51iMOgYZqwRx3a eVcwxWdmVM1qARBulqviOUWo fB9cJYCbmMNmaMylSX4oJSXp bjtm i991SiFtEHU8MJWkcHCuO0Ho pT3cDxTgQYTyRBXlR1WdsVXd VVdjK103YCaxNrG4ZOCsxpAo Y2Fs GKEksKbiAyS8x5R1Gc7Xn0Me rhinJJD1RCopCDJ4JwT3FzMh PjO5X6VzWuf7FBMvyLymMW8l J3Bh KYCwhrkwkpsmtUV6JGGyNPNg vZ89vREySEznEf0jh4Y8r012 ITHhLBAnhO30Td0wlQbfMNNn dCBU aS9ejzdut4rpobjnGzWkCWHp VKn5FEa7ESMavMxiZqDhLYX0 PyL9ODN7hJNtzV6avEyvwqwi dG9w Oyc+A73xfR3hZFN5DCS7lolx UMMoydWwDX80UE09R7HwJbrm dGFibGU+UYHatkBaxZcrNJ7i YmFj t0nce4QeGUjcN4NsMKNlLKuq Kxu8GAOuVKC2fXJ4zK8vAGFb YJjvs9I9hAR4V3OvviSjot8q b2xs JHKbGTxpX32gwJMpg7A9USWo eCF8ZSPzbYdcRyUpjG93Tij+ VCGlmZrqs3FjFaego0yax8js dGg9 YpHwYITotzFnzXbuRSZ7b0Rd Zf91Q07jZUcwQOOpXJPuWUSl NBIvhDylws5lzD1nZs2+PGNv bCB3 cLM3nM2yRTCjWcX3WXmtD374 AxZheHMlMmneh5udf2sxhCw6 JcWjXFEoexQqlGngLTV4l6Sg Lz48 T62oAJlwJIEvLZAmWHWmAERx zEupih6vwL0gNm6+SP5am3tj iv83oP45yIG+CETeDQV6dYuq PSdw TMMizD5nHGuaDfI7NHBpGjAk gL48wTHuWUzoKo8cwEzjuZoz BG2hEBZrdrore996BrAaq6cx IDEw xPUuGRopOIM7O50sq1T7XMLe FIMrTQV3wVD7fG3tvCxfvbna bGVmdDsgdmVydGljYWwtYWxp Z246 IHRvcDsnPlBhdGllbnQgTmFt MDh7X4NuRed3OAZmzMmuKH1s vHWeQOaeNa9lgPollOruXW6y NTBp zyfnv756NxZuh7rhLOMthOQf YEzvFJL5R96cm2B3HGSuXWDw BNN7dPM1yW4yfSgxbqetdHAz dDsg wrGfjFhfPAhcWJzxN932WOXp dCzkHiSfszGoLQJpnFQ2YB47 PP87aVTmk4P3eWT8M3NfRWPy bmct dbrwoXY7CSBzJUQakS41Ld0p gYwvDg8gPNPhUJW7CBUleLLo K8MxmJ1mBoUzSTJpHDXqS1Kg eHQt MTgcR661NYxkKfJ4RBGsnuNr E4NwDPTpjTpzMiC7v0Z5Sd2G U0V8VT10UQ77iVOpx2O5aFJ8 J3Bh ITNsawndrvybjSX8BYLdDJKy sI65Kf9pxWstFq3vMKQkMAF6 KSRgbRLzJ3WcdK7mUzDoLHEa MDAw K9OvmCPsZGmiX081DWyxHbY3 GESagbTsY4CfQFUsyJqvIyY9 c3T9Od7KZWw3GO09DA19wTSr c3R5 yAJ9U8DdMARjvxecnruytIL6 XLXjTUUcpZ66Ml1noCnoEo0d ABLaMUV9MQWubAUiP7KejU6a OiAj YOAeZQQiJ9QaoTDuRIxzG379 MKezVdS3VBQcoaSmA2GiDYPo iFpfFtZ2u4S5Fx5USIOvSZ00 IFR5 nMK1PD50PB81F8BdAhhkmHUe bGU+PHRhYmxlIHdpZHRoPScx WBLeKiUwqZcfSW8eJg4fSCSj LWNv qDokoQUlUmFly9fjMTIyEIkd SQ8grLzuO8AjhYI2PFYdq2p4 Jx47U98vW6GxjYW+PGNvbCB3 aWR0 yA1rMsHgLoI3ZQagH240UpZm cAXtRwfsa5gjx5hpeJk4IaH7 DLYqptLtjZhgGPZ6x8XkVn96 Y29s IHdpZHRoPSIxNSUiIHZhbGln kx4pyS4vLn8+NYNkqWC0cSL6 hF4gIxEcVcM8JYwkK633YfVo cCIv Ednsw0xgg8jexCm0NoDoOJCb dxLrrWgaKWQ3e0ChIx74Y2Kj nUfjm7LwTjg9on68rPGrm8C3 bGU9 G6SmWSDwfoeksZXolZwoCU8x NMXpqudiJEIwrE8oWGMlQ2t2 RdVwTwM2BKozQ6SwqmG9IWYj cHQg BVdwGDH1V44or8Z6MNVdZLFc EKU7kMU3jQ6woFuzkkqslZAm tAckuoOxfJwqJRqeSMmlP954 IHRv fPwtSPDbqX3wZZHnyFNuwKzd OD3iUHJsnfdoXcMWHPPQMnvm QlJFTkRBIFNVRTwvdGQ+PHRk IHN0 eHwkVMjtZXIkpR5jKQChQ9z4 CcXdXmX3HSkhL2SxZAQseyci Oq32bQ2zYoHjBjE0FKnsA7Ul bnQ6 ZABspMIjWBjpBIY5L39ac1L8 QNAtVHXdEEO6jDO1jL5jbHkv bjogbGVmdDsgdmVydGljYWwt YWxp H369YGGhqJphQeL4QoDkWmB3 VND5R5JaKkn3GLVndTskOP3g nTTySTdmJh6toLgpePybNN3g NTBp gjhsFFKaqS9oOEAijJKutTge EQ6rYSCxdyjgm017ZjHpAUO3 FVXqcSBsB7UclG7xDaClDBNb MDAw P3DtwIXhOPpsK974KQcdNkF8 LTVnucSqL5KkZEIbfMpsFoN5 l4Q2Ic24PSVLGVVeaxnycGN+ PHRk ZPZ7tUbvIWytPOZhkQ7gOGQd Y9m0OjKcHiR9VDvvB8YcTESb qnkiSr99rP6qLwAtJeB4LPgt O2Zv fwN5TALziETtZXiyFIX4M55d t7I0IWPcACVdBBX4uJS1rT2c bGlnbjogbGVmdDsgdmVydGlj YWwt XKtzO443HQIsnUalCtUFHAJY RTwvdGQ+MSNzOZX3oAtoQFze SIEygB5fSRLwV6a1FaMaWlD5 MGlu J1SoALBqoafoUl31aH2fTyPb OkM5QZynF3XqasH3ZIRkdCEs ZCjiLIJ5X26ad4J7XDWpSDPc MDA7 dIT6rN0yyXtxxkfhyMXacNoe qyNkqVjgLOdhAQvsW402XGQd hLzlFu2KCO47PE19N0PpSweq dGFi bGU+PHRhYmxlIHdpZHRoPScx RYVbEiKnzNndOF8fCa9jTUCz FMTbhTrbyPLlLdOad3dqDBGn ZTsg BB5evNxwD1FibUM1TXKur4h8 Qd15L50vU8LjfQI+PGNvbCB3 yQJ0sZ7pOzPbUzN1ORqdP255 InRv qOHnCjtxb0fyg0fsyHh1YtDj PDDmtuJyxQusIRO6v8MrIo62 K35xVGhdYXLzCCUkQHIoTUQt bGln oe9urE4wVq6+ERGvaWZ0kJS9 oK1dCpGiIrX4IWspP080JhMe wBPwDpneA37jT7UpbXP+PHRy Pjx0 BMTugXwyMF8geAHdWRrpQw8c OPX1XeXqTaKdCAvsN4ZwIVUq icuujnzcaNV5AWDaWLGbnN45 Zm9u hVezYn5zKSOoXVH1HOMnlMAx S1UayY4eYyAuOUMbQXLhM8Uw kOJbNNmbU522FRuhOsM5SINi cnRp X8IiTJQqwYobDvE2r5Q7Qm0S gHdvtHAfPV3tLeOjGOn6U9Jl Yad4BDAnbIreBH0joAVkNLeb Zy1y wBqpuAxeWH2qOATyktffh751 ScOpa2scVEDbdPGcIKtcJYR0 G04aj7F3KCSdEUKqCOJ5jSI5 dC1h bGlnbjogbGVmdDsgdmVydGlj UVwiZOlyN310OIJqtFhmWmYP Leo0A8RhMnr3WQBzcArnZO1e cGFk DXbmBb0nbPsywVxgCL5oQXDr jxqmg656PcUmr7adPHYazUTs TAonWRB0P87ll8T7WKOaMJKg MDA7 iPS2hX3wkQkntsxhtPIpqSvn tjAsqGwpGLynSOqjQ395OICx dUaqYt6CVma0K8RpPrf9ZYIg dHls TA2biRRxZLhhOp0edFepiOgh BA7wDKOzysclu020ZmDcy7yh QDEnvRJvDSytDKN0X41ys4V6 ICMw KLSfOIE4aPC2gG0hwUybziin bGVmdDsgdmVydGljYWwtYWxp T501ZKQlvBkcPlJbeDMtGkqh dGQ+ TP35ir09A7OsFeypOhz0OULr VGD9nHE6gW5tOXLnNGtmp3E3 uMI4A1HnnhBraj5pk1uyEFOj ZTog Y29 (more content not included)... [facility] Provider Orderson 08-23-2020 Provider Orders [id number]#1.00OTG TIFF [facility] ADULT [place] [facility] Vital Signs Date Time Vital Sign Value Performing Clinician Kodi emery 06-10-2023 12:26-0400 Blood Pressure Location Nash NICHOLS [facility] 06-10-2023 12:26-0400 Diastolic blood pressure 88 mm[Hg] Nash NICHOLS [facility] 06-10-2023 12:26-0400 Heart rate 87 /min Nash NICHOLS [facility] 06-10-2023 12:26-0400 Respiratory rate 16 /min Nash NICHOLS [facility] 06-10-2023 12:26-0400 Systolic blood pressure 133 mm[Hg] Nash NICHOLS [facility] 12-28-2022 13:05-0400 Blood Pressure Location Jr NILL [facility] [place] 12-28-2022 13:05-0400 Diastolic blood pressure 66 mm[Hg] Jr [facility] [place] 12-28-2022 13:05-0400 Heart rate 72 /min Jr N[facility] [place] 12-28-2022 13:05-0400 Respiratory rate 16 /min Jr N[facility] [place] 12-28-2022 13:05-0400 Systolic blood pressure 120 mm[Hg] Jr NILL [facility] [place] 04-27-2022 08:57-0500 Blood Pressure Location Nash NICHOLS [facility] 04-27-2022 08:57-0500 Diastolic blood pressure 86 mm[Hg] Nash NICHOLS [facility] 04-27-2022 08:57-0500 Heart rate 74 /min Nash NICHOLS [facility] 04-27-2022 08:57-0500 Respiratory rate 16 /min Nash NICHOLS [facility] 04-27-2022 08:57-0500 Systolic blood pressure 140 mm[Hg] Nash NICHOLS [facility] 06-13-2021 09:46-0400 Body height 157.5 cm Catracho Gonzalez INSPECTOR SCALES.ICE SCRAPER Work Phone: [facility] 06-13-2021 09:46-0400 Body temperature 97.3 [degF] Catracho Gonzalez INSPECTOR SCALES.ICE SCRAPER Work Phone: [facility] 06-13-2021 09:46-0400 Body weight 73.71 kg Catracho Carlos INSPECTOR SCALES.ICE SCRAPER Work Phone: [facility] 06-13-2021 09:46-0400 Diastolic blood pressure 84 mm[Hg] Catracho Carlos INSPECTOR SCALES.ICE SCRAPER Work Phone: [facility] 06-13-2021 09:46-0400 Heart rate 94 /min Catracho Carlos INSPECTOR SCALES.ICE SCRAPER Work Phone: [facility] 06-13-2021 09:46-0400 SaO2% (BldA) [Mass fraction] 96 % Catracho Carlos INSPECTOR SCALES.ICE SCRAPER Work Phone: [facility] 06-13-2021 09:46-0400 Systolic blood pressure 138 mm[Hg] Catracho Carlos INSPECTOR SCALES.ICE SCRAPER Work Phone: [facility] Encounters Encounter Date Encounter Type Care Provider Facility Start: 06-21-2025 ambulatory Nash NICHOLS Facili ty:[facility] Start: 07-01-2024 End: 07-01-2024 ambulatory AL PRASAD Not Available Start: 07-01-2024 End: 07-01-2024 Follow-up encounter Al Prasad DO Work Phone: [facility] Comment on above: Follow-up Start: 07-01-2024 End: 07-01-2024 Bamboo flowsheet Al Prasad DO Work Phone: [facility] Start: 07-01-2024 End: 07-01-2024 Bamboo flowsheet Al Prasad DO Work Phone: [facility] Start: 06-15-2024 End: 06-15-2024 ambulatory Nash NICHOLS Facility:[facility] Start: 04-22-2024 End: 04-22-2024 Follow-up encounter Al Prasad DO Work Phone: [facility] Comment on above: Follow-up; Retinal I njection Start: 04-22-2024 End: 04-22-2024 ambulatory AL PRASAD Not Available Start: 04-22-2024 End: 04-22-2024 Bamboo flowsheet Al Prasad DO Work Phone: [facility] Start: 04-22-2024 End: 04-22-2024 Bamboo flowsheet Al Prasad DO Work Phone: [facility] Start: 02-12-2024 End: 02-12-2024 Clinical Support Al Prasad DO Work Phone: [facility] Comment on above: Retinal Injection Start: 02-12-2024 End: 02-12-2024 Bamboo flowsheet Al Prasad DO Work Phone: [facility] Start: 02-12-2024 End: 02-12-2024 Bamboo flowsheet Al Prasad DO Work Phone: [facility] Start: 12-18-2023 End: 12-18-2023 Clinical Support Al Prasad DO Work Phone: [facility] Comment on above: Retinal Injection; M acular Degeneration Start: 12-18-2023 End: 12-18-2023 Bamboo flowsheet lA Prasad DO Work Phone: [facility] Start: 12-18-2023 End: 12-18-2023 Bamboo flowsheet Al Prasad DO Work Phone: [facility] Start: 10-23-2023 End: 10-23-2023 ambulatory AL PRASAD Not Available Start: 10-23-2023 End: 10-23-2023 Patient encounter procedure Al Prasad DO Work Phone: [facility] Comment on above: 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) Start: 10-23-2023 End: 10-23-2023 Bamboo flowsheet Al Derrick Leyjarod DO Work Phone: [facility] Start: 10-23-2023 End: 10-23-2023 Bamboo flowsheet Al Derrick Jamihler DO Work Phone: [facility] Start: 08-26-2023 End: 08-26-2023 ambulatory AL PRASAD Not Available Start: 06-10-2023 End: 06-10-2023 Patient encounter procedure Nash NICHOLS [facility] Start: 04-08-2023 End: 04-08-2023 Patient encounter procedure Al Derrick Prasad DO Work Phone: [facility] Comment on above: 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) (Primary Dx) Start: 04-08-2023 Bamboo flowsheet Al Derrick Za hler DO Work Phone: [facility] Start: 04-08-2023 Bamboo flowsheet Al Derrick Za hler DO Work Phone: [facility] Start: 02-06-2023 End: 02-06-2023 Patient encounter procedure Jr Engel NILL General [facility] Nill/Said [place] Start: 12-28-2022 End: 12-28-2022 Patient encounter procedure Jr R NILL General Surgery Nill/Said [place] Start: 06-12-2022 End: 06-13-[address] CHRIS LAYNE Facility: Start: 04-30-2022 End: 04-30-2022 Lab Drop off Nash NICHOLS [facility] Start: 04-30-2022 End: 04-30-2022 Patient encounter procedure Nash NICHOLS [facility] Start: 04-27-2022 End: 04-27-2022 Patient encounter procedure Nash NICHOLS [facility] Start: 04-05-2022 End: 04-06-[address] [...] Start: 09-12-2021 End: 09-12-2021 ambulatory Catracho Gonzalez APRN.ICE SCRAPER Work Phone: Colorectal Surgery Comment on above: Full incontinence of feces (Primary Dx) Start: 09-12-2021 End: 09-12-2021 Telemedicine consultation with patient Catracho Carlos CH.ICE SCRAPER Work Phone: [facility] Start: 09-08-2021 Chart abstracting Catracho devlin APRN.CNP Work Phone: Colorectal Surgery Start: 08-08-2021 End: 08-09-[address] FRANCES ROBLES . 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) Procedures Date Procedure Procedure Detail Performing Clinician Start: 07-01-2024 Intravitreal njx pharmacologic agt spx Al Prasad DO Work Phone: Start: 07-01-2024 Computerized ophthal mark imaging retina Al Prasad DO Work Phone: Start: 04-22-2024 Intravitreal njx pharmacologic agt spx Al Prasad DO Work Phone: Start: 04-22-2024 Computerized ophthal mark imaging retina Al Prasad DO Work Phone: Start: 02-12-2024 Intravitreal njx pharmacologic agt spx Al Prasad DO Work Phone: Start: 02-12-2024 Computerized ophthal mark imaging retina Al Prasad DO Work Phone: Start: 12-18-2023 Intravitreal njx pharmacologic agt spx Al Prasad DO Work Phone: Start: 12-18-2023 Computerized ophthal mark imaging retina Al Prasad DO Work Phone: Start: 10-23-2023 Intravitreal njx pharmacologic agt spx Al Prasad DO Work Phone: Start: 10-23-2023 Computerized ophthal mark imaging retina Al Prasad DO Work Phone: Start: 04-08-2023 Intravitreal njx pharmacologic agt spx Al Prasad DO Work Phone: Start: 04-08-2023 Computerized ophthal mark imaging retina Al Prasad DO Work Phone: Start: 01-23-2023 Excision of cyst Michae l NILFlorina Comment on above: left preauricular Start: 06-13-2021 ADULT [place] [facility] Lorie Romero ICE SCRAPER Work Phone: Start: 10-11-2010 Cystoscopy Nash MARIKA HDZ Start: 03-04-2009 anal sphincteroplasty Xavier elyroman NICHOLS Start: 03-04-2009 mid transobturator mid-urethral sling Nash NICHOLS Start: 03-04-2009 Repair of rectocele Saumya erlinda NICHOLS Start: 03-04-2009 Sacrospinous hysteropexy Nash NICHOLS Start: 03-04-2009 Transvaginal Sacrosp inous rectopexy Nash NICHOLS D and C Nash NICHOLS Dilation and curettage Dann BAKER Plan of Treatment Date Care Activity Detail Author Start: 07-30-2024 End: 07-30-2024 Patient encounter procedure 07/30/2024 11:00 AM EDT Office Visit [facility] [address] [place] [place] [address] Zoila Ogden PA [address] [place] [address] [facility] Start: 04-22-2024 End: 04-22-2024 Clinical Support 04/22/2024 3:15 PM EST Clinical Support [facility] [address] [place] [id number] Al Prasad, [address] [place] [address] Arrived [facility] Comment on above: Arrived Start: 02-12-2024 End: 02-12-2024 Clinical Support 02/12/2024 3:15 PM EST [facility] [address] [place] [address] Al Prasad, DO [address] [place] [address] Arrived [facility] Comment on above: Arrived Start: 12-18-2023 End: 12-18-2023 Clinical Support 12/18/2023 3:15 PM EDT [facility] [address] [place] [address] Al Prasad, DO [address] [place] [address] Arrived [facility] Comment on above: Arrived Start: 10-27-2023 Influenza vaccination Influenza Vacc ine (#1) [facility] Start: 04-08-2023 End: 04-08-2023 Patient encounter procedure 04/08/2023 2:45 PM EST [facility] [address] [place] [address] Al Prasad, DO [address] [place] [address] Arrived [facility] Comment on above: Arrived Start: 10-26-2021 Influenza vaccination INFLUENZA (#1) [facility] Start: 04-01-2021 COVID-19 VACCINE (4 - Booster for Pfizer series) COVID-19 VACCINE (4 - Booster for Pfizer series) [facility] Start: 02-25-2021 ADVANCE DIRECTIVE DISCUSSION ADVANCE DIRECTIVE DISCUSSION [facility] Start: 03-06-2012 DIABETES SCREEN DIABETES SCREEN [facility] Start: 2006 BONE DENSITY BONE DENSITY [facility] Start: 2006 PNEUMOCOCCAL: 65+ (1 - PCV) PNEUMOCOCCAL: 65+ (1 - PCV) [facility] Start: 2006 PNEUMOVAX AGE 65 AND OVER WITH 5YR LOOKBACK (#1) PNEUMOVAX AGE 65 AND OVER WITH 5YR LOOKBACK (#1) [facility] Start: 11-25-1991 SHINGRIX VACCINE (1 of 2) ABDI GRIX VACCINE (1 of 2) [facility] Start: 1960 Urine microalbumin profile DTAP,TDAP ,TD (1 - Tdap) [facility] Start: 1953 Adult depression scr eening assessment DEPRESSION SCREENING [facility] Immunizations Immunization Date Immunization Notes Care Provider [facility] 12-11-2023 influenza virus vacc ine, unspecified formulation Al Prasad DO Work Phone: [facility] 11-28-2022 influenza virus vacc ine, unspecified formulation Jr BAKER [facility] 12-12-2021 influenza virus vacc ine, unspecified formulation Nash NICHOLS [facility] 12-12-2021 SARS-CoV-2 (COVID-19 ) [id number] Nash NICHOLS [facility] 08-17-2021 SARS-CoV-2 mRNA (lrqojcavpmq-grtq-sejaei e) vaccine Nash NICHOLS [facility] 11-29-2020 influenza virus vacc ine, unspecified formulation Nash NICHOLS [facility] 11-29-2020 SARS-CoV-2 (COVID-19 ) mRNA BNT-162b2 vax Jr BAKER [facility] 04-14-2020 SARS-CoV-2 (COVID-19 ) mRNA BNT-162b2 vax Jr BAKER [facility] 03-24-2020 SARS-CoV-2 (COVID-19 ) mRNA BNT-162b2 vax Jr BAKER [facility] 02-26-2020 SARS-CoV-2 (COVID-19 ) mRNA BNT-162b2 vax Nash NICHOLS [facility] Comment on above: Result Comment: pt h as had 3 shots 10-27-2019 pneumococcal polysaccharide vaccine, 23 valent Nash NICHOLS [facility] 12-16-2018 zoster vaccine recombinant Nash NICHOLS [facility] 10-08-2018 pneumococcal conjuga te vaccine, 13 valent Nash NICHOLS [facility] 10-08-2018 zoster vaccine recombinant Nash NICHOLS [facility] Payers Date Payer Category Payer Private Health Insurance WPS Mem lizett [place] [place] [id number] 2022 Unknown WPS WPS 3 2022-Present [address] [address] [place] [phone] [id number] 2019 Unknown MMO MMO MEDICARE SUPPLEMENT [id number] 2019-Present [phone] [address] [place] [address] Indemnity [id number] 2006 Medicare MEDICARE MEDICAR E A AND B [id number] 2006-Present [phone] [address] [address] [place] [address] Medicare [id number] 2006 Medicare [id number]. [id number] 2006 Medicare [id number] 1959 Medicare [id number] 1959 Self-pay [id number] 1959 Unknown [id number] 1959 Unknown [id number] 1941 Unknown [id number] 2.16.840.1.022250.3.579.2. 593 1941 Unknown [id number] 2.16.840.1.625832.3.579.2. 593 1941 Unknown [id number] 2.16.840.1.536333.3.579.2. 593 1941 Unknown [id number] 2.16.840.1.694186.3.579.2. 593 1941 Unknown [id number] 2.16.840.1.070602.3.579.2. 593 1941 Unknown [id number] 2.16.840.1.948207.3.579.2. 593 1941 Unknown [id number] 2.16.840.1.932101.3.579.2. 593 1941 Unknown [id number] 2.16.840.1.204421.3.579.2. 593 1941 Unknown [id number] 2.16.840.1.413456.3.579.2. 593 1941 Unknown [id number] 2.16.840.1.702582.3.579.2. 593 1941 Unknown [id number] 2.16.840.1.845609.3.579.2. 727 1941 Unknown [id number] 2.16.840.1.743189.3.579.2. 727 1941 Unknown [id number] 2.16.840.1.754295.3.579.2. 1259 1941 Unknown [id number] 2.16.840.1.685215.3.579.2. 1259 1941 Unknown [id number] 2.16.840.1.175570.3.579.2. 1259 1941 Unknown [id number] 2.16.840.1.014316.3.579.2. 1259 1941 Unknown [id number] 2.16.840.1.748701.3.579.2. 1259 1941 Unknown [id number] 2.16.840.1.950161.3.579.2. 1259 Social History Date Type Detail Facility Start: 04-27-2022 End: 09-12-2022 Tobacco smoking status NHIS Never smoked tobacco [facility] Start: 06-13-2021 Alcohol intake Lifetime non-d gregg (finding) [facility] Start: 06-13-2021 History SDOH Alcohol Frequency 1 [facility] Start: 1940 Sex Assigned At Female [facility] Start: 06-03-2021 End: 06-13-2021 Exposure to SARS-CoV-2 (event) Not sure [facility] Tobacco smoking status Never [facility] Start: 10-23-2023 End: 04-22-2024 Sex Assigned At Female [facility] Start: 09-12-2022 Tobacco use and exposure Smokeless tobacco non-user [facility] Start: 1940 Sex Assigned At Not on file [facility] Start: 10-23-2023 End: 04-22-2024 History of Social function [facility] NEGATED: Highlighted rowStart: FAIZAF History of tobacco use Passive smoker [facility] Medical Equipment Procedure Code Equipment Code Equipment Origin al Text Equipment Identifier Dates Nzz-[id number]-K-Kind Implant - [id number] Start: 03-04-2009 Comment on above: Description: Surgisi s Biodesign 4 layer tissue graft Device Tvt W/ Obturator - [id number] Start: 03-04-2009 Functional Status Date Assessment Result Facility 06-10-2023 Functional Status N/A [facility] 12-28-2022 Functional Status N/A [facility] 04-27-2022 Functional Status N/A [facility] Clinical Notes 06-13-2021 to 07-01-2024 Al Prasad, DO - 07/01/2024 2:30 PM EDTAl Prasad, DO - 04/22/2024 3:15 PM Nain Prasad, DO - 02/12/2024 3:15 PM Nain Prasad, DO - 12/18/2023 3:15 PM EDT Note Date & Type Note Facility 07-01-2024 Note Time Out 07/01/2024. 3:32 PM. Confirmed correct patient, procedure, site, and patient consented. Anesthesia Topical anesthesia was used. Anesthetic medications included Lidocaine 2%, Proparacaine 0.5%. Procedure Preparation included 5% betadine to ocular surface, eyelid speculum. Injection: 2 mg aflibercept 2 MG/0.05ML Route: Intravitreal, Site: Left Eye [facility]: [id number], Lot: [id number], Expiration date: 11/25/2024, Waste: 0 mL Post-op Post injection exam [...] increased pain, redness, decreased vision or concerns. [facility] 07-01-2024 Note Right Eye Quality was good. Scan locations included subfoveal. Progression has been stable. Findings include abnormal foveal contour. Left Eye Quality was good. Scan locations included subfoveal. Progression has been stable. Findings include abnormal foveal contour. [facility] 07-01-2024 History of Present illness Narrative Images from the original note were not included. Assessment/Plan Diagnoses and all orders for this visit: Exudative age-related macular degeneration of left eye with active choroidal neovascularization ([facility]/HCC) - OCT, Retina - OU - Both Eyes - Intravitreal Injection, Pharmacologic Agent - OS - Left Eye - aflibercept (Eylea) syringe 2 mg OCT, Retina - OU - Both Eyes Right Eye Quality was good. Scan locations included subfoveal. Progression has been stable. Findings include abnormal foveal contour. Left Eye Quality was good. Scan locations included subfoveal. Progression has been stable. Findings include abnormal foveal contour. Linked Images Intravitreal Injection, Pharmacologic Agent - OS - Left Eye Time Out 07/01/2024. 3:32 PM. Confirmed correct patient, procedure, site, and patient consented. Anesthesia Topical anesthesia was used. Anesthetic medications included Lidocaine 2%, Proparacaine 0.5%. Procedure Preparation included 5% betadine to ocular surface, eyelid speculum. Injection: 2 mg aflibercept 2 MG/0.05ML Route: Intravitreal, Site: Left Eye [facility]: [id number], Lot: [id number], Expiration date: 11/25/2024, Waste: 0 mL Post-op Post injection exam [...] vision or concerns. documented in this encounter [facility] 06-15-2024 Note Patient Education Obstetrics and Gynecology Kegel Exercises [...] Your provider may suggest Kegel exercises to: ??? Improve bladder and bowel control. ??? Improve sexual response. ??? Improve weak pelvic floor muscles after surgery to remove the uterus (hysterectomy) or after , in females. ??? Improve weak pelvic floor muscles after prostate [...] condition, your health care provider may recommend: ??? Varying how long you squeeze your muscles. ??? Doing several sets of exercises every day. ??? Doing exercises for several weeks. ??? Making Kegel exercises a part of your regular exercise routine. This information is not intended to replace advice given to you by your health care provider. Make sure you discuss any questions you have with your health care provider. Document Revised: 06/22/2021 Document Reviewed: 06/22/2021 QuadROI Patient Education ? 2023 Rezee. [facility] 04-22-2024 Note Time Out 04/22/2024. 3:53 PM. Confirmed correct patient, procedure, site, and patient consented. Anesthesia Topical anesthesia was used. Anesthetic medications included Lidocaine 2%, Proparacaine 0.5%. Procedure Preparation included 5% betadine to ocular surface, eyelid speculum. Injection: 2 mg aflibercept 2 MG/0.05ML Route: Intravitreal, Site: Left Eye [facility]: [id number], Lot: [id number], Expiration date: 02/25/2025, Waste: 0 mL Post-op Post injection exam [...] increased pain, redness, decreased vision or concerns. [facility] 04-22-2024 Note Right Eye Quality was good. Scan locations included subfoveal. Progression has been stable. Findings include abnormal foveal contour, subretinal scarring. Left Eye Quality was good. Scan locations included subfoveal. Progression has been stable. Findings include abnormal foveal contour, subretinal scarring. 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 Assessment/Plan Diagnoses and all orders for this visit: Exudative age-related macular degeneration of left eye with active choroidal neovascularization (CMS/HCC) - OCT, Retina - OU - Both Eyes - Intravitreal Injection, Pharmacologic Agent - OS - Left Eye - aflibercept (Eylea) syringe 2 mg OCT, Retina - OU - Both Eyes Right Eye Quality was good. Scan locations included subfoveal. Progression has been stable. Findings include abnormal foveal contour, subretinal scarring. Left Eye Quality was good. Scan locations included subfoveal. Progression has been stable. Findings include abnormal foveal contour, subretinal scarring. 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 3:53 PM. Confirmed correct patient, procedure, site, and patient consented. Anesthesia Topical anesthesia was used. Anesthetic medications included Lidocaine 2%, Proparacaine 0.5%. Procedure Preparation included 5% betadine to ocular surface, eyelid speculum. Injection: 2 mg aflibercept 2 MG/0.05ML Route: Intravitreal, Site: Left Eye [facility]: [id number], Lot: [id number], Expiration date: 02/25/2025, Waste: 0 mL Post-op Post injection exam [...] vision or concerns. documented in this encounter [facility] 02-12-2024 Note Time Out 02/12/2024. 4:08 PM. Confirmed correct patient, procedure, site, and patient consented. Anesthesia Topical anesthesia was used. Anesthetic medications included Lidocaine 2%, Proparacaine 0.5%. Procedure Preparation included 5% betadine to ocular surface, eyelid speculum. Injection: 2 mg aflibercept 2 MG/0.05ML Route: Intravitreal, Site: Left Eye [facility]: [id number], Lot: [id number], Expiration date: 05/26/2025, Waste: 0 mL Post-op Post injection exam [...] increased pain, redness, decreased vision or concerns. [facility] 02-12-2024 Note Right Eye Quality was good. Scan locations included subfoveal. Progression has been stable. Findings include abnormal foveal contour, subretinal scarring. Left Eye Quality was good. Scan locations included subfoveal. Progression has been stable. Findings include abnormal foveal contour, subretinal fluid, subretinal scarring. [facility] 02-12-2024 History of Present illness Narrative Images from the original note were not included. Assessment/Plan Diagnoses and all orders for this visit: Exudative age-related macular degeneration of left eye with active choroidal neovascularization (CMS/HCC) - OCT, Retina - OU - Both Eyes - Intravitreal Injection, Pharmacologic Agent - OS - Left Eye - aflibercept (Eylea) syringe 2 mg OCT, Retina - OU - Both Eyes Right Eye Quality was good. Scan locations included subfoveal. Progression has been stable. Findings include abnormal foveal contour, subretinal scarring. Left Eye Quality was good. Scan locations included subfoveal. Progression has been stable. Findings include abnormal foveal contour, subretinal fluid, subretinal scarring. Linked Images Intravitreal Injection, Pharmacologic Agent - OS - Left Eye Time Out 02/12/2024. 4:08 PM. Confirmed correct patient, procedure, site, and patient consented. Anesthesia Topical anesthesia was used. Anesthetic medications included Lidocaine 2%, Proparacaine 0.5%. Procedure Preparation included 5% betadine to ocular surface, eyelid speculum. Injection: 2 mg aflibercept 2 MG/0.05ML Route: Intravitreal, Site: Left Eye [facility]: [id number], Lot: [id number], Expiration date: 05/26/2025, Waste: 0 mL Post-op Post injection exam [...] vision or concerns. documented in this encounter [facility] 12-18-2023 Note Time Out 12/18/2023. 4:02 PM. Confirmed correct patient, procedure, site, and patient consented. Anesthesia Topical anesthesia was used. Anesthetic medications included Lidocaine 2%, Proparacaine 0.5%. Procedure Preparation included 5% betadine to ocular surface, eyelid speculum. Injection: 1.25 mg bevacizumab 100 MG/4ML Route: Intravitreal, Site: Left Eye [facility]: [id number], Lot: [id number], Expiration date: 01/13/2024, Waste: 0 mL Post-op Post injection exam [...] increased pain, redness, decreased vision or concerns. [facility] 12-18-2023 Note Right Eye Quality was good. Scan locations included subfoveal. Progression has been stable. Findings include abnormal foveal contour. Left Eye Quality was good. Scan locations included subfoveal. Progression has been stable. Findings include subretinal fluid, subretinal scarring. [facility] 12-18-2023 History of Present illness Narrative Images from the original note were not included. Assessment/Plan Diagnoses and all orders for this visit: Exudative age-related macular degeneration of left eye with active choroidal neovascularization (CMS/HCC) - OCT, Retina - OU - Both [...] subfoveal. Progression has been stable. Findings include subretinal fluid, subretinal scarring. Linked Images Intravitreal Injection, Pharmacologic Agent - OS - Left Eye Time Out 12/18/2023. 4:02 PM. Confirmed correct patient, procedure, site, and patient consented. Anesthesia Topical anesthesia was used. Anesthetic medications included Lidocaine 2%, Proparacaine 0.5%. Procedure Preparation included 5% betadine to ocular surface, eyelid speculum. Injection: 1.25 mg bevacizumab 100 MG/4ML Route: Intravitreal, Site: Left Eye [facility]: [id number], Lot: [id number], Expiration date: 01/13/2024, Waste: 0 mL Post-op Post injection exam [...] vision or concerns. documented in this encounter [facility] 10-23-2023 Note Time Out 10/23/2023. 3:27 PM. Confirmed correct patient, procedure, site, and patient consented. Anesthesia Topical anesthesia was used. Anesthetic medications included Lidocaine 2%, Proparacaine 0.5%. Procedure Preparation included 5% betadine to ocular surface, eyelid speculum. Injection: 1.25 mg bevacizumab 100 MG/4ML Route: Intravitreal, Site: Left Eye [facility]: [id number], Lot: [id number], Expiration date: 12/01/2023, Waste: 0 mL Post-op Post injection exam [...] increased pain, redness, decreased vision or concerns. [facility] 10-23-2023 Note Right Eye Quality was good. Scan locations included subfoveal. Progression has been stable. Findings include abnormal foveal contour, subretinal scarring. Left Eye Quality was good. Scan locations included subfoveal. Progression has been stable. Findings include abnormal foveal contour, subretinal scarring. [facility] 10-23-2023 History of Present illness Narrative Images from the original note were not included. Assessment/Plan Diagnoses and all orders for this visit: Exudative age-related macular degeneration of left eye with active choroidal neovascularization (HCC) ([facility]/HCC) - OCT, Retina - OU - Both Eyes - Intravitreal Injection, Pharmacologic Agent - OS - Left Eye - bevacizumab (Avastin) intravitreal chemo injection 1.25 mg OCT, Retina - OU - Both Eyes Right Eye Quality was good. Scan locations included subfoveal. Progression has been stable. Findings include abnormal foveal contour, subretinal scarring. Left Eye Quality was good. Scan locations included subfoveal. Progression has been stable. Findings include abnormal foveal contour, subretinal scarring. Linked Images Intravitreal Injection, Pharmacologic Agent - OS - Left Eye Time Out 10/23/2023. 3:27 PM. Confirmed correct patient, procedure, site, and patient consented. Anesthesia Topical anesthesia was used. Anesthetic medications included Lidocaine 2%, Proparacaine 0.5%. Procedure Preparation included 5% betadine to ocular surface, eyelid speculum. Injection: 1.25 mg bevacizumab 100 MG/4ML Route: Intravitreal, Site: Left Eye [facility]: [id number], Lot: [id number], Expiration date: 12/01/2023, Waste: 0 mL Post-op Post injection exam [...] vision or concerns. documented in this encounter [facility] 06-10-2023 Hospital Discharge instructions Patient Education 06/10/2023 [...] provider. Document Revised: 06/22/2021 Document Reviewed: 06/22/2021 Elsevier Patient Education 2022 Rezee. Follow Up Care 04/27/2022 09:49:37 With:JARED PARKINSON, Nash Engel, URL Address: [facility] [address], [place] [address]- [phone] When: Unknown [facility] Sydnee 04-08-2023 Note Time Out 04/08/2023. 3:54 PM. Confirmed correct patient, procedure, site, and patient consented. Anesthesia Topical anesthesia was used. Anesthetic medications included Lidocaine 2%, Proparacaine 0.5%. Procedure Preparation included 5% betadine to ocular surface, eyelid speculum. Injection: 1.25 mg bevacizumab 100 MG/4ML Route: Intravitreal, Site: Left Eye [facility]: [id number], Lot: [id number], Expiration date: 05/15/2023, Waste: 0 mL Post-op [...] increased pain, redness, decreased vision or concerns. [facility] 04-08-2023 Note Right Eye Quality was good. Scan locations included subfoveal. Progression has been stable. Findings include abnormal foveal contour. Left Eye Quality was good. Scan locations included subfoveal. Progression has been stable. Findings include abnormal foveal contour, disciform scar. [facility] 04-08-2023 History of Present illness Narrative Images from the original note were not included. Assessment/Plan Diagnoses and all orders for this visit: Exudative age-related macular degeneration of left eye with active choroidal neovascularization (HCC) ([facility]/HCC) - OCT, Retina - OU - Both [...] 100 MG/4ML Route: Intravitreal, Site: Left Eye [facility]: [id number], Lot: [id number], Expiration date: 05/15/2023, Waste: 0 mL Post-op [...] vision or concerns. documented in this encounter [facility] 04-27-2022 Hospital Discharge instructions Patient Education 04/27/2022 [...] to keep your urine pale yellow. ?Take wwmh-kwm-iivdxgh or prescription medicines. ?Eat foods that are high in fiber, such as beans, whole grains, and fresh fruits and vegetables. ?Limit foods that are high in fat and processed sugars, such as fried or sweet foods. General instructions Take tjov-jdm-dhihmne and prescription medicines only as told by [...] the muscles that help control urination. Take ecub-okw-refplwu and prescription medicines only as told by your health care provider. Contact a health care provider if your symptoms do not improve or get worse. This information is not intended to replace advice given to you by your health care provider. Make sure you discuss any questions you have with your health care provider. Document Released: 12/08/2009 Document Revised: 08/21/2018 Document Reviewed: 08/21/2018 [employer] Patient Education 2020 [employer] Follow Up Care 04/24/2021 10:45:00 With:JARED PARKINSON, Nash Engel, URL Address: [address] [place] [address]- When: Unknown [facility] 09-12-2021 Note HNO ID: [id number] Author: Catracho Gonzalez APRN.NEW Service: ? Author Type: Nurse Practitioner Type: [...] Decision Making: Assessment Assessment AND Diagnosis: Josiane Loiaza is a 80 year old female with [...] which included preparing to see the patient, cuya-bt-qyzp patient care, completing clinical documentation, obtaining and/or reviewing separately obtained history, performing a medically appropriate examination, counseling and educating the patient/family/caregiver and communicating results to the patient/family/caregiver. [facility] 09-12-2021 Instructions Catracho Gonzalez APRN.[facility] - 09/12/2021 8:21 AM EDT Continue home PFPT exercises Continue bowel regimen, can adjust imodium dose as needed Follow up with [facility] pelvic floor as needed; [phone] Your total daily fiber intake should be 25-35g CEREAL FIBER (GMS) Kelloggs All Bran w/Extra Fiber 15 General Gibson Fiber One 12 Kelloggs All Bran 9 Nabisco 100% Bran 8 Jesus Alberto's All Bran Fruit and Almonds 6 Wayside's Bran and Oats 6 Mandaen Pegram Bran 5 Robin Bran Chex 5 Robin High Fiber Hot Cereal 5 Wayside's and Post Raisin Bran 4 Nabisco Shredded Wheat and bran 4 Post Fruit and Fiber 4 Wheatbix 4 Mandaen Oats 2 FIBER FILLED FRUITS FIBER (GMS) Blackberries (1/2 cup) 4 Pears w/ skin (1 medium) 4 Apple w/ skin (1 medium) 4 Prunes 4 Honeydew (1 medium) 3 Otoe (1 medium) 3 Raisins (1/4 cup) 3 Raspberries (1/2 cup) 3 Strawberries (1 cup) 3 Apricots (3 medium) 2 Banana 2 Blueberries (1/2 cup) 2 Dates (3) 2 Becker w/ skin (1 medium) 2 [place] (1/2 cup) FIBER (GMS) Baked beans w/tomato sauce 9 Kidney Beans 7 Gan and Valdez Beans 5 Small Peas 5 Lentils 5 Peas 4 Pegram (canned) 3 Potato w/ Skin (medium) 3 Sweet Potato (medium) 3 Broccoli 2 Brussel Sprouts 2 Carrots 2 Spinach 2 Zucchini 2 BEST BREAD AND PASTA FIBER (GMS) Natures Own Double Fiber Bread (1 slice) 5 Whole Wheat Spaghetti (1 cup cooked) 4 Bran Muffin (1) 3 Buckwheat Muffin (1) 3 Whole Wheat Bread (2 slices) 3 Whole Wheat Czech Muffin (1) 3 Whole Wheat Pancakes (2) 3 Whole Wheat Dinner Roll (1) 2 Brown Rice (1/2 cup cooked) 1 LOW CALORIE SNACKS FIBER (GMS) Apple w/ Skin 4 Pineapple (1 cup) 2 Popcorn (3 cups unbuttered) 2 Figs (3) 2 Pear w/ Skin 2 Whole Wheat [place] (1 slice) 2 Strawberries Fresh 3 Becker w/ Skin 2 Raspberries (1/2 cup) 3 Celery (3 stalks) 1 DELICIOUS AND NUTRITIOUS DESERTS FIBER (GMS) Baked Apple 6 Blackberry Pie (1 slice) 6 Fruit Compote 4 Pineapple Whole (1/4 fresh) 3 [place] Rhubarb Pie (1 slice) 3 Whole Wheat Banana Nut Bread 3 Brown Rice Pudding (1/2 cup) 2 Fruit Kebab 2 Whole Wheat Oatmeal Cookie 2 documented in this encounter [facility] 09-12-2021 History of Present illness Narrative [...] imodium dose as needed Follow up with [facility] floor PRN Risk of morbidity, mortality and/or complications of treatment plan: low I spent a total of 25 minutes on the date of the service which included preparing to see the patient, gsiw-sj-qjfg patient care, completing clinical documentation, obtaining and/or reviewing separately obtained history, performing a medically appropriate examination, counseling and educating the patient/family/caregiver and communicating results to the patient/family/caregiver. documented in this encounter [facility] 09-08-2021 Note HNO ID: [id number] Author: Catracho Gonzalez APRN.NEW Service: ? Author Type: Nurse Practitioner Type: [...] virtually to discuss next steps. MEÑO Arizmendi [facility] 09-08-2021 History of Present illness Narrative Received [...] steps. MEÑO Arizmendi documented in this encounter [facility] 06-13-2021 History and physical note COLORECTAL [...] the past for FI and ARM testing ([id number]). 02/01/2012 ARM: IMPRESSION: Normal resting and low squeeze pressures. Normal volume studies. Normal nerve studies. Today she reports: -recently saw SAW OFFBEARER and was encouraged to stop taking Metamucil [...] closed Resting tone: WEAK Squeeze tone: WEAK Choral Director present: Yes, Tila Samuels Anoscopy: The patient [...] of SNS and she was given the [employer] SNS brochure. Data Reviewed: Tests & Documents [...] treatment plan: moderate documented in this encounter [facility] 06-13-2021 Instructions Catracho Gonzalez APRN.CNP - 06/13/2021 10:30 AM EDT -begin taking 1 tablet imodium at bedtime and 30 min before exercise -schedule pelvic floor PT -fill out bowel diary for 2 weeks, email To ATTN Catracho Gonzalez CNP -follow up in 3 months documented in this encounter [facility] Evaluation + Plan note Future Appointments Appointment Date:05/03/2023 08:15:00 AM Scheduled Provider:Nash NCIHOLS MD Location:[facility] Appointment Type:URO Office Visit [facility] Evaluation + Plan note Future Appointments Appointment Date:05/03/2023 08:15:00 AM Scheduled Provider:Nash NICHOLS MD Location:[facility] Appointment Type:URO Office Visit Diagnostic Tests PendingUrine Culture 04/30/22 [facility] Evaluation + Plan note Future Appointments Appointment Date:06/15/2024 09:15:00 AM Scheduled Provider:Nash NICHOLS MD Location:[facility] Appointment Type:URO Office Visit [facility] Evaluation note Diagnosis Incontinence of feces, unspecified fecal incontinence type- Primary [facility] dysfunction in female- [facility] Full incontinence of feces- Primary [facility] Diagnosis Exudative age-related macular degeneration of left eye with active choroidal neovascularization (HCC) (CMS/HCC)- Primary documented in this encounter [facility]* Diagnosis Exudative age-related macular degeneration of left eye with active choroidal neovascularization (CMS/HCC)- Primary documented in this encounter [facility]* Diagnosis Exudative age-related macular degeneration of left eye with active choroidal neovascularization (HCC) (CMS/HCC) documented in this encounter [facility]* Diagnosis Exudative age-related macular degeneration of left eye with active choroidal neovascularization (CMS/HCC) documented in this encounter [facility]* Diagnosis Exudative age-related macular degeneration of left eye with active choroidal neovascularization (CMS/HCC)- Primary documented in this encounter [facility]* Diagnosis Exudative age-related macular degeneration of left eye with active choroidal neovascularization (CMS/HCC)- Primary [facility] N[facility] No data available for this section [facility] Hospital Discharge instructions No data available for this section [facility] progress note No data available for this section [facility] reason for referral (narrative)* Outpatient Procedure (Routine) - Pending Review Specialty Diagnoses / Procedures Referred By Laura osman Referred To Contact [facility] Diagnoses Incontinence of feces, unspecified fecal incontinence type Procedures ADULT [place] ANORECTAL MANOMETRY ANORECTAL MANOMETRY Lorie Romero APRN.NEW [address] [id number] [facility] [phone] Referral ID Status Reason Start Date Expiration Date Visits Requested Visits Authorized [id number] Pending Review Auto-Generat ed Referral 06/13/2021 06/13/2022 1 1 [facility] Summary Purpose Family History No Family History Records FoundNo Family History Records FoundNo Family History Records Found No data available for this section No data available for this section No data available for this section No Family History Records FoundNo Family History Records Found Advance Directives No Advanced Directives Records FoundDocuments on File Type Date Recorded 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 Advance Directive(s) 03/07/2009 11:13 AM Documents on File Type Date Recorded 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 Advance Directive(s) 03/07/2009 11:13 AM Reason for Referral Specialty Diagnoses / Procedures Referred By Laura osman Referred To Contact [facility] Diagnoses Pelvic floor dysfunction in female Procedures CONSULT TO PHYSICAL THERAPY PHYSICAL THERAPY EVALUATION HIGH COMPLEX 45 MINS Catracho Gonzalez APRN.ICE SCRAPER [address] [phone] [facility] [place] [address] Referral ID Status Reason Start Date Expiration Date Visits Requested Visits Authorized [id number] Pending Review PCP Requested Referral Auto-Generate d Referral 06/13/2021 06/13/2022 99 99 Additional Source Comments INFORMATION SOURCE (unrecogn ized section and content) DATE CREATED AUTHOR 08/30/2020 [facility] DATE CREATED AUTHOR AUTHOR'S ORGANIZ ATION 09/14/2021 [facility] DATE CREATED AUTHOR AUTHOR'S ORGANIZ ATION [facility]/17/2022 [facility] DATE CREATED AUTHOR AUTHOR'S ORGANIZ ATION 06/16/2024 [facility] DATE CREATED AUTHOR AUTHOR'S ORGANIZ ATION 07/04/2024 [facility] EPIC Source Comments (unrecognize d section and content) In the event this informatio n is protected by the Federal Confidentiality of Alcohol and Drug Abuse Patient Records regulations: The Federal rules restrict any use of the information to criminally investigate or prosecute any alcohol or drug abuse patient.[facility] the event this information is protected by the Federal Confidentiality of Alcohol and Drug Abuse Patient Records regulations: The Federal rules restrict any use of the information to criminally investigate or prosecute any alcohol or drug abuse patient.[facility] the event this information is protected by the Federal Confidentiality of Alcohol and Drug Abuse Patient Records regulations: The Federal rules restrict any use of the information to criminally investigate or prosecute any alcohol or drug abuse patient.[facility] the event this information is protected by the Federal Confidentiality of Alcohol and Drug Abuse Patient Records regulations: The Federal rules restrict any use of the information to criminally investigate or prosecute any alcohol or drug abuse patient.[facility] Reason for Visit (unrecogniz ed section and content) Reason Comments Manometry Reason Comments Fecal Incontinence Reason Comments Fecal Incontinence Reason Comments Retinal Injection Reason Comments Retinal Injection Macular Degeneration Reason Comments Follow-up Retinal Injection Reason Comments Follow-up Care Teams (unrecognized sec tion and content) Lithography Contact Worker Relationship Specialty Start Date End Date Frances Robles MD PCP - General 09/13/08 Lithography Contact Worker Relationship Specialty Start Date End Date Frances Robles MD PCP - General 09/13/08 [facility] Contact Worker Relationship Specialty Start Date End Date Frances Robles MD PCP - General 09/13/08 [facility] Contact Worker Relationship Specialty Start Date End Date Frances Robles MD PCP - General 09/13/08 [facility] Contact Worker Relationship Specialty Start Date End Date Frances Robles MD [address] [place] [address] PCP - General Family Medicine 11/14/22 [facility] Contact Worker Relationship Specialty Start Date End Date Frances Robles MD [address] [place] [address] PCP - General Family Medicine 11/14/22 Lithography Contact Worker Relationship Specialty Start Date End Date Frances Robles MD [address] [place] [address] PCP - General Family Medicine 11/14/22 Lithography Contact Worker Relationship Specialty Start Date End Date Frances Robles MD [address] [place] [facility] [place] [address] PCP - General Family Medicine 11/14/22 Lithography Contact Worker Relationship Specialty Start Date End Date Frances Robles MD [address] [place] [facility] [address] PCP - General Family Medicine 11/14/22 Lithography Contact Worker Relationship Specialty Start Date End Date Frances Robles MD [address] [place] [facility] [address] PCP - General Family Medicine 11/14/22 Lithography Contact Worker Relationship Specialty Start Date End Date Frances Robles MD PCP - General Family Medicine 11/14/22 Lithography Contact Worker Relationship Specialty Start Date End Date Frances Robles MD PCP - General Family Medicine 11/14/22 FOR [...] BE BASED ON THE PRIMARY CLINICAL RECORDS. [facility] [place], [facility]. provides no warranty or guarantee of the accuracy or completeness of information in this document.
[2024-08-04 12:08] LABS: Age Gdln ACOG Testing Note (.); Pap IG (Image Guided) Note (.)
== END 2024-07-30 20:06 | disposition home or self-care (01) ==
LOC: LAB 20:05
PROVIDERS: PCP Family Medicine; Visit Provider Physician Assistant
DX: Z01.419 Encounter for gynecological examination (general) (routine) without abnormal findings (principal)
CPT/HCPCS: 88175

== ENCOUNTER 2024-08-18 09:01 | Outpatient (OUT) | payer MEDICARE, OTHER, SELFPAY ==
--- OUTSIDE RECORDS SUMMARY | 2024-08-18 09:23 | XMS_ITS | CCD ---
Author Organization [facility] Care Team Providers Care Outside Sales Account Representative Name Role Phone Frances Robles MD Primary Care Provider [phone] Frances Robles Primary Care Physician ROVERTO, DR PEREZ Admitting Unavailable AHMED, DR PEREZ Attending Unavailable HOY ., DR DANIELS Primary Care [facility]ILLIP Engel Consulting Unavailable [...] HOY ., DR DANIELS Primary Care Unavailable NORRIS, DR BRANDYN Yousif Consulting Unavailable AHMED, DR PEREZ Consulting Unavailable HOY ., DR DANIELS Admitting Unavailable HOY ., DR DANIELS Attending Unavailable HOY ., DR DANIELS Primary Care Unavailable HOY ., DR DANIELS Consulting Unavailable HOY ., DR DANIELS Admitting Unavailable HOY ., DR DANIELS Attending Unavailable HOY ., DR ADNIELS Primary Care Unavailable HOY ., DR DANIELS Consulting Unavailable HOY ., DR DANIELS Admtangela Unavailable HOY ., DR DANIELS Attending Unavailable HOY ., DR DANIELS Primary Care Unavailable HOY ., DR DANIELS Consulting Unavailable HOY ., DR DANIELS Admitting DR FRANCES [place] Attending Otis Cabral, DR DANIELS Primary Care Unavailable THALIA Cabral, DR DANIELS Consulting Unavailable Frances Robles MD Primary Care Provider [phone] Nash NICHOLS Attending Unavailable Nash NICHOLS Attending Unavailable Frances Robles MD Primary Care Provider [phone] AL PRASAD Attending Unavailable AL PRASAD Attending Unavailable ZOILA MAYS Attending Unavailable AL PRASAD Attending Unavailable AL PRASAD Attending Unavailable AL PRASAD Attending Unavailable AL PRASAD Attending Unavailable Frances Robles MD Primary Care Provider [phone] Allergies Allergy Classification Reported Allergen(s) Allergy Type Date of Onset Reaction(s) Facility (20 sources) Acetaminophen / oxyCODONE; Translations: [acetaminophen-ox ycodone] Drug Allergy 0 Intolerance [facility] (4 sources) meloxicam Drug Allergy 0 GI Upset [facility] (19 sources) Sulfonamides (Antibiotic) Propensity to adverse reactions 9 Hives [facility] (20 sources) Cephalexin; Translations: [cephalexin] Drug Allergy 2 Diarrhea, Vomiting (disorder), GI intolerance [facility] (7 sources) Sulfamethoxazole; Translations: [sulfamethoxazole ] Drug Allergy [facility] (disorder) [facility] (2 sources) Sulfonamides (Antibiotic) Drug allergy (disorder) 3 [facility] (15 sources) meloxicam Drug Allergy 0 GI intolerance [facility] (1 source) Acetaminophen / oxyCODONE; Translations: [Percocet 10/325] Drug Allergy [facility] (1 source) Cephalexin; Translations: [Keflex] Drug Allergy [facility] Medications Current Medications Medication Drug [...] (6 sources) Phosphate Binder, Calcium Start: 02-22-20 10 Calcium 600 D Tab Oral, TID, Refill(s) 0 Start Date: 02/21/10 Status: Ordered doxycycline hyclate 100 mg oral tablet (13 sources) Tetracycline-class Drug Start: 07-19-19 End: 07-31-19 doxycycline (Vibra-Tabs) 100 MG tablet 07/19/2023 07/30/2024 Discontinued ezetimibe 10 mg oral tablet (20 sources) Dietary Cholesterol Absorption Inhibitor Start: 03-01-19 take 10 mg by mouth once daily Zetia 10 mg, Oral, Daily, Refills(s) 0 Start Date: 02/21/10 Status: Ordered Comment on above: Take one(1) tablet d aily. ibuprofen 600 mg oral tablet (15 sources) Nonsteroidal Anti-inflammatory Drug Start: 11-16-19 End: 07-31-19 take 1 tablet by mouth every six hours as needed ibuprofen 600 MG tablet Take 600 mg by mouth every 6 (six) hours if needed. 11/15/2021 07/30/2024 Discontinued levothyroxine sodium 0.05 mg oral tablet (20 [...] daily. loperamide hydrochloride 2 mg oral capsule (15 sources) Opioid Agonist End: 5 take 1 mg by mouth four times daily as needed loperamide (Imodium) 2 MG capsule Take 1 mg by mouth 4 (four) times a day as needed. 07/30/2024 Discontinued 24 hr mirabegron 50 mg extended release oral tablet (20 sources) beta3-Adrenergic Agonist Start: 3 take 1 tablet by mouth once daily Myrbetriq 50 mg oral tablet, extended release 50 mg = 1 tab(s), Oral, Daily, # 90 tab(s), Refills(s) 3, Pharmacy: [facility], 157, cm, 04/27/22 8:58:00 [...] Daily, # 90 tab(s), Refills(s) 3, Pharmacy: [facility] (Now [facility]), 157, cm, 04/24/21 10:01:00 EST, Height/Length Dosing, 78, kg, 04/24/21 10:01:00 EST, Weight Dosing Start Date: 09/28/21 Status: Ordered take 50 mg by mouth once daily m irabegron (MYRBETRIQ ORAL) Take 50 mg by mouth once daily. 0 Active Comment on above: Take 50 mg by mouth once daily. Multiple Vitamins-Minerals (ICAPS AREDS 2 PO) (2 sources) Multiple Vitamins-Minerals (ICAPS AREDS 2 PO) Take by mouth in the morning and before bedtime. Active olmesartan medoxomil 20 mg oral tablet (20 sources) Angiotensin 2 Receptor Micaela Start: 9 take 1 tablet by mouth once daily Benicar 20 mg Tab 20 mg = 1 tab(s), Oral, Daily, High blood pressure Start Date: 09/05/18 Status: Ordered Comment on above: Take 20 mg by mouth once daily. Paxlovid, 300/100, 20 x 150 MG & 10 x 100MG tablet therapy pack (15 sources) Start: 3 End: 5 Paxlovid, 300/100, 20 x 150 MG & 10 x 100MG tablet therapy pack TAKE 3 TABLETS TOGETHER (TWO 150 MG NIRMATRELVIR TABLETS AND ONE 100 MG RITONAVIR TABLET) BY MOUTH TWICE DAILY FOR 5 DAYS. 05/04/2022 07/30/2024 Discontinued Start: 05-04-2022 Paxlovid, 300/ 100, 20 x [...] aily. rosuvastatin calcium 20 mg oral tablet (11 sources) HMG-CoA Reductase Inhibitor Start: 09-05-2018 rosuvastatin 20 mg oral tablet Refills(s) 0 Start Date: 09/05/18 Status: Ordered take 10 mg by mouth once daily r osuvastatin calcium (ROSUVASTATIN ORAL) Take 10 mg by mouth once daily. 0 Active Comment on above: Take 10 mg by mouth once daily. triamcinolone acetonide 1 mg/ml topical cream (2 sources) Corticosteroid Start: 07-30-2024 triamcinolone (Kenalog) 0.1 % cream Indications: Vaginal irritation from pessary (HCC) (CMS/HCC) Apply topically in the morning and before bedtime. Apply bid for one week followed by once weekly. 80 g 3 07/30/2024 Active Start: 07-30-2024 triamcinolone (Kenalog) 0.1 % cream Indications: Vaginal irritation from pessary (HCC) (CMS/HCC) Apply topically in the morning and before bedtime. Apply bid for one week followed by once weekly. 80 g 3 07/30/2024 Active Benefiber (3 sources) Start: 02-21-2010 Benefiber Refi [...] mg / cholecalciferol 200 unt oral tablet (19 sources) Vitamin D Start: 10-05-2008 calcium carbon [...] once a day omega-3 acid ethyl esters (skilled nursing) 1000 mg oral capsule (4 sources) Start: [...] Rectal prolapse; Translations: [Rectal prolapse] 03-01-2009 Episodic Complication of device; implant or graft (2 sources) Vaginal irritation; Translations: [Other specified complication of genitourinary prosthetic devices, implants and grafts, initial encounter] 07-30-2024 Episodic Disorders of lipid metabolism (4 sources) [...] MALIG NEOPLASM OTH ORGN/SYS] Onset: 3 Episodic Residual codes; unclassified (2 sources) Postmenopausal state; Translations: [Asymptomatic menopausal state] 07-30-2024 Episodic Retinal detachments; defects; vascular occlusion; and retinopathy (20 sources) Exudative age-related macular degeneration; Translations: [Exudative [...] Facility Left eye Ophthalmologic ruby tmenton 07-01-2024 [facility] Radiology Study observation (narrative) [facility] Optical coherence tomography study reporton 07-01-2024 [facility] Radiology Study observation (narrative) [facility] Ambulatory Visit Summaryon 0 06-15-2024 Ambulatory Visit [...] When: Where: [facility] [address], [place] [address] [phone] Medications What How Much When Instructions Unchanged [...] while s (more content not included)... Normal [facility] Urology Office/Clinic Noteon 06-15-2024 Urology Office/Clinic [...] sling placed 2009. Underwent PFPT 2022 @ [facility] due to bowel issues. Dilley she learned a lot about bladder health and was happy with results. UA today shows small leuks. Asx. Taking Myrbetriq 50mg qd. Shares she has leakage in the morning if she does not void during the night. Denies issues with urination during the day. States she did look into Gemtesa, and it was more expensive. Advised pt [...] URL [facility] [address], [place] [address]- [phone] Additional Instructions: 1 yr (no labs) Patient Education Kegel Magali Baires, personally scribed for Dr. Nichols on 06/15/2024 10:08:49. . Documentation recorded by the Magali freeman, accurately reflects the services(s) I performed and [...] virus vaccine, inactivated 12/12/2021 Recorded SARS-CoV-2 (COVID-19) [id number] 12/12/2021 Recorded SARSCoV2 mRNA(nzaxrjpmq-ypgl-abze os) vac 08/17/2021 Recorded influenza virus vaccine, inactivated 11/29/2020 Recorded SARS-CoV-2 (COVID-19) mRNA BNT-162b2 vax 11/29/2020 Recorded SA (more content not included)... Normal [facility] Comment on above: Result Comment: Elec tronically Signed By: Nash NICHOLS MD\.br\Date and Time Signed: 06/15/24 10:14 EDT\.br\Electronically Co-Signed By: Magali Omer\.br\Date and Time Co-Signed: 06/15/24 10:12 EDT Left eye Ophthalmologic ruby tmenton 04-22-2024 [facility] Radiology Study observation (narrative) [facility] Optical coherence tomography study reporton 04-22-2024 [facility] Radiology Study observation (narrative) [facility] Left eye Ophthalmologic ruby tmenton 02-12-2024 [facility] Radiology Study observation (narrative) [facility] Optical coherence tomography study reporton 02-12-2024 [facility] Radiology Study observation (narrative) [facility] Left eye Ophthalmologic ruby tmenton 12-18-2023 [facility] Radiology Study observation (narrative) [facility] Optical coherence tomography study reporton 12-18-2023 [facility] Radiology Study observation (narrative) [facility] Left eye Ophthalmologic ruby tmenton 10-23-2023 [facility] Radiology Study observation (narrative) [facility] Optical coherence tomography study reporton 10-23-2023 [facility] Radiology Study observation (narrative) [facility] Left eye Ophthalmologic ruby tmenton 04-08-2023 [facility] Radiology Study observation (narrative) [facility] Optical coherence tomography study reporton 04-08-2023 [facility] Radiology Study observation (narrative) [facility] MG MAMM SCREEN 3D [place] CADon 06-12-2022 MG MAMM SCREEN 3D [place] CAD Patient: JOSIANE LOAIZA Exam Date: 06/12/2022 : 1940 Gender:F Ordering : DR CHRIS LAYNE Admission #: [id number] Family : DR FRANCES ROBLES . Order #: [id number] CLICK HERE TO VIEW EXAM RADIOLOGY REPORT [...] colon cancer at age 86. LOCATION: [facility] BREAST COMPOSITION: Scattered areas fibroglandular density. [...] M.D. on 06/12/2022 at 13:48 Normal [facility] FREE T3on 04-05-2022 FREE T3 2.36 pg/mlL Normal 2.18-3.98 [facility] Comment on above: Performed By: #### T 4, TSH, FT3 #### [facility] [address] [address] [address] Clement Duncan T4on 04-05-2022 T4 [Mass/Vol] 6.10 ug/dL Normal 4.80-13.90 [facility] Comment on above: Performed By: #### T 4, TSH, FT3 #### [facility] [address] [address] [address] Clement Duncan TSHon 04-05-2022 TSH 0.257 uIU/mL Critically low 0.358-3.740 [place] Comment on above: Performed By: #### T 4, TSH, FT3 #### [facility] [address] [place] [address] Dr. Clement Duncan CBC AUTO DIFFon 01-03-2022 BASO # 0.0 103/ul Normal 0.0-0.1 [facility] Comment on above: Performed By: #### C BC #### [facility] [address] [place] [address] Dr. Clement Duncan Basophils/100 WBC (Bld) 0.4 % Normal 0.2-2.0 [facility] Comment on above: Performed By: #### C BC #### [facility] [address] [place] [address] Dr. Clement Duncan EO # 0.0 103/ul Normal 0.0-0.7 [facility] Comment on above: Performed By: #### C BC #### [facility] [address] [place] [address] Dr. Clement Duncan Eosinophils/100 WBC (Bld) 0.2 % Critically low 0.9-7.0 [facility] Comment on above: Performed By: #### C BC #### [facility] [address] [place] [address] Dr. Clement Duncan Erythrocyte distribution width (RBC) [Ratio] 15.3 % Critically high 11.0-15.0 [facility] Comment on above: Performed By: #### C BC #### [facility] [address] [place] [address] Dr. Clement Duncan Hematocrit (Bld) [Volume fraction] 41.7 % Normal 36.0-48.0 [facility] Comment on above: Performed By: #### C BC #### [facility] [address] [place] [address] Dr. Clement Duncan Hemoglobin (Bld) [Mass/Vol] 13.5 g/dL Normal 12.0-16.0 [facility] Comment on above: Performed By: #### C BC #### [facility] [address] [place] [address] Dr. Clement Duncan IG # 0.02 10e3/ul Normal 0.00-0.03 [facility] Comment on above: Performed By: #### C BC #### [facility] [address] [place] [address] Dr. Clement Duncan IG % 0.2 % Normal 0.0-0.5 [facility] Comment on above: Performed By: #### C BC #### [facility] [address] [place], [place] [id number] Dr. Clement Duncan LYMPH # 1.2 103/ul Normal 1.2-3.8 [facility] Comment on above: Performed By: #### C BC #### [facility] [address] [place] [address] Dr. Clement Duncan Lymphocytes/100 WBC (Bld) 13.3 % Critically low 20.5-60.0 [facility] Comment on above: Performed By: #### C BC #### [facility] [address] [place] [address] Dr. Clement Duncan MANUAL DIFF REQ NO Normal [facility] Comment on above: Performed By: #### C BC #### [facility] [address] [place] [address] Dr. Clement Duncan MCH (RBC) [Entitic mass] 28.5 pg Normal 26.7-34.0 [facility] Comment on above: Performed By: #### C BC #### [facility] [address] [place] [address] Dr. Clement Duncan MCHC (RBC) [Mass/Vol] 32.4 g/dL Normal 29.9-35.2 [facility] Comment on above: Performed By: #### C BC #### [facility] [address] [place] [address] Dr. Clement Duncan MCV (RBC) [Entitic vol] 88.0 fL Normal 81.0-99.0 [facility] Comment on above: Performed By: #### C BC #### [facility] [address] [place] [address] Dr. Clement Duncan MONO # 0.7 103/ul Normal 0.3-0.8 [facility] Comment on above: Performed By: #### C BC #### [facility] [address] [place] [address] Dr. Clement Duncan Monocytes/100 WBC (Bld) 7.6 % Normal 1.7-12.0 [facility] Comment on above: Performed By: #### C BC #### [facility] [address] [place] [address] Dr. Clement Duncan NEUT # 7.3 103/ul Critically high 1.4-6.5 [facility] Comment on above: Performed By: #### C BC #### [facility] [address] [place] [address] Dr. Clement Duncan Neutrophils/100 WBC (Bld) 78.3 % Critically high 43.0-75.0 [facility] Comment on above: Performed By: #### C BC #### [facility] [address] [place] [address] Dr. Clement Duncan Platelet mean volume (Bld) [Entitic vol] 9.5 fL Normal 9.5-13.5 [facility] Comment on above: Performed By: #### C BC #### [facility] [address] [place] [address] Dr. Clement Duncan PLT 331 103/ul Normal 150-450 [facility] Comment on above: Performed By: #### C BC #### [facility] [address] [place] [address] Dr. Clement Duncan RBC 4.74 106/ul Normal 4.20-5.40 [facility] Comment on above: Performed By: #### C BC #### [facility] [address] [place] [address] Dr. Clement Duncan WBC 9.3 103/ul Normal 4.0-11.0 [facility] Comment on above: Performed By: #### C BC #### [facility] [address] [place] [address] Dr. Clement Duncan FREE THYROXINE INDEX T7on FTI 2.11 Normal 1.30-4.50 [facility] Comment on above: Performed By: #### T 4, TSH, FT3 #### [facility] [address] [place] [address] Dr. Clement Duncan T3U 34.0 % Normal 30.0-39.0 [facility] Comment on above: Performed By: #### T 4, TSH, FT3 #### [facility] [address] [place] [address] Dr. Clement Duncan T4 [Mass/Vol] 6.20 ug/dL Normal 4.80-13.90 [facility] Comment on above: Performed By: #### T 4, TSH, FT3 #### [facility] [address] [address] [address] Clement Duncan IRONon 01-03-2022 Iron [Mass/Vol] 85.0 ug/dL Normal 50.0-170.0 [facility] Comment on above: Performed By: #### T 4, TSH, FT3 #### [facility] [address] [address] [address] Clement Duncan LIPID PROFILEon 01-03-2022 CHOL-HDL RATIO NORM SEE BELOW Normal [facility] Comment on above: Result Comment: 3.3 - 4.4 LOW RISK 4.4 - 7.1 AVERAGE RISK 7.1 - 11.0 MODERATE RISK >11.0 HIGH RISK Performed By: #### T 4, TSH, FT3 #### [facility] [address] [address] [address] Clement Dunacn Cholesterol [Mass/Vol] 142 mg/dL Normal <=200 [facility] Comment on above: Performed By: #### T 4, TSH, FT3 #### [facility] [address] [address] [address] Clement Duncan Cholesterol in HDL [Mass/Vol] 83 mg/dL Critically high 40-60 [facility] Comment on above: Performed By: #### T 4, TSH, FT3 #### [facility] [address] [address] [address] Clement Duncan Cholesterol in LDL [Mass/Vol] 46.0 mg/dL Normal [facility] Comment on above: Performed By: #### T 4, TSH, FT3 #### [facility] [address] [address] [address] Clement Duncan Cholesterol.total/ Cholesterol in HDL [Mass ratio] 1.7 {ratio} Normal [facility] Comment on above: Performed By: #### T 4, TSH, FT3 #### [facility] [address] [address] [address] Clement Duncan HDL NORMAL > or = 60 mg/dl - LO W CARDIOVASCULAR RISK <40 mg/dl - HIGH CARDIOVASCULAR RISK Normal [facility] Comment on above: Performed By: #### T 4, TSH, FT3 #### [facility] [address] [address] [address] Clement Duncan LDL CALC NORMAL SEE BELOW Normal [facility] Comment on above: Result Comment: <100 mg/dl OPTIMAL 100 - 129 mg/dl NEAR OR ABOVE OPTIMAL 130 - 159 mg/dl BORDERLINE HIGH 160 - 189 mg/dl HIGH >190 mg/dl VERY HIGH Performed By: #### T 4, TSH, FT3 #### [facility] [address] [address] [address] Clement Duncan Triglyceride [Mass/Vol] 65 mg/dL Normal <=150 [facility] Comment on above: Performed By: #### T 4, TSH, FT3 #### [facility] [address] [address] [address] Clement Dunacn VLDL CALC 13.0 mg/dL Normal [facility] Comment on above: Performed By: #### T 4, TSH, FT3 #### [facility] [address] [address] [address] Clement Duncan PROF 14(COMP METB)on 022 Albumin [Mass/Vol] 3.3 g/dL Critically low 3.4-5.0 [facility] Comment on above: Performed By: #### T 4, TSH, FT3 #### [facility] [address] [address] [address] Clement Duncan Albumin/Globulin [Mass ratio] 0.9 {ratio} Normal [facility] Comment on above: Performed By: #### T 4, TSH, FT3 #### [facility] [address] [address] [address] Clement Duncan ALP [Catalytic activity/Vol] 89 U/L Normal 46-116 [facility] Comment on above: Performed By: #### T 4, TSH, FT3 #### [facility] [address] [address] [address] Clement Duncan ALT [Catalytic activity/Vol] 20 U/L Normal 14-59 [facility] Comment on above: Performed By: #### T 4, TSH, FT3 #### [facility] [address] [place] [address] Dr. Clement Duncan Anion gap [Moles/Vol] 9.8 mmol/L Normal [facility] Comment on above: Performed By: #### T 4, TSH, FT3 #### [facility] [address] [place] [address] Dr. Clement Duncan AST [Catalytic activity/Vol] 19 U/L Normal 15-37 [facility] Comment on above: Performed By: #### T 4, TSH, FT3 #### [facility] [address] [place] [address] Dr. Clement Duncan Bilirubin [Mass/Vol] 0.3 mg/dL Normal 0.2-1.0 [facility] Comment on above: Performed By: #### T 4, TSH, FT3 #### [facility] [address] [place] [address] Dr. Clement Duncan Calcium [Mass/Vol] 9.3 mg/dL Normal 8.5-10.1 [facility] Comment on above: Performed By: #### T 4, TSH, FT3 #### [facility] [address] [place] [address] Dr. Clement Duncan Chloride [Moles/Vol] 103 mmol/L Normal 98-107 [facility] Comment on above: Performed By: #### T 4, TSH, FT3 #### [facility] [address] [place] [address] Dr. Clement Duncan CO2 [Moles/Vol] 29.5 mmol/L Normal 21.0-32.0 [facility] Comment on above: Performed By: #### T 4, TSH, FT3 #### [facility] [address] [place] [address] Dr. Clement Duncan Creatinine [Mass/Vol] 0.83 mg/dL Normal 0.55-1.02 [facility] Comment on above: Performed By: #### T 4, TSH, FT3 #### [facility] [address] [address] [address] Clement Duncan EGFR-AF MONEGASQUE >60 Normal >=60 [facility] Comment on above: Performed By: #### T 4, TSH, FT3 #### [facility] [address] [place] [address] Dr. Clement Duncan EGFR-NON AF MONEGASQUE >60 Normal >=60 [facility] Comment on above: Performed By: #### T 4, TSH, FT3 #### [facility] [address] [place] [address] Dr. Clement Duncan Globulin (S) [Mass/Vol] 3.6 g/dL Normal [facility] Comment on above: Performed By: #### T 4, TSH, FT3 #### [facility] [address] [place] [address] Dr. Clement Duncan Glucose [Mass/Vol] 87 mg/dL Normal 74-106 [facility] Comment on above: Performed By: #### T 4, TSH, FT3 #### [facility] [address] [place] [address] Dr. Clement Duncan Potassium [Moles/Vol] 4.3 mmol/L Normal 3.5-5.1 [facility] Comment on above: Performed By: #### T 4, TSH, FT3 #### [facility] [address] [place] [address] Dr. Clement Duncan Protein [Mass/Vol] 6.9 g/dL Normal 6.4-8.2 [facility] [facility] Comment on above: Performed By: #### T 4, TSH, FT3 #### [facility] [address] [place] [address] Dr. Clement Duncan Sodium [Moles/Vol] 138 mmol/L Normal 136-145 [facility] Comment on above: Performed By: #### T 4, TSH, FT3 #### [facility] [address] [place] [address] Dr. Clement Duncan Urea nitrogen [Mass/Vol] 20.0 mg/dL Critically high 7.0-18.0 [facility] Comment on above: Performed By: #### T 4, TSH, FT3 #### [facility] [address] [place] [address] Dr. Clement Duncan Urea nitrogen/Creatinin e [Mass ratio] 24.1 mg/mg Normal [facility] Comment on above: Performed By: #### T 4, TSH, FT3 #### [facility] [address] [place] [address] Dr. Clement Duncan TSHon 01-03-2022 TSH 0.129 uIU/mL Critically low 0.358-3.740 [place] Comment on above: Performed By: #### T 4, TSH, FT3 #### [facility] [address] [place] [address] Dr. Clement Duncan T4, T3U, FTI LABCORPon 11-07 Free Thyroxine Index 1.5 Normal 1.2-4.9 [facility] Comment on above: Performed By: #### T 4, TSH, FT3 #### [facility] [address] [place] [address] Dr. Clement Duncan T3 Uptake 27 % Normal 24-39 [facility] Comment on above: Performed By: #### T 4, TSH, FT3 #### [facility] [address] [place] [address] Dr. Clement Duncan T4 [Mass/Vol] 5.5 ug/dL Normal 4.5-12.0 [facility] Comment on above: Performed By: #### T 4, TSH, FT3 #### [facility] [address] [place] [address] Dr. Clement Duncan FREE T3on 11-06-2021 FREE T3 2.53 pg/mlL Normal 2.18-3.98 [facility] Comment on above: Performed By: #### T SH, FT3 #### [facility] [address] [place] [address] Dr. Clement Duncan FREE T4on 11-06-2021 Free T4 [Mass/Vol] 0.83 ng/dL Normal 0.76-1.46 [facility] Comment on above: Performed By: #### T 4, TSH, FT3 #### [facility] [address] [address] [address] Clement Duncan TSHon 11-06-2021 TSH 0.039 uIU/mL Critically low 0.358-3.740 [place] Comment on above: Performed By: #### T SH, FT3 #### [facility] [address] [place] [address] Dr. Clement Duncan US PELVIS AND TRANSVAGon [...] BRANDYN GUADALUPE Date: 2021-10-02 07:42 Normal [facility] FREE T3on 09-19-2021 FREE T3 2.81 pg/mlL Normal 2.18-3.98 [facility] Comment on above: Performed By: #### T SH, T4, FT3 #### [facility] [address] [place] [address] Dr. Clement Duncan T4on 09-19-2021 T4 [Mass/Vol] 5.10 ug/dL Normal 4.80-13.90 [facility] Comment on above: Performed By: #### T SH, T4, FT3 #### [facility] [address] [address] [address] Clement Duncan TSHon 09-19-2021 TSH Qn m[IU]/L Critically low 0.358-3.740 [facility] Comment on above: Performed By: #### T 4, TSH, FT3 #### [facility] [address] [place] [address] Dr. Clement Duncan FREE T3on 08-08-2021 FREE T3 1.98 pg/mlL Critically low 2.18-3.98 [facility] Comment on above: Performed By: #### T 4, TSH, FT3 #### [facility] [address] [address] [address] Clement Duncan T4on 08-08-2021 T4 [Mass/Vol] 5.60 ug/dL Normal 4.80-13.90 [facility] Comment on above: Performed By: #### T 4, TSH, FT3 #### [facility] [address] [address] [address] Clement Duncan TSHon 08-08-2021 TSH 0.059 uIU/mL Critically low 0.358-3.740 [place] Comment on above: Performed By: #### T 4, TSH, FT3 #### [facility] [address] [address] [address] Clement Duncan TSH RANGE SEE BELOW Normal [facility] Comment on above: Result Comment: <0.3 4 UIU/ml HYPERTHYROID 0.34-5.60 UIU/ml EUTHYROID >5.60 UIU/ml HYPOTHYROID Performed By: #### T 4, TSH, FT3 #### [facility] [address] [address] [address] Clement Duncan CNOVon 06-13-2021 CNOV Office Visit (CLAUDIO ) -------- JOSIANE LOAIZA ([id number]) 1940 F Date Time Provider Department 06/13/21 10:30 AM CATRACHO GONZALEZ During your visit today, we recorded the following information about you: Temperature Pulse Blood pressure Weight 97.3 degrees 94/minute 138/84 73.7 kg Height 1.575 m Catracho Gonzalez APRN.FIRE EQUIPMENT INSPECTOR HELPER 06/14/2021 7:57 AM Signed COLORECTAL SURGERY New [...] the past for FI and ARM testing ([id number]). 02/01/2012 ARM: IMPRESSION: Normal resting and low squeeze pressures. Normal volume studies. Normal nerve studies. Today she reports: -recently saw DOCUMENT EXAMINER and was encouraged to stop taking Metamucil [...] Laterality Date - PAST SURGICAL HISTORY OF dANDc - PAST SURGICAL HISTORY OF 2009 uterine [...] of th (more content not included)... Normal [facility] HISTORY PHYSICALon HISTORY PHYSICAL HNO ID: [id number] Author: Catracho Gonzalez APRN.FIRE EQUIPMENT INSPECTOR HELPER Service: ? Author Type: Nurse Practitioner Type: [...] the past for FI and ARM testing ([id number]). 02/01/2012 ARM: IMPRESSION: Normal resting and low squeeze pressures. Normal volume studies. Normal nerve studies. Today she reports: -recently saw DOCUMENT EXAMINER and was encouraged to stop taking Metamucil [...] Laterality Date - PAST SURGICAL HISTORY OF dANDe - PAST SURGICAL HISTORY OF 2009 uterine [...] brain stimulator (more content not included)... Normal [facility] Provider Orderson 08-30-2020 Provider Orders [id number]#1.00OTG TIFF Normal [facility] C Urineon 08-24-2020 C Urine >100,000 cfu/ml [...] <=4 Verified Tri/Sulf S <=2/38 Verified Normal [facility] Comment on above: Performed By: #### [id number] #### [facility] (DEFAULT) [address] [place] [address] Coding Summaryon 08-23-2020 Coding Summary HTMLBase 64 YrrjlzlkBGh8aEm+PGhlYWQ+ AZ3CIJKiB10lpUIrgG4NG8aY ZT4BKWPWVJLDXD4ZKV7xtVL9 SKgeD1JundCz IgfjaZUdCB39GMp4LHQ6mNap NQefcZ1rsBIdO2q1GyIvPM17 tB43QQpbDWJkTmB2QbRstzje bWFy N4vzSuIchDDvKpl+PHRhYmxl IHdpZHRoPScxMDAlJyBzdHls BJ8nMg1bMVUdCVKftOuxoJUv OiBj l1cuKBObOLbhGQ5coVvfH2Lo lFG2XYEvb6s2Ee15kCT+PHRk OWV4iNegXIxee609WgRdj4ef IDM3 xZXqWOfmTUD7W03ab5S1AMVz UZEqOOJ2dQE3nF7kxUgrskqu O5HfaVPzZuS3WPK9vASwqA2o bGln gkmcgU5dGct+M66MQP1SQGNX LB5FSrl0T4HyDapuoBB+PC90 LJRdHH09tJYmgGKzg1ryrIb8 JzEw LVUiPPL4fWryKPwfb1ZkMGQj Y58ijXHqx0K2OOQjkXbjtNGu UsGmdUP0yM7uHBqehowsa9am dzsn Eejch0irmf12tH98P42oOEth NHEtLCJ2RSMhQFNurPdztf0f sG1gLh3+THteh8cxf3vcwFt8 IjIw YODhhrLjfSrgKNO5p9WiXh72 M2KeyUwcz0IkMjt0ss28kFZc s8I6rMC8FSonCKJaxS1nQZrz ZnQ6 MRTdDtQsuG12hJZuRAspPc3w oVxsgPwkCE2pRGRxgnaoUUDy lJ4jMOMluAQzfEwbVP7oVNMa bjtm l869UgAmHNB9KICpyTZvJ2Ni iQ9nLnByKDBeTNSmX7CxlLWn PAzjH008GUebFmI4UVRvrnSg Y2Fs QIHhyOqnJaX9g8K2Wx7Wu7Re iqdtRNS9FDvlNJT7RzO8KxIb DeT2M9WgKwj2AHRyxEqcOZ0v J3Bh KEXyecfqtvesmTQ7FCAdUWEc nM65bNLpEZfhLm9nh6S5o459 ZNNuQUCzrY55Zi2kaWwiFEDd dCBU cN5lflfsz8tcqpoaCgHcZGJl IOl1IJd6GUKrrGfkVfLqSZF6 AiN6JMI7cYIdxS9qlMhruhvw dG9w Oyc+J21uoD6zWJF6EJY9hckj GDXjaaCdJR90DY31V2NtXkgc dGFibGU+UAUrqsBksEzwJW3p YmFj f4yxq5KkQZuxS9ZmQMTwVQul Uct7QHMyJWK4vJC3tE4kKXGf ZPeuo2W9mXD5J6RzsaZqgw9z b2xs ZGYpHLhcS73goRCrt0H5ZVUd tEQ1HUOnxOdlWtZqvN31Gaq+ AEPzcLxqg8EnKziad7hoq4xl dGg9 XbWdADJzfsDqhCylOPV7p4Bf Pz96K91oWAleFDFqREJwBUJe PALdbOwtkd3auD8vYw8+PGNv bCB3 bXF7eR1iKVRtOpX3NCjyA369 UoWviQGfTcklo3tgz8acoUj8 YdKoBRHlqcOpwUzsJRD7a3Ao Lz48 R92uMOxbTPEkNKXxEJKtAYNn mJcqou3vrT8aEc8+QK1jx4da qc96zM15yJW+QBSvYIV6jNxe PSdw BXFsmF4sCCryOvE7SBScXaJp qG51wABxEQxlSo1irVfuxCyh PX3iVITfelovc990ExVgv3dh IDEw kZQiIUpxUYS9Z94fg9W3WPHv HQDwSQH4qUH5yZ6ujVbmtjtt bGVmdDsgdmVydGljYWwtYWxp Z246 IHRvcDsnPlBhdGllbnQgTmFt FEk9B0DmVyt6UBYitCezVM6m tWMmOOafJx6uxTgbpMabQI6w NTBp jhcrp210PmKvl6zcPSCmeZHw UXkyENH6M32uh8X3AKNlQDAp GLG7jWB0yR5nsDhmceanrTTo dDsg tuBepAhrNPqjJDmcT492QPIc fZugTbIxwoBeJJRjyTV6SD84 TR82pEQmk0I0gFC7T3ZaDWKx bmct gmwumMU4FLCvYTMydT49Cy1t qBbiJa8aKSYaCFO3KTDygJNl I0OnwI1fAqCtYCNmVQIvP8Sz eHQt SDnlR046PKzmLhL8YBTarxPj V4DxHZOnkRzzCdE2l6T6Jm9F J3J5NS96SY77sNUwi1Q1vXI5 J3Bh HZUzehvvbfwqaQJ4FYSfJSJj sR43Sg0eeLaiHr2rKKDcSID3 JTHkcJPgQ4UvzY8mMqTlWESt MDAw O0YtfAEcAOwzM012OGxpAjA6 NBOcuoJlX4MsYIMhrWriHwL5 l2R1Zb2EDJo9NH34IF36cMOs c3R5 dJZ8J3NoPHEupbcolmigjNC6 IOBdDDMwdY22Ky6oeIcuHf5b AHWaMXI4IBLxvHCwX1EweN7r OiAj UDNvTVPcB4JkoKJuIAbkU242 XPgsXpJ5GIBficWkE4VxYUSk iHnjLvH0k8Q0Gn4ANZMzGL73 IFR5 hZB5EA42YY08A8XzWnfwoWRh bGU+PHRhYmxlIHdpZHRoPScx QPPfZwXxzEfgKB3eAc1gHUXr LWNv iTiqaFLrTvXhr1qeLSJyMRyt QC9cbPihH1KneMN7PUNso7h2 Zc47X83yL8OxdJN+PGNvbCB3 aWR0 uI0rGrEjRuU8MEpaB174NqHv kWNbFtoxl2bsc4innCi5XmI6 GIYiktKpxWpxSAV2q9GgSj76 Y29s IHdpZHRoPSIxNSUiIHZhbGln vc2fsG2eMt3+AOBmnMB1cGZ1 sO9bYzSfWdR8ESekT826UcGf cCIv Vgmwp4wcq7gmzQz2JzGnXNOk ncIjfMgyMPD7h7JiSb44B4Dr pQmuc6YmPxr2xw07mLNth3J1 bGU9 W0WvWJRpfnloxZHeoRuvCX9q JTKdvwfcCUGxrL2oMOZaU8w9 YxSdDlN2NVjgR3QbupO0XCPe cHQg DYerEQJ8E99fy4F8ANStXKJq XMW5xTU2cQ5vmElwwudltDWy oJfjzdHziZxhURaxRItfJ583 IHRv wJobTIVjqA4hMXMuoQHyyZnc WU5eAIPhadvjEtRHOGBBGtur QlJFTkRBIFNVRTwvdGQ+PHRk IHN0 oJsfCJahCIJzeX2aDILoA8i1 LoWxRkP2MOcwJ2JgAONadcba Uo21xR9wHhSdRwC0JSfeP6Pt bnQ6 YPValWImEFqmADW7F01yl1C4 MXBvDOBjUON0fNW1mZ2qrVgn bjogbGVmdDsgdmVydGljYWwt YWxp W130AKIrtCshTnZ6SiGeKeC8 MEK8O0JzEjm4QSBytFdtNC5q fFPvWVndJl8ifJzwtWhkHX9k NTBp mpdoCJXgpF6yOHZyfITynIdj NA5yKYDsgmwba824TcBzZPD4 DEYldEApJ5WpgV2rYuWoDCOa MDAw B6ZmlPSfTKlyG179JWwsMvL0 STEadwYzS7JhBIIykFjqFoI4 u0Q0Km56TWOFBTLubxzbvPG+ PHRk JVI1mDqyUNgbAEKdtD7sOVAp X5c1YyVfUlI9YSybR9SpOYXd ogxuQm89xQ7bYdWlEdW6DHrb O2Zv ypV8JAUlfSFiKQatRXY1A17v a9B5GDGhTHGlJLW1fID4lT8p bGlnbjogbGVmdDsgdmVydGlj YWwt QZmlJ342UXIumSgtOeIHBBAA RTwvdGQ+JACvGAX2cMwePBai VPMhiD4lDVArW5z6HcNhGhT1 MGlu X4XyXKBidiwlRb38mL8qKwYr OxH0YXmjN9HbpzR8QVIgbXCe GXwwBIZ3C17se8G3WALhCCYl MDA7 oCZ2vJ6cwHiuihjurUSfoBxc aaUjoBahJKqxSTgxV672HCNk zMexQt0LDN67XB17F6KpYdwv dGFi bGU+PHRhYmxlIHdpZHRoPScx UCNvSoBmuHfnJF1gPy6eNZNf UYNqvNglfKJyOdKpv8vbVFUt ZTsg ZK8naTncD6QgjJW3DCNot5y3 Rj08P48uC5NpmJU+PGNvbCB3 wLU6pK3fKeEoHyC5XUnvJ494 InRv lRFhWtcov9zjz8fogAp6BePe GETgwsKqrNwwMFO2b8WpYi75 A73vZZqxOQOqPGFaROXwMPDi bGln ho2lhY7sWf5+IZUakHI7yTG5 uE4uHqWwZkC9JArbK209BrTc nYKsQmjcD56fD1SjfFC+PHRy Pjx0 AKWroZkyNQ2ogDUiPBxpXq6u ECL8FmAeFmLgTRcsU5WtLZCg tognlxihwDM2PJYrAUAneV54 Zm9u vTbhOl9xTUAhSZM5BGIlgIXz C8BnlE6dQjOtVHMhOYDdM4Tr yETnKXxzD665OYzkLyR2RCMb cnRp V2DeGPMnaNlzScO7j4W8Mm5O dSfzcFUtVK6zLwIaYZz8B0Yr Ltu1QRFzsWjsDK2bfFRsCFvh Zy1y uVsciYseNC4vDDHjibwlm628 LvVhb0shLQWzlDEqFKzlYEA9 Q15dv6T8IFSsEGIqXEX0mZC2 dC1h bGlnbjogbGVmdDsgdmVydGlj UXikRWqxE581PJUnfEypSnWY Trr1M2KaCaa4AWTxlGojBH0b cGFk GSkpGq4nhDmoyEhnKE2aIGGp xtauj641CkSia4stDCFiiGTv QAvpIOF0I20cb0S1JQPeUYLb MDA7 mNB1dK4dvXkduzfpxOAhqBtp sdSphQxbYJgxKAolN212WIUg fCngUm1BKib4G4YuNxo2JJEp dHls IU0emIIaTQmvIh2itLwlvEqa TA4wISEmgtdet347QdYbp6wk PMBrvMBcLSooRZO5B08jk1H5 ICMw ERJyEEO5dYD5qR4trOxozgdw bGVmdDsgdmVydGljYWwtYWxp D724IKBllBpzRjAgtGHnNwwa dGQ+ TI24zz76K7CvItywHrg7SIOa QTT3fGW9rT8hPKKdMMfal7V9 wAW9I2SsbkZicm6uc6hoSZKu ZTog Y29 (more content not included)... [facility] Provider Orderson 08-23-2020 Provider Orders [id number] TIFF [facility] ADULT [place] [facility] Vital Signs Date Time Vital Sign Value Performing Clinician Kodi emery 06-10-2023 12:26-0400 Blood Pressure Location Nash NICHOLS [facility] 06-10-2023 12:26-0400 Diastolic blood pressure 88 mm[Hg] Nash NICHOLS [facility] 06-10-2023 12:26-0400 Heart rate 87 /min Nash NICHOLS [facility] 06-10-2023 12:26-0400 Respiratory rate 16 /min Nash NICHOLS [facility] 06-10-2023 12:26-0400 Systolic blood pressure 133 mm[Hg] Nash NICHOLS [facility] 12-28-2022 13:05-0400 Blood Pressure Location Jr BAKER [facility] 12-28-2022 13:05-0400 Diastolic blood pressure 66 mm[Hg] Jr BAKER [facility] 12-28-2022 13:05-0400 Heart rate 72 /min [facility] 12-28-2022 13:05-0400 Respiratory rate 16 /min Jr OLIVIA [facility] [place] 12-28-2022 13:05-0400 Systolic blood pressure 120 mm[Hg] Jr OLIVIA [facility] [place] 04-27-2022 08:57-0500 Blood Pressure Location Nash NICHOLS [facility] 04-27-2022 08:57-0500 Diastolic blood pressure 86 mm[Hg] Nash NICHOLS [facility] 04-27-2022 08:57-0500 Heart rate 74 /min Nash NICHOLS [facility] 04-27-2022 08:57-0500 Respiratory rate 16 /min Nash NICHOLS [facility] 04-27-2022 08:57-0500 Systolic blood pressure 140 mm[Hg] Nasherlinda NICHOLS [facility] 06-13-2021 09:46-0400 Body height 157.5 cm Catracho Carlos UNDERWEAR FINISHER.FIRE EQUIPMENT INSPECTOR HELPER Work Phone: [facility] 06-13-2021 09:46-0400 Body temperature 97.3 [degF] Catracho Carlos UNDERWEAR FINISHER.FIRE EQUIPMENT INSPECTOR HELPER Work Phone: [facility] 06-13-2021 09:46-0400 Body weight 73.71 kg Catracho Carlos UNDERWEAR FINISHER.FIRE EQUIPMENT INSPECTOR HELPER Work Phone: [facility] 06-13-2021 09:46-0400 Diastolic blood pressure 84 mm[Hg] Catracho Carlos UNDERWEAR FINISHER.FIRE EQUIPMENT INSPECTOR HELPER Work Phone: [facility] 06-13-2021 09:46-0400 Heart rate 94 /min Catracho Carlos UNDERWEAR FINISHER.FIRE EQUIPMENT INSPECTOR HELPER Work Phone: [facility] 06-13-2021 09:46-0400 SaO2% (BldA) [Mass fraction] 96 % Catracho Gonzalez UNDERWEAR FINISHER.FIRE EQUIPMENT INSPECTOR HELPER Work Phone: [facility] 06-13-2021 09:46-0400 Systolic blood pressure 138 mm[Hg] Catracho Gonzalez UNDERWEAR FINISHER.FIRE EQUIPMENT INSPECTOR HELPER Work Phone: [facility] Encounters Encounter Date Encounter Type Care Provider Facility Start: 06-21-2025 ambulatory Nash Maren Sanches ty:JOSE M Randhawa Start: 07-30-2024 End: 07-30-2024 Bamboo flowsheet Zoila HERRERA Work Phone: [facility] Start: 07-30-2024 End: 07-30-2024 Bamboo flowsheet Zoila HERRERA Work Phone: [facility] Start: 07-30-2024 End: 07-30-2024 ambulatory ZOILA MAYS Not Available Start: 07-30-2024 End: 07-30-2024 Patient encounter procedure Zoila HERRERA Work Phone: [facility] Start: 07-30-2024 End: 07-30-2024 Periodic preventive med est patient 65yrs& older Zoila HERRERA Work Phone: [facility] Comment on above: Vaginal irritation f rom pessary (HCC) ([facility]) (Primary Dx); Well woman exam with routine gynecological exam; Postmenopausal state Start: 07-01-2024 End: 07-01-2024 ambulatory AL PRASAD Not Available Start: 07-01-2024 End: 07-01-2024 Follow-up encounter Al Prasad DO Work Phone: [facility] Comment on above: Follow-up Start: 07-01-2024 End: 07-01-2024 Bamboo flowsheet Al Prasad DO Work Phone: [facility] Start: 07-01-2024 End: 07-01-2024 Bamboo flowsheet Al Prasad DO Work Phone: [facility] Start: 06-15-2024 End: 06-15-2024 ambulatory Nash NICHOLS Facility:[facility] Start: 04-22-2024 End: 04-22-2024 Follow-up encounter Al [...] Degeneration Start: 12-18-2023 End: 12-18-2023 Bamboo flowsheet Al [...] Start: 10-23-2023 End: 10-23-2023 Bamboo flowsheet Al Leyer DO Work Phone: [facility] Start: 10-23-2023 End: 10-23-2023 Bamboo flowsheet Al Leyer DO Work Phone: [facility] Start: 08-26-2023 End: 08-26-2023 ambulatory AL PRASAD Not Available Start: 06-10-2023 End: 06-10-2023 Patient encounter procedure Nash NICHOLS 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) (Primary Dx) Start: 04-08-2023 Bamboo flowsheet Al Farrell hler DO Work Phone: [facility] Start: 04-08-2023 Bamboo flowsheet Al Meza Za hler DO Work Phone: [facility] Start: 02-06-2023 End: 02-06-2023 Patient encounter procedure Jr BAKER General Surgery Nill/Said Sydnee Start: 12-28-2022 End: 12-28-2022 Patient encounter procedure Jr BAKER General Surgery Nill/Said Sydnee Start: 06-12-2022 End: 06-13-[address] CHRIS LAYNE Facility:[facility] Start: 04-30-2022 End: 04-30-2022 Lab Drop off Nash Engel NICHOLS [facility] Start: 04-30-2022 End: 04-30-2022 Patient encounter procedure Nash NICHOLS [facility] Start: 04-27-2022 End: 04-27-2022 Patient encounter procedure Nash Maren NICHOLS [facility] Start: 04-05-2022 End: 04-06-[address] FRANCES [...] 09-12-2021 Telemedicine consultation with patient Catracho Gonzalez JING.FIRE EQUIPMENT INSPECTOR HELPER Work Phone: [facility] Start: 09-08-2021 Chart abstracting Catrachojudi greenjason CH.NEW Work Phone: Colorectal Surgery Start: 08-08-2021 End: 08-09-[address] FRANCES ROBLES . Facility: Start: 06-13-2021 End: 06-13-2021 ambulatory Lorie Romero APRN.FIRE EQUIPMENT INSPECTOR HELPER Work Phone: Colorectal Surgery Comment on above: Manometry Start: 06-13-2021 End: 06-13-2021 Patient encounter procedure Lorie Romero APRN.NEW Work Phone: [facility] Comment on above: Pelvic floor [...] 10-23-2023 Intravitreal njx pharmacologic agt spx Al Jason Prasad DO Work Phone: Start: 10-23-2023 Computerized ophthal mark imaging retina Al Meza Osmar DO Work Phone: Start: 04-08-2023 Intravitreal njx pharmacologic agt spx Al Meza Osmar DO Work Phone: Start: 04-08-2023 Computerized ophthal mark imaging retina Al Meza Osmar DO Work Phone: Start: 01-23-2023 Excision of cyst Justinae johnathan NARVAEZJohnathan Comment on above: left preauricular Start: 06-13-2021 ADULT [place] [facility] Lorie Romero APRN.CNP Work Phone: Start: 10-11-2010 Cystoscopy Nash HDZ Start: 03-04-2009 anal sphincteroplasty Xavier NICHOLS Start: 03-04-2009 mid transobturator mid-urethral sling Nash NICHOLS Start: 03-04-2009 Repair of rectocele Saumya NICHOLS Start: 03-04-2009 Sacrospinous hysteropexy Nash NICHOLS Start: 03-04-2009 Transvaginal Sacrosp inous rectopexy Nash NICHOLS D and C Nash NICHOLS Dilation and curettage Dann carie BAKER Plan of Treatment Date Care Activity Detail Author Start: 09-07-2024 End: 09-07-2024 Clinical Support 09/07/2024 3:00 PM EDT Clinical Support [facility] [address] [place] [id number] Al Prasad, DO [address] [place] [address] [facility] Start: 08-27-2024 End: 08-27-2024 Patient encounter procedure 08/27/2024 9:10 AM EDT Office Visit [facility] [address] [place] [id number] Zoila M[place], [place] [address] [place] [address] [facility] Start: 07-30-2024 End: 07-30-2025 DXA Skeletal system Views for bone density DEXA bone density Imaging Routine Postmenopausal state Expected: 07/30/2024 (Approximate), Expires: 07/30/2025 [facility] Work Phone: Comment on above: Expected: 07/30/2024 (Approximate), Expires: 07/30/2025 Start: 07-30-2024 End: 07-30-2024 Patient encounter procedure 07/30/2024 11:00 AM EDT Office Visit [facility] [address] [place] [id number] Zoila Mays, PA [address] [place] [address] [facility] Start: 04-22-2024 End: 04-22-2024 Clinical Support 04/22/2024 3:15 PM EST Clinical Support [facility] [address] [place] [phone] Al Prasad DO [address] [place] [address] Arrived [facility] Comment on above: Arrived Start: 02-12-2024 End: 02-12-2024 Clinical Support 02/12/2024 3:15 PM EST Clinical Support [facility] [address] [place] [phone] Al Prasad, DO [address] [place] [address] Arrived [facility] Comment on above: Arrived Start: 12-18-2023 End: 12-18-2023 Clinical Support 12/18/2023 3:15 PM EDT Clinical Support [facility] [address] [place] [phone] Al Prasad, DO [address] [place] [address] Arrived [facility] Comment on above: Arrived Start: 10-27-2023 Influenza vaccination Influenza Vacc ine (#1) [facility] Start: 04-08-2023 End: 04-08-2023 Patient encounter procedure 04/08/2023 2:45 PM EST Procedure Visit [facility] [address] [place] [phone] Al Prasad, DO [address] [place] [address] Arrived [facility] Comment on above: Arrived Start: 10-26-2021 Influenza vaccination INFLUENZA (#1) [facility] Start: 04-01-2021 COVID-19 VACCINE (4 - Booster for Pfizer series) COVID-19 VACCINE (4 - Booster for Pfizer series) [facility] Start: 02-25-2021 ADVANCE DIRECTIVE DISCUSSION ADVANCE DIRECTIVE DISCUSSION [facility] Start: 03-06-2012 DIABETES SCREEN DIABETES SCREEN [facility] Start: 2006 BONE DENSITY BONE DENSITY [facility] Start: 2006 PNEUMOCOCCAL: 65+ (1 - PCV) PNEUMOCOCCAL: 65+ (1 - PCV) [facility] Start: 2006 PNEUMOVAX AGE 65 AND OVER WITH 5YR LOOKBACK (#1) PNEUMOVAX AGE 65 AND OVER WITH 5YR LOOKBACK (#1) [facility] Start: 11-25-1991 SHINGRIX VACCINE (1 of 2) SHINGRIX VACCINE (1 of 2) [facility] Start: 1960 Urine microalbumin profile DTAP,TDAP,TD (1 - Tdap) [facility] Start: 1953 Adult depression screening assessment DEPRESSION SCREENING [facility] THIN PREP TIS PAP AN D HR HPV DNA THIN PREP TIS PAP AND HR HPV DNA Pathology and Cytology Routine Well woman exam with routine gynecological exam Ordered: 07/30/2024 [facility] Comment on above: [facility] Immunization Date Immunization Notes Care Provider Fa cili 12-11-2023 influenza virus vacc ine, unspecified formulation Al Prasad DO Work Phone: [facility] 11-28-2022 influenza virus vacc ine, unspecified formulation Jr [facility]KER [facility] 12-12-2021 influenza virus vacc ine, unspecified formulation Nash NICHOLS [facility] 12-12-2021 SARS-CoV-2 (COVID-19 ) [id number] Nash NICHOLS [facility] 08-17-2021 SARS-CoV-2 mRNA ([id number] e) vaccine Nash NICHOLS [facility] 11-29-2020 influenza virus vacc ine, unspecified formulation Nash NICHOLS [facility] 11-29-2020 SARS-CoV-2 (COVID-19 ) mRNA BNT-162b2 vax Jr BAK[facility] 04-14-2020 SARS-CoV-2 (COVID-19 ) mRNA BNT-162b2 hannax Jr BAKER [facility] 03-24-2020 SARS-CoV-2 (COVID-19 ) mRNA BNT-162b2 vax Jr [facility] [place] 02-26-2020 SARS-CoV-2 (COVID-19 ) mRNA [id number] vax Nash NICHOLS [facility] Comment on above: Result Comment: pt h as had 3 shots 10-27-2019 pneumococcal polysaccharide vaccine, 23 valent Nasherlinda NICHOLS [facility] 12-16-2018 zoster vaccine recombinant Nash NICHOLS [facility] 10-08-2018 pneumococcal conjuga te vaccine, 13 valent Nasherlinda NICHOLS [facility] 10-08-2018 zoster vaccine recombinant Nash NICHOLS [facility] Payers Date Payer Category Payer Private Health Insurance WPS Mem lizett [place] [id number] 2022 Unknown WPS WPS [id number] 2022-Present [address] [address] [place] [address] [id number] 2019 Unknown MMO MMO MEDICARE SUPPLEMENT [id number] 2019-Present [phone] [address] [place] [address] Indemnity [id number] 2006 Medicare MEDICARE MEDICAR E A AND B [id number] 2006-Present [phone] [address] [address] [place] [address] Medicare [id number] 2006 Medicare [id number]. [id number] 2006 Medicare [id number] 1959 Medicare [id number] 1959 Self-pay [id number] 1959 Unknown [id number] 1959 Unknown [id number] 1941 Unknown [id number] 2.16.840.1.839915.3.579.2. 593 1941 Unknown [id number] .16.840.1.281109.3.579.2. 593 1941 Unknown [id number] 2.16.840.1.036942.3.579.2. 593 1941 Unknown [id number] 2.16.840.1.895875.3.579.2. 593 1941 Unknown [id number] 2.16.840.1.881155.3.579.2. 593 1941 Unknown [id number] 2.16.840.1.389798.3.579.2. 593 1941 Unknown [id number] 2.16.840.1.793448.3.579.2. 593 1941 Unknown [id number] 2.16.840.1.597868.3.579.2. 593 1941 Unknown [id number] 2.16.840.1.845956.3.579.2. 593 1941 Unknown [id number] 2.16.840.1.627842.3.579.2. 593 1941 Unknown [id number] 2.16.840.1.073360.3.579.2. 727 1941 Unknown [id number] 2.16.840.1.401086.3.579.2. 727 1941 Unknown [id number] 2.16.840.1.920355.3.579.2. 1259 1941 Unknown [id number] 2.16.840.1.302044.3.579.2. 1259 1941 Unknown [id number] 2.16.840.1.074511.3.579.2. 1259 1941 Unknown [id number] 2.16.840.1.243955.3.579.2. 1259 1941 Unknown [id number] 2.16.840.1.101563.3.579.2. 1259 1941 Unknown [id number] 2.16.840.1.103622.3.579.2. 1259 1941 Unknown [id number] 2.16.840.1.548659.3.579.2. 1259 Social History Date Type Detail Facility Start: 04-27-2022 End: 09-12-2022 Tobacco smoking status ILIS Never smoked tobacco [facility] Start: 06-13-2021 Alcohol intake Lifetime non-d gregg (finding) [facility] Start: 06-13-2021 History SDOH Alcohol Frequency 1 [facility] Start: 1940 Sex Assigned At Female [facility] Start: 06-03-2021 End: 06-13-2021 Exposure to SARS-CoV-2 (event) Not sure [facility] Tobacco smoking status Never [facility] Start: 10-23-2023 End: 07-01-2024 Sex Assigned At Female [facility] Start: 07-19-2023 Tobacco use and exposure Smokeless tobacco non-user [facility] Start: 1940 Sex Assigned At Not on file [facility] Start: 10-23-2023 End: 07-01-2024 History of Social function [facility] NEGATED: Highlighted rowStart: KIET History of tobacco use Passive smoker [facility] Medical Equipment Procedure Code Equipment Code Equipment Origin al Text Equipment Identifier Dates [id number]-[id number] Implant - [id number] Start: 03-04-2009 Comment on above: Description: Surgisi s Biodesign 4 layer tissue graft Device Tvt W/ Obturator - [id number] Start: 03-04-2009 Functional Status Date Assessment Result Facility 06-10-2023 Functional Status N/A [facility] 12-28-2022 Functional Status N/A [facility] 04-27-2022 Functional Status N/A [facility] Clinical Notes 06-13-2021 to 07-30-2024 JAVIER Cruz - 07/30/2024 11:00 AM Abilio Prasad, DO - 07/01/2024 2:30 PM Abilio Prasad, DO - 04/22/2024 3:15 PM Nain Prasad, DO - 02/12/2024 3:15 PM ESTPatient Instructions Note Date & Type Note Facility 07-30-2024 History of Present illness Narrative Reason for Appointment: Patient ID: Josiane Loaiza is a 83 y.o. female who presents for Well Women Visit Patient presents today for Annual Exam. MEDICATIONS Current Outpatient Medications Medication Instructions Calcium Carbonate-Vitamin D (Oyster Shell Calcium/D) 500-5 MG-MCG tablet 1 tablet, Oral, 2 times daily with meals ezetimibe (ZETIA) 10 mg, Oral, Daily RT levothyroxine (TIROSINT) 50 mcg, Oral, Daily before breakfast liothyronine (Cytomel) 25 MCG tablet Every 24 hours Multiple Vitamins-Minerals (ICAPS AREDS 2 PO) 2 times daily Myrbetriq 50 mg, Oral, Daily RT olmesartan (BENICAR) 20 mg, Oral, Daily RT raloxifene (EVISTA) 60 mg, Oral, Daily RT rosuvastatin (CRESTOR) 20 mg, Daily ALLERGIES Allergies Allergen Reactions Cephalexin Diarrhea and GI intolerance Meloxicam GI intolerance Oxycodone-Acetaminophen Other Reaction(s): Intolerance Sulfa Antibiotics Hives PROBLEMS Active Ambulatory Problems Diagnosis Date Noted Exudative age-related macular degeneration of left eye with active choroidal neovascularization ([facility]) 09/12/2022 Resolved Ambulatory Problems Diagnosis Date Noted No Resolved Ambulatory Problems Past Medical History: Diagnosis Date Macular degeneration HISTORY PAST MEDICAL HISTORY SOCIAL HISTORY Past Medical History: Diagnosis Date Macular degeneration Social History Tobacco Use Smoking status: Never Passive exposure: Never Smokeless tobacco: Never Vaping Use Vaping status: Not on file Substance Use Topics Alcohol use: Not on file Drug use: Not on file FAMILY HISTORY Family History Problem Relation Name Age of Onset No Known Problems Mother No Known Problems Father No Known Problems Sister No Known Problems Brother SURGICAL HISTORY Past Surgical History: Procedure Laterality Date SACROSPINOUS LIGAMENT FIXATION Transvaginal Sacrospinous rectopexy with biologic graft REVIEW OF SYSTEMS Review of Systems: Review of Systems Constitutional: Negative. HENT: Negative. Eyes: Negative. Respiratory: Negative. Cardiovascular: Negative. Gastrointestinal: Negative. Genitourinary: Negative. Musculoskeletal: Negative. Skin: Negative. Neurological: Negative. All other systems reviewed and are negative. Hematological: Negative. Endocrine: Negative. Allergic/Immunologic: Negative. OBJECTIVE Objective: Physical Exam Constitutional: Appearance: Normal appearance. Genitourinary: Vaginal erythema and bleeding present. Right Adnexa: not tender and no mass present. Left Adnexa: not tender and no mass present. No cervical discharge. Breasts: Breasts are soft. Right: Normal. Left: Normal. HENT: Head: Normocephalic. Nose: Nose normal. Mouth/Throat: Mouth: Mucous membranes are moist. Cardiovascular: Rate and Rhythm: Normal rate. Pulmonary: Effort: Pulmonary effort is normal. Abdominal: General: Bowel sounds are normal. Palpations: Abdomen is soft. Musculoskeletal: General: Normal range of motion. Cervical back: Normal range of motion. Neurological: General: No focal deficit present. Mental Status: She is alert. Skin: General: Skin is warm and dry. Psychiatric: Mood and Affect: Mood normal. Vitals and nursing note reviewed. Exam conducted with a hunter skin diver present. Vitals: There is no height or weight on file to calculate BMI. BP: No LMP recorded. ASSESSMENT & PLAN ICD-10-CM 1. Well woman exam with routine gynecological exam Z01.419 THIN PREP TIS PAP AND HR HPV DNA 2. Postmenopausal state Z78.0 DEXA bone density Annual: Patient presents today for an annual exam. Patient states she is doing well and has no complaints. Pap was obtained without difficulty and patient given dexa order to have scheduled/obtained. Orders Placed This Encounter Procedures DEXA bone density Patient is new to practice and uses a pessary. Pessary was removed and cleaned. Patient has some irritation from pessary and noted some spotting after doing yard work several days ago. We will send in triacinolone cream to help with vaginal irritation and break down. Patient instructed to retrun in 4 weeks post using cream. Pap performed today with out difficulty Follow Up: Patient is to return in one year for annual unless needed otherwise. Documented by Zunilda Guerrier LPN on behalf of: JAVIER Cruz documented in this encounter [facility] 07-01-2024 Note Time Out 07/01/2024. 3:32 PM. Confirmed correct patient, procedure, site, and patient consented. Anesthesia Topical anesthesia was used. Anesthetic medications included Lidocaine 2%, Proparacaine 0.5%. Procedure Preparation included 5% betadine to ocular surface, eyelid speculum. Injection: 2 mg aflibercept 2 MG/0.05ML Route: Intravitreal, Site: Left Eye [facility]: 38235-014-67, Lot: [id number], Expiration date: 11/25/2024, Waste: 0 mL Post-op [...] increased pain, redness, decreased vision or concerns. [facility] 07-01-2024 Note Right Eye Quality was good. Scan locations included subfoveal. Progression has been stable. Findings include abnormal foveal contour. Left Eye Quality was good. Scan locations included subfoveal. Progression has been stable. Findings include abnormal foveal contour. [facility] 07-01-2024 History of Present illness Narrative Images [...] 2 MG/0.05ML Route: Intravitreal, Site: Left Eye [facility]: 58468-740-44, Lot: [id number], Expiration date: 11/25/2024, Waste: 0 mL Post-op [...] vision or concerns. documented in this encounter [facility] 06-15-2024 Note Patient Education Obstetrics and Gynecology [...] provider. Document Revised: 06/22/2021 Document Reviewed: 06/22/2021 [employer] Patient Education ? 2023 [employer]. [facility] 04-22-2024 Note Time Out 04/22/2024. 3:53 PM. Confirmed correct patient, procedure, site, and patient consented. Anesthesia Topical anesthesia was used. Anesthetic medications included Lidocaine 2%, Proparacaine 0.5%. Procedure Preparation included 5% betadine to ocular surface, eyelid speculum. Injection: 2 mg aflibercept 2 MG/0.05ML Route: Intravitreal, Site: Left Eye [facility]: [id number], Lot: [id number], Expiration date: 02/25/2025, Waste: 0 mL Post-op [...] increased pain, redness, decreased vision or concerns. [facility] 04-22-2024 Note Right Eye Quality was good. Scan locations included subfoveal. Progression has been stable. Findings include abnormal foveal contour, subretinal scarring. Left Eye Quality was good. Scan locations included subfoveal. Progression has been stable. Findings include abnormal foveal contour, subretinal scarring. 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 documented in this encounter [facility] 02-12-2024 Note Time Out 02/12/2024. 4:08 PM. Confirmed correct patient, procedure, site, and patient consented. Anesthesia Topical anesthesia was used. Anesthetic medications included Lidocaine 2%, Proparacaine 0.5%. Procedure Preparation included 5% betadine to ocular surface, eyelid speculum. Injection: 2 mg aflibercept 2 MG/0.05ML Route: Intravitreal, Site: Left Eye ND: [id number], Lot: [id number], Expiration date: 05/26/2025, Waste: 0 mL Post-op [...] increased pain, redness, decreased vision or concerns. [facility] 02-12-2024 Note Right Eye Quality was good. Scan locations included subfoveal. Progression has been stable. Findings include abnormal foveal contour, subretinal scarring. Left Eye Quality was good. Scan locations included subfoveal. Progression has been stable. Findings include abnormal foveal contour, subretinal fluid, subretinal scarring. [facility] 02-12-2024 History of Present illness Narrative Images [...] 2 MG/0.05ML Route: Intravitreal, Site: Left Eye [facility]: [id number], Lot: [id number], Expiration date: 05/26/2025, Waste: 0 mL Post-op [...] vision or concerns. documented in this encounter [facility] 12-18-2023 Note Time Out 12/18/2023. 4:02 PM. Confirmed correct patient, procedure, site, and patient consented. Anesthesia Topical anesthesia was used. Anesthetic medications included Lidocaine 2%, Proparacaine 0.5%. Procedure Preparation included 5% betadine to ocular surface, eyelid speculum. Injection: 1.25 mg bevacizumab 100 MG/4ML Route: Intravitreal, Site: Left Eye NDC: [id number], Lot: [id number], Expiration date: 01/13/2024, Waste: 0 mL Post-op [...] increased pain, redness, decreased vision or concerns. [facility] 12-18-2023 Note Right Eye Quality was good. Scan locations included subfoveal. Progression has been stable. Findings include abnormal foveal contour. Left Eye Quality was good. Scan locations included subfoveal. Progression has been stable. Findings include subretinal fluid, subretinal scarring. [facility] 12-18-2023 History of Present illness Narrative Images from the original note were not included. Assessment/Plan Diagnoses and all orders for this visit: Exudative age-related macular degeneration of left eye with active choroidal neovascularization ([facility]) - OCT, Retina - OU - Both [...] 100 MG/4ML Route: Intravitreal, Site: Left Eye [facility]: [id number], Lot: [id number], Expiration date: 01/13/2024, Waste: 0 mL Post-op [...] vision or concerns. documented in this encounter [facility] 10-23-2023 Note Time Out 10/23/2023. 3:27 PM. Confirmed correct patient, procedure, site, and patient consented. Anesthesia Topical anesthesia was used. Anesthetic medications included Lidocaine 2%, Proparacaine 0.5%. Procedure Preparation included 5% betadine to ocular surface, eyelid speculum. Injection: 1.25 mg bevacizumab 100 MG/4ML Route: Intravitreal, Site: Left Eye [facility]: [id number], Lot: [id number], Expiration date: 12/01/2023, Waste: 0 mL Post-op [...] increased pain, redness, decreased vision or concerns. [facility] 10-23-2023 Note Right Eye Quality was good. Scan locations included subfoveal. Progression has been stable. Findings include abnormal foveal contour, subretinal scarring. Left Eye Quality was good. Scan locations included subfoveal. Progression has been stable. Findings include abnormal foveal contour, subretinal scarring. [facility] 10-23-2023 History of Present illness Narrative Images from the original note were not included. Assessment/Plan Diagnoses and all orders for this visit: Exudative age-related macular degeneration of left eye with active choroidal neovascularization (HCC) ([facility]) - OCT, Retina - OU - Both [...] 100 MG/4ML Route: Intravitreal, Site: Left Eye [facility]: [phone], Lot: [id number], Expiration date: 12/01/2023, Waste: 0 mL Post-op [...] vision or concerns. documented in this encounter [facility] 06-10-2023 Hospital Discharge instructions Patient Education 06/10/2023 [...] provider. Document Revised: 06/22/2021 Document Reviewed: 06/22/2021 [employer] Patient Education 2022 [employer]. Follow Up Care 04/27/2022 09:49:37 With:JARED PARKINSON, Nash Engel, URL Address: [facility] [address] , [place] [address]- [phone] When: Unknown [facility] 04-08-2023 Note Time Out 04/08/2023. 3:54 PM. Confirmed correct patient, procedure, site, and patient consented. Anesthesia Topical anesthesia was used. Anesthetic medications included Lidocaine 2%, Proparacaine 0.5%. Procedure Preparation included 5% betadine to ocular surface, eyelid speculum. Injection: 1.25 mg bevacizumab 100 MG/4ML Route: Intravitreal, Site: Left Eye [facility]: [phone], Lot: [id number], Expiration date: 05/15/2023, Waste: 0 mL Post-op [...] increased pain, redness, decreased vision or concerns. [facility] 04-08-2023 Note Right Eye Quality was good. Scan locations included subfoveal. Progression has been stable. Findings include abnormal foveal contour. Left Eye Quality was good. Scan locations included subfoveal. Progression has been stable. Findings include abnormal foveal contour, disciform scar. [facility] 04-08-2023 History of Present illness Narrative Images from the original note were not included. Assessment/Plan Diagnoses and all orders for this visit: Exudative age-related macular degeneration of left eye with active choroidal neovascularization (HCC) ([facility]) - OCT, Retina - OU - Both [...] 100 MG/4ML Route: Intravitreal, Site: Left Eye [facility]: [phone], Lot: [id number], Expiration date: 05/15/2023, Waste: 0 mL Post-op [...] vision or concerns. documented in this encounter [facility] 04-27-2022 Hospital Discharge instructions Patient Education 04/27/2022 [...] to keep your urine pale yellow. ?Take znek-uaf-enhxmar or prescription medicines. ?Eat foods that are high in fiber, such as beans, whole grains, and fresh fruits and vegetables. ?Limit foods that are high in fat and processed sugars, such as fried or sweet foods. General instructions Take joxj-fnr-eektcys and prescription medicines only as told by [...] the muscles that help control urination. Take unpy-llc-pteguvi and prescription medicines only as told by your health care provider. Contact a health care provider if your symptoms do not improve or get worse. This information is not intended to replace advice given to you by your health care provider. Make sure you discuss any questions you have with your health care provider. Document Released: 12/08/2009 Document Revised: 08/21/2018 Document Reviewed: 08/21/2018 [employer] Patient Education 2020 [employer]. Follow Up Care 04/24/2021 10:45:00 With:JARED PARKINSON, Nash Engel, URL Address: [address] [place] [address]- When: Unknown [facility] 09-12-2021 Note HNO ID: [id number] Author: Catracho Gonzalez APRN.FIRE EQUIPMENT INSPECTOR HELPER Service: ? Author Type: Nurse Practitioner Type: [...] mortality and/or complications of treatment plan: bhargav I spent a total of 25 minutes on the date of the service which included preparing to see the patient, gium-qz-yfgk patient care, completing clinical documentation, obtaining and/or reviewing separately obtained history, performing a medically appropriate examination, counseling and educating the patient/family/caregiver and communicating results to the patient/family/caregiver. [facility] 09-12-2021 Instructions Catracho Gonzalez APRN.NEW - 09/12/2021 8:21 AM EDT Continue home PFPT exercises Continue bowel regimen, can adjust imodium dose as needed Follow up with [facility] pelvic floor as needed; [phone] Your total daily fiber intake should be 25-35g CEREAL FIBER (GMS) Kelloggs All Bran w/Extra Fiber 15 General Gibson Fiber One 12 Kelloggs All Bran 9 Nabisco 100% Bran 8 Jesus Alberto's All Bran Fruit and Almonds 6 Jesus Alberto's Bran and Oats 6 Buddhist [place] Bran 5 Lincoln Bran Chex 5 Lincoln High Fiber Hot Cereal 5 Jesus Alberto's and Post Raisin Bran 4 Nabisco Shredded Wheat and bran 4 Post Fruit and Fiber 4 Wheatbix 4 Buddhist Oats 2 FIBER FILLED FRUITS FIBER (GMS) Blackberries (1/2 cup) 4 Pears w/ skin (1 medium) 4 Apple w/ skin (1 medium) 4 Prunes 4 Honeydew (1 medium) 3 Terry (1 medium) 3 Raisins (1/4 cup) 3 Raspberries (1/2 cup) 3 Strawberries (1 cup) 3 Apricots (3 medium) 2 Banana 2 Blueberries (1/2 cup) 2 Dates (3) 2 [place] w/ skin (1 medium) 2 GREENS [place] (1/2 cup) FIBER (GMS) Baked beans w/tomato sauce 9 Kidney Beans 7 Gan and Valdez Beans 5 Small Peas 5 Lentils 5 Peas 4 [place] (canned) 3 Potato w/ Skin (medium) 3 Sweet Potato (medium) 3 Broccoli 2 Brussel Sprouts 2 Carrots 2 Spinach 2 Zucchini 2 BEST BREAD AND PASTA FIBER (GMS) Natures Own Double Fiber Bread (1 slice) 5 Whole Wheat Spaghetti (1 cup cooked) 4 Bran Muffin (1) 3 Buckwheat Muffin (1) 3 Whole Wheat Bread (2 slices) 3 Whole Wheat Kiswahili Muffin (1) 3 Whole Wheat Pancakes (2) 3 Whole Wheat Dinner Roll (1) 2 Brown Rice (1/2 cup cooked) 1 LOW CALORIE SNACKS FIBER (GMS) Apple w/ Skin 4 Pineapple (1 cup) 2 Popcorn (3 cups unbuttered) 2 Figs (3) 2 Pear w/ Skin 2 Whole Wheat [place] (1 slice) 2 Strawberries Fresh 3 [place] w/ Skin 2 Raspberries (1/2 cup) 3 Celery (3 stalks) 1 DELICIOUS AND NUTRITIOUS DESERTS FIBER (GMS) Baked Apple 6 Blackberry Pie (1 slice) 6 Fruit Compote 4 Pineapple Whole (1/4 fresh) 3 [place] Rhubarb Pie (1 slice) 3 Whole Wheat Banana Nut Bread 3 Brown Rice Pudding (1/2 cup) 2 Fruit Kebab 2 Whole Wheat Oatmeal Cookie 2 documented in this encounter [facility] 09-12-2021 History of Present illness Narrative [...] imodium dose as needed Follow up with [facility] pelvic floor PRN Risk of morbidity, mortality and/or complications of treatment plan: low I spent a total of 25 minutes on the date of the service which included preparing to see the patient, bwbj-pt-ccqt patient care, completing clinical documentation, obtaining and/or reviewing separately obtained history, performing a medically appropriate examination, counseling and educating the patient/family/caregiver and communicating results to the patient/family/caregiver. documented in this encounter [facility] 09-08-2021 Note HNO ID: [id number] Author: Catracho Gonzalez APRN.CNP Service: ? Author [...] next week virtually to discuss next steps. Catracho Gonzalez APRN.CNP [facility] 09-08-2021 History of Present illness Narrative [...] next week virtually to discuss next steps. Catracho Gonzalez APRN.CNP [facility] documented in this encounter [facility] 06-13-2021 History and physical note COLORECTAL [...] the past for FI and ARM testing ([id number]). 02/01/2012 ARM: IMPRESSION: Normal resting and low squeeze pressures. Normal volume studies. Normal nerve studies. Today she reports: -recently saw DOCUMENT EXAMINER and was encouraged to stop taking Metamucil [...] closed Resting tone: WEAK Squeeze tone: WEAK Bakery Deliverer present: Yes, Tila Samuels Anoscopy: The patient [...] of SNS and she was given the [employer] SNS brochure. Data Reviewed: Tests & Documents [...] treatment plan: moderate documented in this encounter [facility] 06-13-2021 Instructions Catracho Gonzalez APRN.CNP - 06/13/2021 10:30 AM EDT -begin taking 1 tablet imodium at bedtime and 30 min before exercise -schedule pelvic floor PT -fill out bowel diary for 2 weeks, email To ATTN Catracho Gonzalez CNP -follow up in 3 months documented in this encounter [facility] Evaluation + Plan note Future Appointments Appointment Date:05/03/2023 08:15:00 AM Scheduled Provider:N[facility]S [facility] [facility] Evaluation + Plan note Future Appointments Appointment Date:05/03/2023 08:15:00 AM Scheduled Provider:Nash NICHOLS [facility] Type:URO Office Visit Diagnostic Tests PendingUrine Culture 04/30/22 [facility] Evaluation + Plan note Future Appointments Appointment Date:06/15/2024 09:15:00 AM Scheduled Provider:Nash NICHOLS MD [facility] App[facility] Type:URO Office Visit [facility] Evaluation note Diagnosis Incontinence of feces, unspecified fecal incontinence type- [facility] Diagnosis Pelvic floor dysfunction in female- [facility] Diagnosis Full incontinence of feces- [facility] Diagnosis Exudative age-related macular degeneration of left eye with active choroidal neovascularization (HCC) (CMS/HCC)- Primary documented in this encounter [facility]* Diagnosis Exudative age-related macular degeneration of left eye with active choroidal neovascularization (CMS/HCC)- Primary documented in this encounter [facility]* Diagnosis Exudative age-related macular degeneration of left eye with active choroidal neovascularization (HCC) (CMS/HCC) documented in this encounter [facility]* Diagnosis Exudative age-related macular degeneration of left eye with active choroidal neovascularization (CMS/HCC) documented in this encounter [facility]* Diagnosis Exudative age-related macular degeneration of left eye with active choroidal neovascularization (CMS/HCC)- Primary documented in this encounter [facility]* Diagnosis Exudative age-related macular degeneration of left eye with active choroidal neovascularization (CMS/HCC)- Primary documented in this encounter [facility]* Diagnosis Vaginal irritation from pessary (HCC) (CMS/HCC)- Primary Well woman exam with routine gynecological exam Routine gynecological examination Postmenopausal state Asymptomatic postmenopausal status (age-related) (natural) [facility] N[facility] No data available for this section [facility] Hospital Discharge instructions No data available for this section [facility] progress note No data available for this section [facility] reason for referral (narrative)* Outpatient Procedure (Routine) - Pending Review Specialty Diagnoses / Procedures Referred By Contac t Referred To Contact [facility] Diagnoses Incontinence of feces, unspecified fecal incontinence type Procedures [facility] ANORECTAL MANOMETRY ANORECTAL MANOMETRY Lorie Romero APRN.FIRE EQUIPMENT INSPECTOR HELPER [address] [place] [address] [facility] [address] [id number] Referral ID Status Reason Start Date Expiration Date Visits Requested Visits Authorized [id number] Pending Review Auto-Generat ed Referral 06/13/2021 06/13/2022 1 1 [facility] Summary Purpose Family History No Family History Records FoundNo Family History Records FoundNo Family History Records Found No data available for this section No data available for this section No data available for this section No Family History Records FoundNo Family History Records Found Advance Directives Documents on File Type Date Recorded 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 Directive(s) 03/07/2009 11:13 AM Documents on File Type Date Recorded 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(s) 03/07/2009 11:13 AM Reason for Referral Specialty Diagnoses / Procedures Referred By Laura osman Referred To Contact [facility] Diagnoses Pelvic floor dysfunction in female Procedures CONSULT TO PHYSICAL THERAPY PHYSICAL THERAPY EVALUATION HIGH COMPLEX 45 MINS Catracho Gonzalez APRN.FIRE EQUIPMENT INSPECTOR HELPER [address] [id number] [facility] [place] [id number] Referral ID Status Reason Start Date Expiration Date Visits Requested Visits Authorized [id number] Pending Review PCP Requested Referral Auto-Generate d Referral 06/13/2021 06/13/2022 99 99 Additional Source Comments INFORMATION SOURCE (unrecogn ized section and content) DATE CREATED AUTHOR 08/30/2020 [facility] DATE CREATED AUTHOR AUTHOR'S ORGANIZ ATION 09/14/2021 [facility] DATE CREATED AUTHOR AUTHOR'S ORGANIZ ATION 06/17/2022 [facility] DATE CREATED AUTHOR AUTHOR'S ORGANIZ ATION 06/16/2024 [facility] DATE CREATED AUTHOR AUTHOR'S ORGANIZ ATION 07/31/2024 [facility] EPIC Source Comments (unrecognize d section and content) In the event this informatio n is protected by the Federal Confidentiality of Alcohol and Drug Abuse Patient Records regulations: The Federal rules restrict any use of the information to criminally investigate or prosecute any alcohol or drug abuse patient.[facility] the event this information is protected by the Federal Confidentiality of Alcohol and Drug Abuse Patient Records regulations: The Federal rules restrict any use of the information to criminally investigate or prosecute any alcohol or drug abuse patient.[facility] the event this information is protected by the Federal Confidentiality of Alcohol and Drug Abuse Patient Records regulations: The Federal rules restrict any use of the information to criminally investigate or prosecute any alcohol or drug abuse patient.[facility] the event this information is protected by the Federal Confidentiality of Alcohol and Drug Abuse Patient Records regulations: The Federal rules restrict any use of the information to criminally investigate or prosecute any alcohol or drug abuse patient.[facility] Reason for Visit (unrecogniz ed section and content) Reason Comments Manometry Reason Comments Fecal Incontinence Reason Comments Fecal Incontinence Reason Comments Retinal Injection Reason Comments Retinal Injection Macular Degeneration Reason Comments Follow-up Retinal Injection Reason Comments Follow-up Reason Comments Well Women Visit Care Teams (unrecognized sec tion and content) Outside Sales Account Representative Relationship Specialty Start Date End Date Frances Robles MD PCP - General 09/13/08 Outside Sales Account Representative Relationship Specialty Start Date End Date Frances Robles MD PCP - General 09/13/08 Outside Sales Account Representative Relationship Specialty Start Date End Date Frances Robles MD PCP - General 09/13/08 Outside Sales Account Representative Relationship Specialty Start Date End Date Frances Robles MD PCP - General 09/13/08 Outside Sales Account Representative Relationship Specialty Start Date End Date Frances Robles MD [address] [place] [address] PCP - General Family Medicine 11/14/22 Outside Sales Account Representative Relationship Specialty Start Date End Date Frances Robles MD [address] [place] [address] PCP - General Family Medicine 11/14/22 Outside Sales Account Representative Relationship Specialty Start Date End Date Frances Robles MD [address] [place] [address] PCP - General Family Medicine 11/14/22 Outside Sales Account Representative Relationship Specialty Start Date End Date Frances Robles MD [address] [place] [address] PCP - General Family Medicine 11/14/22 Outside Sales Account Representative Relationship Specialty Start Date End Date Frances Robles MD [address] [place] [address] PCP - General Family Medicine 11/14/22 Outside Sales Account Representative Relationship Specialty Start Date End Date Frances Robles MD [address] [place] [address] PCP - General Family Medicine 11/14/22 Outside Sales Account Representative Relationship Specialty Start Date End Date Frances Robles MD PCP - General Family Medicine 11/14/22 Outside Sales Account Representative Relationship Specialty Start Date End Date Frances Robles MD PCP - General Family Medicine 11/14/22 Outside Sales Account Representative Relationship Specialty Start Date End Date Frances Robles MD [address] [place] [address] PCP - General Family Medicine 11/14/22 FOR [...] ON THE PRIMARY CLINICAL RECORDS. [facility]. provides no warranty or guarantee of the accuracy or completeness of information in this document.
== END 2024-08-18 09:02 | disposition home or self-care (01) ==
LOC: RAD 09:01
PROVIDERS: PCP Family Medicine; Visit Provider Physician Assistant
DX: Z78.0 Asymptomatic menopausal state (principal); M85.80 Other specified disorders of bone density and structure, unspecified site
CPT/HCPCS: 77080

== ENCOUNTER 2024-10-20 11:30 | Outpatient (OUT) | payer MEDICARE, OTHER, SELFPAY ==
--- NOTE | 2024-10-20 11:32 | MM_ITS ---
Patient Name: FIOR ARGUELLO MR#: [id number] : 1940 Exam Date: 10/20/2024 Ordering Doctor: DR FRANCES VÁSQUEZ . cRADIOLOGY REPORT PROCEDURE: MM TOMOSYNTHESIS SCREENING BI COMPARISON: MM TOMOSYNTHESIS SCREENING BI, 10/07/2023. MG MAMM SCREEN 3D [place] CAD, 06/12/2022. MG MAMM SCREEN 3D [place] CAD, 05/22/2021. MG MAMM [place] SCRN W CAD DIG, 01/12/2014. INDICATIONS: Screening Calculator Name NCI Breast Cancer Risk Assessment Tool 5 Year Breast Cancer Risk 1.90% Lifetime Breast Cancer Risk 2.60% Personal Breast Cancer No Personal Ovarian Cancer No Treatments None Family Cancers Mother with uterine cancer at age 60; Father with colon cancer at age 85. LOCATION: [facility] BREAST COMPOSITION: There are scattered areas of fibroglandular density. FINDINGS: RIGHT BREAST: No significant suspicious finding. LEFT BREAST: No significant suspicious finding. DIAGNOSTIC CATEGORY 1--NEGATIVE. RECOMMENDATIONS: ROUTINE MAMMOGRAM AND CLINICAL EVALUATION IN 12 MONTHS. Dictated by: Raul Jorgensen DO on 10/20/2024 at 13:58 Approved by: Raul Jorgensen DO on 10/20/2024 at 14:01
--- OUTSIDE RECORDS SUMMARY | 2024-10-20 11:32 | XMS_ITS | Clinical Summary ---
Author Organization [facility] Address [address] [place] [address] Care Team Providers Care Mold Capper Helper Name Role Phone Unavailable Primary Care Provider Unavailabl e Social History Tobacco Use Types Packs/Day Years Used Date Smoking Tobacco: Never Assessed Comments Unknown Sex and Gender Information Value Date Recorded Sex Assigned at Not on file Legal Sex Female 12:28 AM EDT Gender Identity Not on file Sexual Orientation Not on file Plan of Treatment Not on file
--- OUTSIDE RECORDS SUMMARY | 2024-10-20 11:32 | XMS_ITS | Clinical Summary ---
Author Organization [facility] Address [id number] [address] [place] [address] Care Team Providers Care Line Service Supervisor Name Role Phone Mike Robles MD Primary Care Provider [phone] Allergies Active Allergy Reactions Criticality Noted Date Comments Cephalexin Diarrhea 11/10/2021 Sulfa (Sulfonamide Antibiotics) Hives 10/26 Medications vit C,E-Kb-uecnl-bucky tein-zeaxan 250-90-40-1 mg capsule Take by mouth 2 (two) times a day. Preservision Areds Active omeprazole (PriLOSEC) 20 mg capsule Take 20 mg by mouth in the morning and 20 mg before bedtime. Active calcium carbonate-vitam in D3 (OSCAL 500 + D) 500 mg(1,250mg) -200 units per tablet Take 1 tablet by mouth in the morning and 1 tablet in the evening. Take with meals. Active ezetimibe (ZETIA) 10 mg tablet Take 10 mg by mouth in the morning. Active olmesartan (BENICAR) 20 mg tablet Take 20 mg by mouth in the morning. Active raloxifene (EVISTA) 60 mg tablet Take 60 mg by mouth in the morning. Active rosuvastatin (CRESTOR) 20 mg tablet Take 20 mg by mouth in the morning. Active levothyroxine (SYNTHROID, LEVOTHROID) 50 MCG tablet Take 50 mcg by mouth in the morning. Active liothyronine (CYTOMEL) 25 MCG tablet Take 12.5 mcg by mouth in the morning. Active mirabegron (MYRBETRIQ) 50 mg tablet extended release 24 hr Take 50 mg by mouth daily. Active loperamide (IMODIUM) 2 mg capsule Take 1 mg by mouth 4 (four) times a day as needed for diarrhea. Active ibuprofen (MOTRIN) 600 mg tablet Take 1 tablet (600 mg total) by mouth every 6 (six) hours as needed for pain. 30 tablet Active Family History Medical History Relation Name Comments Heart disease Brother Hypertension Brother Cancer Father bowel Heart failure Maternal Grandfather Colon cancer Maternal Grandmother Asthma Mother Colon cancer Paternal Grandfather prostat e Relation Name Status Comments Brother Alive Father Maternal Grandfather Maternal Grandmother Mother Paternal Grandfather Social History Tobacco Use Types Packs/Day Years Used Date Smoking Tobacco: Never Smokeless Tobacco: Never Alcohol Use Standard Drinks/Week Comments Yes 0 (1 standard drink = 0.6 oz pur e alcohol) rare Childcare Answer Date Recorded Childcare Unknown 08/06/2018 Employment Answer Date Recorded Employment Unknown 08/06/2018 Comments No Sex and Gender Information Value Date Recorded Sex Assigned at Not on file Legal Sex Female 12:12 PM EDT Gender Identity Not on file Sexual Orientation Not on file Last Filed Vital Signs Vital Sign Reading Time Taken Comments Blood Pressure 124/75 11/15/2021 2:06 PM EDT Pulse 79 11/15/2021 2:06 PM EDT Temperature 35.8 C (96.5 F) 11/15/2021 1:34 PM EDT Respiratory Rate 15 11/15/2021 2:06 PM EDT Oxygen Saturation 96% 11/15/2021 2:06 PM EDT Inhaled Oxygen Concentration - - Weight 71.2 kg (157 lb) 11/15/2021 9:53 AM EDT Height 157.5 cm (5' 2 ) 11/15/2021 9:53 AM EDT Body Mass Index 28.72 11/15/2021 9:53 AM EDT Plan of Treatment Health Maintenance Due Date Last Done Comments Depression Screening 1952 Tobacco Screening 1952 DTaP,Tdap and Td Vaccines (1 - Tdap) 1960 Fall Risk Screening 2006 COVID-19 Vaccine (2023-2 5 season) 2023 08/17/2021, 11/29/2020, 04/14/2020, Additional history exists Influenza Vaccine 10/26/2024 11/29/2020, 01/04/2009 Zoster (Shingles) Vaccine Completed 12/16/2018, Medical Devices Not on file Insurance MEDICARE [place] Care Teams Line Service Supervisor Relationship Specialty Start Date End Date Mike Robles MD PCP - General Family Medicine 06/21/21
--- OUTSIDE RECORDS SUMMARY | 2024-10-20 11:32 | XMS_ITS | Clinical Summary ---
Author Organization [facility] Address [address] [place] [id number] Care Team Providers Care Leather Coverer Name Role Phone Mike Robles MD Primary Care Provider [phone] Allergies Active Allergy Reactions Criticality Noted Date Comments Cephalexin Diarrhea 06/13/2021 Meloxicam GI Upset 01/31/2010 Oxycodone-Acetaminophen Intolerance 08/08/2009 Sulfa (Sulfonamide Antibiotics) Hives Low 09/25 Medications LISINOPRIL 10 MG TAB 2 tabs once a day 0 9 Active Additional Information Patient not taking.Reported on 06/13/2021 raloxifene hcl(EVISTA 60 MG TAB) Take one(1) tablet daily. 0 9 Active calcium carbonate/vitam in d3(CALCIUM 600 + D(3) 600 MG (1,500)-200 UNIT TAB) Take one(1) tablet daily. 0 9 Active omega-3 acid ethyl esters(LOVAZA 1 GRAM CAP) Take four (4) capsules once daily 0 9 Active Additional Information Patient not taking.Reported on 06/13/2021 beta-carotene(a ) w-c & e/min(OCUVITE TAB) Take two (2) tablets in AM 0 9 Active Additional Information Patient not taking.Reported on 06/13/2021 omeprazole(PRIL OSEC 20 MG CAP) Take 20 mg by mouth twice daily. 0 2 Active ezetimibe(ZETIA 10 MG TAB) Take one(1) tablet daily. 0 0 Active vit C/E/Zn/coppr/bucky tein/zeaxan (PRESERVISION AREDS-2 ORAL) Take 1 tablet by mouth twice daily. Active olmesartan medoxomil (OLMESARTAN ORAL) Take 20 mg by mouth once daily. Active mirabegron (MYRBETRIQ ORAL) Take 50 mg by mouth once daily. Active rosuvastatin calcium (ROSUVASTATIN ORAL) Take 10 mg by mouth once daily. Active aspirin 81 mg cap Take 81 mg by mouth. Active liothyronine (CYTOMEL) 25 mcg tablet Take 25 mcg by mouth once daily. Active levothyroxine 100 mcg cap Take 50 mcg by mouth daily before breakfast. Active Active Problems Problem Noted Date Diagnosed Date Urethrocele, female Rectal prolapse Family History Medical History Relation Comments Colon Cancer Father Cancer Mother uterine cancer, hypothyroidism,lung disease Relation Status Comments Father Mother Social History Tobacco Use Types Packs/Day Years Used Date Smoking Tobacco: Never Smokeless Tobacco: Never Alcohol Use Standard Drinks/Week Comments Never 0 (1 standard drink = 0.6 oz pur e alcohol) Comments No Sex and Gender Information Value Date Recorded Sex Assigned at Female 06/10/2021 7:55 PM EDT Legal Sex Female 8:21 AM EST Gender Identity Female 06/10/2021 7:55 PM EDT Sexual Orientation Not on file Last Filed Vital Signs Vital Sign Reading Time Taken Comments Blood Pressure 138/84 06/13/2021 9:46 AM EDT Pulse 94 06/13/2021 9:46 AM EDT Temperature 36.3 C (97.3 F) 06/13/2021 9:46 AM EDT Respiratory Rate 20 03/07/2009 7:30 AM EST Oxygen Saturation 96% 06/13/2021 9:46 AM EDT Inhaled Oxygen Concentration - - Weight 73.7 kg (162 lb 8 oz) 06/13/2021 9:46 AM EDT Height 157.5 cm (5' 2 ) 06/13/2021 9:46 AM EDT Body Mass Index 29.72 06/13/2021 9:46 AM EDT Plan of Treatment Health Maintenance Due Date Last Done Comments Anxiety Screening 11[birth year]25/1958 Depression Screening 11/25/1959 DTaP,Tdap,Td Vaccine (1 - Tdap) 1960 Bone Density Screening 2006 Diabetes Screening 03/06/2012 03/06/2009, 0 03/05/2009, 03/04/2009, Additional history exists RSV Vaccine (1 - 1-dose 75+ series) 2016 Advance Directive Discussion 02/26/2024 Influenza Vaccine (#1) 2024 11/29/2020, 2008 Shingrix Vaccine Completed 12/16/2018, 10/08/2018 Pneumococcal Vaccine: 50+ Completed 10/27/2019, Medical Devices Implanted Type Area Ob Scrub Tech Device Identifier Shelf Expiration Date Model / Serial / Lot Exo-Xo-U-Kind Implant - [id number] Implanted:Qty : 1 on 03/04/2009 at [facility] Implant N/A: Rectum [employer] 10/26/2009 [id number] / / [id number] Description:Surgisis Biodesi gn 4 layer tissue graft Device Tvt W/ Obturator - [id number] Implanted:Qty : 1 on 03/04/2009 at [facility] TVT Device [email or web address] 07/26/2009 [id number] / / [id number] Procedures Procedure Name Priority Date/Time Associated Diagnosis Comments BASIC METABOLIC PANEL Routine 03/06/2009 11:13 PM EST from Last 3 Months or Most Recently Relevant to Health Maintenance Results * (ABNORMAL) BASIC METABOLIC PNL (03/06/2009 11:13 PM EST) Glucose 92 65 - 100 mg/dL [facility] BUN 4(L) 8 - 25 mg/dL [facility] Creatinine 0.73 0.70 - 1.40 mg/dL [facility] Sodium 143 132 - 148 mmol/L [facility] Potassium 3.9 3.5 - 5.0 mmol/L [facility] Chloride 108 98 - 110 mmol/L [facility] CO2 28 23 - 32 mmol/L [facility] Anion Gap 7 0 - 15 mmol/L [facility] Calcium 8.5 8.5 - 10.5 mg/dL [facility] Blood specimen (specimen) BLOOD SPECIMEN / Unknown 03/06/2009 11:13 PM EST [facility] Final Result [facility] [address] [place] [address] from Last 3 Months or Most Recently Relevant to Health Maintenance Insurance MEDICARE [address] MEDICARE SUPPLEMENT Advance Directives Documents on File Type Date Recorded Patient Delivery And Installation Subcontractor Expl anation Advance Directive(s) 03/07/2009 11:13 AM Care Teams Leather Coverer Relationship Specialty Start Date End Date Mike Robles MD PCP - General 09/13/08
--- OUTSIDE RECORDS SUMMARY | 2024-10-20 11:38 | XMS_ITS | CCD ---
Author Organization [facility] Care Team Providers Care Regional Facilities Manager Name Role Phone Frances Robles MD Primary Care Provider [phone] Frances Robles Primary Care Physician ROVERTO, DR PEREZ Admitting Unavailable AHMED, DR PEREZ Attending Unavailable HOY ., DR DANIELS Primary Care Unavailable [facility], DR PHILLIP Engel Consulting Unavailable AHMED, DR [...] HOY ., DR DANIELS Primary Care Unavailable [place], DR BRANDYN Yousif Consulting Unavailable AHMED, DR [...] Unavailable HOY ., DR FRANCES Attending Unavailable THALIA ., DR DANIELS Primary Care Unavailable THALIA Cabral, DR DANIELS Consulting Unavailable Frances Robles MD Primary Care Provider [phone] Nash NICHOLS Attending Unavailable Nash NICHOLS Attending Unavailable Frances Robles MD Primary Care Provider [phone] Frances Robles MD Primary Care Provider [phone] AL PRASAD Attending Unavailable AL PRASAD Attending Unavailable ZOILA MAYS Attending Unavailable AL PRASAD Attending Unavailable AL PRASAD Attending Unavailable AL PRASAD Attending Unavailable ZOILA MAYS Attending Unavailable AL PRASAD Attending Unavailable Allergies Allergy Classification Reported Allergen(s) Allergy Type Date of Onset Reaction(s) Facility (20 sources) Acetaminophen / oxyCODONE; Translations: [acetaminophen-oxyc odone] Drug Allergy 08-09-19 10 Intolerance [facility] (4 sources) meloxicam Drug Allergy 02-01-20 10 GI Upset [facility] (20 sources) Sulfonamides (Antibiotic) Propensity to adverse reactions 10-06-19 09 Hives [facility] (20 sources) Cephalexin; Translations: [cephalexin] Drug Allergy 06-14-19 22 Diarrhea, Vomiting (disorder), GI intolerance [facility] (7 sources) Sulfamethoxazole; Translations: [sulfamethoxazole] Drug Allergy [facility] (disorder) [facility] (2 sources) Sulfonamides (Antibiotic) Drug allergy (disorder) 10-18-19 13 [facility] Repository (20 sources) meloxicam Drug Allergy 02-01-20 10 GI intolerance [facility] (1 source) Acetaminophen / oxyCODONE; Translations: [Percocet 10/325] Drug Allergy [facility] Repository (1 source) Cephalexin; Translations: [Keflex] Drug Allergy [facility] Repository (4 sources) Sulfamethoxazole Allergy to substance 08-28-19 25 [facility] (4 sources) Sulfanilamide Allergy to substance 08-28-19 25 [facility] Medications Current Medications Medication Drug Class(es) Dates [...] Daily, # 90 tab(s), Refills(s) 3, Pharmacy: [facility], 157, cm, 04/27/22 8:58:00 [...] Daily, # 90 tab(s), Refills(s) 3, Pharmacy: [facility] (Now [facility]), 157, cm, 04/24/21 10:01:00 EST, Height/Length Dosing, 78, kg, 04/24/21 10:01:00 EST, Weight Dosing Start Date: 09/28/21 Status: Ordered take 50 mg by mouth once daily m irabegron (MYRBETRIQ ORAL) Take 50 mg by mouth once daily. 0 Active Comment on above: Take 50 mg by mouth once daily. Multiple Vitamins-Minerals (ICAPS AREDS 2 PO) (7 sources) Multiple Vitamins-Minerals (ICAPS AREDS 2 PO) [...] aily. rosuvastatin calcium 20 mg oral tablet (16 sources) HMG-CoA Reductase Inhibitor Start: 09-05-2018 rosuvastatin 20 mg oral tablet Refills(s) 0 Start Date: 09/05/18 Status: Ordered take 10 mg by mouth once daily r osuvastatin calcium (ROSUVASTATIN ORAL) Take 10 mg by mouth once daily. 0 Active Comment on above: Take 10 mg by mouth once daily. triamcinolone acetonide 1 mg/ml topical cream (7 sources) Corticosteroid Start: 07-30-2024 triamcinolone (Kenalog) 0.1 % cream Indications: Vaginal irritation from pessary Apply topically in the morning and before bedtime. Apply bid for one week followed by once weekly. 80 g 3 07/30/2024 Active Benefiber (3 sources) Start: 02-21-2010 Benefiber Refill(s) 0 Start Date: 02/21/10 Status: Ordered Completed/Discontinued Medications Medication Drug Class(es) Dates Sig (Normalized) Sig (Original) 0.05 ml aflibercept 40 mg/ml injection (4 sources) Vascular Endothelial Growth Factor Inhibitor Start: 09-07-2024 End: 09-07-2024 2 mg, Intravitreal, Once PRN Procedure, Starting on Sat09/07/24 at 1534, For 1 dose Start: 07-01-2024 End: 07-01-2024 2 mg, Intravitreal, [...] mg / cholecalciferol 200 unt oral tablet (20 sources) Vitamin D Start: 10-05-2008 calcium carbon [...] once a day omega-3 acid ethyl esters (correction) 1000 mg oral capsule (4 sources) Start: [...] Episodic Complication of device; implant or graft (4 sources) Vaginal irritation; Translations: [Other specified complication [...] sources) 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 Radiology Study observation (narrative) [facility] Optical coherence tomography study reporton 09-07-2024 [facility] Radiology Study observation (narrative) [facility] eye Ophthalmologic ruby tmenton 07-01-2024 [facility] Radiology Study observation (narrative) [facility] Optical coherence tomography study reporton 07-01-2024 [facility] Radiology Study observation (narrative) [facility] Ambulatory Visit Summaryon 0 06-15-2024 Ambulatory Visit [...] Where: [facility] [address], [place] [address]- [phone] Medications What How Much When Instructions Unchanged [...] while s (more content not included)... Normal [facility] Urology Office/Clinic Noteon 06-15-2024 Urology Office/Clinic [...] sling placed 2009. Underwent PFPT 2022 @ [facility] due to bowel issues. [place] she learned a lot about bladder health and was happy with results. UA today shows small leuks. Asx. Taking Myrbetriq 50mg qd. Shares she has leakage in the morning if she does not void during the night. Denies issues with urination during the day. States she did look into Ombu, and it was more expensive. Advised pt [...] [facility] [address], [place] [address] [phone] Additional Instructions: 1 yr (no labs) Patient Education Kegel Magali Baires, personally scribed for Dr. Nichols on 06/15/2024 10:08:49. . Documentation recorded by the scribeMagali, accurately reflects the services(s) I performed and [...] virus vaccine, inactivated 12/12/2021 Recorded SARS-CoV-2 (COVID-19) [id number] 12/12/2021 Recorded SARSCoV2 mRNA(fbkjtiskl-hubr-zuzf os) vac 08/17/2021 Recorded influenza virus vaccine, inactivated 11/29/2020 Recorded SARS-CoV-2 (COVID-19) mRNA BNT-162b2 vax 11/29/2020 Recorded SA (more content not included)... Normal [facility] Comment on above: Result Comment: Elec tronically Signed By: Nash NICHOLS MD\.br\Date and Time Signed: 06/15/24 10:14 EDT\.br\Electronically Co-Signed By: Magali Omer\.br\Date and Time Co-Signed: 06/15/24 10:12 EDT Left eye Ophthalmologic ruby tmenton 04-22-2024 [facility] Radiology Study observation (narrative) [facility] Optical coherence tomography study reporton 04-22-2024 [facility] Radiology Study observation (narrative) [facility] Left eye Ophthalmologic ruby tmenton 02-12-2024 [facility] Radiology Study observation (narrative) [facility] Optical coherence tomography study reporton 02-12-2024 [facility] Radiology Study observation (narrative) [facility] Left eye Ophthalmologic ruby tmenton 12-18-2023 [facility] Radiology Study observation (narrative) [facility] Optical coherence tomography study reporton 12-18-2023 [facility] Radiology Study observation (narrative) [facility] Left eye Ophthalmologic ruby tmenton 10-23-2023 [facility] Radiology Study observation (narrative) [facility] Optical coherence tomography study reporton 10-23-2023 [facility] Radiology Study observation (narrative) [facility] Left eye Ophthalmologic ruby tmenton 04-08-2023 [facility] Radiology Study observation (narrative) [facility] Optical coherence tomography study reporton 04-08-2023 [facility] Radiology Study observation (narrative) [facility] MG MAMM SCREEN 3D [place] CADon 06-12-2022 MG MAMM SCREEN 3D [place] CAD Patient: JOSIANE LOAIZA Exam Date: 06/12/2022 : 1940 Gender:F Ordering : DR CHRIS LAYNE Admission #: [id number] Family : DR FRANCES ROBLES . Order #: [id number] CLICK HERE TO VIEW EXAM RADIOLOGY REPORT [...] colon cancer at age 86. LOCATION: [facility] BREAST COMPOSITION: Scattered areas fibroglandular density. FINDINGS: [...] M.D. on 06/12/2022 at 13:48 Normal [facility] FREE T3on 04-05-2022 FREE T3 2.36 pg/mlL Normal 2.18-3.98 [facility] Comment on above: Performed By: #### T 4, TSH, FT3 #### [facility] [address] [address] [address] Clement Duncan T4on 04-05-2022 T4 [Mass/Vol] 6.10 ug/dL Normal 4.80-13.90 [facility] Comment on above: Performed By: #### T 4, TSH, FT3 #### [facility] [address] [address] [address] Clement Duncan TSHon 04-05-2022 TSH 0.257 uIU/mL Critically low 0.358-3.740 [facility] Comment on above: Performed By: #### T 4, TSH, FT3 #### [facility] [address] [address] [address] Clement Duncan CBC AUTO DIFFon 01-03-2022 BASO # 0.0 103/ul Normal 0.0-0.1 [facility] Comment on above: Performed By: #### C BC #### [facility] [address] [address] [address] Clement Duncan Basophils/100 WBC (Bld) 0.4 % Normal 0.2-2.0 [facility] Comment on above: Performed By: #### C BC #### [facility] [address] [address] [address] Clement Duncan EO # 0.0 103/ul Normal 0.0-0.7 [facility] Comment on above: Performed By: #### C BC #### [facility] [address] [place] [address] Dr. Clement Duncan Eosinophils/100 WBC (Bld) 0.2 % Critically low 0.9-7.0 [facility] Comment on above: Performed By: #### C BC #### [facility] [address] [place] [address] Dr. Clement Duncan Erythrocyte distribution width (RBC) [Ratio] 15.3 % Critically high 11.0-15.0 [facility] Comment on above: Performed By: #### C BC #### [facility] [address] [place] [address] Dr. Clement Duncan Hematocrit (Bld) [Volume fraction] 41.7 % Normal 36.0-48.0 [facility] Comment on above: Performed By: #### C BC #### [facility] [address] [address] [address] Clement Duncan Hemoglobin (Bld) [Mass/Vol] 13.5 g/dL Normal 12.0-16.0 [facility] Comment on above: Performed By: #### C BC #### [facility] [address] [place] [address] Dr. Clement Duncan IG # 0.02 10e3/ul Normal 0.00-0.03 [facility] Comment on above: Performed By: #### C BC #### [facility] [address] [place] [address] Dr. Clement Duncan IG % 0.2 % Normal 0.0-0.5 [facility] Comment on above: Performed By: #### C BC #### [facility] [address] [place] [address] Dr. Clement Duncan LYMPH # 1.2 103/ul Normal 1.2-3.8 [facility] Comment on above: Performed By: #### C BC #### [facility] [address] [place] [address] Dr. Clement Duncan Lymphocytes/100 WBC (Bld) 13.3 % Critically low 20.5-60.0 [facility] Comment on above: Performed By: #### C BC #### [facility] [address] [place] [address] Dr. Clement Duncan MANUAL DIFF REQ NO Normal [facility] Comment on above: Performed By: #### C BC #### [facility] [address] [place] [address] Dr. Clement Duncan MCH (RBC) [Entitic mass] 28.5 pg Normal 26.7-34.0 [facility] Comment on above: Performed By: #### C BC #### [facility] [address] [place] [address] Dr. Clement Duncan MCHC (RBC) [Mass/Vol] 32.4 g/dL Normal 29.9-35.2 [facility] Comment on above: Performed By: #### C BC #### [facility] [address] [place] [address] Dr. Clement Duncan MCV (RBC) [Entitic vol] 88.0 fL Normal 81.0-99.0 [facility] Comment on above: Performed By: #### C BC #### [facility] [address] [place] [address] Dr. Clement Duncan MONO # 0.7 103/ul Normal 0.3-0.8 [facility] Comment on above: Performed By: #### C BC #### [facility] [address] [address] [address] Clement Duncan Monocytes/100 WBC (Bld) 7.6 % Normal 1.7-12.0 [facility] Comment on above: Performed By: #### C BC #### [facility] [address] [address] [address] Clement Duncan NEUT # 7.3 103/ul Critically high 1.4-6.5 [facility] Comment on above: Performed By: #### C BC #### [facility] [address] [place] [address] Dr. Clement Duncan Neutrophils/100 WBC (Bld) 78.3 % Critically high 43.0-75.0 [facility] Comment on above: Performed By: #### C BC #### [facility] [address] [place] [address] Dr. Clement Duncan Platelet mean volume (Bld) [Entitic vol] 9.5 fL Normal 9.5-13.5 [facility] Comment on above: Performed By: #### C BC #### [facility] [address] [place] [address] Dr. Clement Duncan PLT 331 103/ul Normal 150-450 [facility] Comment on above: Performed By: #### C BC #### [facility] [address] [place] [address] Dr. Clement Duncan RBC 4.74 106/ul Normal 4.20-5.40 [facility] Comment on above: Performed By: #### C BC #### [facility] [address] [place] [address] Dr. Clement Duncan WBC 9.3 103/ul Normal 4.0-11.0 [facility] Comment on above: Performed By: #### C BC #### [facility] [address] [place] [address] Dr. Clement Duncan FREE THYROXINE INDEX T7on FTI 2.11 Normal 1.30-4.50 [facility] Comment on above: Performed By: #### T 4, TSH, FT3 #### [facility] [address] [address] [address] Clement Duncan T3U 34.0 % Normal 30.0-39.0 [facility] Comment on above: Performed By: #### T 4, TSH, FT3 #### [facility] [address] [address] [address] Clement Duncan T4 [Mass/Vol] 6.20 ug/dL Normal 4.80-13.90 [facility] Comment on above: Performed By: #### T 4, TSH, FT3 #### [facility] [address] [address] [address] Clement Duncan IRONon 01-03-2022 Iron [Mass/Vol] 85.0 ug/dL Normal 50.0-170.0 [facility] Comment on above: Performed By: #### T 4, TSH, FT3 #### [facility] [address] [address] [address] Clement Duncan LIPID PROFILEon 01-03-2022 CHOL-HDL RATIO NORM SEE BELOW Normal [facility] Comment on above: Result Comment: 3.3 - 4.4 LOW RISK 4.4 - 7.1 AVERAGE RISK 7.1 - 11.0 MODERATE RISK >11.0 HIGH RISK Performed By: #### T 4, TSH, FT3 #### [facility] [address] [address] [address] Clement Duncan Cholesterol [Mass/Vol] 142 mg/dL Normal <=200 [facility] Comment on above: Performed By: #### T 4, TSH, FT3 #### [facility] [address] [address] [address] Clement Duncan Cholesterol in HDL [Mass/Vol] 83 mg/dL Critically high 40-60 [facility] Comment on above: Performed By: #### T 4, TSH, FT3 #### [facility] [address] [address] [address] Clement Duncan Cholesterol in LDL [Mass/Vol] 46.0 mg/dL Normal [facility] Comment on above: Performed By: #### T 4, TSH, FT3 #### [facility] [address] [address] [address] Clement Duncan Cholesterol.total/ Cholesterol in HDL [Mass ratio] 1.7 {ratio} Normal [facility] Comment on above: Performed By: #### T 4, TSH, FT3 #### [facility] [address] [address] [address] Clement Duncan HDL NORMAL > or = 60 mg/dl - LO W CARDIOVASCULAR RISK <40 mg/dl - HIGH CARDIOVASCULAR RISK Normal [facility] Comment on above: Performed By: #### T 4, TSH, FT3 #### [facility] [address] [address] [address] Clement Duncan LDL CALC NORMAL SEE BELOW Normal [facility] Comment on above: Result Comment: <100 mg/dl OPTIMAL 100 - 129 mg/dl NEAR OR ABOVE OPTIMAL 130 - 159 mg/dl BORDERLINE HIGH 160 - 189 mg/dl HIGH >190 mg/dl VERY HIGH Performed By: #### T 4, TSH, FT3 #### [facility] [address] [address] [address] Clement Duncan Triglyceride [Mass/Vol] 65 mg/dL Normal <=150 [facility] Comment on above: Performed By: #### T 4, TSH, FT3 #### [facility] [address] [place] [address] Dr. Clement Duncan VLDL CALC 13.0 mg/dL Normal [facility] Comment on above: Performed By: #### T 4, TSH, FT3 #### [facility] [address] [address] [address] Clement Duncan PROF 14(COMP METB)on 022 Albumin [Mass/Vol] 3.3 g/dL Critically low 3.4-5.0 [facility] Comment on above: Performed By: #### T 4, TSH, FT3 #### [facility] [address] [place] [address] Dr. Clement Duncan Albumin/Globulin [Mass ratio] 0.9 {ratio} Normal [facility] Comment on above: Performed By: #### T 4, TSH, FT3 #### [facility] [address] [address] [address] Celment Duncan ALP [Catalytic activity/Vol] 89 U/L Normal 46-116 [facility] Comment on above: Performed By: #### T 4, TSH, FT3 #### [facility] [address] [address] [address] Clement Duncan ALT [Catalytic activity/Vol] 20 U/L Normal 14-59 [facility] Comment on above: Performed By: #### T 4, TSH, FT3 #### [facility] [address] [address] [address] Clement Duncan Anion gap [Moles/Vol] 9.8 mmol/L Normal [facility] Comment on above: Performed By: #### T 4, TSH, FT3 #### [facility] [address] [place] [address] Dr. Clement Duncan AST [Catalytic activity/Vol] 19 U/L Normal 15-37 [facility] Comment on above: Performed By: #### T 4, TSH, FT3 #### [facility] [address] [address] [address] Clement Duncan Bilirubin [Mass/Vol] 0.3 mg/dL Normal 0.2-1.0 [facility] Comment on above: Performed By: #### T 4, TSH, FT3 #### [facility] [address] [place] [address] Dr. Clement Duncan Calcium [Mass/Vol] 9.3 mg/dL Normal 8.5-10.1 [facility] Comment on above: Performed By: #### T 4, TSH, FT3 #### [facility] [address] [place] [address] Dr. Clement Duncan Chloride [Moles/Vol] 103 mmol/L Normal 98-107 [facility] Comment on above: Performed By: #### T 4, TSH, FT3 #### [facility] [address] [place] [address] Dr. Clement Duncan CO2 [Moles/Vol] 29.5 mmol/L Normal 21.0-32.[address] [facility] Comment on above: Performed By: #### T 4, TSH, FT3 #### [facility] [address] [address] [address] Clement Duncan Creatinine [Mass/Vol] 0.83 mg/dL Normal 0.55-1.02 [facility] Comment on above: Performed By: #### T 4, TSH, FT3 #### [facility] [address] [address] [address] Clement Duncan EGFR-AF IVORIAN >60 Normal >=60 [facility] Comment on above: Performed By: #### T 4, TSH, FT3 #### [facility] [address] [address] [address] Clement Duncan EGFR-NON AF IVORIAN >60 Normal >=60 [facility] Comment on above: Performed By: #### T 4, TSH, FT3 #### [facility] [address] [address] [address] Clement Duncan Globulin (S) [Mass/Vol] 3.6 g/dL Normal [facility] Comment on above: Performed By: #### T 4, TSH, FT3 #### [facility] [address] [address] [address] Clement Duncan Glucose [Mass/Vol] 87 mg/dL Normal 74-106 [facility] Comment on above: Performed By: #### T 4, TSH, FT3 #### [facility] [address] [address] [address] Clement Duncan Potassium [Moles/Vol] 4.3 mmol/L Normal 3.5-5.1 [facility] Comment on above: Performed By: #### T 4, TSH, FT3 #### [facility] [address] [address] [address] Clement Duncan Protein [Mass/Vol] 6.9 g/dL Normal 6.4-8.2 [facility] Comment on above: Performed By: #### T 4, TSH, FT3 #### [facility] [address] [address] [address] Clement Duncan Sodium [Moles/Vol] 138 mmol/L Normal 136-145 [facility] Comment on above: Performed By: #### T 4, TSH, FT3 #### [facility] [address] [address] [address] Clement Duncan Urea nitrogen [Mass/Vol] 20.0 mg/dL Critically high 7.0-18.0 [facility] Comment on above: Performed By: #### T 4, TSH, FT3 #### [facility] [address] [address] [address] Clement Duncan Urea nitrogen/Creatinin e [Mass ratio] 24.1 mg/mg Normal [facility] Comment on above: Performed By: #### T 4, TSH, FT3 #### [facility] [address] [place] [address] Dr. Clement Duncan TSHon 01-03-2022 TSH 0.129 uIU/mL Critically low 0.358-3.740 [facility] Comment on above: Performed By: #### T 4, TSH, FT3 #### [facility] [address] [place] [address] Dr. Clement Duncan T4, T3U, FTI LABCORPon 11-07 Free Thyroxine Index 1.5 Normal 1.2-4.9 [facility] Comment on above: Performed By: #### T 4, TSH, FT3 #### [facility] [address] [place] [address] Dr. Clement Duncan T3 Uptake 27 % Normal 24-39 [facility] Comment on above: Performed By: #### T 4, TSH, FT3 #### [facility] [address] [place] [address] Dr. Clement Duncan T4 [Mass/Vol] 5.5 ug/dL Normal 4.5-12.0 [facility] Comment on above: Performed By: #### T 4, TSH, FT3 #### [facility] [address] [place] [address] Dr. Clement Duncan FREE T3on 11-06-2021 FREE T3 2.53 pg/mlL Normal 2.18-3.98 [facility] Comment on above: Performed By: #### T SH, FT3 #### [facility] [address] [place] [address] Dr. Clement Duncan FREE T4on 11-06-2021 Free T4 [Mass/Vol] 0.83 ng/dL Normal 0.76-1.46 [facility] Comment on above: Performed By: #### T 4, TSH, FT3 #### [facility] [address] [place] [address] Dr. Clement Duncan TSHon 11-06-2021 TSH 0.039 uIU/mL Critically low 0.358-3.740 [facility] Comment on above: Performed By: #### T SH, FT3 #### [facility] [address] [place] [address] Dr. Clement Duncan US PELVIS AND TRANSVAGon [...] BRANDYN GUADALUPE Date: 2021-10-02 07:42 Normal [facility] FREE T3on 09-19-2021 FREE T3 2.81 pg/mlL Normal 2.18-3.98 [facility] Comment on above: Performed By: #### T SH, T4, FT3 #### [facility] [address] [place] [address] Dr. Clement Duncan T4on 09-19-2021 T4 [Mass/Vol] 5.10 ug/dL Normal 4.80-13.90 [facility] Comment on above: Performed By: #### T SH, T4, FT3 #### [facility] [address] [place] [address] Dr. Clement Duncan TSHon 09-19-2021 TSH Qn m[IU]/L Critically low 0.358-3.740 [facility] Comment on above: Performed By: #### T 4, TSH, FT3 #### [facility] [address] [place] [address] Dr. Clement Duncan FREE T3on 08-08-2021 FREE T3 1.98 pg/mlL Critically low 2.18-3.98 [facility] Comment on above: Performed By: #### T 4, TSH, FT3 #### [facility] [address] [place] [address] Dr. Clement Duncan T4on 08-08-2021 T4 [Mass/Vol] 5.60 ug/dL Normal 4.80-13.90 [facility] Comment on above: Performed By: #### T 4, TSH, FT3 #### [facility] [address] [place] [address] Dr. Clement Duncan TSHon 08-08-2021 TSH 0.059 uIU/mL Critically low 0.358-3.740 [facility] Comment on above: Performed By: #### T 4, TSH, FT3 #### [facility] [address] [place] [address] Dr. Clement Duncan TSH RANGE SEE BELOW Normal [facility] Comment on above: Result Comment: <0.3 4 UIU/ml HYPERTHYROID 0.34-5.60 UIU/ml EUTHYROID >5.60 UIU/ml HYPOTHYROID Performed By: #### T 4, TSH, FT3 #### [facility] [address] [place] [address] Dr. Clement Duncan CNOVon 06-13-2021 [facility] -------- SAUNDRA,JOSIANE S ([id number]) 1940 F Date Time Provider Department 06/13/21 10:30 AM CATRACHO GONZALEZ During your visit today, we recorded the following information about you: Temperature Pulse Blood pressure Weight 97.3 degrees 94/minute 138/84 73.7 kg Height 1.575 m Catracho Gonzalez APRN.WILDLIFE CONSERVATION PROFESSOR 06/14/2021 7:57 AM Signed COLORECTAL SURGERY New [...] the past for FI and ARM testing ([id number]). 02/01/2012 ARM: IMPRESSION: Normal resting and low squeeze pressures. Normal volume studies. Normal nerve studies. Today she reports: -recently saw MELTER HELPER and was encouraged to stop taking Metamucil [...] Laterality Date - PAST SURGICAL HISTORY OF dANMn - PAST SURGICAL HISTORY OF 2009 uterine [...] of th (more content not included)... Normal [facility] HISTORY PHYSICALon HISTORY PHYSICAL HNO ID: [id number] Author: Catracho Gonzalez APRN.WILDLIFE CONSERVATION PROFESSOR Service: ? Author Type: Nurse Practitioner Type: [...] the past for FI and ARM testing ([id number]). 02/01/2012 ARM: IMPRESSION: Normal resting and low squeeze pressures. Normal volume studies. Normal nerve studies. Today she reports: -recently saw MELTER HELPER and was encouraged to stop taking Metamucil [...] Laterality Date - PAST SURGICAL HISTORY OF dANMn - PAST SURGICAL HISTORY OF 2009 uterine [...] brain stimulator (more content not included)... Normal [facility] Provider Orderson 08-30-2020 Provider Orders [id number]#1.00OTG TIFF Normal [facility] C Urineon 08-24-2020 C Urine [...] <=4 Verified Tri/Sulf S <=2/38 Verified Normal [facility] Comment on above: Performed By: #### 6 [id number] #### [facility] (DEFAULT) [address] [place] [address] Coding Summaryon 08-23-2020 Coding Summary [facility] IgobdxpzSVi0aVb+PGhlYWQ+ FA7HHXSfB51jaCIhqJ7GJ2zX RD5WVKIBPFOHKY0SMT6cwSL4 SWkfO1ByqmQo IjvmzJXnQW50WBi2WOO2bCgw KSsaqW9gxODdZ0u1WjNpZW85 pG41JRjdRLMmGgO5JeCxzdnx bWFy P3blOfIksIXgEgp+PHRhYmxl IHdpZHRoPScxMDAlJyBzdHls KU3yYm2dLAXxSYOasEqprZSn OiBj v2ftQFSsHCzdTH2ozUchB0Is vZO1XWNjr5s6Ic84gAK+PHRk LDK4sWihRYgut509EdZsr6ly IDM3 fVZmJGjfHNI0D75me8H8SJHt OWCbMTA5iTE9uS4pgAcahgar H3IicQKkLdM6ZXK3tMRlwZ9m bGln feiegY9hWyk+C20AEB2DEBVW LX1FXjy8X1DrJvjkfPO+PC90 SJIpHQ33bGQvmDHxt3xujEb3 JzEw IDBrWGH0pMgmPLxff7VcYKWs G93jyINvf5V6OWKsxUmejXVf NpCafQF5mE3wNHwcqedub9sa dzsn Tkhox3jduj87oP48F24oAGwg TTOqWXS7RHXeGVPmqTokpx8a qX3mYv3+ZBlvx0gur0omjAq9 IjIw AHGhzaImyKrlHKC9g3GiYl05 O9WucNzws9CqEbn1nb39hFFb b4B1eST4WPfdABHvcJ3hQYoq ZnQ6 TVDeEjTcnO56xYUzEFzxQi5d jBglyXcrWJ9fNPPvxxrjNNMp nZ4fDQGjyPXvfGcxRU2uNSVx bjtm v689QgAbALP4QAFbaJPlG9Gy mM3hNxDnFZCoFIKaY6DsnTMg AFtnF664VYqdFaZ4DXFbheLq Y2Fs DEUsiUrkEhA7j6K1Bk4Cu8Gs jjtwUUU1SVojAKC4VpY7LdCf GhJ6Q1QhAfs6WYOnuKzpSY4s J3Bh ZHSrvyuhvanrvIE1MHXdISYe uI06vMGiBFtzIh7vc2H0y268 URIvZDNrrD24On3soHhjVZRv dCBU oB9tujkfg3fycmtaZnJmYWWv GMz3ZQs3ZTNwnIqbNuRzBVH0 SfE0ERM3bSKstH8auIapzjgj dG9w Oyc+G69tsY5zSYH3UBP5dnhe UBZcccJaCL57SD20F7EnGcog dGFibGU+SYHexyJdjAxuLZ9r YmFj i9xgv8UfDOpmW6TrHFBnNAfv Nev4DSBfSBJ2aQZ8eK7jDSDi LLwri6Q0zOX7H1VnzdLabj6d b2xs YVVoSQpxJ99ayRPbz9L3FYZl wXB7GCBwlRljUcCcsZ59Vvt+ CBRaqGzqd5OdLspog8bry4zf dGg9 VzWuDWZrqfHpwZajAUF4w0Sl Mk82Z55lKKwqITInXQOoCDCr PMHfuCgenr9qmU3rJr4+PGNv bCB3 tFR7gU8eYJRvAzM8JTpjJ601 CxAlmFWdPshas6top6gggWm8 WrXqNTOmknXkeFmkFVG0l1Gp Lz48 R69mILuvDWUoSCFwIVGoPRKq pDvbuc2zuK4pRf8+JA8mh9hp cz37rY38fLL+BHOvIBY0fPkx PSdw FQYwrW2dDGngMeW8VTPgMhOy qU63yQSgKKhqWr4wiWpaqWrg MD3gWTUishxan221PzRgj5lx IDEw cAUvXLmbVOA6E17as6N6SBWc USBhDBG2dIS8zQ7bmPgvmuzl bGVmdDsgdmVydGljYWwtYWxp Z246 IHRvcDsnPlBhdGllbnQgTmFt IAn8U6DuJud7FQVnyNutTQ8h iIZdJRpkQy3jdZqqdPieOW6s NTBp srhfy212TnMqe8qyQPAmyPFh AVwhWIY8L29rk7G1HMTpRXKh EKH3gXP3hE7swHlxmnqbaPNu dDsg nnWivPchCYxgCGusQ416HSNx jBxvOyPxpuRdNNLwcUZ9SO63 WF25pQWea9E4pWL5A1QyLHGg bmct vyrvzRS3BVTgRVZtgE17Sj6x sGvmYm6lYFLaYWK5DIBbyKAf P4SacT2zPuEbGYLjHVNrP4Cb eHQt DSgoM943SYgnKfR5TFHwdqZh R6DqHPXqyVsuUkA2p1L1Ye6U S1M8QG74MP68oOMxq1K0mHX2 J3Bh JTAmwvtulgndpDO2SGVbLGCw tC97Xy8jiOslCu4gIQFmYQP4 YIYqfNXiG3DnaU6aDbFsWZSb MDAw B3XdqQOnBZukA844VKvuIdO3 CZKspiHwE1RtIHFiiHckTtP9 t9Q4Mf4WHDq6LF71JI76lHPx c3R5 eCG4I9FkOBNnpwmeoeifmWL2 HXAvURZpfU54Dw1sfCboBs6t LNPuLUX3UUPgkIAxW5TweE6j OiAj PRJsIXQaZ1KsbWCfJKosC462 AHmfQwQ1UTJtuaLeZ7MhTQYx qXazIyM9a2R0Zw8RQFPfQV84 IFR5 fJS5DC78CR01X0NvLjkcdKLj bGU+PHRhYmxlIHdpZHRoPScx HDLhOyCxtZaqER4sDr0kOROs LWNv hNvfvDLtDdOcv5myMHLyYSfg TA8zwYeoQ7UmwEW3AEUci5s1 Fz15F75xI1OiaKX+PGNvbCB3 aWR0 zX4hJyNqNzT1XRvkR783YaRv hGXwDltwu4tzu4uqoAt0QvS1 SZRwanHejZakKZG6k3OoCp50 Y29s IHdpZHRoPSIxNSUiIHZhbGln px7udI5dUz7+TDNgyDS8oBS2 sC7oAoWgOtL1TBcqO857RwCa cCIv Fhxjo3rzq9idfUb0LiXlKADg vcRxtOmrXAJ6e5RtJp02G6Cw vZory0RhSuj8kc22bTNmn4M1 bGU9 V6EgPYJdgkgqyTEnhHhmOE1z YFDpsskzYDQzhM7aCHYlG7s7 AvWzEeD5VUogR5BuhpQ7DLAu cHQg SRecNPT3Y84km9Z5ZGPmVZZo LNK9iUD9yB3ynSzbsjlyoSLs vPmaobIflOveMRraLAfkZ673 IHRv kJcrFTXimS6iWURyyMAixBht SH8xLDJnpndkNuNHJPSPXaqh QlJFTkRBIFNVRTwvdGQ+PHRk IHN0 uSsxPWniCSAttF2oRXCtJ0h3 GpZdQeZ8LLdnR4QvMJDcfyrd Ef52pN1cTkBaWkY1WAlaY4Zs bnQ6 JKYwnWKlYQtiLKS4R63js9E3 YQEkGFTvVLP9zGP1lC1yjDqy bjogbGVmdDsgdmVydGljYWwt YWxp W234RXAspImmNgN0FpKpAuA6 RER5H6LmDiw4YKMcoKxkJA1y vJBsQRlkWf1ymOuytNtaCI1e NTBp djfkWIGrfK0kYQTqkACaeZll VC5iIAHiikvqm475AoYiNVL2 AQDtuSIgP8ZvkH1tIaCbGRRz MDAw A4UicWTrMQhaL895ZGomDoB5 FBCthoQtE8IgLTPqxPdjIpM4 k9D6Aa29AFFMVAOkcwseqKP+ PHRk PXI8dXzpAIrbHEYbtN6jCAPp C2a9QlQcGoG9HCjtS1MrGQUt bsvjAl51yW2vDfDaXvJ5HBpc O2Zv pfT2VTObsBEbPEiiZXF3Z34o k2J4HQAzZGLtEVV1pIP6zN6y bGlnbjogbGVmdDsgdmVydGlj YWwt KFlcA370ICIleYfrUvIPHCNL RTwvdGQ+EGGyRAA0xFvoQLta KIAyxO5qCOFnY1h8GkHuAnO3 MGlu K5DaFZZgcpjnQg68cR9cVmHj WyZ2OIyvO8QevxV5UFDvhPDv YOraYTK9B35bk1E2NKLmZOUq MDA7 mXC6cY2fxCisjqazbVHocCso jbUexHzxITaiAUooV372NUNt tVpqYg9FYV76HB88F7ZbBqrc dGFi bGU+PHRhYmxlIHdpZHRoPScx GKQyLeIyrBoyFI7bWa5xRVOn TOWksOvirQFvRtEfi7cvSHVq ZTsg CC3sxOcoZ9LuxCE5KTPxe4c3 Ub39P37vE2TdyRA+PGNvbCB3 xIT8zU0fBvKlDeA5PSlyV235 InRv pWXsZltmx2izb5nsoJl3AyHh FHTohhIsjUohZDD2w8HeGw08 B22kBUieZCAlKUEgGUYiPMUj bGln rs9icC4bSv5+IIXmeSW1pIB3 lA2vSrZqWvY6TLkkL832MjEl sWVdFoxsW45jH8CeiFF+PHRy Pjx0 UINuzImnTN8igOUlQRqeDe5o RWN0YeTaTdDcLSflL0UhAURn kvsacvlhpFP3TLPmIMDbfI63 Zm9u bKrvGd6kQKUiUDW1XBHhjAUy W0ZilT5uVrPxZMWjDPZuC7Cr jYUxHAasX043QUlpNyM6CDRn cnRp U9YuGANnnTbwOgR7h6P3Zn2N dIcyuRIxQG8tSwApNXp7F9Ky Piz0TGAncFfkEB8htPQoUMsf Zy1y hOgyaLqsRO1wVMWhsfatd540 KbTsy2hbJIQbtMMgTUwvRIH5 U95be4O1XAJgXXCuXZK7pYG7 dC1h bGlnbjogbGVmdDsgdmVydGlj QTyiEHauB947XCJnbQvlVsKS Zdm6V7PcSpf9SPMyvUjfRM8c cGFk YTkgOd7wgRpnqUimFT4iREHn qiyvr944NiZzz6iiVMPexDJa LMcdLUH9I78ru7Z3LTKfCUAm MDA7 lOG1bP8onDtirtiifUEzcVmi pyOqmWxiGZucNHgzK092VGSz bVrxEn7BDdl0R4LoDns1LHKw ls ZJ2gzISkUGxcWf8poPaqeBrn EJ0cFITaxotlf133CdWxj0ri IRDibOBaUQrlYDW4H90in3K5 ICMw ZWJuLVU9jYL7lW4lrGfhciej bGVmdDsgdmVydGljYWwtYWxp B061QQHswOyhUpSqaSEzCmac dGQ+ AQ65ea07L2GeWqsmVwd8PSYh TOR7tPB2pT5jKYPsCOaqd5F7 hDM2K8NqlaMgii6kj9rlPHCo ZTog Y29 (more content not included)... [facility] Provider Orderson 08-23-2020 Provider Orders [id number] TIFF [facility] ADULT [place] ANORECTAL [facility] Vital Signs Date Time Vital Sign Value Performing Clinician Facility 08-27-2024 09:23-0400 Body weight 73.94 kg Zoila HERRERA Work Phone: [facility] 08-27-2024 09:23-0400 Diastolic blood pressure 72 mm[Hg] Zoila HERRERA Work Phone: [facility] 08-27-2024 09:23-0400 Systolic blood pressure 120 mm[Hg] Zoila HERRERA Work Phone: [facility] 06-10-2023 12:26-0400 Blood Pressure Location Nash NICHOLS [facility] 06-10-2023 12:26-0400 Diastolic blood pressure 88 mm[Hg] Nash NICHOLS [facility] 06-10-2023 12:26-0400 Heart rate 87 /min Nash NICHOLS [facility] 06-10-2023 12:26-0400 Respiratory rate 16 /min Nash NICHOLS [facility] 06-10-2023 12:26-0400 Systolic blood pressure 133 mm[Hg] Nash NICHOLS [facility] 12-28-2022 13:05-0400 Blood Pressure Location Jr N[facility] 12-28-2022 13:05-0400 Diastolic blood pressure 66 mm[Hg] [facility] 12-28-2022 13:05-0400 Heart rate 72 /min Jr [facility] 12-28-2022 13:05-0400 Respiratory rate 16 /min [facility] 12-28-2022 13:05-0400 Systolic blood pressure 120 mm[Hg] [facility] 04-27-2022 08:57-0500 Blood Pressure Location Nash NICHOLS [facility] 04-27-2022 08:57-0500 Diastolic blood pressure 86 mm[Hg] Nash NICHOLS [facility] 04-27-2022 08:57-0500 Heart rate 74 /min Nash NICHOLS [facility] 04-27-2022 08:57-0500 Respiratory rate 16 /min Nash NICHOLS [facility] 04-27-2022 08:57-0500 Systolic blood pressure 140 mm[Hg] Nash NICHOLS [facility] 06-13-2021 09:46-0400 Body height 157.5 cm Catracho Carlos VIRTUALIZATION ENGINEER.WILDLIFE CONSERVATION PROFESSOR Work Phone: [facility] 06-13-2021 09:46-0400 Body temperature 97.3 [degF] Catracho Carlos VIRTUALIZATION ENGINEER.WILDLIFE CONSERVATION PROFESSOR Work Phone: [facility] 06-13-2021 09:46-0400 Body weight 73.71 kg Catracho Carlos VIRTUALIZATION ENGINEER.WILDLIFE CONSERVATION PROFESSOR Work Phone: [facility] 06-13-2021 09:46-0400 Diastolic blood pressure 84 mm[Hg] Catracho Carlos VIRTUALIZATION ENGINEER.WILDLIFE CONSERVATION PROFESSOR Work Phone: [facility] 06-13-2021 09:46-0400 Heart rate 94 /min Catracho Carlos VIRTUALIZATION ENGINEER.WILDLIFE CONSERVATION PROFESSOR Work Phone: [facility] 06-13-2021 09:46-0400 SaO2% (BldA) [Mass fraction] 96 % Catracho Carlos VIRTUALIZATION ENGINEER.WILDLIFE CONSERVATION PROFESSOR Work Phone: [facility] 06-13-2021 09:46-0400 Systolic blood pressure 138 mm[Hg] Catracho Carlos VIRTUALIZATION ENGINEER.WILDLIFE CONSERVATION PROFESSOR Work Phone: [facility] Encounters Encounter Date Encounter Type Care Provider Facility Start: 06-21-2025 ambulatory Nash Sanches ty:JOSE M Randhawa Start: 09-07-2024 End: 09-07-2024 Clinical Support Al Prasad DO Work Phone: [facility] Comment on above: Macular Degeneration ; Retinal Injection Start: 09-07-2024 End: 09-07-2024 Bamboo flowsheet Al Prasad DO Work Phone: [facility] Start: 09-07-2024 End: 09-07-2024 Bamboo flowsheet Al Prasad DO Work Phone: [facility] Start: 08-27-2024 End: 08-27-2024 Bamboo flowsheet Zoila HERRERA Work Phone: [facility] Start: 08-27-2024 End: 08-27-2024 Bamboo flowsheet Zoila HERRERA Work Phone: [facility] Start: 08-27-2024 End: 08-27-2024 Office outpatient visit 15 minutes Zoila HERRERA Work Phone: [facility] Comment on above: Follow-up encounter involving medication; Vaginal irritation from pessary; Breast cancer screening by mammogram Start: 08-27-2024 End: 08-27-2024 ambulatory ZOILA MAYS Not Available Start: 07-30-2024 End: 07-30-2024 Bamboo flowsheet Zoila HERRERA Work Phone: [facility] Start: 07-30-2024 End: 07-30-2024 Bamboo flowsheet Zoila HERRERA Work Phone: [facility] Start: 07-30-2024 End: 07-30-2024 ambulatory ZOILA MAYS Not Available Start: 07-30-2024 End: 07-30-2024 Patient encounter procedure Zoila HERRERA Work Phone: [facility] Start: 07-30-2024 End: 07-30-2024 Periodic preventive med est patient 65yrs& older Zoila HERRERA Work Phone: [facility] Comment on above: Vaginal irritation f rom pessary (HCC) ([facility]) (Primary Dx); Well woman exam with routine gynecological exam; Postmenopausal state Start: 07-01-2024 End: 07-01-2024 ambulatory AL PRASAD Not Available Start: 07-01-2024 End: 07-01-2024 Follow-up encounter Al Prasad DO Work Phone: [facility] Comment on above: Follow-up Start: 07-01-2024 End: 07-01-2024 Bamboo flowsheet Al Prasad DO Work Phone: [facility] Start: 07-01-2024 End: 07-01-2024 Bamboo flowsheet Al Prasad DO Work Phone: [facility] Start: 06-15-2024 End: 06-15-2024 ambulatory Nash NICHOLS Facility:[facility] Start: 04-22-2024 End: 04-22-2024 Follow-up encounter Al [...] Start: 10-23-2023 End: 10-23-2023 Bamboo flowsheet Al Prasad DO Work Phone: [facility] Start: 10-23-2023 End: 10-23-2023 Bamboo flowsheet Al Prasad DO Work Phone: [facility] Start: 06-10-2023 End: 06-10-2023 Patient encounter procedure Nash NICHOLS [facility] Start: 04-08-2023 End: 04-08-2023 Patient encounter procedure Al Prasad DO Work Phone: [facility] Comment on above: 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) (Primary Dx) Start: 04-08-2023 Bamboo flowsheet Al urbina DO Work Phone: [facility] Start: 04-08-2023 Bamboo flowsheet Al urbina DO Work Phone: [facility] Start: 02-06-2023 End: 02-06-2023 Patient encounter procedure Jr BAKER General Surgery Nill/Said Sydnee Start: 12-28-2022 End: 12-28-2022 Patient encounter procedure Jr Engel OLIVIA General Surgery Nill/Said Sydnee Start: 06-12-2022 End: 06-13-[address] CHRIS LAYNE Facility:[facility] Start: 04-30-2022 End: 04-30-2022 Lab Drop off Nash NICHOLS [facility] Start: 04-30-2022 End: 04-30-2022 Patient encounter procedure Nash NICHOLS [facility] Start: 04-27-2022 End: 04-27-2022 Patient encounter procedure Nash NICHOLS [facility] Start: 04-05-2022 End: 04-06-[address] [...] 09-12-2021 Telemedicine consultation with patient Catracho Gonzalez JING.NEW Work Phone: [facility] Start: 09-08-2021 Chart abstracting Catracho Joejovanny quita WILDER Work Phone: Colorectal Surgery Start: 08-08-2021 End: 08-09-[address] FRANCES ROBLES . Facility: Start: 06-13-2021 End: 06-13-2021 ambulatory Lorie Romero APRN.CNP Work Phone: Colorectal Surgery Comment on above: Manometry Start: 06-13-2021 End: 06-13-2021 Patient encounter procedure Lorie Romero APRN.NEW Work Phone: [facility] Comment on above: Pelvic floor dysfunc tion in female (Primary Dx) Procedures Date Procedure Procedure Detail Performing Clinician Start: 09-07-2024 Intravitreal njx pharmacologic agt spx Al Prasda DO Work Phone: Start: 09-07-2024 Computerized ophthal mark imaging retina Al Prasad DO Work Phone: Start: 07-01-2024 Intravitreal njx pharmacologic agt spx [...] Phone: Start: 01-23-2023 Excision of cyst Justinae l OLIVIA Comment on above: left preauricular Start: 06-13-2021 ADULT [place] ANORECTAL MANOMETRY Lorie Romero APRN.WILDLIFE CONSERVATION PROFESSOR Work Phone: Start: 10-11-2010 Cystoscopy Nash HDZ Start: 03-04-2009 anal sphincteroplasty P isis NICHOLS Start: 03-04-2009 mid transobturator mid-urethral sling Nash NICHOLS Start: 03-04-2009 Repair of rectocele Saumya NICHOLS Start: 03-04-2009 Sacrospinous hysteropexy Nash NICHOLS Start: 03-04-2009 Transvaginal Sacrosp inous rectopexy Nash NICHOLS D and C Nash NICHOLS Dilation and curettage Dann BAKER Plan of Treatment Date Care Activity Detail Author Start: 10-18-2025 End: 10-18-2025 Patient encounter procedure 10/18/2025 9:00 AM EDT Office Visit [facility] [address] [place] [phone] Zoila Mays, PA [address] [place], [place] [phone] [facility] Start: 10-26-2024 Influenza vaccination Influenza Vacc ine (#1) [facility] Start: 09-07-2024 End: 09-07-2024 Clinical Support [facility] Comment on above: Arrived Start: 08-27-2024 End: 10-28-2025 MG Breast - bilateral Screening Bilateral screening mammogram Imaging Routine Breast cancer screening by mammogram Expected: 08/27/2024 (Approximate), Expires: 10/28/2025 [facility] Work Phone: Comment on above: Expected: 08/27/2024 (Approximate), Expires: 10/28/2025 Start: 08-27-2024 End: 08-27-2024 Patient encounter procedure [facility] Comment on above: Arrived Start: 07-30-2024 End: 07-30-2025 DXA Skeletal system Views for bone density DEXA bone density Imaging Routine Postmenopausal state Expected: 07/30/2024 (Approximate), Expires: 07/30/2025 [facility] Work Phone: Comment on above: Expected: 07/30/2024 (Approximate), Expires: 07/30/2025 Start: 07-30-2024 End: 07-30-2024 Patient encounter procedure 07/30/2024 11:00 AM EDT Office Visit [facility] [address] [place] [phone] Zoila Mays, PA [address] [place], [place] [id number] [facility] Start: 04-22-2024 End: 04-22-2024 Clinical Support 04/22/2024 3:15 PM EST Clinical Support [facility] [address] [facility] [address] [place] [id number] Zahler, Al D, DO [address] [place] [address] Arrived [facility] JEAN [facility] Comment on above: Arrived Start: 02-12-2024 End: 02-12-2024 Clinical Support 02/12/2024 3:15 PM EST Clinical Support [facility] [address] [place] [address] Al Prasad DO [address] [place] [address] Arrived [facility] TED [facility] Comment on above: Arrived Start: 12-18-2023 End: 12-18-2023 Clinical Support 12/18/2023 3:15 PM EDT Clinical Support [facility] [address] [place] [address] Al Prasad DO [address] [place] [address] Arrived [facility] Comment on above: Arrived Start: 10-27-2023 Influenza vaccination Influenza Vacc ine (#1) [facility] Start: 04-08-2023 End: 04-08-2023 Patient encounter procedure 04/08/2023 2:45 PM EST Procedure Visit [facility] [address] [place] [address] Al Prasad DO [address] [place] [address] Arrived [facility]OM TED OPHT Comment on above: Arrived Start: 10-26-2021 Influenza vaccination INFLUENZA (#1) [facility] Start: 04-01-2021 COVID-19 VACCINE (4 - Booster for Pfizer series) COVID-19 VACCINE (4 - Booster for Pfizer series) [facility] Start: 02-25-2021 ADVANCE DIRECTIVE DISCUSSION ADVANCE DIRECTIVE DISCUSSION [facility] Start: 03-06-2012 DIABETES SCREEN DIABETES SCREEN [facility] Start: 2006 BONE DENSITY BONE DENSITY [facility] Start: 2006 PNEUMOCOCCAL: 65+ (1 - PCV) PNEUMOCOCCAL: 65+ (1 - PCV) [facility] Start: 2006 PNEUMOVAX AGE 65 AND OVER WITH 5YR LOOKBACK (#1) PNEUMOVAX AGE 65 AND OVER WITH 5YR LOOKBACK (#1) [facility] Start: 11-25-1991 SHINGRIX VACCINE (1 of 2) SHINGRIX VACCINE (1 of 2) [facility] Start: 1960 Urine microalbumin profile DTAP,TDAP,TD (1 - Tdap) [facility] Start: 1953 Adult depression screening assessment DEPRESSION SCREENING [facility] THIN PREP TIS PAP AN D HR HPV DNA THIN PREP TIS PAP AND HR HPV DNA Pathology and Cytology Routine Well woman exam with routine gynecological exam Ordered: 07/30/2024 [facility] Comment on above: Ordered: 07/30/[address] [facility] Immun[facility] Immunization Date Immunization Notes Care Provider [facility] 12-11-2023 influenza virus vacc ine, unspecified formulation Al Prasad DO Work Phone: [facility] 11-28-2022 influenza virus vacc ine, unspecified formulation Jr BAKER [facility] [place] 12-12-2021 influenza virus vacc ine, unspecified formulation Nash NICHOLS [facility] 12-12-2021 SARS-CoV-2 (COVID-19 ) [id number] Nash NICHOLS [facility] 08-17-2021 SARS-CoV-2 mRNA ([id number] e) vaccine Nash NICHOLS [facility] 11-29-2020 influenza virus vacc ine, unspecified formulation Nash NICHOLS [facility] 11-29-2020 SARS-CoV-2 (COVID-19 ) mRNA BNT-162b2 vax Jr NARVAEZL [facility] [place] 04-14-2020 SARS-CoV-2 (COVID-19 ) mRNA BNT-162b2 vax Jr NILL [facility] [place] 03-24-2020 SARS-CoV-2 (COVID-19 ) mRNA BNT-162b2 vax Jr BRICEL [facility] [place] 02-26-2020 SARS-CoV-2 (COVID-19 ) mRNA BNT-162b2 vax Nash NICHOLS [facility] Comment on above: Result Comment: pt h as had 3 shots 10-27-2019 pneumococcal polysaccharide vaccine, 23 valent Nash NICHOLS [facility] 12-16-2018 zoster vaccine recombinant Nash NICHOLS [facility] 10-08-2018 pneumococcal conjuga te vaccine, 13 valent [facility] [facility] 10-08-2018 zoster vaccine recombinant Nash NICHOLS [facility] Payers Date Payer Category Payer Private Health Insurance WPS [facility] [place] [id number] 2022 Unknown WPS WPS [id number] 2022-Present [address] [address] [place] [id number] 2019 Unknown MMO MMO MEDICARE SUPPLEMENT [id number] 2019-Present [phone] [address] [place] [address] Indemnity [id number] 2006 Medicare MEDICARE MEDICAR E A AND B [id number] 2006-Present [phone] [place] [address] Medicare [id number] 2006 Medicare [id number] [id number]. [id number] 2006 Medicare [id number] 1959 Medicare [id number] 1959 Self-pay [id number] 1959 Unknown [id number] 1959 Unknown [id number] 1941 Unknown [id number] 2.16.840.1.159179.3.579.2. 593 1941 Unknown [id number] 2.16.840.1.466044.3.579.2. 593 1941 Unknown [id number] 2.16.840.1.757725.3.579.2. 593 1941 Unknown [id number] 2.16.840.1.384263.3.579.2. 593 1941 Unknown [id number] 2.16.840.1.048442.3.579.2. 593 1941 Unknown [id number] 2.16.840.1.304748.3.579.2. 593 1941 Unknown [id number] 2.16.840.1.705321.3.579.2. 593 1941 Unknown [id number] 2.16.840.1.378368.3.579.2. 593 1941 Unknown [id number] 2.16.840.1.644886.3.579.2. 593 1941 Unknown [id number] 2.16.840.1.898253.3.579.2. 593 1941 Unknown [id number] 2.16.840.1.872656.3.579.2. 727 1941 Unknown [id number] 2.16.840.1.377817.3.579.2. 727 1941 Unknown [id number] 2.16.840.1.705657.3.579.2. 1259 1941 Unknown [id number] 2.16.840.1.724520.3.579.2. 1259 1941 Unknown [id number] 2.16.840.1.044641.3.579.2. 1259 1941 Unknown [id number] 2.16.840.1.653814.3.579.2. 1259 1941 Unknown [id number] 2.16.840.1.293975.3.579.2. 1259 1941 Unknown [id number] 2.16.840.1.315157.3.579.2. 1259 1941 Unknown [id number] 2.16.840.1.093412.3.579.2. 1259 1941 Unknown [id number] 2.16.840.1.688712.3.579.2. 1259 Social History Date Type Detail Facility Start: 04-27-2022 End: 09-12-2022 Tobacco smoking status [facility] Never smoked tobacco [facility] Start: 06-13-2021 Alcohol intake Lifetime non-d gregg (finding) [facility] Start: 06-13-2021 History SDOH Alcohol Frequency 1 [facility] Start: 1940 Sex Assigned At Female C [facility] Start: 06-03-2021 End: 06-13-2021 Exposure to SARS-CoV-2 (event) Not sure [facility] Tobacco smoking status Never [facility] Start: 10-23-2023 End: 07-01-2024 Sex Assigned At Female [facility] Start: 09-12-2022 Tobacco use and exposure Smokeless tobacco non-user [facility] Start: 1940 Sex Assigned At Not on file [facility] Start: 10-23-2023 End: 07-01-2024 History of Social function [facility] NEGATED: Highlighted rowStart: NINF History of tobacco use Passive smoker [facility] Medical Equipment Procedure Code Equipment Code Equipment Origin al Text Equipment Identifier Dates Zsj-Vh-X-Kind Implant - [id number] Start: 03-04-2009 Comment on above: Description: Surgisi s Biodesign 4 layer tissue graft Device Tvt W/ Obturator - [id number] Start: 03-04-2009 Functional Status Date Assessment Result Facility 06-10-2023 Functional Status N/A [facility] 12-28-2022 Functional Status N/A [facility] 04-27-2022 Functional Status N/A [facility] Clinical Notes 06-13-2021 to 09-07-2024 Al Prasad, - 09/07/2024 3:00 PM JAVIER Ortiz - 08/27/2024 9:10 AM JAVIER Ortiz - 07/30/2024 11:00 AM Abilio Prasad, - 07/01/2024 2:30 PM EDTPatient Instructions Note Date & Type Note Facility 09-07-2024 Note Time Out 09/07/2024. 3:34 PM. Confirmed correct patient, procedure, site, and patient consented. Anesthesia Topical anesthesia was used. Anesthetic medications included Lidocaine 2%, Proparacaine 0.5%. Procedure Preparation included 5% betadine to ocular surface, eyelid speculum. Injection: 2 mg aflibercept 2 MG/0.05ML Route: Intravitreal, Site: Left Eye [facility]: 52627-311-04, Lot: [id number], Expiration date: 11/25/2025, Waste: 0 mL Post-op Post injection exam [...] increased pain, redness, decreased vision or concerns. [facility] 09-07-2024 Note Right Eye Quality was good. Scan locations included subfoveal. Progression has been stable. Findings include abnormal foveal contour. Left Eye Quality was good. Scan locations included subfoveal. Progression has been stable. Findings include abnormal foveal contour. 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 09-07-2024 History of Present illness Narrative Images from the original note were not included. Assessment/Plan Diagnoses and all orders for this visit: Exudative age-related macular degeneration of left eye with active choroidal neovascularization (HCC) - OCT, Retina - OU - Both [...] been stable. Findings include abnormal foveal contour. 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 3:34 PM. Confirmed correct patient, procedure, site, and patient consented. Anesthesia Topical anesthesia was used. Anesthetic medications included Lidocaine 2%, Proparacaine 0.5%. Procedure Preparation included 5% betadine to ocular surface, eyelid speculum. Injection: 2 mg aflibercept 2 MG/0.05ML Route: Intravitreal, Site: Left Eye [facility]: 77237-327-69, Lot: [id number], Expiration date: 11/25/2025, Waste: 0 mL Post-op Post injection exam [...] vision or concerns. documented in this encounter [facility] 08-27-2024 History of Present illness Narrative Reason for Appointment: Patient ID: Josiane Loaiza is a 83 y.o. female who presents for Follow-up (Pt present today for a follow up Pessary cream. (Kenalog 0.1%)) Patient presents today for a follow up medication visit from vaginal irritation. MEDICATIONS Current Outpatient Medications Medication Instructions Calcium [...] Daily RT rosuvastatin (CRESTOR) 20 mg, Daily triamcinolone (Kenalog) 0.1 % cream Topical, 2 times daily, Apply bid for one week followed by once weekly ALLERGIES Allergies Allergen Reactions Cephalexin Diarrhea and GI intolerance Other Reaction(s): Vomiting Meloxicam GI intolerance Oxycodone-Acetaminophen Other Reaction(s): Intolerance Sulfamethoxazole Other Reaction(s): Hives Sulfanilamide Other Reaction(s): Hives Sulfa Antibiotics Hives PROBLEMS Active Ambulatory Problems Diagnosis Date Noted Exudative age-related macular degeneration of left eye with active choroidal neovascularization (HCC) 09/12/2022 Resolved Ambulatory Problems Diagnosis Date Noted [...] HISTORY Past Surgical History: Procedure Laterality Date HYSTEROSCOPY 2021 Dx hysteroscopy and D/C OTHER SURGICAL HISTORY Transvaginal Sacrospinous rectopexy with biologic graft OTHER SURGICAL HISTORY Sacrospinous Hysteropexy OTHER SURGICAL HISTORY Rectocele Repair REVIEW OF SYSTEMS Review of Systems: Review of Systems All other systems reviewed and are negative. OBJECTIVE Objective: Physical Exam Constitutional: Appearance: Normal appearance. Genitourinary: Right Adnexa: not tender and no mass [...] nursing note reviewed. 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 Vitals: There is no height or weight on file to calculate BMI. BP: 120/72 No LMP recorded. Patient is postmenopausal. ASSESSMENT & PLAN ICD-10-CM 1. Follow-up encounter involving medication Z79.899 2. Vaginal irritation from pessary T83.89XA N89.8 3. Breast cancer screening by mammogram Z12.31 Bilateral screening mammogram Bilateral screening mammogram Patient was seen today to follow up on the pessary cream Kenalog and vaginal irritation. Pt states she is doing well with the medication cream and no vaginal bleeding/irritation. Pt would like to be examined and have pessary cleaned at today's visit. Zoila Mays did a vaginal check and had the pessary removed/cleaned. No bleeding was visible and pessary was inserted back. Pt requested an order for a mammogram. Order was faxed to [facility] and hard copy given to patient. Documented by Tari Breen MA on behalf of: JAVIRE Cruz documented in this encounter [facility] 07-30-2024 History of Present illness Narrative Reason [...] left eye with active choroidal neovascularization (CMS/HCC) 09/12/2022 Resolved Ambulatory Problems Diagnosis Date Noted [...] nursing note reviewed. 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 Vitals: There is no height or [...] of: JAVIER Cruz documented in this encounter [facility] 07-01-2024 Note Time Out 07/01/2024. 3:32 PM. Confirmed correct patient, procedure, site, and patient consented. Anesthesia Topical anesthesia was used. Anesthetic medications included Lidocaine 2%, Proparacaine 0.5%. Procedure Preparation included 5% betadine to ocular surface, eyelid speculum. Injection: 2 mg aflibercept 2 MG/0.05ML Route: Intravitreal, Site: Left Eye [facility]: 34009-652-95, Lot: [id number], Expiration date: 11/25/2024, Waste: 0 mL Post-op [...] increased pain, redness, decreased vision or concerns. [facility] 07-01-2024 Note Right Eye Quality was good. Scan locations included subfoveal. Progression has been stable. Findings include abnormal foveal contour. Left Eye Quality was good. Scan locations included subfoveal. Progression has been stable. Findings include abnormal foveal contour. [facility] 07-01-2024 History of Present illness Narrative Images [...] 2 MG/0.05ML Route: Intravitreal, Site: Left Eye [facility]: 09611-808-51, Lot: [id number], Expiration date: 11/25/2024, Waste: 0 mL Post-op [...] vision or concerns. documented in this encounter [facility] 06-15-2024 Note Patient Education Obstetrics and Gynecology [...] provider. Document Revised: 06/22/2021 Document Reviewed: 06/22/2021 REVShare Patient Education ? 2023 [employer] [facility] 04-22-2024 Note Time Out 04/22/2024. 3:53 PM. Confirmed correct patient, procedure, site, and patient consented. Anesthesia Topical anesthesia was used. Anesthetic medications included Lidocaine 2%, Proparacaine 0.5%. Procedure Preparation included 5% betadine to ocular surface, eyelid speculum. Injection: 2 mg aflibercept 2 MG/0.05ML Route: Intravitreal, Site: Left Eye ND: 90456-316-64, Lot: [id number], Expiration date: 02/25/2025, Waste: 0 mL Post-op [...] increased pain, redness, decreased vision or concerns. [facility] 04-22-2024 Note Right Eye Quality was good. Scan locations included subfoveal. Progression has been stable. Findings include abnormal foveal contour, subretinal scarring. Left Eye Quality was good. Scan locations included subfoveal. Progression has been stable. Findings include abnormal foveal contour, subretinal scarring. 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 04-22-2024 History of Present illness Narrative Images [...] 2 MG/0.05ML Route: Intravitreal, Site: Left Eye [facility]: 43128-350-59, Lot: [id number], Expiration date: 02/25/2025, Waste: 0 mL Post-op [...] vision or concerns. documented in this encounter [facility] 02-12-2024 Note Time Out 02/12/2024. 4:08 PM. Confirmed correct patient, procedure, site, and patient consented. Anesthesia Topical anesthesia was used. Anesthetic medications included Lidocaine 2%, Proparacaine 0.5%. Procedure Preparation included 5% betadine to ocular surface, eyelid speculum. Injection: 2 mg aflibercept 2 MG/0.05ML Route: Intravitreal, Site: Left Eye [facility]: 80149-360-19, Lot: [id number], Expiration date: 05/26/2025, Waste: 0 mL Post-op [...] increased pain, redness, decreased vision or concerns. [facility] 02-12-2024 Note Right Eye Quality was good. Scan locations included subfoveal. Progression has been stable. Findings include abnormal foveal contour, subretinal scarring. Left Eye Quality was good. Scan locations included subfoveal. Progression has been stable. Findings include abnormal foveal contour, subretinal fluid, subretinal scarring. [facility] 02-12-2024 History of Present illness Narrative Images [...] MG/0.05ML Route: Intravitreal, Site: Left Eye ND: [id number], Lot: [id number], Expiration date: 05/26/2025, Waste: 0 mL Post-op [...] vision or concerns. documented in this encounter [facility] 12-18-2023 Note Time Out 12/18/2023. 4:02 PM. Confirmed correct patient, procedure, site, and patient consented. Anesthesia Topical anesthesia was used. Anesthetic medications included Lidocaine 2%, Proparacaine 0.5%. Procedure Preparation included 5% betadine to ocular surface, eyelid speculum. Injection: 1.25 mg bevacizumab 100 MG/4ML Route: Intravitreal, Site: Left Eye ND: [id number], Lot: [id number], Expiration date: 01/13/2024, Waste: 0 mL Post-op [...] increased pain, redness, decreased vision or concerns. [facility] 12-18-2023 Note Right Eye Quality was good. Scan locations included subfoveal. Progression has been stable. Findings include abnormal foveal contour. Left Eye Quality was good. Scan locations included subfoveal. Progression has been stable. Findings include subretinal fluid, subretinal scarring. [facility] 12-18-2023 History of Present illness Narrative Images [...] 100 MG/4ML Route: Intravitreal, Site: Left Eye [facility]: 98058-747-15, Lot: [id number], Expiration date: 01/13/2024, Waste: 0 mL Post-op [...] vision or concerns. documented in this encounter [facility] 10-23-2023 Note Time Out 10/23/2023. 3:27 PM. Confirmed correct patient, procedure, site, and patient consented. Anesthesia Topical anesthesia was used. Anesthetic medications included Lidocaine 2%, Proparacaine 0.5%. Procedure Preparation included 5% betadine to ocular surface, eyelid speculum. Injection: 1.25 mg bevacizumab 100 MG/4ML Route: Intravitreal, Site: Left Eye [facility]: 32041-386-00, Lot: [id number], Expiration date: 12/01/2023, Waste: 0 mL Post-op [...] increased pain, redness, decreased vision or concerns. [facility] 10-23-2023 Note Right Eye Quality was good. Scan locations included subfoveal. Progression has been stable. Findings include abnormal foveal contour, subretinal scarring. Left Eye Quality was good. Scan locations included subfoveal. Progression has been stable. Findings include abnormal foveal contour, subretinal scarring. [facility] 10-23-2023 History of Present illness Narrative Images from the original note were not included. Assessment/Plan Diagnoses and all orders for this visit: Exudative age-related macular degeneration of left eye with active choroidal neovascularization (HCC) ([facility]/HCC) - OCT, Retina - OU [...] 100 MG/4ML Route: Intravitreal, Site: Left Eye [facility]: 56949-043-44, Lot: [id number], Expiration date: 12/01/2023, Waste: 0 mL Post-op [...] vision or concerns. documented in this encounter [facility] 06-10-2023 Hospital Discharge instructions Patient Education 06/10/2023 [...] provider. Document Revised: 06/22/2021 Document Reviewed: 06/22/2021 REVShare Patient Education 2022 [employer] Follow Up Care 04/27/2022 09:49:37 With:JARED PARKINSON, Nash Engel, URL Address: [facility] [address] , [place] [address]- [phone] When: Unknown [facility] [place] 04-08-2023 Note Time Out 04/08/2023. 3:54 PM. Confirmed correct patient, procedure, site, and patient consented. Anesthesia Topical anesthesia was used. Anesthetic medications included Lidocaine 2%, Proparacaine 0.5%. Procedure Preparation included 5% betadine to ocular surface, eyelid speculum. Injection: 1.25 mg bevacizumab 100 MG/4ML Route: Intravitreal, Site: Left Eye ND: 78585-903-82, Lot: [id number], Expiration date: 05/15/2023, Waste: 0 mL Post-op [...] increased pain, redness, decreased vision or concerns. [facility] 04-08-2023 Note Right Eye Quality was good. Scan locations included subfoveal. Progression has been stable. Findings include abnormal foveal contour. Left Eye Quality was good. Scan locations included subfoveal. Progression has been stable. Findings include abnormal foveal contour, disciform scar. [facility] 04-08-2023 History of Present illness Narrative Images from the original note were not included. Assessment/Plan Diagnoses and all orders for this visit: Exudative age-related macular degeneration of left eye with active choroidal neovascularization (HCC) ([facility]/HCC) - OCT, Retina - OU [...] 100 MG/4ML Route: Intravitreal, Site: Left Eye [facility]: 82146-921-24, Lot: [id number], Expiration date: 05/15/2023, Waste: 0 mL Post-op [...] vision or concerns. documented in this encounter [facility] 04-27-2022 Hospital Discharge instructions Patient Education 04/27/2022 [...] to keep your urine pale yellow. ?Take fcqb-sro-gsifxvv or prescription medicines. ?Eat foods that are high in fiber, such as beans, whole grains, and fresh fruits and vegetables. ?Limit foods that are high in fat and processed sugars, such as fried or sweet foods. General instructions Take jnbi-ewi-hwxefej and prescription medicines only as told by [...] the muscles that help control urination. Take ihhz-pwp-dydprpz and prescription medicines only as told by your health care provider. Contact a health care provider if your symptoms do not improve or get worse. This information is not intended to replace advice given to you by your health care provider. Make sure you discuss any questions you have with your health care provider. Document Released: 12/08/2009 Document Revised: 08/21/2018 Document Reviewed: 08/21/2018 REVShare Patient Education 2020 [employer] Follow Up Care 04/24/2021 10:45:00 With:JARED PARKINSON, Nash Engel, URL Address: [address] [place], [place] [address]- When: Unknown [facility] [place] 09-12-2021 Note HNO ID: [id number] Author: Catracho Gonzalez APRN.WILDLIFE CONSERVATION PROFESSOR Service: ? Author Type: Nurse Practitioner Type: [...] which included preparing to see the patient, aaxn-jq-isox patient care, completing clinical documentation, obtaining and/or reviewing separately obtained history, performing a medically appropriate examination, counseling and educating the patient/family/caregiver and communicating results to the patient/family/caregiver. [facility] 09-12-2021 Instructions Catracho Gonzalez APRN.[facility] - 09/12/2021 8:21 AM EDT Continue home PFPT exercises Continue bowel regimen, can adjust imodium dose as needed Follow up with [facility] pelvic floor as needed; [phone] Your total daily fiber intake should be 25-35g CEREAL FIBER (GMS) Kelloggs All Bran w/Extra Fiber 15 General Gibson Fiber One 12 Kelloggs All Bran 9 Nabisco 100% Bran 8 Jesus Alberto's All Bran Fruit and Almonds 6 Jesus Alberto's Bran and Oats 6 Sikhism [place] Bran 5 Smyer Bran Chex 5 Robin High Fiber Hot Cereal 5 Godfrey's and Post Raisin Bran 4 Nabisco Shredded Wheat and bran 4 Post Fruit and Fiber 4 Wheatbix 4 Sikhism Oats 2 FIBER FILLED FRUITS FIBER (GMS) Blackberries (1/2 cup) 4 Pears w/ skin (1 medium) 4 Apple w/ skin (1 medium) 4 Prunes 4 Honeydew (1 medium) 3 Amelia (1 medium) 3 Raisins (1/4 cup) 3 Raspberries (1/2 cup) 3 Strawberries (1 cup) 3 Apricots (3 medium) 2 Banana 2 Blueberries (1/2 cup) 2 Dates (3) 2 Rosebud w/ skin (1 medium) 2 GREENS AND [place] (1/2 cup) FIBER (GMS) Baked beans w/tomato sauce 9 Kidney Beans 7 Gan and Valdez Beans 5 Small Peas 5 Lentils 5 Peas 4 [place] (canned) 3 Potato w/ Skin (medium) 3 Sweet Potato (medium) 3 Broccoli 2 Brussel Sprouts 2 Carrots 2 Spinach 2 Zucchini 2 BEST BREAD AND PASTA FIBER (GMS) Natures Own Double Fiber Bread (1 slice) 5 Whole Wheat Spaghetti (1 cup cooked) 4 Bran Muffin (1) 3 Buckwheat Muffin (1) 3 Whole Wheat Bread (2 slices) 3 Whole Wheat Divehi Muffin (1) 3 Whole Wheat Pancakes (2) 3 Whole Wheat Dinner Roll (1) 2 Brown Rice (1/2 cup cooked) 1 LOW CALORIE SNACKS FIBER (GMS) Apple w/ Skin 4 Pineapple (1 cup) 2 Popcorn (3 cups unbuttered) 2 Figs (3) 2 Pear w/ Skin 2 Whole Wheat East Side (1 slice) 2 Strawberries Fresh 3 Rosebud w/ Skin 2 Raspberries (1/2 cup) 3 Celery (3 stalks) 1 DELICIOUS AND NUTRITIOUS DESERTS FIBER (GMS) Baked Apple 6 Blackberry Pie (1 slice) 6 Fruit Compote 4 Pineapple Whole (1/4 fresh) 3 Keystone Rhubarb Pie (1 slice) 3 Whole Wheat Banana Nut Bread 3 Brown Rice Pudding (1/2 cup) 2 Fruit Kebab 2 Whole Wheat Oatmeal Cookie 2 documented in this encounter [facility] 09-12-2021 History of Present illness Narrative COLORECTAL [...] which included preparing to see the patient, enfb-qa-rfdw patient care, completing clinical documentation, obtaining and/or reviewing separately obtained history, performing a medically appropriate examination, counseling and educating the patient/family/caregiver and communicating results to the patient/family/caregiver. documented in this encounter [facility] 09-08-2021 Note HNO ID: [id number] Author: Catracho Gonzalez APRN.CNP Service: ? Author [...] virtually to discuss next steps. MEÑO Arizmendi [facility] 09-08-2021 History of Present illness Narrative [...] Gonzalez APRN.CNP [facility] documented in this encounter [facility] 06-13-2021 History and physical note COLORECTAL SURGERY [...] the past for FI and ARM testing ([id number]). 02/01/2012 ARM: IMPRESSION: Normal resting and low squeeze pressures. Normal volume studies. Normal nerve studies. Today she reports: -recently saw MELTER HELPER and was encouraged to stop taking Metamucil [...] closed Resting tone: WEAK Squeeze tone: WEAK Cooperative Education Coordinator present: Yes, Tila Samuels Anoscopy: The patient [...] of SNS and she was given the [employer] SNS brochure. Data Reviewed: Tests & Documents [...] in 3 months via VV Catracho Gonzalez APRN.NEW Colorectal Surgery Risk of morbidity, mortality and/or complications of treatment plan: moderate documented in this encounter [facility] 06-13-2021 Instructions Catracho Gonzalez APRN.NEW - 06/13/2021 10:30 AM EDT -begin taking 1 tablet imodium at bedtime and 30 min before exercise -schedule pelvic floor PT -fill out bowel diary for 2 weeks, email To ATTN Catracho Gonzalez CNP -follow up in 3 months documented in this encounter [facility] Evaluation + Plan note Future Appointments Appointment Date:05/03/2023 08:15:00 AM Scheduled Provider:Nash NICHOLS MD Location:[facility] [place] Appointment Type:URO Office Visit [facility] Evaluation + Plan note Future Appointments Appointment Date:05/03/2023 08:15:00 AM Scheduled Provider:Nash NICHOLS MD Location:[facility] [place] Appointment Type:URO Office Visit Diagnostic Tests PendingUrine Culture 04/30/22 [facility] Evaluation + Plan note Future Appointments Appointment Date:06/15/2024 09:15:00 AM Scheduled Provider:Nash NICHOLS MD Location:[facility] [place] Appointment Type:URO Office Visit [facility] Evaluation note Diagnosis Incontinence of feces, unspecified fecal incontinence type- [facility] Diagnosis Pelvic floor dysfunction in female- [facility] Diagnosis Full incontinence of feces- [facility] Diagnosis Exudative age-related macular degeneration of left eye with active choroidal neovascularization (HCC) (CMS/HCC)- Primary documented in this encounter [facility]* Diagnosis Exudative age-related macular degeneration of left eye with active choroidal neovascularization (CMS/HCC)- Primary documented in this encounter [facility]* Diagnosis Exudative age-related macular degeneration of left eye with active choroidal neovascularization (HCC) (CMS/HCC) documented in this encounter [facility]* Diagnosis Exudative age-related macular degeneration of left eye with active choroidal neovascularization (CMS/HCC) documented in this encounter [facility]* Diagnosis Exudative age-related macular degeneration of left eye with active choroidal neovascularization (CMS/HCC)- Primary documented in this encounter [facility]* Diagnosis Exudative age-related macular degeneration of left eye with active choroidal neovascularization (CMS/HCC)- Primary documented in this encounter [facility]* Diagnosis Vaginal irritation from pessary (HCC) (CMS/HCC)- Primary Well woman exam with routine gynecological exam Routine gynecological examination Postmenopausal state Asymptomatic postmenopausal status (age-related) (natural) documented in this encounter [facility]* Diagnosis Follow-up encounter involving medication Vaginal irritation from pessary Breast cancer screening by mammogram documented in this encounter [facility]* Diagnosis Exudative age-related macular degeneration of left eye with active choroidal neovascularization (HCC)- Primary documented in this encounter [facility] course Narrative No data available for this section [facility] Hospital Discharge instructions No data available for this section [facility] progress note No data available for this section [facility] reason for referral (narrative)* Outpatient Procedure (Routine) - Pending Review Specialty Diagnoses / Procedures Referred By Laura osman Referred To Contact [facility] Diagnoses Incontinence of feces, unspecified fecal incontinence type Procedures ADULT [place] ANORECTAL MANOMETRY ANORECTAL MANOMETRY Lorie Romero APRN.CNP [address] [place] [address] [facility] [place] [address] [place] [address] Referral ID Status Reason Start Date Expiration Date Visits Requested Visits Authorized [id number] Pending Review Auto-Generat ed Referral 06/13/2021 06/13/2022 1 1 [facility] Summary Purpose Family History No Family History Records FoundNo Family History Records FoundNo Family History Records Found No data available for this section No data available for this section No data available for this section No Family History Records FoundNo Family History Records Found Advance Directives No Advanced Directives Records FoundDocuments on File Type Date Recorded Patient Chopper Operator Expl anation Advance Directive(s) 03/07/2009 11:13 AM Documents on File Type Date Recorded Patient Chopper Operator Expl anation Advance Directive(s) 03/07/2009 11:13 AM Reason for Referral Specialty Diagnoses / Procedures Referred By Contac t Referred To Contact [facility] Diagnoses Pelvic floor dysfunction in female Procedures CONSULT TO PHYSICAL THERAPY PHYSICAL THERAPY EVALUATION HIGH COMPLEX 45 MINS Catracho Gonzalez, JING.WILDLIFE CONSERVATION PROFESSOR [address] [place] [address] [facility] [place] [address] [place] [address] Referral ID Status Reason Start Date Expiration Date Visits Requested Visits Authorized [id number] Pending Review PCP Requested Referral Auto-Generate d Referral 06/13/2021 06/13/2022 99 99 Additional Source Comments INFORMATION SOURCE (unrecogn ized section and content) DATE CREATED AUTHOR 08/30/2020 [facility] DATE CREATED AUTHOR AUTHOR'S ORGANIZ ATION 09/14/2021 [facility] DATE CREATED AUTHOR AUTHOR'S ORGANIZ ATION 06/17/2022 [facility] DATE CREATED AUTHOR AUTHOR'S ORGANIZ ATION 06/16/2024 [facility] DATE CREATED AUTHOR AUTHOR'S ORGANIZ ATION 09/11/2024 [facility] EPIC Source Comments (unrecognize d section and content) In the event this informatio n is protected by the Federal Confidentiality of Alcohol and Drug Abuse Patient Records regulations: The Federal rules restrict any use of the information to criminally investigate or prosecute any alcohol or drug abuse patient.[facility] Healthcare[facility] the event this information is protected by the Federal Confidentiality of Alcohol and Drug Abuse Patient Records regulations: The Federal rules restrict any use of the information to criminally investigate or prosecute any alcohol or drug abuse patient.[facility] HealthcareIn the event this information is protected by the Federal Confidentiality of Alcohol and Drug Abuse Patient Records regulations: The Federal rules restrict any use of the information to criminally investigate or prosecute any alcohol or drug abuse patient.[facility] HealthcareIn the event this information is protected by the Federal Confidentiality of Alcohol and Drug Abuse Patient Records regulations: The Federal rules restrict any use of the information to criminally investigate or prosecute any alcohol or drug abuse patient.[facility] Reason for Visit (unrecogniz ed section and content) Reason Comments Manometry Reason Comments Fecal Incontinence Reason Comments Fecal Incontinence Reason Comments Retinal Injection Reason Comments Retinal Injection Macular Degeneration Reason Comments Follow-up Retinal Injection Reason Comments Follow-up Reason Comments Well Women Visit Reason Comments Follow-up Pt present today for a follow up Pessary cream. (Kenalog 0.1%) Reason Comments Macular Degeneration Retinal Injection Care Teams (unrecognized sec tion and content) Regional Facilities Manager Relationship Specialty Start Date End Date Frances Robles MD PCP - General 09/13/08 Regional Facilities Manager Relationship Specialty Start Date End Date Frances Robles MD PCP - General 09/13/08 Regional Facilities Manager Relationship Specialty Start Date End Date Frances Robles MD PCP - General 09/13/08 Regional Facilities Manager Relationship Specialty Start Date End Date Frances Robles MD PCP - General 09/13/08 Regional Facilities Manager Relationship Specialty Start Date End Date Frances Robles MD [address] [place] [facility] [address] PCP - General Family Medicine 11/14/22 Regional Facilities Manager Relationship Specialty Start Date End Date Frances Robles MD [address] [place] [facility] [address] PCP - General Family Medicine 11/14/22 Regional Facilities Manager Relationship Specialty Start Date End Date Frances Robles MD [address] [place] [facility] [address] PCP - General Family Medicine 11/14/22 Regional Facilities Manager Relationship Specialty Start Date End Date Frances Robles MD [address] [place] [facility] [address] PCP - General Family Medicine 11/14/22 Regional Facilities Manager Relationship Specialty Start Date End Date Frances Robles MD [address] [place] [facility] [address] PCP - General Family Medicine 11/14/22 Regional Facilities Manager Relationship Specialty Start Date End Date Frances Robles MD [address] [place] [facility] [address] PCP - General Family Medicine 11/14/22 Regional Facilities Manager Relationship Specialty Start Date End Date Frances Robles MD PCP - General Family Medicine 11/14/22 Regional Facilities Manager Relationship Specialty Start Date End Date Frances Robles MD PCP - General Family Medicine 11/14/22 Regional Facilities Manager Relationship Specialty Start Date End Date Frances Robles MD [address] [place] [facility] [address] PCP - General Family Medicine 11/14/22 Regional Facilities Manager Relationship Specialty Start Date End Date Frances Robles MD [address] [place] [facility] [address] PCP - General Family Medicine 11/14/22 Regional Facilities Manager Relationship Specialty Start Date End Date Frances Robles MD [address] [place] [address] PCP - General Family Medicine 11/14/22 Regional Facilities Manager Relationship Specialty Start Date End Date Frances Robles MD [address] [place] [address] PCP - General Family Medicine 11/14/22 Regional Facilities Manager Relationship Specialty Start Date End Date Frances Robles MD [address] [place] [address] PCP - General Family Medicine 11/14/22 FOR [...] ON THE PRIMARY CLINICAL RECORDS. [facility] [place] [facility]. provides no warranty or guarantee of the accuracy or completeness of information in this document.
== END 2024-10-20 11:31 | disposition home or self-care (01) ==
LOC: MAMMO 11:30
PROVIDERS: PCP Family Medicine; Visit Provider Family Medicine
DX: Z12.31 Encounter for screening mammogram for malignant neoplasm of breast (principal); Z80.0 Family history of malignant neoplasm of digestive organs; Z80.8 Family history of malignant neoplasm of other organs or systems
CPT/HCPCS: 77063; 77067